=== PATIENT | male | born 1945 | race Caucasian/White ===

== ENCOUNTER → 2018-06-23 16:50 | Outpatient (CLI) | payer MEDICARE, SELFPAY ==
[2016-11-15 20:06] VITALS: BMI 44.4
--- NOTE | 2018-06-23 16:56 | RAD_ITS ---
STUDY: X-RAY CHEST REASON FOR EXAM: Male, 72 years old. Cough TECHNIQUE: Frontal and lateral views of the chest were obtained. COMPARISON: May 13, 2017 FINDINGS: Lines and tubes: None. Lungs: Hyperinflated. Increased interstitial markings throughout the lungs without focal airspace opacities. Pleura: No demonstrated abnormality. Mediastinum/simona: Unremarkable. Cardiovascular: Normal size cardiac silhouette. Central vascularity unremarkable. Tortuous thoracic aorta. Soft tissues: Unremarkable. Bones: Degenerative changes in spine and shoulders. Upper abdomen: No demonstrated abnormality. RAD/Chest PA and Lateral IMPRESSION: No evidence of focal consolidation or pleural effusion. Stable COPD. There is minimal bibasilar atelectasis. Electronically Signed: Francine Mora MD at 10:59 EST Tel Direct: [phone], Service support ,
== END ==
PROVIDERS: Family Provider Nurse Practitioner Family; PCP Nurse Practitioner Family; Referring Provider Internal Medicine Pulmonary Disease; Visit Provider Internal Medicine Pulmonary Disease
DX: J18.9 Pneumonia, unspecified organism (principal)
CPT/HCPCS: 71046

== ENCOUNTER → 2020-02-18 08:15 | Outpatient (CLI) | payer MEDICARE, SELFPAY ==
[2016-11-15 20:06] VITALS: BMI 44.4
[2020-02-18 09:18] LABS: Hematocrit 42.8 % (40-54); Hemoglobin 13.9 g/dL (13.0-16.5); Mean Corp Hgb Conc 32.5 g/dL (32-36); Mean Corpuscular Volume 92.4 fL (80-94); Mean Platelet Vol. 10.7 fl (6.2-12.0); Platelet Count 264 K/mm3 (150-450); RBC Distribution Width SD 47.4 fl (35.1-43.9); Red Blood Count 4.63 M/mm3 (4.6-6.2); White Blood Count 5.9 K/mm3 (4.4-11.0)
[2020-02-18 09:59] LABS: ALB/GLOB Ratio 1.2 RATIO (0.9-2.4); AST(SGOT) 21 U/L (15-37); Alanine Aminotransfer ALT/SGPT 36 U/L (16-61); Albumin, Serum 3.7 g/dL (3.2-5.0); Alkaline Phosphatase 58 U/L (45-117); Anion Gap 7 (5-15); BUN 25 mg/dL (7-18); BUN/Creat Ratio 28.8 RATIO (10-20); Calcium,Total 8.9 mg/dL (8.5-10.1); Chloride 106 mmol/L (98-107); Cholesterol 141 mg/dL (200); Creatinine, Serum 0.87 mg/dL (0.70-1.30); EST Glomerular Filtration Rate 91 mL/min (>60); Est Glom Filt Rate - Afr Amer 111 mL/min (>60); Globulin 3.1 g/dL (2.2-4.2); Glucose 85 mg/dL (74-106); High Density Lipoprotein 44 mg/dL; Potassium 3.5 mmol/L (3.5-5.1); Protein, Total 6.8 g/dL (6.4-8.2); Sodium Level 141 mmol/L (136-145); Triglycerides 105 mg/dL; Uric Acid 5.4 mg/dL (3.5-7.2); Very Low Density Lipoprotein 21 mg/dL (5-40)
== END ==
PROVIDERS: PCP Nurse Practitioner Family; Referring Provider Nurse Practitioner Family; Visit Provider Nurse Practitioner Family
DX: I10 Essential (primary) hypertension (principal); E78.5 Hyperlipidemia, unspecified; M10.9 Gout, unspecified
CPT/HCPCS: 36415; 80053; 80061; 84550; 85027

== ENCOUNTER → 2020-08-08 08:58 | Outpatient (CLI) | payer MEDICARE, SELFPAY ==
[2020-08-08 10:08] LABS: Hematocrit 45.1 % (40-54); Hemoglobin 14.6 g/dL (13.0-16.5); Mean Corp Hgb Conc 32.4 g/dL (32-36); Mean Corpuscular Hgb 30.2 pg (27.0-32.0); Mean Corpuscular Volume 93.2 fL (80-94); Mean Platelet Vol. 10.6 fl (6.2-12.0); Platelet Count 272 K/mm3 (150-450); RBC Distribution Width CV 13.8 % (11.6-14.6); RBC Distribution Width SD 46.9 fl (35.1-43.9); Red Blood Count 4.84 M/mm3 (4.6-6.2)
[2020-08-08 10:49] LABS: ALB/GLOB Ratio 1.2 RATIO (0.9-2.4); AST(SGOT) 15 U/L (15-37); Alanine Aminotransfer ALT/SGPT 30 U/L (16-61); Albumin, Serum 3.8 g/dL (3.2-5.0); Alkaline Phosphatase 58 U/L (45-117); Anion Gap 6 (5-15); BUN 17 mg/dL (7-18); BUN/Creat Ratio 20.5 RATIO (10-20); Calcium,Total 9.4 mg/dL (8.5-10.1); Chloride 109 mmol/L (98-107); Cholesterol 152 mg/dL (200); Creatinine, Serum 0.83 mg/dL (0.70-1.30); EST Glomerular Filtration Rate 96 mL/min (>60); Est Glom Filt Rate - Afr Amer 116 mL/min (>60); Globulin 3.1 g/dL (2.2-4.2); Glucose 81 mg/dL (74-106); High Density Lipoprotein 50 mg/dL; Potassium 3.6 mmol/L (3.5-5.1); Protein, Total 6.9 g/dL (6.4-8.2); Sodium Level 143 mmol/L (136-145); Triglycerides 109 mg/dL; Very Low Density Lipoprotein 22 mg/dL (5-40)
== END ==
PROVIDERS: PCP Nurse Practitioner Family; Referring Provider Nurse Practitioner Family; Visit Provider Nurse Practitioner Family
DX: E78.5 Hyperlipidemia, unspecified (principal); I10 Essential (primary) hypertension; N40.0 Benign prostatic hyperplasia without lower urinary tract symptoms
CPT/HCPCS: 36415; 80053; 80061; 84153; 85027; G0103

== ENCOUNTER 2021-08-20 08:13 | Outpatient (CLI) | payer MEDICARE, SELFPAY ==
[2021-08-20 09:33] LABS: Hematocrit 44.1 % (40-54); Hemoglobin 14.5 g/dL (13.0-16.5); Mean Corp Hgb Conc 32.9 g/dL (32-36); Mean Corpuscular Hgb 30.3 pg (27.0-32.0); Mean Corpuscular Volume 92.1 fL (80-94); Mean Platelet Vol. 11.2 fl (6.2-12.0); Platelet Count 276 K/mm3 (150-450); RBC Distribution Width CV 14.5 % (11.6-14.6); RBC Distribution Width SD 48.7 fl (35.1-43.9); Red Blood Count 4.79 M/mm3 (4.6-6.2); White Blood Count 8.1 K/mm3 (4.4-11.0)
[2021-08-20 10:08] LABS: ALB/GLOB Ratio 1.2 RATIO (0.9-2.4); AST(SGOT) 21 U/L (15-37); Alanine Aminotransfer ALT/SGPT 31 U/L (16-61); Albumin, Serum 3.8 g/dL (3.2-5.0); Alkaline Phosphatase 55 U/L (45-117); Anion Gap 5 (5-15); BUN 17 mg/dL (7-18); BUN/Creat Ratio 20.8 RATIO (10-20); Calcium,Total 9.6 mg/dL (8.5-10.1); Chloride 110 mmol/L (98-107); Cholesterol 138 mg/dL (200); Creatinine, Serum 0.82 mg/dL (0.70-1.30); EST Glomerular Filtration Rate 97 mL/min (>60); Est Glom Filt Rate - Afr Amer 118 mL/min (>60); Globulin 3.1 g/dL (2.2-4.2); Glucose 95 mg/dL (74-106); High Density Lipoprotein 51 mg/dL; PSA,Total - Annual Screen 0.29 ng/mL (0.00-4.00); Potassium 3.6 mmol/L (3.5-5.1); Protein, Total 6.9 g/dL (6.4-8.2); Sodium Level 141 mmol/L (136-145); Triglycerides 89 mg/dL; Uric Acid 4.6 mg/dL (3.5-7.2); Very Low Density Lipoprotein 18 mg/dL (5-40)
[2021-08-23 10:09] LABS: Testosterone, Free 6.42 ng/dL (5.00-21.00)
[2021-08-23 16:25] LABS: Testosterone, % Free 1.55 % (1.50-4.20); Testosterone, Total 414 ng/dL (264-916)
== END 2021-08-20 23:59 | disposition home or self-care (01) ==
LOC: LAB 08:16
PROVIDERS: PCP Nurse Practitioner Family; Referring Provider Nurse Practitioner Family; Visit Provider Nurse Practitioner Family
DX: I10 Essential (primary) hypertension (principal); E78.5 Hyperlipidemia, unspecified; Z12.5 Encounter for screening for malignant neoplasm of prostate; M10.9 Gout, unspecified; N52.9 Male erectile dysfunction, unspecified
CPT/HCPCS: 36415; 80053; 80061; 84153; 84402; 84403; 84550; 85027; G0103

== ENCOUNTER → 2022-02-20 | Outpatient (CLI) | payer MEDICARE, SELFPAY ==
[2022-02-20 10:23] LABS: ALB/GLOB Ratio 1.3 RATIO (0.9-2.4); AST(SGOT) 16 U/L (15-37); Alanine Aminotransfer ALT/SGPT 26 U/L (16-61); Albumin, Serum 3.9 g/dL (3.2-5.0); Alkaline Phosphatase 50 U/L (45-117); Anion Gap 6 (5-15); BUN 21 mg/dL (7-18); BUN/Creat Ratio 25.4 RATIO (10-20); Calcium,Total 9.3 mg/dL (8.5-10.1); Chloride 108 mmol/L (98-107); Cholesterol 146 mg/dL (200); Creatinine, Serum 0.83 mg/dL (0.70-1.30); EST Glomerular Filtration Rate 96 mL/min (>60); Est Glom Filt Rate - Afr Amer 116 mL/min (>60); Globulin 3.1 g/dL (2.2-4.2); Glucose 89 mg/dL (74-106); High Density Lipoprotein 48 mg/dL; Potassium 3.7 mmol/L (3.5-5.1); Sodium Level 142 mmol/L (136-145); Triglycerides 90 mg/dL; Uric Acid 4.5 mg/dL (3.5-7.2); Very Low Density Lipoprotein 18 mg/dL (5-40)
== END | disposition home or self-care (01) ==
LOC: LAB 08:46
PROVIDERS: PCP Nurse Practitioner Family; Referring Provider Nurse Practitioner Family; Visit Provider Nurse Practitioner Family
DX: I10 Essential (primary) hypertension (principal); E78.5 Hyperlipidemia, unspecified; M10.9 Gout, unspecified
CPT/HCPCS: 36415; 80053; 80061; 84550

== ENCOUNTER → 2022-08-28 | Outpatient (CLI) | payer MEDICARE, SELFPAY ==
[2022-08-28 09:05] LABS: Microalbumin,Random Urine 67.5 mg/L (NO RANGE EST.)
[2022-08-28 09:14] LABS: ALB/GLOB Ratio 1.5 RATIO (0.9-2.4); AST(SGOT) 24 U/L (15-37); Alanine Aminotransfer ALT/SGPT 34 U/L (16-61); Alkaline Phosphatase 49 U/L (45-117); Anion Gap 7 (5-15); BUN 17 mg/dL (7-18); BUN/Creat Ratio 20.9 RATIO (10-20); Calcium,Total 9.4 mg/dL (8.5-10.1); Chloride 109 mmol/L (98-107); Cholesterol 145 mg/dL (200); Creatinine, Serum 0.81 mg/dL (0.70-1.30); EST Glomerular Filtration Rate 98 mL/min (>60); Est Glom Filt Rate - Afr Amer 118 mL/min (>60); Globulin 2.7 g/dL (2.2-4.2); Glucose 104 mg/dL (74-106); High Density Lipoprotein 53 mg/dL; PSA,Total - Annual Screen 0.34 ng/mL (0.00-4.00); Potassium 3.7 mmol/L (3.5-5.1); Protein, Total 6.7 g/dL (6.4-8.2); Sodium Level 142 mmol/L (136-145); Triglycerides 101 mg/dL; Uric Acid 4.3 mg/dL (3.5-7.2); Very Low Density Lipoprotein 20 mg/dL (5-40)
== END | disposition home or self-care (01) ==
LOC: LAB 08:14
PROVIDERS: PCP Nurse Practitioner Family; Referring Provider Nurse Practitioner Family; Visit Provider Nurse Practitioner Family
DX: I10 Essential (primary) hypertension (principal); E78.5 Hyperlipidemia, unspecified; M10.9 Gout, unspecified; G47.33 Obstructive sleep apnea (adult) (pediatric); Z12.5 Encounter for screening for malignant neoplasm of prostate
CPT/HCPCS: 36415; 80053; 80061; 82043; 84153; 84550; G0103

== ENCOUNTER → 2022-11-18 | Outpatient (CLI) | payer MEDICARE, SELFPAY ==
--- NOTE | 2022-11-18 09:55 | RAD_ITS ---
STUDY: X-RAY - LUMBAR SPINE REASON FOR EXAM: Male, 77 years old. LUMBAR STRAIN/DDD TECHNIQUE: XR Spine Lumbar Min 4 Views COMPARISON: None FINDINGS: Normal lumbar lordosis. There is a levoscoliosis of the lumbar spine. There is a normal alignment of the vertebrae. There is multilevel endplate spondylosis of the lumbar vertebrae. There is multi-level degenerative disc disease with multi-level disc space narrowing. There is atherosclerotic calcification of the abdominal aorta without a demonstrated aneurysm. RAD/L/S Spine Min 4 Views IMPRESSION: Degenerative changes of the spine, as detailed above. Electronically Signed: Richard Morales MD at 19:10 EDT ,
== END | disposition home or self-care (01) ==
LOC: RAD 09:41
PROVIDERS: PCP Nurse Practitioner Family; Referring Provider Chiropractor; Visit Provider Chiropractor
DX: S33.5XXA Sprain of ligaments of lumbar spine, initial encounter (principal); X58.XXXA Exposure to other specified factors, initial encounter
CPT/HCPCS: 72110

== ENCOUNTER → 2023-03-07 | Outpatient (CLI) | payer MEDICARE, SELFPAY ==
[2023-03-07 10:50] LABS: ALB/GLOB Ratio 1.3 RATIO (0.9-2.4); AST(SGOT) 15 U/L (15-37); Alanine Aminotransfer ALT/SGPT 29 U/L (16-61); Albumin, Serum 3.9 g/dL (3.2-5.0); Alkaline Phosphatase 53 U/L (45-117); Anion Gap 5 (5-15); BUN 23 mg/dL (7-18); BUN/Creat Ratio 28.4 RATIO (10-20); Calcium,Total 9.2 mg/dL (8.5-10.1); Chloride 111 mmol/L (98-107); Cholesterol 132 mg/dL (200); Creatinine, Serum 0.81 mg/dL (0.70-1.30); EST Glomerular Filtration Rate 98 mL/min (>60); Est Glom Filt Rate - Afr Amer 119 mL/min (>60); Glucose 89 mg/dL (74-106); High Density Lipoprotein 53 mg/dL; Microalbumin,Random Urine 26.7 mg/L (NO RANGE EST.); Microalbumin:Creatinine Ratio 34.4 mg/g CRE (<30 mg/g CRE); Potassium 3.8 mmol/L (3.5-5.1); Protein, Total 6.9 g/dL (6.4-8.2); Sodium Level 143 mmol/L (136-145); Triglycerides 87 mg/dL; Uric Acid 4.5 mg/dL (3.5-7.2); Very Low Density Lipoprotein 17 mg/dL (5-40)
== END | disposition home or self-care (01) ==
LOC: LAB 08:51
PROVIDERS: PCP Nurse Practitioner Family; Referring Provider Nurse Practitioner Family; Visit Provider Nurse Practitioner Family
DX: I10 Essential (primary) hypertension (principal); E78.5 Hyperlipidemia, unspecified; M10.9 Gout, unspecified
CPT/HCPCS: 36415; 80053; 80061; 82043; 82570; 84550

== ENCOUNTER → 2023-03-26 | Outpatient (CLI) | payer MEDICARE, SELFPAY ==
--- NOTE | 2023-03-26 13:46 | CT_ITS ---
INDICATION: RUQ PAIN EXAMINATION: CT ABDOMEN WITHOUT CONTRAST - CT Abdomen W/O Contrast Injection TECHNIQUE: Multiple axial images were obtained of the abdomen without oral or IV contrast. A radiation dose optimization technique was used for this scan. IV Contrast dosage and agent: None. Oral contrast: None. RADIATION DOSAGE (If Supplied By Facility): CTDIvol = ( 22.43 ) mGy, DLP = ( 812.14 ) mGycm COMPARISON: No relevant prior comparison study available FINDINGS: LOWER CHEST: Lung bases are clear. No cardiomegaly or pericardial effusion. Coronary calcifications present. LIVER: Homogeneous. No focal mass. GALLBLADDER AND BILIARY TREE: Cholelithiasis. No gallbladder distension or wall edema. No intra- or extrahepatic biliary ductal dilation. PANCREAS: No focal cystic or solid mass. SPLEEN: Normal size without focal cystic or solid mass. Calcified granuloma inferiorly. ADRENAL GLANDS: No nodules. KIDNEYS AND URETERS: Normal renal size and position. No hydronephrosis or nephrolithiasis. Parapelvic cyst on the left is benign. No follow-up imaging is noted. PERITONEUM: No ascites or free air. No other fluid collection. BOWEL: No stomach or bowel distension. No focal inflammatory change. LYMPH NODES: Calcified lymph node in the epigastrium, just above the celiac axis on the right. No lymphadenopathy by size criteria. VESSELS: Aorta is non-dilated. ABDOMINAL WALL: No discrete abdominal wall hernia. BONES: No acute or suspicious osseous abnormalities. Degenerative changes present throughout the spine. CT/Abdomen without IV Contrast IMPRESSION: * Cholelithiasis without gallbladder distention or pericholecystic inflammation that might suggest cholecystitis. Nevertheless, if there is persistent concern for cholecystitis, recommend right upper quadrant ultrasound. * Evidence of prior granulomatous disease. Electronically Signed: Lito España MD at 15:40 EDT Reading Location ID and State: [address] [place] [address] Tel , Service support ,
== END | disposition home or self-care (01) ==
LOC: CT 13:45
PROVIDERS: PCP Nurse Practitioner Family; Referring Provider Nurse Practitioner Family; Visit Provider Nurse Practitioner Family
DX: R93.89 Abnormal findings on diagnostic imaging of other specified body structures (principal)
CPT/HCPCS: 74150

== ENCOUNTER → 2023-04-09 | Outpatient (CLI) | payer MEDICARE, SELFPAY ==
--- NOTE | 2023-04-09 08:56 | US_ITS ---
STUDY: ABDOMINAL ULTRASOUND - RIGHT UPPER QUADRANT REASON FOR VISIT: Male, 77 years old CHOLELITHIASIS seen on recent CT TECHNIQUE: Ultrasound evaluation of the right upper quadrant was performed with real-time and static ravi-scale imaging. TECHNICAL QUALITY: Limited. Examination limited due to a combination of factors including obesity and bowel gas. COMPARISON: CT scan 03/26/2023. FINDINGS: Liver: The liver measures 20 cm. There is a heterogeneous echogenicity of the liver. The bile ducts are dilated. There is hepatic color flow. The direction of portal flow is hepatopetal. There is no demonstrated mass lesion. Gallbladder: Normal distended gallbladder. The gallbladder wall measures 2.7 mm. There is a negative sonographic Menon''s sign. There is no pericholecystic fluid. There are multiple echogenic structures within the gallbladder, consistent with multiple gallstones. Common Bile Duct (C.B.D.): The common bile duct measures 4 mm. Pancreas: Normal size of the head, body of the pancreas. Tail of the pancreas is suboptimally seen. There is normal echogenicity of the pancreas. There is no demonstrated pancreatic mass or cyst. Right Kidney: Normal size of the right kidney. The right kidney measures 12.4 cm. Normal renal cortex. The right cortex measures 1.5 cm. There is no demonstrated renal mass or cyst. There is no right hydronephrosis. US/Abdomen Limited IMPRESSION: Limited as above. Confirmation of the cholelithiasis is seen on the previous CT scan. Heterogeneous enlarged liver with intrahepatic bile duct distention. Electronically Signed: Osei Kennedy MD at 17:59 EDT ,
== END | disposition home or self-care (01) ==
LOC: US 08:54
PROVIDERS: PCP Nurse Practitioner Family; Referring Provider Nurse Practitioner Family; Visit Provider Nurse Practitioner Family
DX: K80.20 Calculus of gallbladder without cholecystitis without obstruction (principal)
CPT/HCPCS: 76705

== ENCOUNTER → 2023-04-18 | Outpatient (CLI) | payer MEDICARE, SELFPAY ==
[2023-04-18 08:43] LABS: Absolute Lymphocyte Count 1.33 X10^3/uL (0.83-4.51); Absolute Neutrophil Count 4.7 X10^3/uL (2.0-7.7); Basophil# 0.04 X10^3/uL; Basophil% 0.6 % (0-1); Eosinophils% 4.2 % (0-5); Hematocrit 44.9 % (40-54); Hemoglobin 14.2 g/dL (13.0-16.5); Lymphocyte # 1.33 X10^3/ul (0.83-4.51); Lymphocyte % 18.7 % (19-41); Mean Corp Hgb Conc 31.6 g/dL (32-36); Mean Corpuscular Hgb 29.5 pg (27.0-32.0); Mean Corpuscular Volume 93.2 fL (80-94); Mean Platelet Vol. 10.2 fl (6.2-12.0); Monocyte# 0.68 X10^3/uL; Monocyte% 9.6 % (0-10); NRBC Flagged by Analyzer 0 % (0-5); Neutrophil # 4.72 X10^3/uL (2.7-7.7); Neutrophil % 66.5 % (47-70); Platelet Count 306 K/mm3 (150-450); RBC Distribution Width CV 14.8 % (11.6-14.6); RBC Distribution Width SD 51.1 fl (35.1-43.9); Red Blood Count 4.82 M/mm3 (4.6-6.2); White Blood Count 7.1 K/mm3 (4.4-11.0)
[2023-04-18 08:56] LABS: ALB/GLOB Ratio 1.1 RATIO (0.9-2.4); AST(SGOT) 21 U/L (15-37); Alanine Aminotransfer ALT/SGPT 35 U/L (16-61); Albumin, Serum 3.8 g/dL (3.2-5.0); Alkaline Phosphatase 58 U/L (45-117); Anion Gap 3 (5-15); BUN 17 mg/dL (7-18); Calcium,Total 9.8 mg/dL (8.5-10.1); Chloride 111 mmol/L (98-107); Creatinine, Serum 0.89 mg/dL (0.70-1.30); EST Glomerular Filtration Rate 88 mL/min (>60); Est Glom Filt Rate - Afr Amer 106 mL/min (>60); Globulin 3.6 g/dL (2.2-4.2); Glucose 94 mg/dL (74-106); Potassium 3.7 mmol/L (3.5-5.1); Protein, Total 7.4 g/dL (6.4-8.2); Sodium Level 142 mmol/L (136-145)
== END | disposition home or self-care (01) ==
LOC: PAVLAB 08:25
PROVIDERS: PCP Nurse Practitioner Family; Referring Provider Surgery; Visit Provider Surgery
DX: R10.9 Unspecified abdominal pain (principal)
CPT/HCPCS: 36415; 80053; 85025

== ENCOUNTER → 2023-05-22 | Outpatient (CLI) | payer MEDICARE, SELFPAY ==
--- NOTE | 2023-05-22 10:26 | MRI_ITS ---
MRCP without contrast 05/22/2023 10:46 AM COMPARISON: CT 03/26/2023 CLINICAL HISTORY: CHOLELITHIASIS, RUQ PAIN TECHNIQUE: Multiplanar and multisequence MR images of the abdomen were obtained with MRCP sequence. Three-dimensional post-processing reconstructions were performed. FINDINGS: Liver: Unremarkable Gallbladder: There are are few small T2 dark stones. Bile Ducts: No intra or extrahepatic biliary duct dilatation. Pancreas: The main pancreatic duct performed to the hairpin turn in the pancreatic head before draining into the major papilla. Spleen: Unremarkable Adrenal Glands: Unremarkable Kidneys: Multiple simple renal cysts. GI Tract: Unremarkable Lymphadenopathy: Absent Ascites: Absent Bones: No suspicious lesions MRI/MRCP Abdomen without Contrast IMPRESSION: Cholelithiasis without evidence of acute cholecystitis or choledocholithiasis. Meandering main pancreatic duct. Electronically Signed: Jonny Henning MD at 21:28 EST ,
== END | disposition home or self-care (01) ==
LOC: MRI 10:14
PROVIDERS: PCP Nurse Practitioner Family; Referring Provider Nurse Practitioner Family; Visit Provider Nurse Practitioner Family
DX: K80.20 Calculus of gallbladder without cholecystitis without obstruction (principal); R10.11 Right upper quadrant pain
CPT/HCPCS: 74181

== ENCOUNTER 2023-07-25 10:30 | Outpatient (RCR) | payer MEDICARE, SELFPAY ==
--- NOTE | 2023-06-27 14:35 | HP.PTEVAL ---
Patient's Visit Information Visit Information Visit Information: MIGEL MAGANA is a 77 year old M referred to Physical Therapy by Dr. Nicholas Rubio MD with a diagnosis of BILATERAL PRIMARY OSTEOARTHRITIS ,PAIN IN RIGHT HIP ,PAIN IN LEFT HIP. Date of Evaluation: 06/27/23 Physical Therapist: Yuri Weller, PT, Cert MDT, OCS Visit Plan Frequency: 2x /Week Duration: 4 Weeks Plan: PT INTERVTENSIONS AQUATIC THERAPY ROM/STRENGTHENING BILATERAL HIPS ,FUNCTIONAL STRENGTHENING AND DLS Subjective Subjective: This 77 y/o male presents to physical therapy with bilateral hip pain. Patient has had hip pain since last year September . Patient pain progressively worse thus seen DR Rubio . Patient had x-rays showed DJD hips . Patient has pain LS/SI pain. Patient on 6 day pack of prednisone. Recommended Aquatic therapy .Patient has seen chiropractor for back pain. Patient to inbuprofron affects colon thus seen , but is doing better. Denies paresthesia/tingling-. Bowel/bladder -. Pain affects sleeping with turning. Aggravating factors standing LS and walking ,stairs. Alleviating factors rest. Patient has some difficulty with squatting/kneeling. Patient pain affects QOL and function. Patient goals to decrease pain. 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 Bilateral Back: Pain Intensity (Out of 10): 4 Pain Intensity Range: 10 Comment: LS Objective Objective: POSTURE: mild forward posture GAIT: reciprocal pattern with waddle gait pattern glut Medius weakness NEURO: intact ,denies paresthesia/tingling SYMMTIRES: align MMT: quads/hams 4/5 ,(peak force) hip flexion 43.8 right ,left 42.1 ,hip abduction right 15.2 ,left 20.1 STAIRS: alternating with rails LUMBAR ROM: flexion min loss ,extension mod loss PROM: hip flexion 95 degrees ,hip abd 42 degrees ,IR 15 degrees Special Tests L/S Slump test left side: Negative L/S Slump test right side: Negative L/S Left Straight Leg Raise: Negative L/S Right Straight Leg Raise: Negative R Hip Scour: Negative R Hip Quadrant - Intraarticular Pathology: Negative R Hip GREGORIO - Intraarticular Pathology: Negative R Hip Trendelenberg - Glut Medius: Positive R Hip Kathryn - IT Band: Negative L Hip Scour: Negative L Hip Quadrant - Intraarticular Pathology: Negative L Hip GREGORIO - Intraarticular Pathology: Negative L Hip Trendelenberg - Glut Medius: Positive L Hip Kathryn - IT Band: Negative Balance/Special Test Scores Lower Extremity Functional Score: 28 Goals Goal 1:: I with Aquatics for hips strengthening Goal Time Frame: 4-6 Weeks Goal 2:: Patient to improve peak force by 5-10 # to improve gait Goal Time Frame: 4-6 Weeks Goal 3:: Patient to improve LFES score by 5 points to improve QOL and function Goal Time Frame: 4-6 Weeks Goal 4:: Patient to demonstrate 50% improvement with decrease pain and improved function Goal Time Frame: 4-6 Weeks Goal 5:: Patient to improve quality of gait with less lateral sway 80% of the time Goal Time Frame: 4-6 Weeks Rehabilitation Potential Physical Therapy Diagnosis: This patient has bilateral hip pain with weakness of glut Medius which affects walking and standing causes LS pain thus benefit from skilled PT Rehabilitation Potential: Good Anticipated Interventions Patient/Client Instruction: Educate patient on: Condition and Plan of Care For the Purpose of:: To decrease pain, To increase ROM, To improve muscle performance and motor function, To improve ability to perform ADL's, To increase tolerance to activity/condition/position, To improve ability of physical actions for home/community/work/leisure, To improve health of tissue, To decrease soft tissue restriction, To increase flexibility/ROM, To improve balance and To improve tolerance to ADL's Therapeutic Exercise to Include: Strength training, Endurance training, Balance training, Flexibilty training, In an aquatic setting and Active ROM Comment: hipS For the Purpose of:: To decrease pain, To increase ROM, To improve muscle performance and motor function, To improve ability to perform ADL's, To improve ability of physical actions for home/community/work/leisure, To improve health of tissue, To decrease soft tissue restriction, To increase flexibility/ROM, To improve endurance, To improve balance, To reduce risk of recurrence and To improve tolerance to ADL's Text: Thank you for the opportunity to evaluate your patient. For Medicare and Medicare HMO plans, please review the plan of care and approve it. It will need to be FAXED BACK to us at [phone] for Medicare purposes. For Medicare only, by signing this I certify the plan of care. Please let me know if there are questions or concerns regarding this plan of care. Physician Signature: Date:
--- NOTE | 2023-07-25 11:02 | HP.PTDCSUM ---
Discharge Summary D/C summary: It has been my pleasure to treat MIGEL MAGANA referred by Dr. Nicholas Rubio MD, with the diagnosis of BILATERAL PRIMARY OSTEOARTHRITIS ,PAIN IN RIGHT HIP ,PAIN IN LEFT HIP for a total of 9 visit(s). Discharge Date: Please see the following information for a summary of their discharge status. Subjective Subjective: Doing good Doing more walking better, able to put on socks Pain Bilateral Back: Pain Intensity (Out of 10): 0 Overall Improvement % Improvement: 60 Objective Objective/Function: POSTURE: mild forward posture GAIT: reciprocal pattern with less waddle gait pattern glut Medius weakness NEURO: intact ,denies paresthesia/tingling SYMMTIRES: align MMT: quads/hams 4/5 ,(peak force) hip flexion 53.7 right ,left 52.1 ,hip abduction right 30.2 ,left 42.1 STAIRS: alternating with rails LUMBAR ROM: flexion WFL ,extension min loss PROM: hip flexion 100 degrees ,hip abd 45 degrees ,IR 25 degrees Goals Goal 1:: I with Aquatics for hips strengthening Goal Progress: Goal Met Goal 2:: Patient to improve peak force by 5-10 # to improve gait Goal Progress: Goal Met Goal 3:: Patient to improve LFES score by 5 points to improve QOL and function Goal Progress: Goal Met Goal 4:: Patient to demonstrate 50% improvement with decrease pain and improved function Goal 5:: Patient to improve quality of gait with less lateral sway 80% of the time Goal Progress: Goal Met Plan Plan: D/C D/C Information d/c sentence: If there are questions or concerns regarding this patient's physical therapy, please feel free to call me at [phone]. Thank you for the referral of this patient. Sincerely, Yuri Weller, PT, Cert MDT, OCS Balance/Gait/Functional tests Balance/Special Test Scores Lower Extremity Functional Score: 58 Improvement % Improvement: 60
== END 2023-07-25 19:00 | disposition home or self-care (01) ==
LOC: PT 10:30
PROVIDERS: PCP Nurse Practitioner Family; Visit Provider Specialist
DX: M16.0 Bilateral primary osteoarthritis of hip (principal); M25.551 Pain in right hip; M25.552 Pain in left hip
CPT/HCPCS: 97113; 97162; 97530

== ENCOUNTER → 2023-09-02 | Outpatient (CLI) | payer MEDICARE, SELFPAY ==
[2023-09-02 11:38] LABS: Microalbumin,Random Urine 38.3 mg/L (NO RANGE EST.); Microalbumin:Creatinine Ratio 158.9 mg/g CRE (<30 mg/g CRE)
[2023-09-02 11:53] LABS: AST(SGOT) 15 U/L (15-37); Alanine Aminotransfer ALT/SGPT 23 U/L (16-61); Albumin, Serum 3.5 g/dL (3.2-5.0); Alkaline Phosphatase 56 U/L (45-117); Anion Gap 12 (5-15); BUN 18 mg/dL (7-18); BUN/Creat Ratio 22.6 RATIO (10-20); Calcium,Total 9.4 mg/dL (8.5-10.1); Chloride 105 mmol/L (98-107); Cholesterol 136 mg/dL (200); EST Glomerular Filtration Rate 100 mL/min (>60); Est Glom Filt Rate - Afr Amer 121 mL/min (>60); Globulin 3.5 g/dL (2.2-4.2); Glucose 92 mg/dL (74-106); High Density Lipoprotein 50 mg/dL; PSA,Total - Annual Screen 0.41 ng/mL (0.00-4.00); Potassium 3.8 mmol/L (3.5-5.1); Sodium Level 141 mmol/L (136-145); Triglycerides 116 mg/dL; Uric Acid 4.7 mg/dL (3.5-7.2); Very Low Density Lipoprotein 23 mg/dL (5-40)
== END | disposition home or self-care (01) ==
LOC: LAB 10:33
PROVIDERS: PCP Nurse Practitioner Family; Referring Provider Nurse Practitioner Family; Visit Provider Nurse Practitioner Family
DX: Z12.5 Encounter for screening for malignant neoplasm of prostate (principal); M10.9 Gout, unspecified; I10 Essential (primary) hypertension; E78.5 Hyperlipidemia, unspecified
CPT/HCPCS: 36415; 80053; 80061; 82043; 82570; 84153; 84550; G0103

== ENCOUNTER → 2023-09-18 | Outpatient (CLI) | payer MEDICARE, SELFPAY ==
--- NOTE | 2023-09-18 07:10 | MRI_ITS ---
ACR Level 3 findings have been noted. An addendum which confirms receipt of the report will follow. EXAM: MR LUMBAR SPINE WITHOUT INTRAVENOUS CONTRAST CLINICAL INDICATION: CHRONIC PAIN,RADICULOPATHY,NEW ONSET FECAL INCONTINENCE TECHNIQUE: Multiplanar and multisequence MR images of the lumbar spine without intravenous contrast. COMPARISON: No relevant prior studies available. FINDINGS: VERTEBRAE: Degenerative changes throughout the cervical and thoracic spine with at least mild multilevel spinal canal and neural foraminal stenosis partially evaluated on counting sequence. Mild Modic type II endplate signal changes throughout the lumbar spine particularly the inferior endplate of L2 and the superior endplate of L3. No suspicious marrow space signal abnormalities are identified. Vertebral body heights are preserved. Normal alignment. No spondylolisthesis. There is preservation of the normal lumbar lordosis. SPINAL CORD: No significant abnormality. Normal position and signal intensity of the conus medullaris. SOFT TISSUES: No significant abnormality. KIDNEYS AND URETERS: Right renal cyst for which no follow-up is indicated. DISCS/SPINAL CANAL/NEURAL FORAMINA: L1-L2: Disc height loss and disc desiccation. Disc bulge and right foraminal to extraforaminal disc herniation. Moderate bilateral facet arthrosis. Mild spinal canal stenosis and moderate right greater than left neural foraminal narrowing. L2-L3: Marked disc height loss and disc desiccation. Disc bulge with central disc herniation and moderate to severe bilateral facet arthrosis. Moderate spinal canal stenosis and moderate bilateral neural foraminal narrowing. Impingement of the bilateral L3 nerve roots. L3-L4: Disc height loss and disc desiccation. Disc bulge and severe bilateral facet arthrosis. Moderate spinal canal stenosis and moderate bilateral neural foraminal narrowing. Left L3 and bilateral L4 nerve root impingement. L4-L5: Marked bilateral facet arthrosis with ligamentum flavum thickening. Left-sided internal facet synovial cyst. Mild disc bulge. Moderate to severe spinal canal stenosis with crowding of the intrathecal nerve roots and moderate to severe bilateral neural foraminal narrowing. Bilateral L4 and bilateral L5 nerve root impingement. L5-S1: Disc bulge and small left central to subarticular disc herniation and moderate to severe bilateral facet arthrosis. Mild spinal canal stenosis and moderate to severe bilateral neural foraminal narrowing. Bilateral L5 and left S1 nerve root impingement. OTHER FINDINGS: Age-appropriate volume loss in the visualized brain parenchyma. 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 MRI/Spine Lumbar (Routine) IMPRESSION: 1. Multilevel degenerative changes throughout the lumbar spine resulting in variable degrees of spinal canal and neural foraminal stenosis detailed above. Bilateral L3, bilateral L4, bilateral L5, and left S1 nerve root impingement. Consider spine surgical consultation if not already performed. 2. Age-appropriate volume loss in the visualized brain parenchyma. 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 Consider follow-up MRI brain of clinically indicated. 3. Degenerative changes throughout the cervical and thoracic spine with at least mild multilevel spinal canal and neural foraminal stenosis partially evaluated on counting sequence. If there is clinical concern for pathology in these regions, consider dedicated imaging. Electronically Signed: Joce Randle DO at 23:58 EDT ,
== END | disposition home or self-care (01) ==
LOC: MRI 07:08
PROVIDERS: PCP Nurse Practitioner Family; Referring Provider Nurse Practitioner Family; Visit Provider Nurse Practitioner Family
DX: M54.16 Radiculopathy, lumbar region (principal); R15.9 Full incontinence of feces; G89.29 Other chronic pain
CPT/HCPCS: 72148

== ENCOUNTER → 2023-10-10 | Outpatient (CLI) | payer MEDICARE, SELFPAY ==
--- NOTE | 2023-10-10 08:13 | MRI_ITS ---
EXAM: MR HEAD WITHOUT AND WITH INTRAVENOUS CONTRAST CLINICAL INDICATION: PARENCHYMAL CALCIFICATION TECHNIQUE: Multiplanar and multisequence MR images of the brain were obtained without and with intravenous contrast. CONTRAST: IV 23cc Clariscan COMPARISON: No relevant prior studies available. FINDINGS: BRAIN AND EXTRA-AXIAL SPACES: Negative of FLAIR No intra- or extra-axial hemorrhage. No evidence of acute infarct. No intracranial mass or mass effect. Normal preservation of the ravi/white matter interface. Posterior fossa structures are unremarkable. Ventricles are appropriate for age. No hydrocephalus. Basal cisterns are patent. No abnormal contrast enhancement. SELLA: Normal. Normal sella turcica, pituitary gland, infundibular stalk, optic chiasm and hypothalamus. AUDITORY SYSTEM: Normal. The internal auditory canals are patent. BONES/JOINTS: Intact calvarium. SINUSES: Unremarkable as visualized. Clear. MASTOID AIR CELLS: Unremarkable as visualized. Clear. ORBITS: Unremarkable as visualized. Both globes, extraocular muscles, optic nerves and retrobulbar fat appear unremarkable. VASCULATURE: Unremarkable as visualized. Normal flow voids in the major intracranial circulation. MRI/Brain W/WO Contrast IMPRESSION: 1. No acute intracranial abnormality. 2. Senescent changes. Electronically Signed: Ace Dallas MD at 13:44 EDT ,
[2023-10-10 08:37] LABS: CREATININE FINGERSTICK < 1.0 mg/dL (0.70-1.30); EGFR FINGERSTICK > 60.0000 mL/min (>60)
--- NOTE | 2023-10-10 09:24 | ECHOCS_ITS ---
Reason For Study: Murmur Procedure This was a 2D Doppler, Color Flow transthoracic echocardiogram. The study was technically difficult. Exam performed in department. Left Ventricle Normal LV size. The estimated ejection fraction is 50 %. Hypokinesis of the septum. Right Ventricle Normal RV size. Normal systolic function. Atria Normal left atrium. Normal right atrium. No doppler evidence for ASD. Bubble contrast study negative for right to left interatrial shunt. Mitral Valve There is no mitral valve stenosis. Trivial mitral valve insufficiency. Tricuspid Valve There is no tricuspid stenosis. Trivial tricuspid valve insufficiency. Pulmonary artery systolic pressure is 45 mmHg. Aortic Valve There is no aortic stenosis. No aortic valve insufficiency. Pulmonic Valve There is no pulmonic valvular stenosis. Trivial pulmonic valve insufficiency. Great Vessels Normal aortic root. Pericardium/Pleural No pericardial effusion. Medication Performed a rapid injection of agitated mix of 9 cc saline and 1cc air to assess for atrial septal defect. Diluted definity 2.0ml given slow IV push to enhance endocardial definition. MMode/2D Measurements & Calculations LVIDd: 5.3 cm IVSd: 1.1 cm Ao root diam: 3.6 cm LVIDs: 4.4 cm LVPWd: 1.1 cm RVDd: 3.6 cm FS: 16.7 % LAV(MOD-bp): 66.6 ml LVAd ap4: 35.4 cm2 LVAd ap2: 29.7 cm2 LAV(MOD-bp) Indexed: 31.3 ml/m2 LVLd ap4: 8.6 cm LVLd ap2: 8.1 cm LAV(MOD-sp2): 78.3 ml EDV(MOD-sp4): 121.5 ml EDV(MOD-sp2): 91.5 ml LAV(MOD-sp4): 50.0 ml EDV(sp4-el): 124.1 ml EDV(sp2-el): 91.8 ml LVAs ap4: 25.3 cm2 LVAs ap2: 21.4 cm2 LVLs ap4: 7.0 cm LVLs ap2: 7.1 cm ESV(MOD-sp4): 76.3 ml ESV(MOD-sp2): 54.9 ml ESV(sp4-el): 77.3 ml ESV(sp2-el): 54.4 ml EF(MOD-sp4): 37.2 % EF(MOD-sp2): 39.9 % EF(sp4-el): 37.7 % SV(MOD-sp4): 45.2 ml SV(MOD-sp2): 36.5 ml SV(sp4-el): 46.8 ml LA A4 area: 18.6 cm2 LA dimension(2D): 3.9 cm RA A4 area: 18.2 cm2 TAPSE: 1.9 cm Time Measurements MV dec time: 0.18 sec Doppler Measurements & Calculations MV E max jas: 97.6 cm/sec Lat Peak E' Jas: 6.5 cm/sec Med Peak E' Jas: 3.8 cm/sec MV A max ajs: 75.1 cm/sec E/E' lat: 14.9 E/E' med: 25.9 MV E/A: 1.3 Ao V2 max: 165.2 cm/sec LV V1 max: 105.3 cm/sec MV dec slope: 556.3 cm/sec2 Ao max P.9 mmHg LV V1 max P.4 mmHg PA V2 max: 92.4 cm/sec TR max jas: 314.1 cm/sec TR max P.5 mmHg ECHO/Echo Complete W/ Contrast Interpretation Summary The estimated ejection fraction is 50 %. Trivial mitral valve insufficiency. Hypokinesis of the septum Ordering Physician: Bernabe Rodriguez Referring Physician: Bernabe Rodriguez Performed By: Mala Navarro RDCS
== END | disposition home or self-care (01) ==
LOC: MRI 07:53
PROVIDERS: PCP Nurse Practitioner Family; Referring Provider Nurse Practitioner Family; Visit Provider Nurse Practitioner Family
DX: Z01.812 Encounter for preprocedural laboratory examination (principal); G93.89 Other specified disorders of brain; R01.1 Cardiac murmur, unspecified; I10 Essential (primary) hypertension; E66.9 Obesity, unspecified
CPT/HCPCS: 70553; 93306; A9575; C8929

== ENCOUNTER → 2024-03-05 | Outpatient (CLI) | payer MEDICARE, SELFPAY ==
[2024-03-05 10:19] LABS: ALB/GLOB Ratio 1.2 RATIO (0.9-2.4); AST(SGOT) 11 U/L (15-37); Alanine Aminotransfer ALT/SGPT 28 U/L (16-61); Albumin, Serum 3.8 g/dL (3.2-5.0); Alkaline Phosphatase 57 U/L (45-117); Anion Gap 6 (5-15); BUN 21 mg/dL (7-18); BUN/Creat Ratio 25.5 RATIO (10-20); Calcium,Total 9.3 mg/dL (8.5-10.1); Chloride 110 mmol/L (98-107); Cholesterol 139 mg/dL (200); Creatinine, Serum 0.82 mg/dL (0.70-1.30); EST Glomerular Filtration Rate 96 mL/min (>60); Est Glom Filt Rate - Afr Amer 116 mL/min (>60); Globulin 3.1 g/dL (2.2-4.2); Glucose 93 mg/dL (74-106); High Density Lipoprotein 58 mg/dL; Potassium 3.7 mmol/L (3.5-5.1); Protein, Total 6.9 g/dL (6.4-8.2); Sodium Level 141 mmol/L (136-145); Triglycerides 159 mg/dL; Uric Acid 5.6 mg/dL (3.5-7.2); Very Low Density Lipoprotein 32 mg/dL (5-40)
[2024-03-05 11:21] LABS: Microalbumin,Random Urine 13.4 mg/L (NO RANGE EST.); Microalbumin:Creatinine Ratio 44.5 mg/g CRE (<30 mg/g CRE)
== END | disposition home or self-care (01) ==
LOC: LAB 08:59
PROVIDERS: PCP Nurse Practitioner Family; Referring Provider Nurse Practitioner Family; Visit Provider Nurse Practitioner Family
DX: I10 Essential (primary) hypertension (principal); E78.5 Hyperlipidemia, unspecified; M10.9 Gout, unspecified
CPT/HCPCS: 36415; 80053; 80061; 82043; 82570; 84550

== ENCOUNTER 2024-04-01 12:03 | Inpatient (IN) | payer MEDICARE, SELFPAY ==
[2024-04-01] VITALS (16 sets, daily range): BP systolic 117–163; BP diastolic 66–80; PULSE 77–89; RESP 18–27; TEMP 36.7–37.4; O2SAT 73–96; BMI 44.8; BMI 45.8
--- NOTE | 2024-04-01 12:43 | EKG12_ITS ---
Test Reason : SOB Blood Pressure : / mmHG Vent. Rate : 079 BPM Atrial Rate : 079 BPM P-R Int : 182 ms QRS Dur : 158 ms QT Int : 412 ms P-R-T Axes : 078 -55 096 degrees QTc Int : 472 ms Normal sinus rhythm Left axis deviation Left bundle branch block Abnormal ECG Confirmed by Dre Mora ([id number]), video effects editor MARY HERNANDEZ ([id number]) on 04/02/2024 1:35:34 PM Referred By: Adolfo Benitez Confirmed By:Dre Mora
--- NOTE | 2024-04-01 12:43 | RAD_ITS ---
INDICATION: cough fever hemoptysis EXAMINATION/TECHNIQUE: X-RAY - XR Chest 2 Views COMPARISON: June 23, 2018 FINDINGS: LINES/DEVICES: None. LUNGS: There are bilateral patchy opacities within the mid lungs. No pneumothorax. MEDIASTINUM AND CARDIOVASCULAR STRUCTURES: Cardiac silhouette not enlarged. Central airways and mediastinal contour are unremarkable. BONES AND SOFT TISSUES: Unremarkable. There is a stable calcific density within the right upper mid abdomen. RAD/Chest PA and Lateral IMPRESSION: Bilateral patchy opacities may be secondary to pneumonia and/or edema. Electronically Signed: Nasima Borja MD at 13:50 EDT ,
--- NOTE | 2024-04-01 12:44 | ED.VIS.DYS ---
HPI History of Present Illness Chief Complaint: Shortness of Breath Informant: patient and spouse/S.O. Narrative Narrative: 78-year-old male has had cough that has been productive along with fevers and chills and malaise for 1.5-2 weeks. He was tested for COVID and influenza 2 days ago and tested positive for influenza B. He still has fevers. For the past day or 2 he has been having minor amounts of hemoptysis along with the sputum he continues to cough up. He denies dyspnea. However they came to the ER today because they checked his pulse ox at home and it was in the 70s. He is not on home oxygen. He does not have chronic lung disease although he had aspiration pneumonia in the past and the states that he had abnormal swallow study that puts him at recurrent risk. He has had no vomiting lately. He denies any other GI symptoms or leg edema or orthopnea. [facility] Medical History High blood pressure Sleep apnea History of back problems Arthritis Diarrhea Gallstones Abdominal pain Home Medications ?Medication ?Instructions ?Recorded ?Last Taken ?Type amlodipine 10 mg tablet 10 mg PO DAILY 04/18/23 Unknown History ascorbic acid (vitamin C) 1,000 mg 1 g PO Q6H 04/18/23 Unknown History capsule aspirin 81 mg tablet,delayed 81 mg PO DAILY 04/18/23 Unknown History release atorvastatin 80 mg tablet 80 mg PO QPM 04/18/23 Unknown History azelastine 137 mcg (0.1 %) nasal 2 spray intranasal BID 04/18/23 Unknown History spray cyanocobalamin (vitamin B-12) 1,000 mcg PO DAILY 04/18/23 Unknown History 1,000 mcg capsule fenofibrate micronized 134 mg 134 mg PO DAILY 04/18/23 Unknown History capsule ibuprofen 200 mg capsule 200 mg PO Q6H PRN 04/18/23 Unknown History lisinopril 40 mg tablet 40 mg PO DAILY 04/18/23 Unknown History loratadine 10 mg tablet (Allergy 10 mg PO DAILY 04/18/23 Unknown History Relief (loratadine)) mometasone 50 mcg/actuation nasal 2 spray intranasal BID 04/18/23 Unknown History spray (Nasonex 24hr Allergy) multivitamin (Daily Multi-Vitamin 1 tab PO DAILY 04/18/23 Unknown History tablet) tadalafil 5 mg tablet 5 mg PO DAILY 04/18/23 Unknown History tamsulosin 0.4 mg capsule 0.4 mg PO DAILY PRN 04/18/23 Unknown History Allergy/AdvReac Type Severity Reaction Status Date / Time calcium carbonate (From Allergy Other Verified 04/18/23 09:02 Excedrin Back & Body) Family History (Updated 04/18/23 @ 08:59 by Haydee Haney) Father Colon cancer Surgical History History of tonsillectomy and adenoidectomy Social History Smoking Status: Never smoker alcohol intake: never substance use type: does not use ROS ROS ED Constitutional Constitutional ED: Reports chills, fever(s) and malaise Eyes Eyes: Denies change in vision or diplopia ENT ENT ED: Denies rhinorrhea or sore throat Cardiovascular Cardiovascular: Denies chest pain or palpitations Respiratory/Chest Respiratory/Chest: Reports cough, hemoptysis and sputum; Denies dyspnea or dyspnea on exertion Gastrointestinal Gastrointestinal: Denies abdominal pain, diarrhea, nausea or vomiting Genitourinary Genitourinary ED: Denies dysuria or hematuria Musculoskeletal Musculoskeletal: Denies back pain or neck pain Integumentary Denies abscess or rash Neurologic Neurologic: Denies headache(s), paresthesias or weakness Psychiatric Psychiatric: Denies anxiety or suicidal thoughts EXAM Physical Exam Const Vital Signs: 04/01/24 12:04 04/01/24 12:04 04/01/24 12:05 Temperature 99 F 99.2 F H Temperature Source Oral Oral Pulse Rate 82 84 Respiratory Rate 20 H 24 H Respiratory Effort Respiratory Depth Respiratory Pattern Blood Pressure 163/80 H 155/76 H Blood Pressure Mean 107 102 Pulse Ox 73 94 94 Oxygen Delivery Method Room Air Nasal Cannula Nasal Cannula Oxygen Flow Rate (L/min) 4 4 04/01/24 12:05 04/01/24 12:54 04/01/24 13:05 Temperature 99.1 F Temperature Source Oral Pulse Rate 87 Respiratory Rate 24 H Respiratory Effort Short of Breath Labored Respiratory Depth Shallow Respiratory Pattern Tachypnea Blood Pressure 155/71 H Blood Pressure Mean 99 Pulse Ox 94 94 Oxygen Delivery Method Room Air Nasal Cannula Nasal Cannula Oxygen Flow Rate (L/min) 4 4 Positive well nourished and well developed General Appearance ED: well developed and NAD HEENT Reports moist mucous membranes normocephalic and atraumatic Eyes PERRL and EOMs intact bilaterally Neck full ROM and supple Resp normal respiratory effort Resp Narrative: Slight expiratory wheezes throughout but Rales on the left mid lung field Cardio regular rate, regular rhythm and no murmurs Rate: Negative for tachycardic GI non-tender and non-distended Auscultation: normoactive bowel sounds Palpation: soft Back/Spine no CVA tenderness General Back: other FROM Extremity normal to inspection General Extremety ED: Negative for edema, pulses abnormal or tenderness General Extremity: Negative for edema or pulses abnormal Neuro oriented x3, CN's II-XII intact bilaterally and no sensory deficits noted Sensorium / Orientation: awake and alert Motor Exam: strength 5/5 throughout Psych mental status grossly normal Skin no rashes or lesions noted and no wounds MDM MDM MDM Narrative Medical decision making narrative: On my interpretation 2 view chest x-ray shows left greater than right pneumonia. This explains his symptoms and hypoxemia. He is currently on a 4 L nasal cannula, not needing oxygen at home prior to this. Given this admission to the hospital is warranted. Labs are reviewed. In order to cover him against the possibility of aspiration, non-aspiration bacterial pneumonia, and viral influenza pneumonia, he is given Zosyn, Zithromax, and oral Tamiflu. Discussed with hospitalist. He is breathing well and otherwise clinically stable. Lab Data Attestation: I reviewed the patient's lab results. Labs: Laboratory Results - last 24 hr 04/01/24 12:50 WBC 8.6 RBC 3.84 L Hgb 11.5 L Hct 35.2 L MCV 91.7 MCH 29.9 MCHC 32.7 RDW Std Deviation 48.1 H RDW Coeff of Steve 14.3 Plt Count 235 MPV 9.6 Immature Gran % (Auto) 0.500 Neut % (Auto) 78.3 H Lymph % (Auto) 8.4 L [place] % (Auto) 12.4 H Eos % (Auto) 0.2 Baso % (Auto) 0.2 Absolute Neuts (auto) 6.8 Absolute Lymphs (auto) 0.72 L Nucleated RBC % 0 PT 16.0 H INR 1.3 APTT 35.0 Sodium 134 L Potassium 3.5 Chloride 104 Carbon Dioxide 26.0 Anion Gap 5 BUN 18 Creatinine 0.82 Estim Creat Clear Calc 87.03 Est GFR (MDRD) Af Amer 116 Est GFR (MDRD) Non-Af 96 BUN/Creatinine Ratio 21.9 H Glucose 144 H Lactic Acid 1.5 Calcium 9.9 Total Bilirubin 0.80 AST 54 H ALT 90 H Alkaline Phosphatase 124 H Troponin I High Sens 14 Total Protein 6.6 Albumin 2.9 L Globulin 3.7 Albumin/Globulin Ratio 0.8 L Radiography Diagnostic Testing: Clinical Impression(s) from Imaging Studies Chest X-Ray 04/01/24 12:43 IMPRESSION: Bilateral patchy opacities may be secondary to pneumonia and/or edema. Electronically Signed: Nasima Borja MD at 13:50 EDT , Rhythm Strip Rhythm Strip: Sinus Rhythm Rate: 80 Ectopy: None EKG Initial EKG: Attestation: I personally reviewed and interpreted this EKG as follows: Interpretation: Sinus Rhythm, No Acute Injury Pattern and LBBB Prior EKG tracings: available for review Prior: Unchanged Management Discussion w/another healthcare provider: Hospitalist Discharge Plan Triage Chief Complaint: Shortness of Breath ED Provider: Adolfo Benitez Dx/Rx/DC Orders Clinical Impression: Pneumonia and influenza, Hypoxemia, Influenza B Prescriptions: No Action tamsulosin 0.4 mg capsule 0.4 mg PO DAILY PRN fenofibrate micronized 134 mg capsule 134 mg PO DAILY amlodipine 10 mg tablet 10 mg PO DAILY atorvastatin 80 mg tablet 80 mg PO QPM aspirin 81 mg tablet,delayed release (DR/EC) 81 mg PO DAILY loratadine [Allergy Relief (loratadine)] 10 mg tablet 10 mg PO DAILY lisinopril 40 mg tablet 40 mg PO DAILY ascorbic acid (vitamin C) 1,000 mg capsule 1 g PO Q6H cyanocobalamin (vitamin B-12) 1,000 mcg capsule 1,000 mcg PO DAILY tadalafil 5 mg tablet 5 mg PO DAILY azelastine 137 mcg (0.1 %) aerosol,spray 2 spray intranasal BID Rx Instructions: administer into each nostril mometasone [Nasonex 24hr Allergy] 50 mcg/actuation spray,non-aerosol 2 spray intranasal BID Rx Instructions: administer into each nostril multivitamin [Daily Multi-Vitamin] Tablet 1 tab PO DAILY ibuprofen 200 mg capsule 200 mg PO Q6H PRN Primary Care Provider: Bernabe Rodriguez NP Referrals: Bernabe Rodriguez NP, [facility] [Primary Care Provider] - Print Language: Guatemalan Disposition Disposition: Acute Care Hospital [facility]
[2024-04-01 12:58] LABS: Absolute Lymphocyte Count 0.72 X10^3/uL (0.83-4.51); Absolute Neutrophil Count 6.8 X10^3/uL (2.0-7.7); Basophil# 0.02 X10^3/uL; Basophil% 0.2 % (0-1); Eosinophil# 0.02 X10^3/uL; Eosinophils% 0.2 % (0-5); Hematocrit 35.2 % (40-54); Hemoglobin 11.5 g/dL (13.0-16.5); Lymphocyte # 0.72 X10^3/ul (0.83-4.51); Lymphocyte % 8.4 % (19-41); Mean Corp Hgb Conc 32.7 g/dL (32-36); Mean Corpuscular Hgb 29.9 pg (27.0-32.0); Mean Corpuscular Volume 91.7 fL (80-94); Mean Platelet Vol. 9.6 fl (6.2-12.0); Monocyte# 1.07 X10^3/uL; Monocyte% 12.4 % (0-10); NRBC Flagged by Analyzer 0 % (0-5); Neutrophil # 6.75 X10^3/uL (2.7-7.7); Neutrophil % 78.3 % (47-70); Platelet Count 235 K/mm3 (150-450); RBC Distribution Width CV 14.3 % (11.6-14.6); RBC Distribution Width SD 48.1 fl (35.1-43.9); Red Blood Count 3.84 M/mm3 (4.6-6.2); White Blood Count 8.6 K/mm3 (4.4-11.0)
[2024-04-01 13:15] LABS: International Normalized Ratio 1.3
[2024-04-01 13:17] LABS: ALB/GLOB Ratio 0.8 RATIO (0.9-2.4); AST(SGOT) 54 U/L (15-37); Alanine Aminotransfer ALT/SGPT 90 U/L (16-61); Albumin, Serum 2.9 g/dL (3.2-5.0); Alkaline Phosphatase 124 U/L (45-117); Anion Gap 5 (5-15); BUN 18 mg/dL (7-18); BUN/Creat Ratio 21.9 RATIO (10-20); Calcium,Total 9.9 mg/dL (8.5-10.1); Chloride 104 mmol/L (98-107); Creatinine, Serum 0.82 mg/dL (0.70-1.30); EST Glomerular Filtration Rate 96 mL/min (>60); Est Glom Filt Rate - Afr Amer 116 mL/min (>60); Estimated Creatinine Clearance 87.03 ml/min; Globulin 3.7 g/dL (2.2-4.2); Glucose 144 mg/dL (74-106); Potassium 3.5 mmol/L (3.5-5.1); Protein, Total 6.6 g/dL (6.4-8.2); Sodium Level 134 mmol/L (136-145); Troponin-I HS 14 pg/mL (3.0-78.0)
[2024-04-01 13:22] LABS: Lactic Acid 1.5 mmol/L (0.4-1.9)
[2024-04-01] MEDS: Oseltamivir Phosphate 75 MG Capsule PO ×2 (14:22→21:51)
--- NOTE | 2024-04-01 14:23 | PCM.HP.STD ---
HPI - General General Date of Admission: 04/01/24 Date of Service: 04/01/24 Chief Complaint: Shortness of breath for about 2 weeks along with cough. HPI Narrative MIGEL MAGANA, is a 78 M came to ED with worsening shortness of breath for 2 to 3 days although he has shortness of breath and chest congestion for about 2 weeks. Today patient also had hemoptysis, dark red mixed with sputum about 1 tablespoon as per . Patient has fever Tmax 101.6 Fahrenheit yesterday and in low 100s today. Patient went to see regional education coordinator Dr. Yuval Pulido on last Friday and was given antibiotic doxycycline that was started on the same day. For last 2 to 3 days shortness of breath got worse with chest congestion and then hemoptysis, new onset hypoxia 72% on room air at therefore came to ED. Patient not on home oxygen. He denies chronic lung disease or heart disease except sleep apnea and uses CPAP. Patient also tested influenza B as an outpatient but not started on Tamiflu In ED, patient was not hypoxic, 73% on room air, pulse ox 94% on 4 L. Tachypneic but heart rate and blood pressure in normal range. Low-grade fever 99.2 Fahrenheit. Chest x-ray shows bilateral pneumonia and patient was given 1 dose of IV antibiotic Zosyn and Tamiflu and admitted [facility] Medical History High blood pressure Sleep apnea History of back problems Arthritis Diarrhea Gallstones Abdominal pain Home Medications ?Medication ?Instructions ?Recorded ?Last Taken ?Type amlodipine 10 mg tablet 10 mg PO DAILY 04/18/23 Unknown History ascorbic acid (vitamin C) 1,000 mg 1 g PO Q6H 04/18/23 Unknown History capsule aspirin 81 mg tablet,delayed 81 mg PO DAILY 04/18/23 Unknown History release atorvastatin 80 mg tablet 80 mg PO QPM 04/18/23 Unknown History azelastine 137 mcg (0.1 %) nasal 2 spray intranasal BID 04/18/23 Unknown History spray cyanocobalamin (vitamin B-12) 1,000 mcg PO DAILY 04/18/23 Unknown History 1,000 mcg capsule fenofibrate micronized 134 mg 134 mg PO DAILY 04/18/23 Unknown History capsule ibuprofen 200 mg capsule 200 mg PO Q6H PRN 04/18/23 Unknown History lisinopril 40 mg tablet 40 mg PO DAILY 04/18/23 Unknown History loratadine 10 mg tablet (Allergy 10 mg PO DAILY 04/18/23 Unknown History Relief (loratadine)) mometasone 50 mcg/actuation nasal 2 spray intranasal BID 04/18/23 Unknown History spray (Nasonex 24hr Allergy) multivitamin (Daily Multi-Vitamin 1 tab PO DAILY 04/18/23 Unknown History tablet) tadalafil 5 mg tablet 5 mg PO DAILY 04/18/23 Unknown History tamsulosin 0.4 mg capsule 0.4 mg PO DAILY PRN 04/18/23 Unknown History Allergy/AdvReac Type Severity Reaction Status Date / Time calcium carbonate (From Allergy Other Verified 04/18/23 09:02 Excedrin Back & Body) Family History Father Colon cancer Surgical History History of tonsillectomy and adenoidectomy Social History Smoking Status: Never smoker alcohol intake: never substance use type: does not use ROS ROS Narrative Constitutional: Reports fatigue and weakness. No fever. Obesity HEENT: Reports systems reviewed and no addt'l complaints, except as documented Respiratory/Chest: As described in HPI CVS: No chest pressure or anginal-like symptoms. No history of chronic heart disease or CHF Gastrointestinal: Denies coffee ground emesis, hematemesis or vomiting Genitourinary: Denies burning urination or new urinary tract symptoms Musculoskeletal: Denies acute joint pain or limited range of motion. No acute injury Neurologic: Denies seizure-like symptoms. skin: No ulcer. No rash Endocrinology: Reports systems reviewed and no addt'l complaints, except as documented Hematologic/Lymphatic: Reports systems reviewed and no addt'l complaints, except as documented Rest 14 ROS are negative except as mentioned in HPI Vital Signs Vital Signs Vital Signs: 04/01/24 12:04 04/01/24 12:04 04/01/24 12:05 Temperature 99 F 99.2 F H Temperature Source Oral Oral Pulse Rate 82 84 Respiratory Rate 20 H 24 H Respiratory Effort Respiratory Depth Respiratory Pattern Blood Pressure 163/80 H 155/76 H Blood Pressure Mean 107 102 Pulse Ox 73 94 94 Oxygen Delivery Method Room Air Nasal Cannula Nasal Cannula Oxygen Flow Rate (L/min) 4 4 04/01/24 12:05 04/01/24 12:54 04/01/24 13:05 Temperature 99.1 F Temperature Source Oral Pulse Rate 87 Respiratory Rate 24 H Respiratory Effort Short of Breath Labored Respiratory Depth Shallow Respiratory Pattern Tachypnea Blood Pressure 155/71 H Blood Pressure Mean 99 Pulse Ox 94 94 Oxygen Delivery Method Room Air Nasal Cannula Nasal Cannula Oxygen Flow Rate (L/min) 4 4 04/01/24 14:00 Temperature 99.0 F Temperature Source Oral Pulse Rate 86 Respiratory Rate 22 H Respiratory Effort Respiratory Depth Respiratory Pattern Blood Pressure 150/70 H Blood Pressure Mean 96 Pulse Ox 94 Oxygen Delivery Method Nasal Cannula Oxygen Flow Rate (L/min) 4 Weight Weight: 261 lb Body Mass Index (BMI) 44.8 Physical Exam Narrative General: Alert, Oriented x3, Cooperative HEENT: Atraumatic, PERRLA, EOMI, Normocephalic Oral: Oral mucosa dry. No Gingival or Mucosal Lesions/ Ulcerations Neck: Supple, No JVD, Negative Carotid Bruits Chest wall/Lungs: Air entry with diffuse diminished in bilateral lungs. Bilateral coarse crepitations. Hypoxia and tachypnea Cardiovascular: Regular rate, Regular Rhythm, Normal S1, Normal S2, No M/G/R Abdomen: Bowel Sounds Present, Soft, Non Tender, Non-Distended : No dysuria. No renal angle tenderness. No suprapubic tenderness. Extremities: Mild bilateral leg edema, Capillary Refill Less than 3 Seconds Skin: No rashes, No breakdown Musculoskeletal: No Tenderness to Palpation of Joints or Extremities Neurological: Cranial nerves II-XII grossly intact, DTR 2+/4. No acute focal neurological deficit. Psych/Mental Status: Normal Affect, Appropriate. Results Lab / Micro Data 04/01/24 12:50 04/01/24 12:50 Labs: Laboratory Results - last 24 hr 04/01/24 12:50: WBC 8.6, RBC 3.84 L, Hgb 11.5 L, Hct 35.2 L, MCV 91.7, MCH 29.9, MCHC 32.7, RDW Std Deviation 48.1 H, RDW Coeff of Steve 14.3, Plt Count 235, MPV 9.6, Immature Gran % (Auto) 0.500, Neut % (Auto) 78.3 H, Lymph % (Auto) 8.4 L, [place] % (Auto) 12.4 H, Eos % (Auto) 0.2, Baso % (Auto) 0.2, Absolute Neuts (auto) 6.8, Absolute Lymphs (auto) 0.72 L, Nucleated RBC % 0, PT 16.0 H, INR 1.3, APTT 35.0, Sodium 134 L, Potassium 3.5, Chloride 104, Carbon Dioxide 26.0, Anion Gap 5, BUN 18, Creatinine 0.82, Estim Creat Clear Calc 87.03, Est GFR (MDRD) Af Amer 116, Est GFR (MDRD) Non-Af 96, BUN/Creatinine Ratio 21.9 H, Glucose 144 H, Lactic Acid 1.5, Calcium 9.9, Total Bilirubin 0.80, AST 54 H, ALT 90 H, Alkaline Phosphatase 124 H, Troponin I High Sens 14, Total Protein 6.6, Albumin 2.9 L, Globulin 3.7, Albumin/Globulin Ratio 0.8 L Rhythm Strip Rhythm Strip: Sinus Rhythm Rate: 80 Ectopy: None Imaging Radiology Impression Chest X-Ray 04/01/24 12:43 IMPRESSION: Bilateral patchy opacities may be secondary to pneumonia and/or edema. Electronically Signed: Nasima Borja MD at 13:50 EDT , Assessment & Plan Assessment/Plan (1) Pneumonia and influenza: (2) Influenza B: PLAN: Plan This is a 78-year-old gentleman being admitted for bilateral pneumonia and influenza. 1. Bilateral pneumonia with associated hypoxia: Patient is being admitted in PCU. ABG ordered. Patient is started on IV ceftriaxone and Zithromax. Tamiflu started in ED and continued . NIPPV as per ABG. Patient uses CPAP at night for sleep apnea. DuoNeb, Mucinex, incentive spirometry and Pep ordered. Pneumonia workup ordered 2. Mild hypoxia due to bilateral pneumonia: Monitor oxygen. On 4 L of oxygen. Patient had echo in September 2023 reported EF 50% with mild hypokinesis of the septum. 3. Hypertension: Patient on amlodipine and lisinopril continued. 4. Dyslipidemia: On atorvastatin 40 mg daily continued. 5. Degenerative arthritis involving lumbar spine: PT and OT. 6. Morbid obesity: BMI 44.8 kg/m?. Weight loss counseling done. Engine Lathe Tender consult. 7. Mild hyponatremia: Potassium on lower normal range 3.5. IV fluid normal saline with KCl ordered. Serum magnesium and phosphorus ordered DVT prophylaxis, high risk: Lovenox 40 mg subcu daily ordered. Living will/advanced directive/end of life care: Patient does have living will or advanced directive. His near the bedside is power of state attorney for health. After discussion of benefits/risks procedures involved with full code, DNR CC arrest and DNR CC, the patient opted for full code and instead does not want to be brain-. Patient does want artificial life support including intubation, tube feed, ventilator and/chest compression, central venous catheter, vasopressor and DC shock if needed Total time spent in [id number] encounter in discussion of advanced directive 17 minutes. Laboratory Results 04/01/24 12:50: WBC 8.6, RBC 3.84 L, Hgb 11.5 L, Hct 35.2 L, MCV 91.7, MCH 29.9, MCHC 32.7, RDW Std Deviation 48.1 H, RDW Coeff of Steve 14.3, Plt Count 235, MPV 9.6, Immature Gran % (Auto) 0.500, Neut % (Auto) 78.3 H, Lymph % (Auto) 8.4 L, [place] % (Auto) 12.4 H, Eos % (Auto) 0.2, Baso % (Auto) 0.2, Absolute Neuts (auto) 6.8, Absolute Lymphs (auto) 0.72 L, Nucleated RBC % 0, PT 16.0 H, INR 1.3, APTT 35.0, Sodium 134 L, Potassium 3.5, Chloride 104, Carbon Dioxide 26.0, Anion Gap 5, BUN 18, Creatinine 0.82, Estim Creat Clear Calc 87.03, Est GFR (MDRD) Af Amer 116, Est GFR (MDRD) Non-Af 96, BUN/Creatinine Ratio 21.9 H, Glucose 144 H, Lactic Acid 1.5, Calcium 9.9, Total Bilirubin 0.80, AST 54 H, ALT 90 H, Alkaline Phosphatase 124 H, Troponin I High Sens 14, Total Protein 6.6, Albumin 2.9 L, Globulin 3.7, Albumin/Globulin Ratio 0.8 L 04/01/24 14:19: Urine Color Pending, Urine Clarity Pending, Urine pH Pending, Ur Specific [place] Pending, Urine Protein Pending, Urine Glucose (UA) Pending, Urine Ketones Pending, Urine Occult Blood Pending, Urine Nitrite Pending, Urine Bilirubin Pending, Urine Urobilinogen Pending, Ur Leukocyte Esterase Pending, Urine RBC Pending, Urine WBC Pending, Ur Squamous Epith Cells Pending, Urine Bacteria Pending, Urine Mucus Pending Charges/Coding Visit Charges Inpatient E&M: 52328 Init Hosp L3 Procedures Hospitalists Procedures: 47509 Advncd Care Plan 30 Min
[2024-04-01 14:25] LABS: Red Blood Cells-Urine 0 SEEN /hpf (0-5); Squamous Epithelial Cells - UA 0 SEEN /hpf (0-5)
[2024-04-01 14:26] LABS: Color, Urine Yellow (Yellow); Glucose, Dipstick Normal (Normal); Ketone-Dipstick 5 mg/dl (Negative); Leukocyte Esterase-Dipstick 25 /ul (Negative); Nitrite-Dipstick Negative (Negative); Occult Blood-Urine 10 /ul (Negative); Protein-Dipstick 30 mg/dl (Negative); Urine Bilirubin Dipstick Negative (Negative); Urine Clarity Sl. Cloudy (Clear); Urine Urobilinogen 4 mg/dl (Normal)
[2024-04-01 14:39] LABS: Hyaline Cast 0-5 SEEN /lpf (0-5)
[2024-04-01 14:40] LABS: Bacteria 3+ /hpf (None Seen); Mucous, Urine 1+ /hpf (<or=2+)
[2024-04-01 14:41] LABS: White Blood Cells 0-5 SEEN /hpf (0-5)
[2024-04-01] MEDS: Piperacil/Tazobactam 4.5 GM in 0.9% Normal Saline (100mL MB+) 100 ML IV (14:47)
[2024-04-01] MEDS: Azithromycin 500 MG in Dextrose 5%-Water (250mL Bag) 250 ML 250 MG IV (14:58)
[2024-04-01 15:27] LABS: Lactic Acid 0.9 mmol/L (0.4-1.9)
[2024-04-01 16:21] LABS: Allen Test Positive; Base Excess -3 mmol/L (-2 to +2); Bicarbonate 22.1 mmol/L (22-26); Blood Gas Specimen Type ART; Mode Not entered; O2 Delivery Device HFNC; PO2 59 mmHG (75-100); SITE L Radial; SO2 91 % (95-99); Total Carbon Dioxide 23 mmol/L; pCO2 34.7 mmHg (35-45); pH 7.41 (7.35-7.45)
[2024-04-01] MEDS: NORMAL SALINE IV (16:23)
[2024-04-01] MEDS: POTASSIUM CHLORIDE IV (16:23)
[2024-04-01] MEDS: Enoxaparin 40 MG/0.4 ML Syringe SC (16:27)
[2024-04-01] MEDS: Ipratropium/Albuterol Sulfate 3 ML AMPUL.NEB INHALATION ×2 (16:42→21:38)
[2024-04-01 16:54] LABS: Phosphorus 3.3 mg/dL (2.5-4.9)
[2024-04-01] MEDS: Benzonatate 100 MG Capsule 200 MG PO (18:30)
[2024-04-01] MEDS: guaiFENesin/D-Methorphan TAB.SR.12H 2 TABLET PO (18:31)
[2024-04-01] MEDS: Acetaminophen 325 MG Tablet 650 MG PO (18:31)
[2024-04-01] MEDS: Senna/Docusate Sodium 1 Tablet 2 TABLET PO (21:52)
--- NOTE | 2024-04-01 23:07 | CPS ---
Pt on own cpap 17 with o2 bled into machine at 15L. Pt is comfortable on own machine but will switch back and forth to [employer] as needed.
[2024-04-02] VITALS (15 sets, daily range): BP systolic 114–149; BP diastolic 73–93; PULSE 74–90; RESP 12–24; TEMP 36.8–37.6; O2SAT 88–99
--- NOTE | 2024-04-02 00:49 | PCM.HOSP.N ---
Hospitalist Note Patient with continued increased oxygen requirements, possible component overload but from discussion with staff/family patient notable aspiration history, given zosyn in the ED. Will d/c rocephin and transition back to Zosyn with dose now. Will also start IV solumedrol with load now and then 40 mg q 8 hours.
[2024-04-02] MEDS: MethylPREDNISolone 125 MG/2 ML Vial IV (01:20)
[2024-04-02] MEDS: Furosemide 20 MG/2 ML VIAL IV (01:20)
[2024-04-02] MEDS: Piperacil/Tazobactam 3.375 GM in 0.9% Normal Saline (50mL MB+) 50 ML IV ×3 (01:29→21:38)
[2024-04-02 06:18] LABS: Absolute Lymphocyte Count 0.49 X10^3/uL (0.83-4.51); Absolute Neutrophil Count 8.4 X10^3/uL (2.0-7.7); Hematocrit 36.3 % (40-54); Hemoglobin 11.7 g/dL (13.0-16.5); Lymphocyte # 0.49 X10^3/ul (0.83-4.51); Lymphocyte % 5.3 % (19-41); Mean Corp Hgb Conc 32.2 g/dL (32-36); Mean Corpuscular Hgb 29.8 pg (27.0-32.0); Mean Corpuscular Volume 92.4 fL (80-94); Mean Platelet Vol. 10.8 fl (6.2-12.0); Monocyte% 3.2 % (0-10); NRBC Flagged by Analyzer 0 % (0-5); Neutrophil # 8.42 X10^3/uL (2.7-7.7); Neutrophil % 91.1 % (47-70); POSITIVE DIFFERENTIAL YES; Platelet Count 216 K/mm3 (150-450); RBC Distribution Width CV 14.4 % (11.6-14.6); RBC Distribution Width SD 48.8 fl (35.1-43.9); Red Blood Count 3.93 M/mm3 (4.6-6.2); White Blood Count 9.3 K/mm3 (4.4-11.0)
[2024-04-02 07:14] LABS: Anion Gap 7 (5-15); BUN 17 mg/dL (7-18); BUN/Creat Ratio 24.7 RATIO (10-20); Calcium,Total 9.8 mg/dL (8.5-10.1); Chloride 106 mmol/L (98-107); Creatinine, Serum 0.69 mg/dL (0.70-1.30); EST Glomerular Filtration Rate 118 mL/min (>60); Est Glom Filt Rate - Afr Amer 143 mL/min (>60); Glucose 151 mg/dL (74-106); Potassium 4.2 mmol/L (3.5-5.1); Sodium Level 137 mmol/L (136-145); Thyroid Stim Hormone (TSH) 0.304 uIU/mL (0.358-3.740)
[2024-04-02] MEDS: Ipratropium/Albuterol Sulfate 3 ML AMPUL.NEB INHALATION ×4 (07:38→19:36)
[2024-04-02] MEDS: Enoxaparin 40 MG/0.4 ML Syringe SC (09:19)
[2024-04-02] MEDS: Oseltamivir Phosphate 75 MG Capsule PO (09:20)
[2024-04-02] MEDS: guaiFENesin/D-Methorphan TAB.SR.12H 2 TABLET PO ×2 (09:30→21:34)
[2024-04-02] MEDS: Azithromycin 500 MG in Dextrose 5%-Water (250mL Bag) 250 ML 250 MG IV (09:32)
[2024-04-02] MEDS: 0.9% Saline Lock 10 ML Syringe IV ×2 (09:32→13:24)
--- NOTE | 2024-04-02 12:10 | CASEMGMT ---
CLAYTON FLAHERTY Face to Face with patient for initial transition planning/care coordination assessment. RN CM introduced self and role at [facility]. Patient lying in bed, alert and oriented, at bedside. Patient willing to participate in assessment and is able to answer all questions appropriately. Care providers, pharmacy, and demographics verified. Strata: 1 PCP: Jennifer Specialists: Sergey, signing teacher; Joselo, pain specialist Preferred Pharmacy: [facility] Insurance: [facility] medciare Prescription Benefit: yes Living Will/HPOA: yes, Cesia Wen LNOK: Living Arrangements: Patient lives with in a 2 story home with bed and bath on first floor, 3 steps to enter the home. Patient is independent at home. Transportation: self, DME/HHC: Umaen has cane, grab bars, cpap, and pulse ox at home. No previous HHC or SNF. Will monitor for home oyxgen, prefers [facility] Patient wishes to discharge home with outpatient therapy and will schedule himself at facility of choice. Patient states he has no further needs or concerns at this time. CM to follow for discharge planning needs that may arise. Disposition Plan: Patient to discharge home with outpatient therapy, family support, and follow-up plans in place. Will monitor for home oxygen. Trinidad LUKE, RN, CM
--- NOTE | 2024-04-02 13:22 | PN.HOSP_ITS ---
Reason for Visit Reason for Visit: Diagnoses Influenza due to other identified influenza virus with other respiratory manifestations (04/01/24) Influenza due to unidentified influenza virus with unspecified type of pneumonia (04/01/24) Subjective Subjective Patient was seen and examined today, he remains on Airvo at this time but appears to be comfortable at rest. Patient's was in the room at the time my examination. Objective Data Objective Data Vital Signs: Vital Signs Temp Pulse Resp BP Pulse Ox O2 Del Method O2 Flow Rate 98.4 F 82 20 H 126/84 H 97 Airvo 60 04/02/24 10:00 04/02/24 11:16 04/02/24 11:16 04/02/24 10:00 04/02/24 10:00 04/02/24 10:00 04/02/24 07:38 FiO2 85 04/02/24 07:38 Oxygen Flow Rate (L/min) 60 Oxygen Delivery Method Airvo Weight: 117.4 kg Body Mass Index (BMI) 45.8 Intake & Output: Intake and Output for Last 24 Hours 03/31/24 04/01/24 04/02/24 23:59 23:59 23:59 Intake Total 355 / 355 1325 / 1325 Balance 355 / 355 1325 / 1325 Lab / Micro Data 04/02/24 05:32 04/02/24 05:32 Labs: Laboratory Results - last 24 hr 04/01/24 12:50: Lactic Acid 1.5, Phosphorus 3.3, Magnesium 2.0 04/01/24 14:19: Urine Color Yellow, Urine Clarity Sl. Cloudy, Urine pH 5.0, Ur Specific [place] 1.020, Urine Protein 30 H, Urine Glucose (UA) Normal, Urine Ketones 5 H, Urine Occult Blood 10 H, Urine Nitrite Negative, Urine Bilirubin Negative, Urine Urobilinogen 4 H, Ur Leukocyte Esterase 25 H, Urine RBC 0 SEEN, Urine WBC 0-5 SEEN, Ur Squamous Epith Cells 0 SEEN, Urine Bacteria 3+, Hyaline Casts 0-5 SEEN, Urine Mucus 1+ 04/01/24 14:40: Lactic Acid 0.9 04/02/24 05:32: WBC 9.3, RBC 3.93 L, Hgb 11.7 L, Hct 36.3 L, MCV 92.4, MCH 29.8, MCHC 32.2, RDW Std Deviation 48.8 H, RDW Coeff of Steve 14.4, Plt Count 216, MPV 10.8, Immature Gran % (Auto) 0.400, Neut % (Auto) 91.1 H, Lymph % (Auto) 5.3 L, [place] % (Auto) 3.2, Eos % (Auto) 0.0, Baso % (Auto) 0.0, Absolute Neuts (auto) 8.4 H, Absolute Lymphs (auto) 0.49 L, Nucleated RBC % 0, Sodium 137, Potassium 4.2, Chloride 106, Carbon Dioxide 25.0, Anion Gap 7, BUN 17, Creatinine 0.69 L, Estim Creat Clear Calc 87.30, Est GFR (MDRD) Af Amer 143, Est GFR (MDRD) Non-Af 118, BUN/Creatinine Ratio 24.7 H, Glucose 151 H, Calcium 9.8, TSH 0.304 L Micro: Microbiology 04/01/24 16:20 Mucosa - Nasopharyngeal Coronavirus COVID-19 PCR - Final 04/01/24 16:20 Mucosa - Nasopharyngeal Respiratory Panel (PCR) - Final Rhinovirus 04/01/24 16:20 Nasal Secretion MRSA (PCR) - Final 04/01/24 14:19 Urine, Clean Catch Legionella Antigen - Final 04/01/24 14:19 Urine, Clean Catch Streptococcus pneumoniae Antigen (M - Final ABG Data ABG results: ABG 04/01/24 16:17 Specimen Type ART Sample Site L Radial pH 7.41 Bicarbonate Actual 22.1 Total CO2 23 Base Excess -3 L O2 Saturation 91 L O2 % 8.0 ABG pCO2 34.7 L ABG pO2 59 L Naman Test Positive O2 Delivery Device HFNC Vent Mode Not entered Radiography Diagnostic Testing: Radiology Impression Chest X-Ray 04/01/24 12:43 IMPRESSION: Bilateral patchy opacities may be secondary to pneumonia and/or edema. Electronically Signed: Nasima Borja MD at 13:50 EDT , Rhythm Strip Rhythm Strip: Sinus Rhythm Rate: 80 Ectopy: None Physical Exam Const alert, oriented x3, no apparent distress and healthy appearing General Appearance: cooperative, well kempt and well developed Orientation / Consciousness: awake, oriented to person, oriented to place and oriented to time HEENT normocephalic, head/scalp atraumatic and moist oral mucous membranes Eyes PERRL, EOMs intact bilaterally and conjunctivae normal Neck supple, no JVD, thyroid normal and no carotid bruits General: trachea midline Resp normal respiratory effort, no retractions, no use of accessory muscles and clear to auscultation bilaterally Auscultation: Negative for rales, rhonchi or wheezes Cardio regular rate, regular rhythm, S1 normal heart sound, S2 normal heart sound, no murmurs, no rub and no gallops GI normal to inspection, nondistended, normoactive bowel sounds, soft to palpation, non-tender and non-distended Extremity no clubbing, cyanosis or edema Skin no rashes or lesions noted General Skin Exam: no breakdown Neuro oriented x3, CN's II-XII intact bilaterally, moves all extremities, no focal motor deficits and no sensory deficits noted Sensorium / Orientation: awake and alert Speech: speech normal Psych affect normal Assessment & Plan Assessment/Plan (1) Influenza B: PLAN: Plan 1. Acute hypoxic respiratory failure secondary to rhinovirus pneumonia- patient's respiratory panel was positive for rhinovirus today, he remain on IV steroids and aerosol treatments, he is on broad-spectrum antibiotic coverage also. #2 rhinovirus pneumonia-patient's respiratory panel was negative for influenza B, patient will remain on antibiotic coverage, IV corticosteroids and aerosol treatments #3 hyperlipidemia-patient is on atorvastatin #4 essential hypertension-patient will remain on his present medications Total clinical time spent by myself addressing the patient's medical issues, reviewing his data, and collaborating with the patient's care team: 35 minutes Charges/Coding Visit Charges Inpatient E&M: 14882 Subs Hosp L2
[2024-04-02] MEDS: Benzonatate 100 MG Capsule 200 MG PO ×2 (13:24→21:34)
--- NOTE | 2024-04-02 15:31 | CHAPLAIN ---
Type of Pastoral Visit _x__ Initial Visit ___ Follow-up Visit ___ On-call Visit ___ General Patient Visit ___ Spiritual Assessment ___ Family Conference ___ Bereavement ___ Rapid Response ___ Code Blue ___ Other (describe below) Pastoral Care Referral From _x__ Patient ___ Family ___ Nurse ___ Physician ___ Print Inspector ___ Plain Goods Hemmer ___ Other (describe below) Sacrament/Intervention _x__ Active listening ___ Anointing ___ Restorationism ___ Bereavement ___ Communion _x__ Susan exploration ___ _x__ Life review _x__ Prayer ___ Reconciliation ___ Sacrament of Sick _x__ Supportive presence ___ Wedding ___ Other (describe below) Pastoral Comments patient has been an acquaintance from previous life work; pt is very welcoming and seeks spiritual care support; 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
[2024-04-02] MEDS: Senna/Docusate Sodium 1 Tablet 2 TABLET PO (21:34)
[2024-04-03] VITALS (10 sets, daily range): BP systolic 127–157; BP diastolic 72–78; PULSE 61–87; RESP 12–22; TEMP 36.2–36.8; O2SAT 93–97
[2024-04-03] MEDS: Piperacil/Tazobactam 3.375 GM in 0.9% Normal Saline (50mL MB+) 50 ML IV ×2 (05:07→13:10)
[2024-04-03] MEDS: Ipratropium/Albuterol Sulfate 3 ML AMPUL.NEB INHALATION ×4 (07:34→20:15)
[2024-04-03] MEDS: Azithromycin 500 MG in Dextrose 5%-Water (250mL Bag) 250 ML 250 MG IV (09:23)
[2024-04-03] MEDS: Enoxaparin 40 MG/0.4 ML Syringe SC (09:29)
[2024-04-03] MEDS: guaiFENesin/D-Methorphan TAB.SR.12H 2 TABLET PO ×2 (09:29→22:22)
[2024-04-03] MEDS: Benzonatate 100 MG Capsule 200 MG PO ×3 (09:29→22:22)
--- NOTE | 2024-04-03 16:58 | PN.HOSP_ITS ---
Reason for Visit Reason for Visit: Diagnoses Influenza due to other identified influenza virus with other respiratory manifestations (04/01/24) Influenza due to unidentified influenza virus with unspecified type of pneumonia (04/01/24) Subjective Subjective Patient was seen and examined today, he remains on oxygen at 4 L/min, patient does not appear short of breath at rest. Objective Data Objective Data Vital Signs: Vital Signs Temp Pulse Resp BP Pulse Ox O2 Del Method O2 Flow Rate 97.1 F L 78 20 H 157/77 H 95 High Flow 4 04/03/24 14:15 04/03/24 14:37 04/03/24 14:37 04/03/24 14:15 04/03/24 14:15 04/03/24 14:15 04/03/24 15:25 FiO2 35 04/03/24 02:49 Oxygen Flow Rate (L/min) 4 Oxygen Delivery Method High Flow Weight: 117.4 kg Body Mass Index (BMI) 45.8 Intake & Output: Intake and Output for Last 24 Hours 04/01/24 04/02/24 04/03/24 23:59 23:59 23:59 Intake Total 355 / 355 1375 / 1375 355 / 355 Output Total 250 / 250 Balance 355 / 355 1375 / 1375 105 / 105 Lab / Micro Data 04/02/24 05:32 04/02/24 05:32 Micro: Microbiology 04/01/24 14:40 Blood Culture (Wb) - Right Hand Blood Culture - Preliminary No growth in 48 hours. 04/01/24 16:20 Mucosa - Nasopharyngeal Coronavirus COVID-19 PCR - Final 04/01/24 16:20 Mucosa - Nasopharyngeal Respiratory Panel (PCR) - Final Rhinovirus 04/01/24 16:20 Nasal Secretion MRSA (PCR) - Final 04/01/24 14:19 Urine, Clean Catch Legionella Antigen - Final 04/01/24 14:19 Urine, Clean Catch Streptococcus pneumoniae Antigen (M - Final Rhythm Strip Rhythm Strip: Sinus Rhythm Rate: 80 Ectopy: None Physical Exam Narrative alert, oriented x3, no apparent distress and healthy appearing General Appearance: cooperative, well kempt and well developed Orientation / Consciousness: awake, oriented to person, oriented to place and oriented to time HEENT normocephalic, head/scalp atraumatic and moist oral mucous membranes Eyes PERRL, EOMs intact bilaterally and conjunctivae normal Neck supple, no JVD, thyroid normal and no carotid bruits General: trachea midline Resp normal respiratory effort, no retractions, no use of accessory muscles and clear to auscultation bilaterally Auscultation: Negative for rales, rhonchi or wheezes Cardio regular rate, regular rhythm, S1 normal heart sound, S2 normal heart sound, no murmurs, no rub and no gallops GI normal to inspection, nondistended, normoactive bowel sounds, soft to palpation, non-tender and non-distended Extremity no clubbing, cyanosis or edema Skin no rashes or lesions noted General Skin Exam: no breakdown Neuro oriented x3, CN's II-XII intact bilaterally, moves all extremities, no focal motor deficits and no sensory deficits noted Sensorium / Orientation: awake and alert Speech: speech normal Psych affect normal Assessment & Plan Assessment/Plan (1) Hypoxemia: PLAN: Plan 1. Acute hypoxic respiratory failure secondary to rhinovirus pneumonia- patient's respiratory panel was positive for rhinovirus today, he remain on IV steroids and aerosol treatments, I have decided to start the patient on Levaquin for broad-spectrum coverage and stop his Zithromax and Zosyn. #2 rhinovirus pneumonia-patient's respiratory panel was negative for influenza B, patient will remain on antibiotic coverage, IV corticosteroids and aerosol treatments #3 hyperlipidemia-patient is on atorvastatin #4 essential hypertension-patient will remain on his present medications Influenza B infection was ruled out Total clinical time spent by myself addressing the patient's medical issues, reviewing his data, and collaborating with the patient's care team: 35 minutes Charges/Coding Visit Charges Inpatient E&M: 59353 Subs Hosp L2
[2024-04-04] VITALS (11 sets, daily range): BP systolic 136–154; BP diastolic 70–86; PULSE 69–81; RESP 12–22; TEMP 36.3–36.7; O2SAT 94–98
[2024-04-04] MEDS: levoFLOXacin 500 MG Tablet PO (06:51)
[2024-04-04] MEDS: Benzonatate 100 MG Capsule 200 MG PO ×3 (06:51→21:17)
[2024-04-04] MEDS: Ipratropium/Albuterol Sulfate 3 ML AMPUL.NEB INHALATION ×4 (08:08→20:44)
[2024-04-04] MEDS: Loratadine 10 MG Tablet PO (11:01)
[2024-04-04] MEDS: Enoxaparin 40 MG/0.4 ML Syringe SC (11:01)
[2024-04-04] MEDS: amLODIPine 10 MG Tablet PO (11:02)
[2024-04-04] MEDS: guaiFENesin/D-Methorphan TAB.SR.12H 2 TABLET PO ×2 (11:02→21:17)
[2024-04-04] MEDS: Lisinopril 40 MG Tablet PO (11:03)
[2024-04-04] MEDS: Fenofibrate 145 MG Tablet PO (11:03)
[2024-04-04] MEDS: Allopurinol 300 MG Tablet PO (11:03)
[2024-04-04] MEDS: Ascorbic Acid 500 MG Tablet 1000 MG PO (11:03)
[2024-04-04] MEDS: predniSONE 20 MG Tablet 40 MG PO (11:11)
[2024-04-04] MEDS: Colestipol 1 GM TABLET PO ×2 (12:13→22:38)
--- NOTE | 2024-04-04 14:36 | PCM.PN.HOSP ---
Reason for Visit Reason for Visit: Diagnoses Influenza due to other identified influenza virus with other respiratory manifestations (04/01/24) Influenza due to unidentified influenza virus with unspecified type of pneumonia (04/01/24) Hypoxemia (04/01/24) Subjective Subjective Patient was seen and examined today, he is currently on 2 L of oxygen, patient should be able to be discharged tomorrow if he remains medically stable but he will probably need supplemental oxygen to go home with. Objective Data Objective Data Vital Signs: Vital Signs Temp Pulse Resp BP Pulse Ox O2 Del Method O2 Flow Rate 97.3 F L 75 22 H 140/71 H 97 Nasal Cannula 2 04/04/24 10:50 04/04/24 11:25 04/04/24 11:25 04/04/24 10:50 04/04/24 10:50 04/04/24 10:50 04/04/24 13:42 FiO2 30 04/04/24 04:30 Oxygen Flow Rate (L/min) 2 Oxygen Delivery Method Nasal Cannula Weight: 117.4 kg Body Mass Index (BMI) 45.8 Intake & Output: Intake and Output for Last 24 Hours 04/02/24 04/03/24 04/04/24 23:59 23:59 23:59 Intake Total 1375 / 1375 405 / 405 240 / 240 Output Total 250 / 250 600 / 600 Balance 1375 / 1375 155 / 155 -360 / -360 Lab / Micro Data 04/02/24 05:32 04/02/24 05:32 Micro: Microbiology 04/01/24 14:40 Blood Culture (Wb) - Right Hand Blood Culture - Preliminary No growth in 48 hours. 04/01/24 16:20 Mucosa - Nasopharyngeal Coronavirus COVID-19 PCR - Final 04/01/24 16:20 Mucosa - Nasopharyngeal Respiratory Panel (PCR) - Final Rhinovirus 04/01/24 16:20 Nasal Secretion MRSA (PCR) - Final 04/01/24 14:19 Urine, Clean Catch Legionella Antigen - Final 04/01/24 14:19 Urine, Clean Catch Streptococcus pneumoniae Antigen (M - Final Rhythm Strip Rhythm Strip: Sinus Rhythm Rate: 80 Ectopy: None Physical Exam Narrative alert, oriented x3, no apparent distress and healthy appearing General Appearance: cooperative, well kempt and well developed Orientation / Consciousness: awake, oriented to person, oriented to place and oriented to time HEENT normocephalic, head/scalp atraumatic and moist oral mucous membranes Eyes PERRL, EOMs intact bilaterally and conjunctivae normal Neck supple, no JVD, thyroid normal and no carotid bruits General: trachea midline Resp normal respiratory effort, no retractions, no use of accessory muscles and clear to auscultation bilaterally Auscultation: Negative for rales, rhonchi or wheezes Cardio regular rate, regular rhythm, S1 normal heart sound, S2 normal heart sound, no murmurs, no rub and no gallops GI normal to inspection, nondistended, normoactive bowel sounds, soft to palpation, non-tender and non-distended Extremity no clubbing, cyanosis or edema Skin no rashes or lesions noted General Skin Exam: no breakdown Neuro oriented x3, CN's II-XII intact bilaterally, moves all extremities, no focal motor deficits and no sensory deficits noted Sensorium / Orientation: awake and alert Speech: speech normal Psych affect normal Assessment & Plan Assessment/Plan (1) Hypoxemia: PLAN: Plan 1. Acute hypoxic respiratory failure secondary to rhinovirus pneumonia-patient is currently on prednisone and Levaquin empirically, continue aerosol treatments, wean oxygen if possible #2 rhinovirus pneumonia-patient's respiratory panel was negative for influenza B, patient will remain on oral prednisone and oral Levaquin empirically #3 hyperlipidemia-patient is on atorvastatin #4 essential hypertension-patient will remain on his present medications Influenza B infection was ruled out Total clinical time spent by myself addressing the patient's medical issues, reviewing his data, and collaborating with the patient's care team: 35 minutes Charges/Coding Visit Charges Inpatient E&M: 15899 Subs Hosp L2
[2024-04-04] MEDS: Aspirin E.C. 81 MG Tablet PO (21:17)
[2024-04-04] MEDS: Atorvastatin Calcium 80 MG Tablet PO (21:17)
[2024-04-04] MEDS: Azelastine HCl NASAL.SRY 2 SPRAY NASAL (21:17)
[2024-04-05] VITALS (7 sets, daily range): BP systolic 139–161; BP diastolic 73–85; PULSE 68–86; RESP 16–20; TEMP 36.1–36.6; O2SAT 87–97
--- NOTE | 2024-04-05 04:08 | CPS ---
pt wearing own cpap tonight with 3L O2 bled into home unit.
[2024-04-05] MEDS: Benzonatate 100 MG Capsule 200 MG PO ×2 (06:23→16:16)
[2024-04-05] MEDS: levoFLOXacin 500 MG Tablet PO (06:23)
[2024-04-05] MEDS: Ipratropium/Albuterol Sulfate 3 ML AMPUL.NEB INHALATION ×2 (10:45→15:06)
[2024-04-05] MEDS: predniSONE 20 MG Tablet 40 MG PO (11:52)
[2024-04-05] MEDS: Enoxaparin 40 MG/0.4 ML Syringe SC (11:52)
[2024-04-05] MEDS: amLODIPine 10 MG Tablet PO (11:53)
[2024-04-05] MEDS: guaiFENesin/D-Methorphan TAB.SR.12H 2 TABLET PO (11:53)
[2024-04-05] MEDS: Loratadine 10 MG Tablet PO (11:53)
[2024-04-05] MEDS: Lisinopril 40 MG Tablet PO (11:54)
[2024-04-05] MEDS: Fenofibrate 145 MG Tablet PO (11:54)
[2024-04-05] MEDS: Allopurinol 300 MG Tablet PO (11:54)
[2024-04-05] MEDS: Ascorbic Acid 500 MG Tablet 1000 MG PO (11:54)
[2024-04-05] MEDS: Azelastine HCl NASAL.SRY 2 SPRAY NASAL (11:55)
[2024-04-05] MEDS: Fluticasone 0.05% 1 SPRAY NASAL.SRY 2 SPRAY NASAL (11:55)
[2024-04-05 12:06] LABS: Absolute Lymphocyte Count 1.53 X10^3/uL (0.83-4.51); Absolute Neutrophil Count 7.4 X10^3/uL (2.0-7.7); Basophil# 0.05 X10^3/uL; Basophil% 0.5 % (0-1); Eosinophil# 0.14 X10^3/uL; Eosinophils% 1.3 % (0-5); Hemoglobin 11.8 g/dL (13.0-16.5); Lymphocyte # 1.53 X10^3/ul (0.83-4.51); Lymphocyte % 14.7 % (19-41); Mean Corp Hgb Conc 33.7 g/dL (32-36); Mean Corpuscular Hgb 30.6 pg (27.0-32.0); Mean Corpuscular Volume 90.9 fL (80-94); Mean Platelet Vol. 10.2 fl (6.2-12.0); Monocyte# 0.85 X10^3/uL; Monocyte% 8.2 % (0-10); NRBC Flagged by Analyzer 0 % (0-5); Neutrophil # 7.43 X10^3/uL (2.7-7.7); Neutrophil % 71.6 % (47-70); Platelet Count 366 K/mm3 (150-450); RBC Distribution Width SD 50.1 fl (35.1-43.9); Red Blood Count 3.85 M/mm3 (4.6-6.2); White Blood Count 10.4 K/mm3 (4.4-11.0)
[2024-04-05 12:36] LABS: Anion Gap 6 (5-15); BUN 21 mg/dL (7-18); BUN/Creat Ratio 34.1 RATIO (10-20); Calcium,Total 9.8 mg/dL (8.5-10.1); Chloride 108 mmol/L (98-107); Creatinine, Serum 0.62 mg/dL (0.70-1.30); EST Glomerular Filtration Rate 134 mL/min (>60); Est Glom Filt Rate - Afr Amer 163 mL/min (>60); Glucose 96 mg/dL (74-106); Potassium 3.5 mmol/L (3.5-5.1); Sodium Level 140 mmol/L (136-145)
[2024-04-05] MEDS: Colestipol 1 GM TABLET PO (13:03)
--- NOTE | 2024-04-05 14:09 | DS.PCM_ITS ---
Providers Date of Admission: 04/01/24 Date of Discharge: 04/05/24 Primary Care Physician: Bernabe Rodriguez, DISTANCE LEARNING PROGRAM COORDINATOR-C Reason For Visit: INFLUENZA B WITH HYPOXIA Diagnosis Discharge Diagnosis (1) Hypoxemia: Status: Acute Code(s): R09.02 - Hypoxemia Medications at Discharge Home Medications amlodipine 10 mg tablet 10 mg PO DAILY blood pressure 04/18/23 ascorbic acid (vitamin C) 1,000 mg capsule 1 g PO DAILY vitamin 04/18/23 aspirin 81 mg tablet,delayed release 81 mg PO QHS heart health 04/18/23 atorvastatin 80 mg tablet 80 mg PO QPM cholesterol 04/18/23 azelastine 137 mcg (0.1 %) nasal spray 2 spray intranasal BID allergy 04/18/23 cyanocobalamin (vitamin B-12) 1,000 mcg capsule 1,000 mcg PO DAILY vitamin 04/18/23 fenofibrate micronized 134 mg capsule 134 mg PO DAILY cholesterol 04/18/23 lisinopril 40 mg tablet 40 mg PO DAILY blood pressure 04/18/23 loratadine 10 mg tablet (Allergy Relief (loratadine)) 10 mg PO DAILY allergies 04/18/23 mometasone 50 mcg/actuation nasal spray (Nasonex 24hr Allergy) 2 spray intranasal DAILY allergy 04/18/23 multivitamin (Daily Multi-Vitamin tablet) 1 tab PO DAILY vitamin 04/18/23 tadalafil 5 mg tablet 5 mg PO DAILY PRN sexual activity 04/18/23 acetaminophen 650 mg tablet,extended release (Arthritis Pain Reliever) 1,300 mg PO Q8H PRN fever or pain 04/01/24 allopurinol 300 mg tablet 300 mg PO DAILY gout 04/01/24 colesevelam 625 mg tablet 1,250 mg PO BID diet 04/01/24 nabumetone 500 mg tablet 500 mg PO BID pain 04/01/24 benzonatate 100 mg capsule 200 mg (2 x 100 mg) PO TID PRN cough #21 caps 04/05/24 levofloxacin 500 mg tablet 500 mg PO DAILY@0600 #3 tabs 04/05/24 prednisone 10 mg tablet 10 mg PO DAILY #62 tabs 04/05/24 Hospital Course Operations None Procedures EKG and - (Chest x-ray) Summary of Care Provided Minutes Spent on Discharge: 38 Hospital Course: Mr. Wen is a 78-year-old white male who presented to the emergency department at [facility] on 04/01/2024 due to shortness of breath. Patient reported that he had had having a cough productive of sputum along with fevers and chills and malaise for about 1-1/2 to 2 weeks. He was tested in the outpatient setting for COVID and influenza the 2 days prior to presentation and at that time tested positive on a rapid for influenza B. He still was having fevers and the past 2 to 3 days prior to presentation he was having a mild amount of hemoptysis streaked in his sputum as he continues to cough. He and his check an ambulatory pulse ox at home and he was found to be 70% on room air so he was brought to the emergency department. He is not typically on home oxygen however has required supplemental oxygen previously. He does have a diagnosis of sleep apnea and wears CPAP at 17 cm of water at home and follows with Dr. Cohen. Vital signs on presentation showed temperature of 99, heart rate 82, blood pressure was 163/80 and pulse ox was 73% on room air. He was then placed on nasal cannula at 4 L with improvement in his saturation to 94%. CBC on admission showed a normal white count but he did have a mild left shift with a 78.3% neutrophilia. He also has a chronic stable anemia. An ABG was done at the time of admission and showed a pH of 7.41, pO2 of 59 with a sat of 91 and pCO2 of 34.7. This was done on heated high flow nasal cannula. Chemistry panel showed mild hyponatremia the sodium of 134 but was otherwise unremarkable. Glucose was 144 and patient is known diabetic. His lactic acid was 1.5. He had mild transaminitis with an ALT of 90 and an AST of 54 and this was new compared to recent lab. TSH was found to be slightly low at 0.304 however euthyroid sick syndrome is not suspected and repeat TSH is recommended to be performed in 3 months. Chest x-ray showed bilateral patchy opacities. Viral PCR was negative for influenza however was positive for rhinovirus. Blood cultures were negative, strep pneumo and Legionella antigens were negative. He was not able to produce a sputum culture to submit. He was admitted to the PCU and placed on supplemental oxygen as well as Levaquin for concern of superimposed bacterial pneumonia with underlying viral pneumonia. He is max oxygen requirement during his hospital course was 15 L heated high flow nasal cannula. He is slowly been able to be weaned to the point where he is on room air at rest. Ambulatory oxygenation was assessed prior to discharge and his oxygen saturation at rest on room air was 96% however he desatted to 87% with exertion with improvement to 89% on 2 L nasal cannula. Given my review of his oxygen testing this patient qualifies for home equipment and portability as the patient is mobile in the home and in the community at baseline. He will complete his course of Levaquin for another 3 days to complete a 7-day course. He was also sent home with a short course of steroid taper and as needed Tessalon Perles for any ongoing cough. We have encouraged ongoing use of incentive spirometry and Acapella after discharge. The patient does follow with Dr. Pulido as an outpatient and I have asked that he follow-up with him as an outpatient in the next 2 weeks to be reassessed for oxygen needs. I have also asked him to follow-up with his primary care physician within the next 2 weeks for posthospital follow-up. Patient was discharged home in stable condition on 04/05/2024 with the above prescription sent to his local pharmacy prior to discharge. Discharge diagnoses: Acute hypoxic respiratory failure secondary to rhinovirus infection Suspected superimposed bacterial pneumonia VIOLETA Morbid obesity Essential hypertension Gout Hyperlipidemia Seasonal allergies Chronic pain Erectile dysfunction Physical Exam Const alert, oriented x3, no apparent distress, no limitations and well nourished; Negative for average body habitus or healthy appearing Constitutional Narrative: Morbidly obese, older, white male, sitting up in chair at bedside, watching television, at bedside, appears comfortable, nontoxic, currently on room air without any signs of respiratory distress General Appearance: cooperative, comfortable, well kempt and well developed Orientation / Consciousness: awake, oriented to person, oriented to place and oriented to time Exam Limitations: no limitations Nutritional Appearance: morbidly obese HEENT normocephalic, head/scalp atraumatic and hearing grossly normal bilaterally HEENT Narrative: Mallampati 3-4, no thrush Eyes EOMs intact bilaterally and conjunctivae normal Eyes Narrative: No scleral icterus Neck no lymphadenopathy and supple Neck Narrative: Neck is short and thick, trachea midline, no thyroid large Resp normal respiratory effort, no retractions, no use of accessory muscles and No clear to auscultation bilaterally Resp Narrative: Few crackles at bases bilaterally Auscultation: rales; Negative for rhonchi or wheezes Cardio regular rate, regular rhythm, S1 normal heart sound, S2 normal heart sound, no murmurs, no rub, no gallops and no clicks GI normal to inspection, nondistended, normoactive bowel sounds, soft to palpation and non-tender GI Narrative: Large protuberant abdomen Extremity Extremity Narrative: Trace bilateral lower extremity pitting edema-no cyanosis or clubbing, radial and pedal pulses are 2+ Skin skin turgor normal and no jaundice Neuro oriented x3, moves all extremities and no focal motor deficits Speech: speech normal Psych affect normal Psych Narrative: Very pleasant, interacts appropriately Weight / BMI Weight Weight: 117.4 kg Body Mass Index (BMI) 45.8 ABG / Lab / Microbiology Data 04/05/24 11:54 04/05/24 11:54 Laboratory: Laboratory Results - last 24 hr 04/05/24 11:54: WBC 10.4, RBC 3.85 L, Hgb 11.8 L, Hct 35.0 L, MCV 90.9, MCH 30.6, MCHC 33.7, RDW Std Deviation 50.1 H, RDW Coeff of Steve 15.0 H, Plt Count 366, MPV 10.2, Immature Gran % (Auto) 3.700 H, Neut % (Auto) 71.6 H, Lymph % (Auto) 14.7 L, [place] % (Auto) 8.2, Eos % (Auto) 1.3, Baso % (Auto) 0.5, Absolute Neuts (auto) 7.4, Absolute Lymphs (auto) 1.53, Nucleated RBC % 0, Sodium 140, Potassium 3.5, Chloride 108 H, Carbon Dioxide 26.0, Anion Gap 6, BUN 21 H, C reatinine 0.62 L, Estim Creat Clear Calc 87.30, Est GFR (MDRD) Af Amer 163, Est GFR (MDRD) Non-Af 134, BUN/Creatinine Ratio 34.1 H, Glucose 96, Calcium 9.8 Microbiology: Microbiology 04/01/24 14:40 Blood Culture (Wb) - Right Hand Blood Culture - Preliminary No growth in 48 hours. 04/01/24 16:20 Mucosa - Nasopharyngeal Coronavirus COVID-19 PCR - Final 04/01/24 16:20 Mucosa - Nasopharyngeal Respiratory Panel (PCR) - Final Rhinovirus 04/01/24 16:20 Nasal Secretion MRSA (PCR) - Final 04/01/24 14:19 Urine, Clean Catch Legionella Antigen - Final 04/01/24 14:19 Urine, Clean Catch Streptococcus pneumoniae Antigen (M - Final D/C Instructions Discharge Diet: Low fat / Low cholesterol Discharge Activity: Return to Normal Activity Meaningful Use Info Meaningful Use Meaningful Use Diagnoses (Choose all that apply): None applicable Ischemic Stroke Statin Dosing Therapy Reference: STATIN DOSE THERAPY REFERENCE: * Patients > 75 years receive moderate or high dose statin therapy. * Patients 75 years or YOUNGER should receive HIGH intensity statin dose unless contraindicated. You will be required to document reason for non-treatment if statin daily dose does not meet guidelines. HIGH DOSE STATIN THERAPY DAILY Atorvastatin > than or = to 40 mg Rosuvastatin > than or = to 20 mg Amlodipine + Atorvastatin > than or = to 2.5/40 mg Ezetimibe + Simvastatin 10/80 mg Simvastatin 80mg Discharge Plan Admission Admit Date/Time: 04/01/24 14:16 Primary Reason for Your Visit: Shortness of breath/cough Attending Provider: Jaleesa Noonan Primary Care Provider: Bernabe Rodriguez DISTANCE LEARNING PROGRAM COORDINATOR Consulting Providers: Cristi Thao; Bruno Hickman Instructions Additional Instructions / Restrictions: 1. Please continue to with medicine. Please use 3-4 times daily 2. Please complete prednisone taper and antibiotics as ordered below 3. Please call and follow-up with pulmonary medicine for discontinuing your oxygen with ambulation. You need 2 L of oxygenation with movement and none at rest. Discharge Orders/Prescriptions Prescriptions: New benzonatate 100 mg Capsule 200 mg PO TID PRN (Reason: cough) Qty: 21 0RF levofloxacin 500 mg Tablet 500 mg PO DAILY@0600 Qty: 3 0RF prednisone 10 mg tablet 10 mg PO DAILY Qty: 62 0RF Rx Instructions: 4 tablets x 2 days, 3 tablets x 4 days, 2 tablets x 4 days, 1 tablet x 4 days then stop Continued fenofibrate micronized 134 mg capsule 134 mg PO DAILY amlodipine 10 mg tablet 10 mg PO DAILY atorvastatin 80 mg tablet 80 mg PO QPM aspirin 81 mg tablet,delayed release (DR/EC) 81 mg PO QHS loratadine [Allergy Relief (loratadine)] 10 mg tablet 10 mg PO DAILY lisinopril 40 mg tablet 40 mg PO DAILY ascorbic acid (vitamin C) 1,000 mg capsule 1 g PO DAILY cyanocobalamin (vitamin B-12) 1,000 mcg capsule 1,000 mcg PO DAILY tadalafil 5 mg tablet 5 mg PO DAILY PRN (Reason: sexual activity) azelastine 137 mcg (0.1 %) aerosol,spray 2 spray intranasal BID Rx Instructions: administer into each nostril mometasone [Nasonex 24hr Allergy] 50 mcg/actuation spray,non-aerosol 2 spray intranasal DAILY Rx Instructions: administer into each nostril multivitamin [Daily Multi-Vitamin] Tablet 1 tab PO DAILY colesevelam 625 mg tablet 1,250 mg PO BID allopurinol 300 mg tablet 300 mg PO DAILY nabumetone 500 mg tablet 500 mg PO BID acetaminophen [Arthritis Pain Reliever] 650 mg tablet extended release 1,300 mg PO Q8H PRN (Reason: fever or pain) Referrals / Follow Up: Yuval Pulido MD [Med Staff - Active Staff] - Within 2 Weeks Bernabe Rodriguez NP, DISTANCE LEARNING PROGRAM COORDINATOR-C [Primary Care Provider] - Within 2 Weeks Disposition Disposition (needs filled in before D/C Order can be placed): Home, Self Care Charges/Coding Visit Charges Inpatient E&M: 40654 Disch Hosp >30min
--- NOTE | 2024-04-05 14:31 | CASEMGMT ---
Patient has order for discharge. Patient qualifies for home oxygen at discharge. Script received for home oxygen and outpatient therapy. CLAYTON FLAHERTY in to discuss needs at discharge, at bedside. [place] [facility] [place]. Patient states he would like to schedule outpatient therapy on his own. Patient denies further needs or help at discharge. Patient had no further questions or concerns. CLAYTON FLAHERTY sent [place] [facility] and arranged for tank to be delivered to patient's room prior to discharge. Script for outpatient therapy placed in discharge packet.
--- NOTE | 2024-04-05 17:01 | PHA.DC_ITS ---
Pharmacy [facility] has performed discharge medication reconciliation and counseling for this patient. Patient counseled via telephone due to droplet precautions. 1. BENZONATATE 200MG PO TID PRN COUGH 2. LEVOFLOXACIN 500MG PO DAILY X 3 DAYS 3. PREDNISONE 40MG PO DAILY X 2 DAYS, THEN 30MG PO X 4 DAYS, THEN 20MG X 4 DAYS, THEN 10MG X 4 DAYS The patient's discharge medication list was reviewed for discrepancies and discrepancies were resolved. The patient was counseled on the following discharge medications and changes in medications for homegoing were reviewed. The Reason for Use, instructions for use, and potential side effects were reviewed for all new medications. The patient's questions regarding all of their medications were answered. The patient was able to verbally demonstrate an understanding of their discharge medications. Medications at Discharge Home Medications amlodipine 10 mg tablet 10 mg PO DAILY blood pressure 04/18/23 ascorbic acid (vitamin C) 1,000 mg capsule 1 g PO DAILY vitamin 04/18/23 aspirin 81 mg tablet,delayed release 81 mg PO QHS heart health 04/18/23 atorvastatin 80 mg tablet 80 mg PO QPM cholesterol 04/18/23 azelastine 137 mcg (0.1 %) nasal spray 2 spray intranasal BID allergy 04/18/23 cyanocobalamin (vitamin B-12) 1,000 mcg capsule 1,000 mcg PO DAILY vitamin 04/18/23 fenofibrate micronized 134 mg capsule 134 mg PO DAILY cholesterol 04/18/23 lisinopril 40 mg tablet 40 mg PO DAILY blood pressure 04/18/23 loratadine 10 mg tablet (Allergy Relief (loratadine)) 10 mg PO DAILY allergies 04/18/23 mometasone 50 mcg/actuation nasal spray (Nasonex 24hr Allergy) 2 spray intranasal DAILY allergy 04/18/23 multivitamin (Daily Multi-Vitamin tablet) 1 tab PO DAILY vitamin 04/18/23 tadalafil 5 mg tablet 5 mg PO DAILY PRN sexual activity 04/18/23 acetaminophen 650 mg tablet,extended release (Arthritis Pain Reliever) 1,300 mg PO Q8H PRN fever or pain 04/01/24 allopurinol 300 mg tablet 300 mg PO DAILY gout 04/01/24 colesevelam 625 mg tablet 1,250 mg PO BID diet 04/01/24 nabumetone 500 mg tablet 500 mg PO BID pain 04/01/24 benzonatate 100 mg capsule 200 mg (2 x 100 mg) PO TID PRN cough #21 caps 04/05/24 levofloxacin 500 mg tablet 500 mg PO DAILY@0600 #3 tabs 04/05/24 prednisone 10 mg tablet 10 mg PO DAILY #62 tabs 04/05/24
== END 2024-04-05 17:46 | disposition home or self-care (01) | DRG 193 ==
LOC: ED 14:34 → PCU 14:40
PROVIDERS: Admitting Provider Internal Medicine; Emergency Provider Emergency Medicine; PCP Nurse Practitioner Family; Referring Provider Emergency Medicine; Visit Provider Internal Medicine
DX: J12.89 Other viral pneumonia (principal); J96.01 Acute respiratory failure with hypoxia; E87.1 Hypo-osmolality and hyponatremia; R04.2 Hemoptysis; Z68.41 Body mass index [BMI] 40.0-44.9, adult; E11.9 Type 2 diabetes mellitus without complications; I10 Essential (primary) hypertension; E66.01 Morbid (severe) obesity due to excess calories; J15.9 Unspecified bacterial pneumonia; E78.5 Hyperlipidemia, unspecified; J30.2 Other seasonal allergic rhinitis; G47.33 Obstructive sleep apnea (adult) (pediatric); M10.9 Gout, unspecified; M47.816 Spondylosis without myelopathy or radiculopathy, lumbar region; G89.29 Other chronic pain; B97.89 Other viral agents as the cause of diseases classified elsewhere; Z79.82 Long term (current) use of aspirin; Z79.899 Other long term (current) drug therapy; Z86.16 Personal history of COVID-19
CPT/HCPCS: 36415; 36600; 71046; 80048; 80053; 81001; 82803; 83605; 83735; 84100; 84443; 84484; 85025; 85610; 85730; 87040; 87449; 87633; 87635; 87641; 93005; 94002; 94003; 94640; 94660; 94668; 94762; 97116; 97162; 97165; 97530; 99285; J7030; A4216; J1940

== ENCOUNTER → 2024-07-12 | Outpatient (CLI) | payer MEDICARE, SELFPAY ==
[2024-07-12 18:02] LABS: CRP < 2.90 mg/L (0.0-3.0)
[2024-07-15 08:10] LABS: Endomysial Antibody IgA Negative (Negative); Immunoglobulin A 37 mg/dL (61-437); t-Transglutaminase IgA <2 U/mL (0-3)
== END | disposition home or self-care (01) ==
LOC: MTLAB 14:55
PROVIDERS: PCP Nurse Practitioner Family; Referring Provider Internal Medicine Gastroenterology; Visit Provider Internal Medicine Gastroenterology
DX: R19.7 Diarrhea, unspecified (principal)
CPT/HCPCS: 36415; 82784; 83516; 86140; 86255

== ENCOUNTER → 2024-07-20 | Outpatient (CLI) | payer MEDICARE, SELFPAY ==
[2024-07-22 17:07] LABS: Fats, Neutral Normal (.); Fats, Total Normal (.)
[2024-07-28 15:07] LABS: Pancreatic Elastase, Fecal > 800 (>200)
== END | disposition home or self-care (01) ==
LOC: MTLAB 12:55
PROVIDERS: PCP Nurse Practitioner Family; Referring Provider Internal Medicine Gastroenterology; Visit Provider Internal Medicine Gastroenterology
DX: R19.7 Diarrhea, unspecified (principal)
CPT/HCPCS: 82274; 82653; 82705

== ENCOUNTER → 2024-09-06 | Outpatient (CLI) | payer MEDICARE, SELFPAY ==
--- NOTE | 2024-09-06 10:15 | RAD_ITS ---
EXAM: XR Right Knee Complete, 4 or More Views CLINICAL INDICATION: RIGHT KNEE PAIN TECHNIQUE: Four or more views of the right knee. COMPARISON: No relevant prior studies available. FINDINGS: BONES/JOINTS: Severe degenerative changes of the medial compartment of the knee joint. No acute fracture. No dislocation. SOFT TISSUES: Soft tissue swelling. RAD/Knee 4 or More Views IMPRESSION: Degenerative changes as above. Reading Location: [facility]
== END | disposition home or self-care (01) ==
LOC: RAD 10:15
PROVIDERS: PCP Nurse Practitioner Family; Referring Provider Clinical Nurse Specialist Adult Health; Visit Provider Clinical Nurse Specialist Adult Health
DX: M25.561 Pain in right knee (principal)
CPT/HCPCS: 73564

== ENCOUNTER → 2024-09-29 | Outpatient (CLI) | payer MEDICARE, SELFPAY ==
[2024-09-29 10:19] LABS: Microalbumin,Random Urine 32.1 mg/L (NO RANGE EST.); Microalbumin:Creatinine Ratio 565.1 mg/g CRE
[2024-09-29 10:46] LABS: ALB/GLOB Ratio 1.9 RATIO (0.9-2.4); AST(SGOT) 23 U/L (<=37); Alanine Aminotransfer ALT/SGPT 21 U/L (<=46); Albumin, Serum 4.3 g/dL (3.4-4.8); Alkaline Phosphatase 47 U/L (40-129); Anion Gap 12 (5-15); BUN 19 mg/dL (4-19); BUN/Creat Ratio 23.6 RATIO (10-20); Calcium,Total 9.4 mg/dL (7.6-11.0); Carbon Dioxide 22.6 mmol/L (21.0-32.0); Chloride 108 mmol/L (98-108); Cholesterol 133 mg/dL (<=200); Creatinine, Serum 0.79 mg/dL (0.70-1.20); EST Glomerular Filtration Rate 91 (>60); Globulin 2.3 g/dL (2.2-4.2); Glucose 97 mg/dL (70-99); High Density Lipoprotein 53 mg/dL; Low Density Lipoprotein Calc. 59 mg/dL; Potassium 3.8 mmol/L (3.3-5.1); Protein, Total 6.6 g/dL (5.9-8.4); Sodium Level 143 mmol/L (133-145); Total Bilirubin 0.27 mg/dL (0.00-1.30); Triglycerides 105 mg/dL; Uric Acid 4.5 mg/dL (3.5-7.2); Very Low Density Lipoprotein 21 mg/dL (5-40); cholesterol:hdl ratio screen 2.52
[2024-09-29 10:49] LABS: PSA,Total- Diagnostic 0.39 ng/mL (0.00-4.00)
== END | disposition home or self-care (01) ==
LOC: LAB 08:55
PROVIDERS: PCP Nurse Practitioner Family; Referring Provider Nurse Practitioner Family; Visit Provider Nurse Practitioner Family
DX: I10 Essential (primary) hypertension (principal); E78.5 Hyperlipidemia, unspecified; N40.0 Benign prostatic hyperplasia without lower urinary tract symptoms; M10.9 Gout, unspecified
CPT/HCPCS: 36415; 80053; 80061; 82043; 82570; 84153; 84550

== ENCOUNTER → 2025-02-03 | Outpatient (CLI) | payer MEDICARE, SELFPAY ==
--- NOTE | 2025-02-03 10:14 | MRI_ITS ---
PROCEDURE: UPPER EXT JOINT ONLY(ROUTINE) 02/03/2025 REASON FOR EXAM: EVALUATE FOR POSSIBLE FULL/PARTIAL-THICKNESS TEARS. TECHNIQUE: T1, T2, PD, UPPER EXT JOINT ONLY(ROUTINE) Multiplanar and multisequence images were obtained without IV contrast administration. COMPARISON: None FINDINGS: Bone Marrow: There is no bony contusion or occult fracture. AC joint: There is severe AC joint hypertrophy without evidence of separation. There is a trace AC joint effusion. There is a type 2 acromion. Rotator cuff: There is moderate supraspinatus and infraspinatus muscular atrophy. There is a full-thickness, full width tear of the supraspinatus with 3.3 cm of retraction. There is a full-thickness, full width tear of the infraspinatus with 4.0 cm of retraction. There is severe subscapularis tendinopathy without full-thickness tear or retraction. The teres minor appears intact. Labrum: There is a tear of the labrum from the 10-12 o'clock position. Biceps tendon: Biceps tendon is present in the biceps tendon groove, with intact anchors. Effusion: There is a large joint effusion which extends into the subacromial subdeltoid bursa. MRI/Upper Ext Joint Only(Routine) IMPRESSION: There is severe AC joint hypertrophy without evidence of separation. There is a trace AC joint effusion. 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 There is a full-thickness, full width tear of the supraspinatus with 3.3 cm of retraction. There is a full-thickness, full width tear of the infraspinatus with 4.0 cm of retraction. There is severe subscapularis tendinopathy without full-thickness tear or retra ction. There is a tear of the labrum from the 10-12 o'clock position. There is a large joint effusion which extends into the subacromial subdeltoid b ursa. Reading Location: [facility]
== END | disposition home or self-care (01) ==
LOC: MRI 10:10
PROVIDERS: PCP Nurse Practitioner Family; Referring Provider Nurse Practitioner Family; Visit Provider Nurse Practitioner Family
DX: M25.511 Pain in right shoulder (principal)
CPT/HCPCS: 73221

== ENCOUNTER → 2025-03-04 | Outpatient (CLI) | payer MEDICARE, SELFPAY ==
--- NOTE | 2025-03-04 07:03 | ECHOCS_ITS ---
Reason For Study Reason For Study: Afib Procedure This was a 2D Doppler, Color Flow transthoracic echocardiogram. The study was technically difficult. Contrast injection was performed. Exam performed in department. Left Ventricle Normal LV size. The left ventricular ejection fraction is 40 %. There is mild to moderate global hypokinesis of the left ventricle. Right Ventricle Normal RV size. Normal systolic function. Atria Normal left atrium. Normal right atrium. Lipomatous hypertrophy of the atrial septum. Mitral Valve Normal mitral valve. Tricuspid Valve Normal tricuspid valve. Mild to moderate (1-2+) tricuspid valve insufficiency. Pulmonary artery systolic pressure is 49 mmHg. Aortic Valve Trisinus/trileaflet aortic valve. Pulmonic Valve Normal pulmonic valve. Great Vessels Mild to moderately dilated aortic root. The pulmonary artery is normal size. Inferior vena cava collapse with sniff. Pericardium/Pleural No pericardial effusion. Medication Diluted definity 1ml given slow IV push to enhance endocardial definition. MMode/2D Measurements & Calculations LVOT diam: 2.0 cm Ao root diam: 4.0 cm LAV(MOD- bp): 38.9 ml LVOT area: 3.2 cm2 LAV(MOD- bp) Indexed: 18.7 ml/m2 LAV(MOD- sp2): 41.2 ml LAV(MOD- sp4): 31.1 ml SV(MOD-sp4): 42.5 ml SV(sp4- el): 43.3 ml LVAd ap4: 35.0 cm2 LVLd ap4: 8.2 cm SI(MOD-sp4): 20.4 ml/m2 EDV(MOD-sp4): 124.3 ml EDV(sp4-el): 127.9 ml LVAs ap4: 28.3 cm2 LVLs ap4: 8.2 cm ESV(MOD-sp4): 81.8 ml ESV(sp4-el): 84.6 ml EF(MOD-sp4): 34.2 % EF(sp4-el): 33.9 % LA dimension(2D): 4.4 cm LA A4 area: 13.7 cm2 RA A4 area: 10.2 cm2 Time Measurements MV dec time: 0.30 sec Doppler Measurements & Calculations MV E max jas: 77.3 cm/sec Lat Peak E' Jas: 5.5 cm/sec Med Peak E' Jas: 3.5 cm/sec MV A max jas: 81.7 cm/sec E/E' lat: 14.1 E/E' med: 21.8 MV E/A: 0.95 MV V2 max: 86.7 cm/sec MV dec slope: 272.6 cm/sec2 Ao V2 max: 181.4 cm/sec MV max P.0 mmHg Ao max P.2 mmHg MV V2 mean: 65.8 cm/sec Ao V2 mean: 118.8 cm/sec MV mean P.9 mmHg Ao mean P.6 mmHg MV V2 VTI: 35.7 cm Ao V2 VTI: 39.6 cm MVA(VTI): 2.3 cm2 AV (velocity ratio): 0.65 BRENTON(I,D): 2.1 cm2 BRENTON(V,D): 2.1 cm2 LV V1 max: 118.4 cm/sec SV(LVOT): 82.3 ml PA V2 max: 102.8 cm/sec LV V1 max P.6 mmHg PA V2 mean: 70.8 cm/sec LV V1 mean P.4 mmHg LV V1 mean: 87.7 cm/sec LV V1 VTI: 25.7 cm TR max jas: 336.7 cm/sec TR max P.3 mmHg ECHO/Echo Complete W/ Contrast Interpretation Summary Mild to moderately dilated aortic root. The left ventricular ejection fraction is 40 %. Normal LV size. There is mild to moderate global hypokinesis of the left ventricle. Mild to moderate (1-2+) tricuspid valve insufficiency. Pulmonary artery systolic pressure is 49 mmHg. Ordering Physician: Seun Bledsoe Referring Physician: Seun Bledsoe Performed By: Shantel Friedman RCS
--- OUTSIDE RECORDS SUMMARY | 2025-03-04 07:20 | XMS RPT_ITS | CCD ---
Author Organization [facility] Care Team Providers Care Generator Operator Name Role Phone Jigar Suarez MD Primary Care Provider JIGAR SUAREZ Primary Care Unavailable PEYMAN DONNELLY Attending Unavailable JIGAR SUAREZ Primary Care Unavailable PEYMAN DONNELLY Referring Unavailable Jennifer CANDY STARCH MOLD PRINTER, CANDY STARCH MOLD PRINTER-C Bernabe Farris [facility] Pr ovider Jennifer CANDY STARCH MOLD PRINTER, CANDY STARCH MOLD PRINTER-C Bernabe Farris Referring Provi louann Dr. Yony Moody Attending Provider Jennifer CANDY STARCH MOLD PRINTER, CANDY STARCH MOLD PRINTER-C Bernabe Farris [facility] Pr ovider Dr. Patrick Odom Attending Provider Jennifer CANDY STARCH MOLD PRINTER-C, Bernabe Farris [facility] Provi louann Dr. Ramón Martins MD Attending Provider Dr. Ramón Martins MD Referring Provider NP. Fadia Perry Attending Provider [phone] NP. Fadia Perry Referring Provider Jennifer CANDY STARCH MOLD PRINTER-CBernabe Primary [facility] Provi louann Jennifer ALVES-C, Bernabe Farris Referring Provider Ladi SONG, Dr. Kohli Attending Provider Jennifer ALVES-CBernabe Attending Provider Fadia Perry Referring Unavailable Fadia Perry Attending Unavailable Bernabe Rodriguez NP Primary Care Unav ailable Jennifer CANDY STARCH MOLD PRINTER, Bernabe Farris Referring Unav ailable Jennifer CANDY STARCH MOLD PRINTER, Bernabe Farris Attending Unav ailable Tyler CANDY STARCH MOLD PRINTER, Bernabe Farris Primary Care Unav ailable Adolfo Benitez Referring Unavailable Tyler CANDY STARCH MOLD PRINTER, Bernabe Farris Primary Care Unav ailable Master, Cristi Admitting Unavailable Master, Cristi Attending Unavailable Master, Cristi Consulting Unavailable Bruno Hickman Attending Unavailable Bruno Hickman Consulting Unavailable Jaleesa Noonan Attending Unavailable Jaleesa Noonan Consulting Unavailable Jennifer CANDY STARCH MOLD PRINTER, Bernabe Farris Referring Unav ailable LadiSeun headley Attending Unavailable Jennifer CANDY STARCH MOLD PRINTER, Bernabe Farris Primary Care Unav ailable Tyler CANDY STARCH MOLD PRINTER, Bernabe Farris Referring Unav ailable Tyler CANDY STARCH MOLD PRINTER, Bernabe Farris Attending Unav ailable Jennifer CANDY STARCH MOLD PRINTER, Bernabe Farris Primary Care Unav ailable Tyler CANDY STARCH MOLD PRINTER, Bernabe Farris Referring Unav ailable Jennifer CANDY STARCH MOLD PRINTER, Bernabe Farris Attending Unav ailable Tyler CANDY STARCH MOLD PRINTER, Bernabe Farris Primary Care Unav ailable Ladi, Seun Referring Unavailable Ladi, Seun Attending Unavailable Tyler CANDY STARCH MOLD PRINTER, Bernabe Farris Primary Care Unav ailable Jabour, Ramón Referring Unavailable Jabour, Ramón Attending Unavailable Jennifer CANDY STARCH MOLD PRINTER, Bernabe Farris Primary Care Unav ailable Jabour, Ramón Referring Unavailable Jabour, Ramón Attending Unavailable Tyler CANDY STARCH MOLD PRINTER, Bernabe Brenton Primary Care Unav ailable Jennifer CANDY STARCH MOLD PRINTER, Bernabe Farris Attending Unav ailable Tyler CANDY STARCH MOLD PRINTER, Bernabe Brenton Primary Care Unav ailable Jaleesa Noonan Attending Unavailable Adolfo Benitez Referring Unavailable Tyler CANDY STARCH MOLD PRINTER, Bernabe Farris Primary Care Unav ailable Master, Cristi Admitting Unavailable Master, Cristi Consulting Unavailable TereletsBruno edwards Consulting Unavailable Jennifer CANDY STARCH MOLD PRINTER, Bernabe Farris Attending Unav ailable Jennifer CANDY STARCH MOLD PRINTER, Bernabe Farris Primary Care Unav ailable Allergies Allergy Classification Reported Allergen(s) Allergy Type Date of Onset Reaction(s) Facility (11 sources) Acetaminophen Drug Allergy 7 [facility] (5 sources) Aspirin Drug Allergy 7 [facility] (14 sources) Calcium Carbonate; Translations: [calcium carbonate] Drug Allergy 7 [facility] Comment on above: Tremors (13 sources) predniSONE; Translations: [PREDNISONE] Drug Allergy 4 Other: See Comments [facility] (2 sources) Acetaminophen / Caffeine; Translations: [ACETAMINOPHEN-CA FFEINE] Drug Allergy 4 Other: See Comments [facility] (2 sources) gabapentin Drug Allergy 5 Memory issues [facility] (2 sources) Ibuprofen Drug Allergy 5 Diarrhea [facility] (1 source) Acetaminophen Drug Allergy 3 [facility] (1 source) gabapentin Drug Allergy 5 [facility] (1 source) Ibuprofen Drug Allergy 5 [facility] (1 source) predniSONE Drug Allergy 3 [facility] Medications Current Medications Medication Drug Class(es) Dates Sig (Normalized) Sig (Original) 8 hr acetaminophen 650 mg extended release oral tablet (4 sources) Start: 04-01-2024 Acetaminophen (Arthritis Pain Reliever) 650 mg tablet extended release Active 1300 mg PO Q8H as needed for fever or pain April 01, 2024 12:00am take 2 tablets by mo uth every six hours as needed acetaminophen (TYLENOL) 325 mg tablet Ta ke 650 mg by mouth every 6 hours as needed. 0 Active Comment on above: Take 650 mg by mouth every 6 hours as needed. allopurinol 300 mg oral tablet (4 sources) Xanthine Oxidase Inhibitor Start: 04-01-2024 take 1 tablet by mouth once daily Allopurinol 300 mg tablet Active 300 mg PO DAILY April 01, 2024 12:00am gout take 1 tablet by mouth once dimitris y allopurinol 300 mg tablet Take 300 mg by mouth once daily. 0 Active Comment on above: Take 300 mg by mouth once daily. ascorbic acid 1000 mg oral capsule (10 sources) Vitamin C Start: 04-18-2023 take 1 g by mouth once daily Ascorbic Acid (Vitamin C) 1,000 mg capsule Active 1 g PO DAILY April 18, 2023 12:00am vitamin Start: 04-18-2023 take 1 g by mouth every six ho urs Ascorbic Acid (Vitamin C) Active 1 GM PO EVERY 6 HOURS April 18, 2023 12:00am Start: 04-18-2023 take 1 g by mouth every six ho urs Ascorbic Acid (Vitamin C) Active 1 GM PO EVERY 6 HOURS April 17, 2023 11:00pm take 1 tablet by mouth once dimitris y Ascorbic Acid 1,000 mg tablet Take 1,000 mg by mouth once daily. 0 Active Comment on above: Take 1,000 mg by laura th once daily. aspirin 81 mg delayed release oral tablet (10 sources) Platelet Aggregation Inhibitor, Nonsteroidal Anti-inflammatory Drug Start: 04-18-2023 take 1 tablet by mouth at bedtime Aspirin 81 mg tablet,delayed release (DR/EC) Active 81 mg PO AT BEDTIME April 18, 2023 12:00am heart health take 1 tablet by mouth once dimitris y Aspirin 81 mg tab Take 81 mg by mouth once daily. 0 Active Comment on above: Take 81 mg by mouth once daily. atorvastatin 80 mg oral tablet (10 sources) HMG-CoA Reductase Inhibitor Start: take 1 tablet by mouth once daily in the evening Atorvastatin 80 mg tablet Active 80 mg PO EVERY EVENING April 18, 2023 12:00am cholesterol take 1 tablet by mouth once dimitris y atorvastatin (LIPITOR) 80 mg tablet Take 80 mg by mouth once daily. 0 Active Comment on above: Take 80 mg by mouth once daily. azelastine hydrochloride 0.137 mg/actuat metered dose nasal spray (10 sources) Histamine-1 Receptor Antagonist Start: 04-18-2023 Azelastine 137 mcg (0.1 %) aerosol,spray Active 2 NMA INTRANASAL TWICE A DAY April 18, 2023 12:00am allergy administer into each nostril Start: 04-18-2023 take 1 spray(s) nasa l route twice daily Azelastine Active 2 SPRAY INTRANASAL TWICE A DAY April 18, 2023 12:00am administer into each nostril take 1 spray(s) nasa l route twice daily azelastine 0.1% nasal spray Use 1 [place] in each nostril twice daily. 0 Active Comment on above: Use 1 [place] in each nostril twice daily. cholecalciferol 0.125 mg oral capsule (2 sources) Vitamin D Start: 025 take 1 capsule by mouth once daily Cholecalciferol (Vitamin D3) 125 mcg (5,000 unit) capsule Active 125 ug PO daily February 02, 2025 12:00am fenofibrate 134 mg oral capsule (11 sources) Peroxisome Proliferator Receptor alpha Agonist Start: 023 take 1 capsule by mouth once daily Fenofibrate Micronized 134 mg capsule Active 134 mg PO DAILY April 18, 2023 12:00am cholesterol Start: 07-10-2022 fenofibrate (L OFIBRA) 134 mg capsule Fenofibric Acid 135 mg cpDR Take by mouth once daily. 0 Active Comment on above: Take by mouth once d aily. Fluticasone Furoate-Vilanterol (2 sources) Corticosteroid, beta2-Adrenergic Agonist Start: 2024 Fluticasone Furoate-Vilanterol (Breo Ellipta) 200-25 mcg/dose blister with device Active 1 NMA INHALATION daily February 02, 2025 12:00am hydroCHLOROthiazide 25 mg oral tablet (1 source) Thiazide Diuretic Start: 2024 take 1 tablet by mouth once daily in the morning Hydrochlorothiazide 25 mg tablet Active 25 mg PO EVERY MORNING 90 3 February 02, 2025 12:00am lisinopril 40 mg oral tablet (9 sources) Angiotensin Converting Enzyme Inhibitor Start: 2022 take 1 tablet by mouth once daily Lisinopril 40 mg tablet Active 40 mg PO DAILY April 18, 2023 12:00am blood pressure loratadine 10 mg oral tablet (10 sources) Start: 2022 take 1 tablet by mouth once daily Loratadine (Allergy Relief (Loratadine)) 10 mg tablet Active 10 mg PO DAILY April 18, 2023 12:00am allergies loratadine 10 mg cap Take by mouth once daily. 0 Active Comment on above: Take by mouth once d aily. mometasone furoate 0.05 mg/actuat metered dose nasal spray (10 sources) Corticosteroid Start: take 50 ug nasal route once daily Mometasone (Nasonex 24hr Allergy) 50 mcg/actuation spray,non-aerosol Active 2 NMA INTRANASAL DAILY April 18, 2023 12:00am allergy administer into each nostril Start: 04-18-2023 take 1 spray(s) nasa l route twice daily Mometasone (Nasonex 24hr Allergy) 50 mcg/actuation spray,non-aerosol Active 2 SPRAY INTRANASAL TWICE A DAY April 18, 2023 12:00am administer into each nostril MOMETASONE FUROA TE (NASONEX NASAL) Use in the nose once daily. 0 Active Comment on above: Use in the nose once daily. Multivitamin (Daily Multi-Vitamin) tablet (9 sources) Start: 04-18-2023 Multivitamin (Daily Multi-Vitamin) tablet Active 1 {tbl} PO DAILY April 18, 2023 12:00am vitamin Start: 04-18-2023 Multivitamin ( Daily Multi-Vitamin) tablet Active 1 {tbl} PO DAILY April 18, 2023 12:00am Start: 04-18-2023 take 1 tablet by laura th once daily Multivitamin (Daily Multi-Vitamin) tablet Active 1 TABLET PO DAILY April 18, 2023 12:00am Start: 04-18-2023 take 1 tablet by laura th once daily Multivitamin (Daily Multi-Vitamin) tablet Active 1 TABLET PO DAILY April 17, 2023 11:00pm tadalafil 5 mg oral tablet (10 sources) Phosphodiesterase 5 Inhibitor Start: 04-18-2023 take 1 tablet by mouth once daily as needed Tadalafil 5 mg tablet Active 5 mg PO DAILY as needed for sexual activity April 18, 2023 12:00am Start: 06-03-2022 take 1 tablet by laura th once daily Tadalafil 5 mg tablet Take 5 mg by mouth once daily. 0 06/03/2022 Active Comment on above: Take 5 mg by mouth o nce daily. vitamin b12 1 mg oral capsule (10 sources) Vitamin B12 Start: 04-18-2023 take 1 capsule by mouth once daily Cyanocobalamin (Vitamin B-12) 1,000 mcg capsule Active 1000 ug PO DAILY April 18, 2023 12:00am vitamin take 1 tablet by mouth once dimitris y cyanocobalamin (VITAMIN B-12) 1,000 mcg tab Take 1,000 mcg by mouth once daily. 0 Active Comment on above: Take 1,000 mcg by mo [facility] once daily. Completed/Discontinued Medications Medication Drug Class(es) Dates Sig (Normalized) Sig (Original) acetaminophen 325 mg / HYDROcodone bitartrate 5 mg oral tablet (1 source) Opioid Agonist Start: 08-25-2013 take 1-2 tablets by mouth every four hours as needed HYDROcodone-aceta minophen 5-325 mg per tablet 1 to 2 tabs po q 4 hours prn 20 tablet 0 08/25/2013 Active Comment on above: 1 to 2 tabs po q 4 h ours prn aliskiren 300 mg oral tablet (1 source) Renin Inhibitor take 1 tablet by mouth once daily aliskiren (TEKTURNA) 300 mg tablet Take 300 mg by mouth once daily. 0 Active Comment on above: Take 300 mg by mouth once daily. amLODIPine 10 mg oral tablet (10 sources) Dihydropyridine Calcium Channel Mei Start: 04-18-2023 End: 02-02-2025 take 1 tablet by mouth once daily Amlodipine 10 mg tablet Discontinued 10 mg PO DAILY April 18, 2023 12:00am February 02, 2025 4:25pm blood pressure take 1 tablet by mouth once dimitris y amLODIPine 10 mg tablet Take 10 mg by mouth once daily. 0 Active Comment on above: Take 10 mg by mouth once daily. benzonatate 100 mg oral capsule (3 sources) Non-narcotic Antitussive Start: End: take 2 capsules by mouth three times daily as needed for cough Benzonatate 100 mg Capsule Discontinued 200 mg PO THREE TIMES A DAY as needed for cough 21 0 April 05, 2024 2:11pm January 24, 2025 11:21am colesevelam hydrochloride 625 mg oral tablet (3 sources) Bile Acid Sequestrant Start: End: take 2 tablets by mouth twice daily Colesevelam 625 mg tablet Discontinued 1250 mg PO TWICE A DAY April 01, 2024 12:00am January 24, 2025 11:22am diet DOCOSAHEXANOIC ACID/EPA (EPA FISH OIL ORAL) (1 source) DOCOSAHEXANOIC ACID/EPA (EPA FISH OIL ORAL) Take by mouth. 2400mg 0 Active Comment on above: Take by mouth. 2400m g Folic Acid (1 source) FOLIC ACID ORAL Take by mouth once daily. 0 Active Comment on above: Take by mouth once d aily. furosemide 20 mg oral tablet (1 source) Loop Diuretic take 1 tablet by mouth once daily furosemide 20 mg tablet Take 20 mg by mouth once daily. 0 Active Comment on above: Take 20 mg by mouth once daily. ibuprofen 200 mg oral capsule (9 sources) Nonsteroidal Anti-inflammatory Drug Start: End: take 1 capsule by mouth every six hours as needed Ibuprofen 200 mg capsule Discontinued 200 mg PO EVERY 6 HOURS as needed April 18, 2023 12:00am April 01, 2024 3:45pm levoFLOXacin 500 mg oral tablet (3 sources) Quinolone Antimicrobial Start: End: take 1 tablet by mouth once daily Levofloxacin 500 mg Tablet Discontinued 500 mg PO DAILY@0600 3 0 April 05, 2024 12:00am January 24, 2025 11:22am nabumetone 500 mg oral tablet (3 sources) Nonsteroidal Anti-inflammatory Drug Start: End: take 1 tablet by mouth twice daily Nabumetone 500 mg tablet Discontinued 500 mg PO TWICE A DAY April 01, 2024 12:00am January 24, 2025 11:22am pain omeprazole 20 mg delayed release oral capsule (2 sources) Proton Pump Inhibitor Start: End: take 1 capsule by mouth once daily Omeprazole 20 mg capsule,delayed release(DR/EC) Discontinued 20 mg PO daily January 24, 2025 12:00am February 02, 2025 3:49pm predniSONE 10 mg oral tablet (3 sources) Start: End: Prednisone 10 mg tablet Discontinued 10 mg PO DAILY 62 0 April 05, 2024 12:00am January 24, 2025 11:22am 4 tablets x 2 days, 3 tablets x 4 days, 2 tablets x 4 days, 1 tablet x 4 days then stop quinapril 40 mg oral tablet (1 source) Angiotensin Converting Enzyme Inhibitor take 1 tablet by mouth twice daily Quinapril HCl 40 mg tablet Take 40 mg by mouth twice daily. 0 Active Comment on above: Take 40 mg by mouth twice daily. tamsulosin hydrochloride 0.4 mg oral capsule (20 sources) alpha-Adrenergic Mei Start: End: take 1 capsule by mouth once daily Tamsulosin 0.4 mg capsule Discontinued 0.4 mg PO DAILY January 24, 2025 12:00am February 02, 2025 3:49pm Start: 11-15-2016 End: 04-01-2024 take 1 capsule by mouth once daily as needed Tamsulosin 0.4 mg capsule Discontinued 0.4 mg PO DAILY as needed April 18, 2023 9:02am April 01, 2024 3:45pm Comment on above: Take 0.4 mg by mouth . huchtev-sgzb-qayiu-oreg-capr yl 100 mg-150 mg- 50 mg-150 mg cap (1 source) cubwrwc-slnu-qms zr-zaas-lifum l 100 mg-150 mg- 50 mg-150 mg cap Take by mouth. 0 Active Comment on above: Take by mouth. Problems Active Problems Problem Classification Problem Date Documented Date Episodic/Chronic Asthma (2 sources) Asthma; Translations: [Unspecified asthma, uncomplicated] 01-24-2025 Chronic Biliary tract disease (14 sources) Biliary calculus; Translations: [Calculus of gallbladder without cholecystitis without obstruction] 04-19-2023 Episodic Cardiac dysrhythmias (1 source) Atrial fibrillation; Translations: [Unspecified atrial fibrillation] 02-02-2025 Chronic Cardiac dysrhythmias (5 sources) Palpitations; Translations: [Palpitations] Onset: 02-02-2025 01-24-2025 Episodic Conduction disorders (3 sources) Left bundle branch block; Translations: [Left bundle-branch block, unspecified] Onset: 02-02-2025 01-24-2025 Chronic Disorders of lipid metabolism (4 sources) Hyperlipidemia; Translations: [Hyperlipidemia, unspecified] Onset: 12-24-2024 01-24-2025 Chronic Essential hypertension (5 sources) Essential hypertension; Translations: [Essential (primary) hypertension] Onset: 12-24-2024 01-24-2025 Chronic Gout and other crystal arthropathies (3 sources) Gout; Translations: [Gout, unspecified] Onset: 12-24-2024 01-24-2025 Chronic Heart valve disorders (3 sources) Heart murmur; Translations: [Cardiac murmur, unspecified] Onset: 02-02-2025 01-24-2025 Episodic Hyperplasia of prostate (3 sources) Benign prostatic hyperplasia; Translations: [Benign prostatic hyperplasia without lower urinary tract symptoms] Onset: 04-30-2024 01-24-2025 Chronic Osteoarthritis (2 sources) Arthritis; Translations: [Unspecified osteoarthritis, unspecified site] 01-24-2025 Chronic Other connective tissue disease (1 source) Left achilles tendonitis; Translations: [Achilles tendinitis, left leg] Episodic Other connective tissue disease (2 sources) H/O: back problem; Translations: [Personal history of other diseases of the musculoskeletal system and connective tissue] 01-24-2025 Episodic Other lower respiratory disease (3 sources) Hypoxemia; Translations: [Hypoxemia] 04-01-2024 Episodic Other lower respiratory disease (2 sources) Dyspnea; Translations: [Shortness of breath] 01-24-2025 Episodic Other lower respiratory disease (2 sources) Shortness of breath; Translations: [Shortness of breath] Onset: 02-02-2025 Episodic Other nervous system disorders (2 sources) Cerebral calcification; Translations: [Other specified disorders of brain] 01-24-2025 Chronic Other non-traumatic joint disorders (1 source) Pain in right shoulder; Translations: [Pain in right shoulder] Onset: 02-09-2025 Episodic Other nutritional; endocrine; and metabolic disorders (2 sources) Body mass index 40+ - severely obese; Translations: [Body mass index (BMI) 45.0-49.9, adult] 01-24-2025 Chronic Residual codes; unclassified (2 sources) Sleep apnea; Translations: [Sleep apnea, unspecified] 01-24-2025 Chronic Residual codes; unclassified (1 source) Pain, unspecified; Translations: [Pain] Onset: 07-11-2022 Episodic Past or Other Problems Problem Classification Problem Date Documented Da te Episodic/Chronic Influenza (9 sources) Pneumonia and influenza; Translations: [Influenza due to unidentified influenza virus with unspecified type of pneumonia] Onset: 04-05-2024 04-01-2024 Episodic Other gastrointestinal disorders (1 source) Diarrhea, unspecified; Translations: [Diarrhea, unspecified] Onset: 08-04-2024 Episodic Other lower respiratory disease (1 source) Hypoxemia; Translations: [Hypoxemia] Onset: 04-05-2024 Episodic Other non-traumatic joint disorders (1 source) Pain in right knee; Translations: [Pain in right knee] Onset: 09-11-2024 Episodic Results Test Name Value Interpretation Reference Range Facility Magnetic resonance imaging r eportOrdered By: Raul Hopkins on 02-07-2025 Study report [facility] Imaging Services [address] [place], [place] [id number] Upper Ext Joint Only(Routine) MR#: [id number] Acct: [id number] Name: BRENTON MAGANA Rep #: [id number] : [id number] M [id number] From: Keiko Hopkins MD PCP: KIKE Calloway Status: REG CLI Study:Upper Ext Joint Only(Routine) Date of Exam: 02/03/25 Exam# [id number] Ordering Dr: Bernabe Rodriguez NP CANDY STARCH MOLD PRINTER-C PROCEDURE: UPPER EXT JOINT ONLY(ROUTINE) 02/03/2025 REASON FOR EXAM: EVALUATE FOR POSSIBLE FULL/PARTIAL-THICKNESS TEARS. TECHNIQUE: T1, T2, PD, UPPER EXT JOINT ONLY(ROUTINE) Multiplanar and multisequence images were obtained without IV contrast administration. COMPARISON: None FINDINGS: Bone Marrow: There is no bony contusion or occult fracture. AC joint: There is severe AC joint hypertrophy without evidence of separation. There is a trace AC joint effusion. There is a type 2 acromion. Rotator cuff: There is moderate supraspinatus and infraspinatus muscular atrophy. There is a full-thickness, full width tear of the supraspinatus with 3.3 cm of retraction. There is a full-thickness, full width tear of the infraspinatus with 4.0 cm of retraction. There is severe subscapularis tendinopathy without full-thickness tear or retraction. The teres minor appears intact. Labrum: There is a tear of the labrum from the 10-12 o'clock position. Biceps tendon: Biceps tendon is present in the biceps tendon groove, with intactanchors. Effusion: There is a large joint effusion which extends into the subacromial subdeltoid bursa. MRI/Upper Ext Joint Only(Routine) IMPRESSION: There is severe AC joint hypertrophy without evidence of separation. There is a trace AC joint effusion. 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 There is a full-thickness, full width tear of the supraspinatus with 3.3 cm of retraction. There is a full-thickness, full width tear of the infraspinatus with 4.0 cm of retraction. There is severe subscapularis tendinopathy without full-thickness tear or retraction. There is a tear of the labrum from the 10-12 o'clock position. There is a large joint effusion which extends into the subacromial subdeltoid bursa. Reading Location: [facility] CC: KIKE Rodriguez ~ Unemployment Claims Adjudicator: Signed [facility] Upper Ext Joint Only(Routine )on 02-03-2025 Upper Ext Joint Only(Routine) [facility] Imaging Services [address] [place], [place] [address] Upper Ext Joint Only(Routine) MR#: [id number] Acct: [id number] Name: BRENTON MAGANA Rep #: [id number] : 1945 M [id number] From: Raul Hopkins MD PCP: KIKE Calloway Status: REG CLI Study: Upper Ext Joint Only(Routine) Date of Exam: 0 02/03/25 Exam# [id number] Ordering Dr: Bernabe Rodriguez NP PROCEDURE: UPPER EXT JOINT ONLY(ROUTINE) 02/03/2025 REASON FOR EXAM: EVALUATE FOR POSSIBLE FULL/PARTIAL-THICKNESS TEARS. TECHNIQUE: T1, T2, PD, UPPER EXT JOINT ONLY(ROUTINE) Multiplanar and multisequence images were obtained without IV contrast administration. COMPARISON: None FINDINGS: Bone Marrow: There is no bony contusion or occult fracture. AC joint: There is severe AC joint hypertrophy without evidence of separation. There is a trace AC joint effusion. There is a type 2 acromion. Rotator cuff: There is moderate supraspinatus and infraspinatus muscular atrophy. There is a full- thickness, full width tear of the supraspinatus with 3.3 cm of retraction. There is a full-thickness, full width tear of the infraspinatus with 4.0 cm of retraction. There is severe subscapularis tendinopathy without full-thickness tear or retraction. The teres minor appears intact. Labrum: There is a tear of the labrum from the 10-12 o'clock position. Biceps tendon: Biceps tendon is present in the biceps tendon groove, with intact anchors. Effusion: There is a large joint effusion which extends into the subacromial subdeltoid bursa. MRI/Upper Ext Joint Only(Routine) IMPRESSION: There is severe AC joint hypertrophy without evidence of separation. There is a trace AC joint effusion. 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 There is a full-thickness, full width tear of the supraspinatus with 3.3 cm of retraction. There is a full-thickness, full width tear of the infraspinatus with 4.0 cm of retraction. There is severe subscapularis tendinopathy without full-thickness tear or retraction. There is a tear of the labrum from the 10-12 o'clock position. There is a large joint effusion which extends into the subacromial subdeltoid bursa. Reading Location: [facility] CC: KIKE Rodriguez Unemployment Claims Adjudicator: Signed Normal [facility] Cardiology Visit Reporton Cardiology Visit Report [facility] [place] [id number] [facility] [address] [place] [address] OFFICE VISIT Date of Service: 02/02/25 MR#: [id number] Acct: [id number] Name: BRENTON MAGANA Rep #: [id number] : 1945 Provider: Dr. Seun Bledsoe MD Age/Sex: 79/M Location: [facility] [place] Status: Signed HPI HPI History of Present Illness Details: Pleasant 79-year-old man with no previous cardiac history who was admitted to the hospital in March of last year with a rhinovirus infection. He says that he was doing well discharged and then while seeing his primary physician he was told that he had a heart murmur. He had previously had an echocardiogram in October 2023 and at that time no evidence of valvular disturbance was noted. He tells me that he has bought an Apple Watch and has occasionally noted an irregular heartbeat and was asked to see us for the possibility of excluding atrial fibrillation. He denies any dizziness or diaphoresis no near-syncope or syncope. He has had a chronic left bundle branch block. He was recently on a trip where he sat for a long period of time until he developed pedal edema and was put on Lasix and potassium. His most recent lipid profile demonstrated total cholesterol 133 HDL of 53 LDL of 59. His physical exam is otherwise unremarkable except for mild bilateral pitting edema and his electrocardiogram demonstrates sinus rhythm with a rate of 60 bpm leftward axis and a left bundle branch block. 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 Accompanied by: Significant Other Is patient in pain?: No Allergies gabapentin Allergy (Severe, Verified 02/02/25 15:46) Memory issues ibuprofen Allergy (Severe, Verified 02/02/25 15:46) Diarrhea calcium carbonate (From Excedrin Back Body) Allergy (Verified 02/02/25 15:46) Other Medications ???Medication ???Instructions ???Recorded ???Confirmed ???Type ascorbic acid (vitamin C) 1,000 mg 1 g PO DAILY vitamin 04/18/23 History capsule aspirin 81 mg tablet,delayed 81 mg PO QHS heart health 04/18/23 02/02/25 History release atorvastatin 80 mg tablet 80 mg PO QPM cholesterol 04/18/23 02/02/25 History azelastine 137 mcg (0.1 %) nasal 2 spray intranasal BID allergy 09/0502/02/25 History spray cyanocobalamin (vitamin B-12) 1,000 mcg PO DAILY vitamin 3 02/02/25 History 1,000 mcg capsule fenofibrate micronized 134 mg 134 mg PO DAILY cholesterol 02/02/25 History capsule lisinopril 40 mg tablet 40 mg PO DAILY blood pressure 09/0502/02/25 History loratadine 10 mg tablet (Allergy 10 mg PO DAILY allergies 04/18/23 02/02/25 History Relief (loratadine)) mometasone 50 mcg/actuation nasal 2 spray intranasal DAILY allergy 04/18/23 02/02/25 History spray (Nasonex 24hr Allergy) multivitamin (Daily Multi-Vitamin 1 tab PO DAILY vitamin 04/18/23 0 02/02/25 History tablet) tadalafil 5 mg tablet 5 mg PO DAILY PRN sexual activity 04/18/23 02/02/25 History acetaminophen 650 mg 1,300 mg PO Q8H PRN fever or pain 04/01/24 02/02/25 History tablet,extended release (Arthritis Pain Reliever) allopurinol 300 mg tablet 300 mg PO DAILY gout 04/01/2401/15 History cholecalciferol (vitamin D3) 125 125 mcg PO QDAY 02/02/25 02/02/25 History mcg (5,000 unit) capsule fluticasone furoate 200 1 ea inhalation QDAY 02/02/2501/15 History mcg-vilanterol 25 mcg/dose inhalation powder (Breo Ellipta) hydrochlorothiazide 25 mg tablet 25 mg PO QAM #90 tabs 02/02/25 Rx Have you fallen in the past year?: Yes PFSH Medical History Hyperlipidemia Heart murmur Gout Brain parenchymal calcification BPH (benign prostatic hyperplasia) Asthma BMI 45.0-49.9, adult LBBB (left bundle branch block) Essential (primary) hypertension SOB (shortness of breath) Palpitations Hypoxemia Cholelithiasis Sleep apnea History of back problems Arthritis Gallstones Surgical History Hx of appendectomy History of tonsillectomy and adenoidectomy Family History Father Colon cancer CVA (cerebral vascular accident) Dementia Maternal Grandmother Hypertension Sister Hypertension Social History Smoking Status: Never smoker alcohol intake: never substance use type: does not use ROS Const Const: Negative for fatigue, weakness, head (more content not included)... Normal [facility] Microalb:Creat Ratio,Random URon 12-02-2024 MALB:CREAT 56.5 mg/g CRE Normal [facility] Comment on above: Result Comment: AMENDED REPORT 12/02/24 [id number] MALB:CREAT previously reported as: 565.1 mg/g CRE Performed By: #### L 500.4100, L501.1400, L500.4050, L501.9940, L502.0250 #### [facility] [address] [place], [address] Comprehensive Metabolic Prof ilon 09-29-2024 Albumin [Mass/Vol] 4.3 g/dL Normal 3.4-4.8 [facility] Comment on above: Performed By: #### L 500.4100, L501.1400, L500.4050, L501.9940, L502.0250 #### [facility] [address] [place], [address] Albumin/Globulin [Mass ratio] 1.9 {ratio} Normal 0.9-2.4 [facility] Comment on above: Performed By: #### L 500.4100, L501.1400, L500.4050, L501.9940, L502.0250 #### [facility] [address] [place], [address] ALK PHOS 47 U/L Normal 40-129 [facility] Comment on above: Performed By: #### L 500.4100, L501.1400, L500.4050, L501.9940, L502.0250 #### [facility] [address] [place], [address] ALT [Catalytic activity/Vol] 21 U/L Normal <=46 [facility] Comment on above: Performed By: #### L 500.4100, L501.1400, L500.4050, L501.9940, L502.0250 #### [facility] [address] [place], [address] AST [Catalytic activity/Vol] 23 U/L Normal <=37 [facility] Comment on above: Performed By: #### L 500.4100, L501.1400, L500.4050, L501.9940, L502.0250 #### [facility] [address] [place], [address] Bilirubin [Mass/Vol] 0.27 mg/dL Normal 0.00-1.30 [facility] Comment on above: Performed By: #### L 500.4100, L501.1400, L500.4050, L501.9940, L502.0250 #### [facility] [address] [place], [address] BUN/CRE 23.6 RATIO High 10-20 [facility] Comment on above: Performed By: #### L 500.4100, L501.1400, L500.4050, L501.9940, L502.0250 #### [facility] [address] [place], [address] Calcium [Mass/Vol] 9.4 mg/dL Normal 7.6-11.0 [facility] Comment on above: Performed By: #### L 500.4100, L501.1400, L500.4050, L501.9940, L502.0250 #### [facility] [address] [place], [address] Chloride [Moles/Vol] 108 mmol/L Normal 98-108 [facility] Comment on above: Performed By: #### L 500.4100, L501.1400, L500.4050, L501.9940, L502.0250 #### [facility] [address] [place], [address] CO2 [Moles/Vol] 22.6 mmol/L Normal 21.0-32.0 [facility] Comment on above: Performed By: #### L 500.4100, L501.1400, L500.4050, L501.9940, L502.0250 #### [facility] [address] [place], [address] Creatinine [Mass/Vol] 0.79 mg/dL Normal 0.70-1.20 [facility] Comment on above: Performed By: #### L 500.4100, L501.1400, L500.4050, L501.9940, L502.0250 #### [facility] [address] [place], [address] GAP 12 Normal 5-15 [facility] Comment on above: Performed By: #### L 500.4100, L501.1400, L500.4050, L501.9940, L502.0250 #### [facility] [address] [place], [address] GFR/1.73 sq M.predicted among non-blacks MDRD (S/P/Bld) [Vol rate/Area] 91 mL/min/{1.73_m2} Normal >60 [facility] Comment on above: Result Comment: mL/m in/1.73m2 CKD-EPI Creatinine Equation (2020) Performed By: #### L 500.4100, L501.1400, L500.4050, L501.9940, L502.0250 #### [facility] [address] [place], [address] Globulin (S) [Mass/Vol] 2.3 g/dL Normal 2.2-4.2 [facility] Comment on above: Performed By: #### L 500.4100, L501.1400, L500.4050, L501.9940, L502.0250 #### [facility] [address] [place], [address] Glucose [Mass/Vol] 97 mg/dL Normal 70-99 [facility] Comment on above: Performed By: #### L 500.4100, L501.1400, L500.4050, L501.9940, L502.0250 #### [facility] [address] [place], [address] Potassium [Moles/Vol] 3.8 mmol/L Normal 3.3-5.1 [facility] Comment on above: Performed By: #### L 500.4100, L501.1400, L500.4050, L501.9940, L502.0250 #### [facility] [address] [place], [address] Sodium [Moles/Vol] 143 mmol/L Normal 133-145 [facility] Comment on above: Performed By: #### L 500.4100, L501.1400, L500.4050, L501.9940, L502.0250 #### [facility] [address] [place], [address] T PROT 6.6 g/dL Normal 5.9-8.4 [facility] Comment on above: Performed By: #### L 500.4100, L501.1400, L500.4050, L501.9940, L502.0250 #### [facility] [address] [place], [address] Urea nitrogen [Mass/Vol] 19 mg/dL Normal 4-19 [facility] Comment on above: Performed By: #### L 500.4100, L501.1400, L500.4050, L501.9940, L502.0250 #### [facility] [address] [place], [address] Lipid Profileon 09-29-2024 CHOL:HDL 2.52 Normal [facility] Comment on above: Performed By: #### L 500.4100, L501.1400, L500.4050, L501.9940, L502.0250 #### [facility] [address] [place], [address] Cholesterol [Mass/Vol] 133 mg/dL Normal <=200 [facility] Comment on above: Result Comment: Chol esterol level, Desirable <200 mg/dL Borderline high cholesterol 200-239 mg/dL High cholesterol >=240 mg/dL Recommendations of the NCEP Adult Treatment Panel for the following risk-cutoff thresholds for the [place] population. Performed By: #### L 500.4100, L501.1400, L500.4050, L501.9940, L502.0250 #### [facility] [address] [place], [address] Cholesterol in HDL [Mass/Vol] 53 mg/dL Normal [facility] Comment on above: Result Comment: Merissa onal Cholesterol Education Program (NCEP) guidelines: <40 mg/dL: Low HDL-cholesterol (major risk factor for CHD) >= 60 mg/dL: High HDL-cholesterol (negative risk factor for CHD) HDL-cholesterol is affected by a number of factors, e.g. smoking, exercise, hormones, sex and age. Performed By: #### L 500.4100, L501.1400, L500.4050, L501.9940, L502.0250 #### [facility] [address] [place], [address] Cholesterol in LDL [Mass/Vol] 59 mg/dL Normal [facility] Comment on above: Result Comment: Bord omdusd=635-073 mg/dL Higher Xnhi=857 mg/dL or greater Performed By: #### L 500.4100, L501.1400, L500.4050, L501.9940, L502.0250 #### [facility] [address] [place], [address] Cholesterol in VLDL [Mass/Vol] 21 mg/dL Normal 5-40 [facility] Comment on above: Performed By: #### L 500.4100, L501.1400, L500.4050, L501.9940, L502.0250 #### [facility] [address] [place], [address] Triglyceride [Mass/Vol] 105 mg/dL Normal [facility] Comment on above: Result Comment: The drugs N-Acetylcysteine and Metamizole may falsely depress this assay. Normal range: <150 mg/dL Borderline High: 150-199 mg/dL High: 200-499 mg/dL Very High: >500 mg/dL Performed By: #### L 500.4100, L501.1400, L500.4050, L501.9940, L502.0250 #### [facility] [address] [place], [address] PSA,Total- Diagnosticon 09-14 PSA, DIAGNOSTIC 0.39 ng/mL Normal 0.00-4.00 [facility] Comment on above: Result Comment: This test was performed using the [employer] tPSA method. Measured values of a patient??sample can vary depending on the testing procedure used. PSA values determined on patient samples by different testing procedures cannot be used interchangeably. If there is a change in PSA assays while monitoring therapy, sequential testing should be performed to confirm baseline values. Performed By: #### L 500.4100, L501.1400, L500.4050, L501.9940, L502.0250 #### [facility] [address] [place], [address] Uric Acidon 09-29-2024 URIC 4.5 mg/dL Normal 3.5-7.2 [facility] Comment on above: Result Comment: The drugs N-Acetylcysteine and Metamizole may falsely depress this assay. Performed By: #### L 500.4100, L501.1400, L500.4050, L501.9940, L502.0250 #### [facility] [address] [place], [address] Knee 4 or More Viewson 09-06 Knee 4 or More Views [facility] [address] [place], [place] [address] Knee 4 or More Views MR#: [id number] Acct: [id number] Name: BRENTON MAGANA Rep #: [id number] : 1945 M 78 From: Bruno Boo MD PCP: Bernabe Rodriguez, CANDY [employer]ARCH [employer] PRINTER-C Status: REG CLI Study: Knee 4 or More Views Date of Exam: 09/06/24 Exam# [id number] Ordering Dr: Fadia Perry EXAM: XR Right Knee Complete, 4 or More Views CLINICAL INDICATION: RIGHT KNEE PAIN TECHNIQUE: Four or more views of the right knee. COMPARISON: No relevant prior studies available. FINDINGS: BONES/JOINTS: Severe degenerative changes of the medial compartment of the knee joint. No acute fracture. No dislocation. SOFT TISSUES: Soft tissue swelling. RAD/Knee 4 or More Views IMPRESSION: Degenerative changes as above. Reading [facility] CC: CANDY STARCH MOLD PRINTERBernice Rodriguez; Fadia Perry Unemployment Claims Adjudicator: Signed Normal [facility] L7000.0750on 07-28-2024 P ELASTASE,FECA > 800 Normal >200 [facility] Comment on above: Result Comment: Resu lt Units: ug Elast./g Severe Pancreatic Insufficiency: <100 Moderate Pancreatic Insufficiency: 100 - 200 Normal: >200 Performed By: #### L 500.4100, L501.1400, L500.4050, L501.9940, L502.0250 #### [facility] [address] [place], [address] Fecal Fat, Qualitativeon FATS, NEUTRAL Normal Normal . [facility] Comment on above: Order Comment: Test( s) [id number]-[id number], Neutral; 547288-Quuz, Totalwas developed and its performance characteristicsdetermined by [employer]. It has not been cleared or approvedby the Food and Drug Administration. Result Comment: Norm al (<60 Droplets/HPF) Performed By: #### L 500.4100, L501.1400, L500.4050, L501.9940, L502.0250 #### [facility] [address] [place], [address] FATS, TOTAL Normal Normal . [facility] Comment on above: Order Comment: Test( s) [id number], Neutral; 774693-Lzbe, Totalwas developed and its performance characteristicsdetermined by [employer]. It has not been cleared or approvedby the Food and Drug Administration. Result Comment: Norm al (<100 Droplets/HPF) Performed at: - [facility] [address] [place], [place] [id number] Surgical Orderly: Ramón Christopher PhD, Phone: [phone] Performed By: #### L 500.4100, L501.1400, L500.4050, L501.9940, L502.0250 #### [facility] [address] [place], [address] Elastase.pancreatic (Stl) [M ass/Mass]Ordered By: Ramón Martins on 07-20-2024 Stool Pancreatic Elastase > 800 >200 [facility] Comment on above: Result Units: ug Ada st./g Severe Pancreatic Insufficiency: <100 Moderate Pancreatic Insufficiency: 100 - 200 Normal: >200 Fat Ql (Stl)Ordered By: Oanh Martins on 07-20-2024 Stool Total Fats Normal . [facility] Comment on above: Normal (<100 Droplet s/HPF)Performed at: - [facility] [place], [place] [id number] Director: Ramón Christopher PhD, Phone: [phone] Lower GI hemoglobin IA Ql (S tl)Ordered By: Ramón Martins on 07-20-2024 Stool Occult Blood (ROSEANNE) [facility] No Panel InformationOrdered By: Ramón Martins on 07-20-2024 Stool Neutral Fats Normal . [facility] Comment on above: Normal (<60 Droplets /HPF) Stool Occult Blood iFOBon STOB Negative Normal [facility] Comment on above: Performed By: #### L 500.4100, L501.1400, L500.4050, L501.9940, L502.0250 #### [facility] [address] [place], [address] Celiac Disease Profileon ENDOMYSIAL IGA Negative Normal Negative [facility] Comment on above: Performed By: #### L 500.4100, L501.1400, L500.4050, L501.9940, L502.0250 #### [facility] [address] [place], [address] IMMUNOGLOB A QN 37 mg/dL Low 61-437 [facility] Comment on above: Result Comment: Resu lt confirmed on concentration. Performed By: #### L 500.4100, L501.1400, L500.4050, L501.9940, L502.0250 #### [facility] [address] [place], [address] tTG IGA <2 Normal 0-3 [facility] Comment on above: Result Comment: Nega tive 0 - 3 Weak Positive 4 - 10 Positive >10 Tissue Transglutaminase (tTG) has been identified as the endomysial antigen. Studies have demonstr- ated that endomysial IgA antibodies have over 99% specificity for gluten sensitive enteropathy. Performed By: #### L 500.4100, L501.1400, L500.4050, L501.9940, L502.0250 #### [facility] [address] [place], [address] tTG IGG <2 Normal 0-5 [facility] Comment on above: Result Comment: Nega tive 0 - 5 Weak Positive 6 - 9 Positive >9 Performed at: [address] [id number] Surgical Orderly: Ramón Christopher PhD, Phone: [phone] Performed By: #### L 500.4100, L501.1400, L500.4050, L501.9940, L502.0250 #### [facility] [address] [place], [place], [address] C-reactive protein measureme nt by high sensitivity methodOrdered By: Ramón Martins on 07-12-2024 C-Reactive Protein Extended Range < 2.90 mg/L 0.0-3.0 [facility] Comment on above: C-Reactive Protein ( CRP) provides useful information for thediagnosis, therapy and monitoring of inflammatory processesand associated diseases. For the evaluation of Relative Riskfor Cardiovascular Disease, a High Sensitivity CRP (HSCRP)should be ordered. CRPon 07-12-2024 C-REACTIVE PROT < 2.90 Normal 0.0-3.0 [facility] Comment on above: Result Comment: C-Re active Protein (CRP) provides useful information for the diagnosis, therapy and monitoring of inflammatory processes and associated diseases. For the evaluation of Relative Risk for Cardiovascular Disease, a High Sensitivity CRP (HSCRP) should be ordered. Performed By: #### L 500.4100, L501.1400, L500.4050, L501.9940, L502.0250 #### [facility] [address] [place], [address] Endomysial IgA antibody assa yOrdered By: Ramón Martins on 07-12-2024 Endomysial IgA Antibody Negative Negative [facility] IgA [Mass/Vol]Ordered By: Naheed Martins on 07-12-2024 Immunoglobulin A 37 mg/dL Low 61-437 [facility] Comment on above: Result confirmed on concentration. No Panel InformationOrdered By: Ramón Martins on 07-12-2024 Tissue Transglutaminase IgG Ab <2 U/mL 0-5 [facility] Comment on above: Negative 0 - 5 Weak Positive 6 - 9 Positive >9Performed at: [facility] [place] [id number] Director: Ramón Christopher PhD, Phone: [phone] tTG IgA Qn (S)Ordered By: Naheed Martins on 07-12-2024 Tissue Transglutaminase IgA Ab <2 U/mL 0-3 [facility] Comment on above: Negative 0 - 3 Weak Positive 4 - 10 Positive >10 Tissue Transglutaminase (tTG) has been identified as the endomysial antigen. Studies have demonstr- ated that endomysial IgA antibodies have over 99% specificity for gluten sensitive enteropathy. Culture, Blood (WB)on 2023 CUB blood cultures x2, f rom 2 different sites No growth in 5 days. Normal [facility] Comment on above: Performed By: #### L 500.4100, L501.1400, L500.4050, L501.9940, L502.0250 #### [facility] [address] [place], [address] Basic Metabolic Profile (BMP )on 04-05-2024 BUN/CRE 34.1 RATIO High 10-20 [facility] Comment on above: Performed By: #### L 500.4100, L501.1400, L500.4050, L501.9940, L502.0250 #### [facility] [address] [place], [address] CA,Total 9.8 mg/dL Normal 8.5-10.1 [facility] Comment on above: Performed By: #### L 500.4100, L501.1400, L500.4050, L501.9940, L502.0250 #### [facility] [address] [place], [address] Chloride [Moles/Vol] 108 mmol/L High 98-107 [facility] Comment on above: Performed By: #### L 500.4100, L501.1400, L500.4050, L501.9940, L502.0250 #### [facility] [address] [place], [address] CO2 [Moles/Vol] 26.0 mmol/L Normal 21.0-32.0 [facility] Comment on above: Performed By: #### L 500.4100, L501.1400, L500.4050, L501.9940, L502.0250 #### [facility] [address] [place], [address] Creatinine [Mass/Vol] 0.62 mg/dL Low 0.70-1.30 [facility] Comment on above: Result Comment: The validity of the calculated GFR GFRAA in patients over 70 years has not been determined. Clinical correlation is essential. Performed By: #### L 500.4100, L501.1400, L500.4050, L501.9940, L502.0250 #### [facility] [address] [place], [address] ECRCL 87.30 ml/min Normal [facility] Comment on above: Performed By: #### L 500.4100, L501.1400, L500.4050, L501.9940, L502.0250 #### [facility] [address] [place], [address] EST GFR - AA 163 mL/min Normal >60 [facility] Comment on above: Result Comment: Afri can [place] GFR Calc Performed By: #### L 500.4100, L501.1400, L500.4050, L501.9940, L502.0250 #### [facility] [address] [place], [address] GAP 6 Normal 5-15 [facility] Comment on above: Performed By: #### L 500.4100, L501.1400, L500.4050, L501.9940, L502.0250 #### [facility] [address] [place], [address] GFR/1.73 sq M.predicted among non-blacks MDRD (S/P/Bld) [Vol rate/Area] 134 mL/min/{1.73_m2} Normal >60 [facility] Comment on above: Result Comment: Non- GFR Calc Performed By: #### L 500.4100, L501.1400, L500.4050, L501.9940, L502.0250 #### [facility] [address] [place], [address] Glucose [Mass/Vol] 96 mg/dL Normal 74-106 [facility] Comment on above: Performed By: #### L 500.4100, L501.1400, L500.4050, L501.9940, L502.0250 #### [facility] [address] [place], [address] Potassium [Moles/Vol] 3.5 mmol/L Normal 3.5-5.1 [facility] Comment on above: Performed By: #### L 500.4100, L501.1400, L500.4050, L501.9940, L502.0250 #### [facility] [address] [place], [address] Sodium [Moles/Vol] 140 mmol/L Normal 136-145 [facility] [facility] Comment on above: Performed By: #### L 500.4100, L501.1400, L500.4050, L501.9940, L502.0250 #### [facility] [address] [place], [address] Urea nitrogen [Mass/Vol] 21 mg/dL High 7-18 [facility] Comment on above: Performed By: #### L 500.4100, L501.1400, L500.4050, L501.9940, L502.0250 #### [facility] [address] [place], [address] CBC W/Diff, Automatedon 10-2 Absolute Lymph 1.53 X10 3/uL Normal 0.83-4.51 [facility] Comment on above: Performed By: #### L 500.4100, L501.1400, L500.4050, L501.9940, L502.0250 #### [facility] [address] [place], [address] Absolute Neut 7.4 X10 3/uL Normal 2.0-7.7 [facility] Comment on above: Performed By: #### L 500.4100, L501.1400, L500.4050, L501.9940, L502.0250 #### [facility] [address] [place], [address] Basophils/100 WBC (Bld) 0.5 % Normal 0-1 [facility] Comment on above: Performed By: #### L 500.4100, L501.1400, L500.4050, L501.9940, L502.0250 #### [facility] [address] [place], [address] Eosinophils/100 WBC (Bld) 1.3 % Normal 0-5 [facility] Comment on above: Performed By: #### L 500.4100, L501.1400, L500.4050, L501.9940, L502.0250 #### [facility] [address] [place], [address] Erythrocyte distribution width (RBC) [Ratio] 15.0 % High 11.6-14.6 [facility] Comment on above: Performed By: #### L 500.4100, L501.1400, L500.4050, L501.9940, L502.0250 #### [facility] [address] [facility] [place], [address] Hematocrit (Bld) [Volume fraction] 35.0 % Low 40-54 [facility] Comment on above: Performed By: #### L 500.4100, L501.1400, L500.4050, L501.9940, L502.0250 #### [facility] [address] [place], [address] Hemoglobin (Bld) [Mass/Vol] 11.8 g/dL Low 13.0-16.5 [facility] Comment on above: Performed By: #### L 500.4100, L501.1400, L500.4050, L501.9940, L502.0250 #### [facility] [address] [place], [address] IG% 3.700 High 0.0-0.9 [facility] Comment on above: Result Comment: IG% - Immature Granulocytes (promyelocytes, myelocytes and metamyelocytes) > 1% indicates that a LEFT SHIFT is Present. Performed By: #### L 500.4100, L501.1400, L500.4050, L501.9940, L502.0250 #### [facility] [address] [place], [address] Lymphocytes/100 WBC (Bld) 14.7 % Low 19-41 [facility] Comment on above: Performed By: #### L 500.4100, L501.1400, L500.4050, L501.9940, L502.0250 #### [facility] [address] [place], [address] MCH (RBC) [Entitic mass] 30.6 pg Normal 27.0-32.0 [facility] Comment on above: Performed By: #### L 500.4100, L501.1400, L500.4050, L501.9940, L502.0250 #### [facility] [address] [place], [address] MCHC (RBC) [Mass/Vol] 33.7 g/dL Normal 32-36 [facility] Comment on above: Performed By: #### L 500.4100, L501.1400, L500.4050, L501.9940, L502.0250 #### [facility] [address] [place], [address] MCV (RBC) [Entitic vol] 90.9 fL Normal 80-94 [facility] Comment on above: Performed By: #### L 500.4100, L501.1400, L500.4050, L501.9940, L502.0250 #### [facility] [address] [place], [address] Monocytes/100 WBC (Bld) 8.2 % Normal 0-10 [facility] Comment on above: Performed By: #### L 500.4100, L501.1400, L500.4050, L501.9940, L502.0250 #### [facility] [address] [place], [address] Neutrophils/100 WBC (Bld) 71.6 % High 47-70 [facility] Comment on above: Performed By: #### L 500.4100, L501.1400, L500.4050, L501.9940, L502.0250 #### [facility] [address] [place], [address] Nucleated RBC (Bld) [#/Vol] 0 10*3/uL Normal 0-5 [facility] Comment on above: Performed By: #### L 500.4100, L501.1400, L500.4050, L501.9940, L502.0250 #### [facility] [address] [place], [address] Platelet mean volume (Bld) [Entitic vol] 10.2 fL Normal 6.2-12.0 [facility] Comment on above: Performed By: #### L 500.4100, L501.1400, L500.4050, L501.9940, L502.0250 #### [facility] [address] [place], [address] Platelets (Bld) [#/Vol] 366 10*3/uL Normal 150-450 [facility] Comment on above: Performed By: #### L 500.4100, L501.1400, L500.4050, L501.9940, L502.0250 #### [facility] [address] [place], [address] RBC (Bld) [#/Vol] 3.85 10*6/uL Low 4.6-6.2 [facility] Comment on above: Performed By: #### L 500.4100, L501.1400, L500.4050, L501.9940, L502.0250 #### [facility] [address] [place], [address] RDW SD 50.1 fl High 35.1-43.9 [facility] Comment on above: Performed By: #### L 500.4100, L501.1400, L500.4050, L501.9940, L502.0250 #### [facility] [address] [place], [address] WBC (Bld) [#/Vol] 10.4 10*3/uL Normal 4.4-11.0 [facility] Comment on above: Performed By: #### L 500.4100, L501.1400, L500.4050, L501.9940, L502.0250 #### [facility] [address] [place], [address] Basic Metabolic Profile (BMP )on 04-02-2024 BUN/CRE 24.7 RATIO High 10-20 [facility] Comment on above: Performed By: #### L 500.4100, L501.1400, L500.4050, L501.9940, L502.0250 #### [facility] [address] [place], [address] CA,Total 9.8 mg/dL Normal 8.5-10.1 [facility] Comment on above: Performed By: #### L 500.4100, L501.1400, L500.4050, L501.9940, L502.0250 #### [facility] [address] [place], [address] Chloride [Moles/Vol] 106 mmol/L Normal 98-107 [facility] Comment on above: Performed By: #### L 500.4100, L501.1400, L500.4050, L501.9940, L502.0250 #### [facility] [address] [place], [address] CO2 [Moles/Vol] 25.0 mmol/L Normal 21.0-32.0 [facility] Comment on above: Performed By: #### L 500.4100, L501.1400, L500.4050, L501.9940, L502.0250 #### [facility] [address] [place], [address] Creatinine [Mass/Vol] 0.69 mg/dL Low 0.70-1.30 [facility] Comment on above: Result Comment: The validity of the calculated GFR GFRAA in patients over 70 years has not been determined. Clinical correlation is essential. Performed By: #### L 500.4100, L501.1400, L500.4050, L501.9940, L502.0250 #### [facility] [address] [place], [address] ECRCL 87.30 ml/min Normal [facility] Comment on above: Performed By: #### L 500.4100, L501.1400, L500.4050, L501.9940, L502.0250 #### [facility] [address] [place], [address] EST GFR - AA 143 mL/min Normal >60 [facility] Comment on above: Result Comment: Afri can [place]ral[place] GFR Calc Performed By: #### L 500.4100, L501.1400, L500.4050, L501.9940, L502.0250 #### [facility] [address] [place], [address] GAP 7 Normal 5-15 [facility] Comment on above: Performed By: #### L 500.4100, L501.1400, L500.4050, L501.9940, L502.0250 #### [facility] [address] [place], [address] GFR/1.73 sq M.predicted among non-blacks MDRD (S/P/Bld) [Vol rate/Area] 118 mL/min/{1.73_m2} Normal >60 [facility] Comment on above: Result Comment: Non- GFR Calc Performed By: #### L 500.4100, L501.1400, L500.4050, L501.9940, L502.0250 #### [facility] [address] [place], [address] Glucose [Mass/Vol] 151 mg/dL High 74-106 [facility] Comment on above: Result Comment: Fast ing Glucose result greater than or equal to 126 mg/dL suggests DIABETES MELLITUS per A.D.A. criteria. Performed By: #### L 500.4100, L501.1400, L500.4050, L501.9940, L502.0250 #### [facility] [address] [place], [address] Potassium [Moles/Vol] 4.2 mmol/L Normal 3.5-5.1 [facility] Comment on above: Performed By: #### L 500.4100, L501.1400, L500.4050, L501.9940, L502.0250 #### [facility] [address] [place], [address] Sodium [Moles/Vol] 137 mmol/L Normal 136-145 [facility] Comment on above: Performed By: #### L 500.4100, L501.1400, L500.4050, L501.9940, L502.0250 #### [facility] [address] [place], [address] Urea nitrogen [Mass/Vol] 17 mg/dL Normal 7-18 [facility] Comment on above: Performed By: #### L 500.4100, L501.1400, L500.4050, L501.9940, L502.0250 #### [facility] [address] [place], [address] CBC W/Diff, Automatedon 10- Absolute Lymph 0.49 X10 3/uL Low 0.83-4.51 [facility] Comment on above: Performed By: #### L 500.4100, L501.1400, L500.4050, L501.9940, L502.0250 #### [facility] [address] [place], [address] Absolute Neut 8.4 X10 3/uL High 2.0-7.7 [facility] Comment on above: Performed By: #### L 500.4100, L501.1400, L500.4050, L501.9940, L502.0250 #### [facility] [address] [place], [address] Basophils/100 WBC (Bld) 0.0 % Normal 0-1 [facility] Comment on above: Performed By: #### L 500.4100, L501.1400, L500.4050, L501.9940, L502.0250 #### [facility] [address] [place], [address] Eosinophils/100 WBC (Bld) 0.0 % Normal 0-5 [facility] Comment on above: Performed By: #### L 500.4100, L501.1400, L500.4050, L501.9940, L502.0250 #### [facility] [address] [place], [address] Erythrocyte distribution width (RBC) [Ratio] 14.4 % Normal 11.6-14.6 [facility] Comment on above: Performed By: #### L 500.4100, L501.1400, L500.4050, L501.9940, L502.0250 #### [facility] [address] [place], [address] Hematocrit (Bld) [Volume fraction] 36.3 % Low 40-54 [facility] Comment on above: Performed By: #### L 500.4100, L501.1400, L500.4050, L501.9940, L502.0250 #### [facility] [address] [place], [address] Hemoglobin (Bld) [Mass/Vol] 11.7 g/dL Low 13.0-16.5 [facility] Comment on above: Performed By: #### L 500.4100, L501.1400, L500.4050, L501.9940, L502.0250 #### [facility] [address] [place], [address] IG% 0.400 Normal 0.0-0.9 [facility] Comment on above: Result Comment: IG% - Immature Granulocytes (promyelocytes, myelocytes and metamyelocytes) > 1% indicates that a LEFT SHIFT is Present. Performed By: #### L 500.4100, L501.1400, L500.4050, L501.9940, L502.0250 #### [facility] [address] [place], [address] Lymphocytes/100 WBC (Bld) 5.3 % Low 19-41 [facility] Comment on above: Performed By: #### L 500.4100, L501.1400, L500.4050, L501.9940, L502.0250 #### [facility] [address] [place], [address] MCH (RBC) [Entitic mass] 29.8 pg Normal 27.0-32.0 [facility] Comment on above: Performed By: #### L 500.4100, L501.1400, L500.4050, L501.9940, L502.0250 #### [facility] [address] [place], [address] MCHC (RBC) [Mass/Vol] 32.2 g/dL Normal 32-36 [facility] Comment on above: Performed By: #### L 500.4100, L501.1400, L500.4050, L501.9940, L502.0250 #### [facility] [address] [place], [address] MCV (RBC) [Entitic vol] 92.4 fL Normal 80-94 [facility] Comment on above: Performed By: #### L 500.4100, L501.1400, L500.4050, L501.9940, L502.0250 #### [facility] [address] [place], [address] Monocytes/100 WBC (Bld) 3.2 % Normal 0-10 [facility] Comment on above: Performed By: #### L 500.4100, L501.1400, L500.4050, L501.9940, L502.0250 #### [facility] [address] [place], [address] Neutrophils/100 WBC (Bld) 91.1 % High 47-70 [facility] Comment on above: Performed By: #### L 500.4100, L501.1400, L500.4050, L501.9940, L502.0250 #### [facility] [address] [place], [address] Nucleated RBC (Bld) [#/Vol] 0 10*3/uL Normal 0-5 [facility] Comment on above: Performed By: #### L 500.4100, L501.1400, L500.4050, L501.9940, L502.0250 #### [facility] [address] [place], [address] Platelet mean volume (Bld) [Entitic vol] 10.8 fL Normal 6.2-12.0 [facility] Comment on above: Performed By: #### L 500.4100, L501.1400, L500.4050, L501.9940, L502.0250 #### [facility] [address] [place], [address] Platelets (Bld) [#/Vol] 216 10*3/uL Normal 150-450 [facility] Comment on above: Performed By: #### L 500.4100, L501.1400, L500.4050, L501.9940, L502.0250 #### [facility] [address] [place], [address] RBC (Bld) [#/Vol] 3.93 10*6/uL Low 4.6-6.2 [facility] Comment on above: Performed By: #### L 500.4100, L501.1400, L500.4050, L501.9940, L502.0250 #### [facility] [address] [place], [address] RDW SD 48.8 fl High 35.1-43.9 [facility] Comment on above: Performed By: #### L 500.4100, L501.1400, L500.4050, L501.9940, L502.0250 #### [facility] [address] [place], [address] WBC (Bld) [#/Vol] 9.3 10*3/uL Normal 4.4-11.0 [facility] Comment on above: Performed By: #### L 500.4100, L501.1400, L500.4050, L501.9940, L502.0250 #### [facility] [address] [place], [address] RESPIRATORY PANEL MOLECULARo n 04-02-2024 RP PANEL ADENOVIRUS Not Detected INFLUENZA A Not Detected INFLUENZA A (SUBTYPE H1) Not Detected INFLUENZA A (SUBTYPE H3) Not Detected INFLUENZA B Not Detected HUMAN METAPHNEUMO Not Detected PARAINFLUENZA 1 Not Detected PARAINFLUENZA 2 Not Detected PARAINFLUENZA 3 Not Detected PARAINFLUENZA 4 Not Detected RHINOVIRUS A Positive for RHINOVIRUS by NAAT technology A RSV A Not Detected RSV B Not Detected RHINOVIRUS Normal [facility] Comment on above: Performed By: #### L 500.4100, L501.1400, L500.4050, L501.9940, L502.0250 #### [facility] [address] [place], [address] Thyroid Stim Hormone (TSH)on 04-02-2024 TSH 0.304 uIU/mL Low 0.358-3.740 [facility] Comment on above: Performed By: #### L 500.4100, L501.1400, L500.4050, L501.9940, L502.0250 #### [facility] [address] [place], [address] 12 Lead EKGon 04-01-2024 12 Lead EKG [facility] [address] [facility] [place] [address] 12 Lead EKG 04/01/24 1249 MR#: [id number] Acct: [id number] Name: BRENTON MAGANA Rep #: [id number] : 1945 78 From: Dre Mora MD Attending Dr: Dr. Bruno Hickman DO Status: A DM IN Ordering Dr: Adolfo Benitez MD Date: 04/01/24 Location: [facility] Sex: M C Admitted: 04/01/24 Test Reason : SOB Blood Pressure : / mmHG Vent. Rate : 079 BPM Atrial Rate : 079 BPM P-R Int : 182 ms QRS Dur : 158 ms QT Int : 412 ms P-R-T Axes : 078 -55 096 degrees QTc Int : 472 ms Normal sinus rhythm Left axis deviation Left bundle branch block Abnormal ECG Confirmed by Dre Mora ([id number]), associate editor MARY HERNANDEZ ([id number]) on 04/02/2024 1:35:34 PM Referred By: Adolfo Benitez Confirmed By:Dre Mora 04/02/24 1335 Date Dre Mora MD CC: CANDY STARCH [employer]INTER-C Bernabe Rodriguez; Dr. Adolfo Benitez MD; Dr. Bruno Hickman DO Signed Normal [facility] Blood Gases by [facility] 10-17-2 024 LAURIE TEST Positive Normal [facility] Comment on above: Performed By: #### L 500.4100, L501.1400, L500.4050, L501.9940, L502.0250 #### [facility] [address] [place], [address] Base excess Calc (Bld) [Moles/Vol] -3 mmol/L Low -2 to +2 [facility] Comment on above: Performed By: #### L 500.4100, L501.1400, L500.4050, L501.9940, L502.0250 #### [facility] [address] [place], [address] Blood Gas Type ART Normal [facility] Comment on above: Performed By: #### L 500.4100, L501.1400, L500.4050, L501.9940, L502.0250 #### [facility] [address] [place], [address] CO2 [Moles/Vol] 23 mmol/L Normal [facility] Comment on above: Performed By: #### L 500.4100, L501.1400, L500.4050, L501.9940, L502.0250 #### [facility] [address] [place], [address] FI02 8.0 Normal [facility] Comment on above: Performed By: #### L 500.4100, L501.1400, L500.4050, L501.9940, L502.0250 #### [facility] [address] [place], [address] HCO3 (Bld) [Moles/Vol] 22.1 mmol/L Normal 22-26 [facility] Comment on above: Performed By: #### L 500.4100, L501.1400, L500.4050, L501.9940, L502.0250 #### [facility] [address] [place], [address] Mode Not entered Normal [facility] Comment on above: Performed By: #### L 500.4100, L501.1400, L500.4050, L501.9940, L502.0250 #### [facility] [address] [place], [address] O2 Delivery Dev HFNC Normal [facility] Comment on above: Performed By: #### L 500.4100, L501.1400, L500.4050, L501.9940, L502.0250 #### [facility] [address] [place], [address] pCO2 34.7 mmHg Low 35-45 [facility] Comment on above: Performed By: #### L 500.4100, L501.1400, L500.4050, L501.9940, L502.0250 #### [facility] [address] [place], [address] pH (Bld) 7.41 [pH] Normal 7.35-7.45 [facility] Comment on above: Performed By: #### L 500.4100, L501.1400, L500.4050, L501.9940, L502.0250 #### [facility] [address] [place], [address] PO2 59 mmHG Low 75-100 [facility] Comment on above: Performed By: #### L 500.4100, L501.1400, L500.4050, L501.9940, L502.0250 #### [facility] [address] [place], [address] SITE L Radial Normal [facility] Comment on above: Performed By: #### L 500.4100, L501.1400, L500.4050, L501.9940, L502.0250 #### [facility] [address] [place], [address] SO2 91 Low 95-99 [facility] Comment on above: Performed By: #### L 500.4100, L501.1400, L500.4050, L501.9940, L502.0250 #### [facility] [address] [place], [address] CBC W/Diff, Automatedon 10-1 Absolute Lymph 0.72 X10 3/uL Low 0.83-4.51 [facility] Comment on above: Performed By: #### L 500.4100, L501.1400, L500.4050, L501.9940, L502.0250 #### [facility] [address] [place], [address] Absolute Neut 6.8 X10 3/uL Normal 2.0-7.7 [facility] Comment on above: Performed By: #### L 500.4100, L501.1400, L500.4050, L501.9940, L502.0250 #### [facility] [address] [place], [address] Basophils/100 WBC (Bld) 0.2 % Normal 0-1 [facility] Comment on above: Performed By: #### L 500.4100, L501.1400, L500.4050, L501.9940, L502.0250 #### [facility] [address] [place], [address] Eosinophils/100 WBC (Bld) 0.2 % Normal 0-5 [facility] Comment on above: Performed By: #### L 500.4100, L501.1400, L500.4050, L501.9940, L502.0250 #### [facility] [address] [place], [address] Erythrocyte distribution width (RBC) [Ratio] 14.3 % Normal 11.6-14.6 [facility] Comment on above: Performed By: #### L 500.4100, L501.1400, L500.4050, L501.9940, L502.0250 #### [facility] [address] [place], [address] Hematocrit (Bld) [Volume fraction] 35.2 % Low 40-54 [facility] Comment on above: Performed By: #### L 500.4100, L501.1400, L500.4050, L501.9940, L502.0250 #### [facility] [address] [place], [address] Hemoglobin (Bld) [Mass/Vol] 11.5 g/dL Low 13.0-16.5 [facility] Comment on above: Performed By: #### L 500.4100, L501.1400, L500.4050, L501.9940, L502.0250 #### [facility] [address] [facility] [place], [address] IG% 0.500 Normal 0.0-0.9 [facility] Comment on above: Result Comment: IG% - Immature Granulocytes (promyelocytes, myelocytes and metamyelocytes) > 1% indicates that a LEFT SHIFT is Present. Performed By: #### L 500.4100, L501.1400, L500.4050, L501.9940, L502.0250 #### [facility] [address] [place], [address] Lymphocytes/100 WBC (Bld) 8.4 % Low 19-41 [facility] Comment on above: Performed By: #### L 500.4100, L501.1400, L500.4050, L501.9940, L502.0250 #### [facility] [address] [place], [address] MCH (RBC) [Entitic mass] 29.9 pg Normal 27.0-32.0 [facility] Comment on above: Performed By: #### L 500.4100, L501.1400, L500.4050, L501.9940, L502.0250 #### [facility] [address] [place], [address] MCHC (RBC) [Mass/Vol] 32.7 g/dL Normal 32-36 [facility] Comment on above: Performed By: #### L 500.4100, L501.1400, L500.4050, L501.9940, L502.0250 #### [facility] [address] [place], [address] MCV (RBC) [Entitic vol] 91.7 fL Normal 80-94 [facility] Comment on above: Performed By: #### L 500.4100, L501.1400, L500.4050, L501.9940, L502.0250 #### [facility] [address] [place], [address] Monocytes/100 WBC (Bld) 12.4 % High 0-10 [facility] Comment on above: Performed By: #### L 500.4100, L501.1400, L500.4050, L501.9940, L502.0250 #### [facility] [address] [place], [address] Neutrophils/100 WBC (Bld) 78.3 % High 47-70 [facility] [facility] Comment on above: Performed By: #### L 500.4100, L501.1400, L500.4050, L501.9940, L502.0250 #### [facility] [address] [place], [address] Nucleated RBC (Bld) [#/Vol] 0 10*3/uL Normal 0-5 [facility] Comment on above: Performed By: #### L 500.4100, L501.1400, L500.4050, L501.9940, L502.0250 #### [facility] [address] [place], [address] Platelet mean volume (Bld) [Entitic vol] 9.6 fL Normal 6.2-12.0 [facility] Comment on above: Performed By: #### L 500.4100, L501.1400, L500.4050, L501.9940, L502.0250 #### [facility] [address] [place], [address] Platelets (Bld) [#/Vol] 235 10*3/uL Normal 150-450 [facility] Comment on above: Performed By: #### L 500.4100, L501.1400, L500.4050, L501.9940, L502.0250 #### [facility] [address] [place], [address] RBC (Bld) [#/Vol] 3.84 10*6/uL Low 4.6-6.2 [facility] Comment on above: Performed By: #### L 500.4100, L501.1400, L500.4050, L501.9940, L502.0250 #### [facility] [address] [place], [address] RDW SD 48.1 fl High 35.1-43.9 [facility] Comment on above: Performed By: #### L 500.4100, L501.1400, L500.4050, L501.9940, L502.0250 #### [facility] [address] [place], [address] WBC (Bld) [#/Vol] 8.6 10*3/uL Normal 4.4-11.0 [facility] Comment on above: Performed By: #### L 500.4100, L501.1400, L500.4050, L501.9940, L502.0250 #### [facility] [address] [place], [address] Chest PA and Lateralon 04-01 Chest PA and Lateral [facility] [address] [place] [address] Chest PA and Lateral MR#: [id number] Acct: [id number] Name: BRENTON MAGANA Rep #: [id number] : 1945 M 78 From: Nasima Borja MD PCP: Bernabe Rodriguez, [employer]Y [employer]INTER-C Status: REG ER Study: Chest PA and Lateral Date of Exam: 04/01/24 Exam# [id number] Ordering Dr: Adolfo Benitez MD [id number] INDICATION: cough fever hemoptysis EXAMINATION/TECHNIQUE: X-RAY - XR Chest 2 Views COMPARISON: June 23, 2018 FINDINGS: LINES/DEVICES: None. LUNGS: There are bilateral patchy opacities within the mid lungs. No pneumothorax. MEDIASTINUM AND CARDIOVASCULAR STRUCTURES: Cardiac silhouette not enlarged. Central airways and mediastinal contour are unremarkable. BONES AND SOFT TISSUES: Unremarkable. There is a stable calcific density within the right upper mid abdomen. RAD/Chest PA and Lateral IMPRESSION: Bilateral patchy opacities may be secondary to pneumonia and/or edema. Electronically Signed: Nasima Borja MD at 13:50 EDT , CC: [employer]Y [employer] Bernabe Rodriguez; Dr. Adolfo Benitez MD Unemployment Claims Adjudicator: Signed Normal [facility] Comprehensive Metabolic Prof ilon 04-01-2024 Albumin [Mass/Vol] 2.9 g/dL Low 3.2-5.0 [facility] Comment on above: Order Comment: 'TROP ' Serial specimen #1, #2 or #3: 1 Performed By: #### L 500.4100, L501.1400, L500.4050, L501.9940, L502.0250 #### [facility] [address] [place], [address] Albumin/Globulin [Mass ratio] 0.8 {ratio} Low 0.9-2.4 [facility] Comment on above: Order Comment: 'TROP ' Serial specimen #1, #2 or #3: 1 Performed By: #### L 500.4100, L501.1400, L500.4050, L501.9940, L502.0250 #### [facility] [address] [place], [address] ALK P 124 U/L High 45-117 [facility] Comment on above: Order Comment: 'TROP ' Serial specimen #1, #2 or #3: 1 Performed By: #### L 500.4100, L501.1400, L500.4050, L501.9940, L502.0250 #### [facility] [address] [place], [address] ALT [Catalytic activity/Vol] 90 U/L High 16-61 [facility] Comment on above: Order Comment: 'TROP ' Serial specimen #1, #2 or #3: 1 Performed By: #### L 500.4100, L501.1400, L500.4050, L501.9940, L502.0250 #### [facility] [address] [place], [address] AST [Catalytic activity/Vol] 54 U/L High 15-37 [facility] Comment on above: Order Comment: 'TROP ' Serial specimen #1, #2 or #3: 1 Performed By: #### L 500.4100, L501.1400, L500.4050, L501.9940, L502.0250 #### [facility] [address] [place], [address] Bilirubin [Mass/Vol] 0.80 mg/dL Normal 0.20-1.00 [facility] Comment on above: Order Comment: 'TROP ' Serial specimen #1, #2 or #3: 1 Result Comment: For patients on eltrombopag therapy, use of Dimension [place] TBIL is not recommended. Performed By: #### L 500.4100, L501.1400, L500.4050, L501.9940, L502.0250 #### [facility] [address] [place], [address] BUN/CRE 21.9 RATIO High 10-20 [facility] Comment on above: Order Comment: 'TROP ' Serial specimen #1, #2 or #3: 1 Performed By: #### L 500.4100, L501.1400, L500.4050, L501.9940, L502.0250 #### [facility] [address] [place], [address] CA,Total 9.9 mg/dL Normal 8.5-10.1 [facility] Comment on above: Order Comment: 'TROP ' Serial specimen #1, #2 or #3: 1 Performed By: #### L 500.4100, L501.1400, L500.4050, L501.9940, L502.0250 #### [facility] [address] [place], [address] Chloride [Moles/Vol] 104 mmol/L Normal 98-107 [facility] Comment on above: Order Comment: 'TROP ' Serial specimen #1, #2 or #3: 1 Performed By: #### L 500.4100, L501.1400, L500.4050, L501.9940, L502.0250 #### [facility] [address] [place], [address] CO2 [Moles/Vol] 26.0 mmol/L Normal 21.0-32.0 [facility] Comment on above: Order Comment: 'TROP ' Serial specimen #1, #2 or #3: 1 Performed By: #### L 500.4100, L501.1400, L500.4050, L501.9940, L502.0250 #### [facility] [address] [place], [address] Creatinine [Mass/Vol] 0.82 mg/dL Normal 0.70-1.30 [facility] Comment on above: Order Comment: 'TROP ' Serial specimen #1, #2 or #3: 1 Result Comment: The validity of the calculated GFR GFRAA in patients over 70 years has not been determined. Clinical correlation is essential. Performed By: #### L 500.4100, L501.1400, L500.4050, L501.9940, L502.0250 #### [facility] [address] [place], [address] ECRCL 87.03 ml/min Normal [facility] Comment on above: Order Comment: 'TROP ' Serial specimen #1, #2 or #3: 1 Performed By: #### L 500.4100, L501.1400, L500.4050, L501.9940, L502.0250 #### [facility] [address] [place], [address] EST GFR - AA 116 mL/min Normal >60 [facility] Comment on above: Order Comment: 'TROP ' Serial specimen #1, #2 or #3: 1 Result Comment: Afri can [place] GFR Calc Performed By: #### L 500.4100, L501.1400, L500.4050, L501.9940, L502.0250 #### [facility] [address] [place], [address] GAP 5 Normal 5-15 [facility] Comment on above: Order Comment: 'TROP ' Serial specimen #1, #2 or #3: 1 Performed By: #### L 500.4100, L501.1400, L500.4050, L501.9940, L502.0250 #### [facility] [address] [place], [address] GFR/1.73 sq M.predicted among non-blacks MDRD (S/P/Bld) [Vol rate/Area] 96 mL/min/{1.73_m2} Normal >60 [facility] Comment on above: Order Comment: 'TROP ' Serial specimen #1, #2 or #3: 1 Result Comment: Non- GFR Calc Performed By: #### L 500.4100, L501.1400, L500.4050, L501.9940, L502.0250 #### [facility] [address] [place], [address] Globulin (S) [Mass/Vol] 3.7 g/dL Normal 2.2-4.2 [facility] Comment on above: Order Comment: 'TROP ' Serial specimen #1, #2 or #3: 1 Performed By: #### L 500.4100, L501.1400, L500.4050, L501.9940, L502.0250 #### [facility] [address] [place], [address] Glucose [Mass/Vol] 144 mg/dL High 74-106 [facility] Comment on above: Order Comment: 'TROP ' Serial specimen #1, #2 or #3: 1 Result Comment: Fast ing Glucose result greater than or equal to 126 mg/dL suggests DIABETES MELLITUS per A.D.A. criteria. Performed By: #### L 500.4100, L501.1400, L500.4050, L501.9940, L502.0250 #### [facility] [address] [place], [address] Potassium [Moles/Vol] 3.5 mmol/L Normal 3.5-5.1 [facility] Comment on above: Order Comment: 'TROP ' Serial specimen #1, #2 or #3: 1 Performed By: #### L 500.4100, L501.1400, L500.4050, L501.9940, L502.0250 #### [facility] [address] [place], [address] Sodium [Moles/Vol] 134 mmol/L Low 136-145 [facility] Comment on above: Order Comment: 'TROP ' Serial specimen #1, #2 or #3: 1 Performed By: #### L 500.4100, L501.1400, L500.4050, L501.9940, L502.0250 #### [facility] [address] [place], [address] T PROT 6.6 g/dL Normal 6.4-8.2 [facility] Comment on above: Order Comment: 'TROP ' Serial specimen #1, #2 or #3: 1 Performed By: #### L 500.4100, L501.1400, L500.4050, L501.9940, L502.0250 #### [facility] [address] [place], [address] Urea nitrogen [Mass/Vol] 18 mg/dL Normal 7-18 [facility] Comment on above: Order Comment: 'TROP ' Serial specimen #1, #2 or #3: 1 Performed By: #### L 500.4100, L501.1400, L500.4050, L501.9940, L502.0250 #### [facility] [address] [place], [address] Emergency Department Summary on 04-01-2024 Emergency Department Summary [facility] Medical Records Department [address] [place] [id number] Emergency Department Summary 04/01/24 MR#: [id number] Acct: [id number] Name: BRENTON MAGANA Rep #: [id number] : 1945 78 From: Adolfo Benitez MD PCP: Bernabe Rodriguez, [employer]Y [employer]-C Status:REG ER Location: ED HPI History of Present Illness Chief Complaint: Shortness of Breath Informant: patient and spouse/S.O. Narrative Narrative: 78-year-old male has had cough that has been productive along with fevers and chills and malaise for 1.5-2 weeks. He was tested for COVID and influenza 2 days ago and tested positive for influenza B. He still has fevers. For the past day or 2 he has been having minor amounts of hemoptysis along with the sputum he continues to cough up. He denies dyspnea. However they came to the ER today because they checked his pulse ox at home and it was in the 70s. He is not on home oxygen. He does not have chronic lung disease although he had aspiration pneumonia in the past and the states that he had abnormal swallow study that puts him at recurrent risk. He has had no vomiting lately. He denies any other GI symptoms or leg edema or orthopnea. [facility] Medical History High blood pressure Sleep apnea History of back problems Arthritis Diarrhea Gallstones Abdominal pain Home Medications ???Medication ???Instructions ???Recorded ???Last Taken ???Type amlodipine 10 mg tablet 10 mg PO DAILY 04/18/23 Unknown History ascorbic acid (vitamin C) 1,000 mg 1 g PO Q6H 04/18/23 Unknown History capsule aspirin 81 mg tablet,delayed 81 mg PO DAILY 04/18/23 Unknown History release atorvastatin 80 mg tablet 80 mg PO QPM 04/18/23 Unknown History azelastine 137 mcg (0.1 %) nasal 2 spray intranasal BID 04/18/23 Unknown History spray cyanocobalamin (vitamin B-12) 1,000 mcg PO DAILY 04/18/23 Unknown History 1,000 mcg capsule fenofibrate micronized 134 mg 134 mg PO DAILY 04/18/23 Unknown History capsule ibuprofen 200 mg capsule 200 mg PO Q6H PRN 04/18/23 Unknown History lisinopril 40 mg tablet 40 mg PO DAILY 04/18/23 Unknown History loratadine 10 mg tablet (Allergy 10 mg PO DAILY 04/18/23 Unknown History Relief (loratadine)) mometasone 50 mcg/actuation nasal 2 spray intranasal BID 04/18/23 Unknown History spray (Nasonex 24hr Allergy) multivitamin (Daily Multi-Vitamin 1 tab PO DAILY 04/18/23 Unknown History tablet) tadalafil 5 mg tablet 5 mg PO DAILY 04/18/23 Unknown History tamsulosin 0.4 mg capsule 0.4 mg PO DAILY PRN 04/18/23 Unknown History Allergy/AdvReac Type Severity Reaction Status Date / Time calcium carbonate (From Allergy Other Verified 04/18/23 09:02 Excedrin Back Body) Family History (Updated 04/18/23 @ 08:59 by Haydee Haney) Father Colon cancer Surgical History History of tonsillectomy and adenoidectomy Social History Smoking Status: Never smoker alcohol intake: never substance use type: does not use ROS ROS ED Constitutional Constitutional ED: Reports chills, fever(s) and malaise Eyes Eyes: Denies change in vision or diplopia ENT ENT ED: Denies rhinorrhea or sore throat Cardiovascular Cardiovascular: Denies chest pain or palpitations Respiratory/Chest Respiratory/Chest: Reports cough, hemoptysis and sputum; Denies dyspnea or dyspnea on exertion Gastrointestinal Gastrointestinal: Denies abdominal pain, diarrhea, nausea or vomiting Genitourinary Genitourinary ED: Denies dysuria or hematuria Musculoskeletal Musculoskeletal: Denies back pain or neck pain Integumentary Denies abscess or rash Neurologic Neurologic: Denies headache(s), paresthesias or weakness Psychiatric Psychiatric: Denies anxiety or suicidal thoughts EXAM Physical Exam Const Vital Signs: 04/01/24 12:04 04/01/24 12:04 04/01/24 12:05 Temperature 99 F 99.2 F H Temperature Source Oral Oral Pulse Rate 82 84 Respiratory Rate 20 H 24 H Respiratory Effort Respiratory Depth Respiratory Pattern Blood Pressure 163/80 H 155/76 H Blood Pressure Mean 107 102 Pulse Ox 73 94 94 Oxygen Delivery Method Room Air Nasal Cannula Nasal Cannula Oxygen Flow Rate (L/min) 4 4 04/01/24 12:05 04/01/24 12:54 04/01/24 13:05 Temperature 99.1 F Temperature Source Oral Pulse Rate 87 Respiratory Rate 24 H Respiratory Effort Short of Breath Labored Respiratory Depth Shallow Respiratory Pattern Tachypnea Blood Pressure 155/71 H Blood Pressure Mean 99 Pulse Ox 94 94 Oxygen Delivery Method Room Air Nasal Cannula Nasal Cannula Oxygen Flow Rate (L/min) 4 4 Pos (more content not included)... Normal [facility] H&P Exam - Hospitalist [facility] Medical Records Department [address] [place] [address] H P Exam - Hospitalist 04/01/24 1423 MR#: [id number] Acct: [id number] Name: BRENTON MAGANA Rep #: [id number] : 1945 78 From: Cristi Thao MD PCP: Bernabe Rodriguez, [employer]Y [employer]INTER-C Status:ADM IN Location: [place] [id number] HPI - General General Date of Admission: 04/01/24 Date of Service: 04/01/24 Chief Complaint: Shortness of breath for about 2 weeks along with cough. HPI Narrative BRENTON MAGANA, is a 78 M came to ED with worsening shortness of breath for 2 to 3 days although he has shortness of breath and chest congestion for about 2 weeks. Today patient also had hemoptysis, dark red mixed with sputum about 1 tablespoon as per . Patient has fever Tmax 101.6 Fahrenheit yesterday and in low 100s today. 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 Yuval Pulido on last Friday and was given antibiotic doxycycline that was started on the same day. For last 2 to 3 days shortness of breath got worse with chest congestion and then hemoptysis, new onset hypoxia 72% on room air at therefore came to ED. Patient not on home oxygen. He denies chronic lung disease or heart disease except sleep apnea and uses CPAP. Patient also tested influenza B as an outpatient but not started on Tamiflu In ED, patient was not hypoxic, 73% on room air, pulse ox 94% on 4 L. Tachypneic but heart rate and blood pressure in normal range. Low-grade fever 99.2 Fahrenheit. Chest x-ray shows bilateral pneumonia and patient was given 1 dose of IV antibiotic Zosyn and Tamiflu and admitted [facility] Medical History High blood pressure Sleep apnea History of back problems Arthritis Diarrhea Gallstones Abdominal pain Home Medications ???Medication ???Instructions ???Recorded ???Last Taken ???Type amlodipine 10 mg tablet 10 mg PO DAILY 04/18/23 Unknown History ascorbic acid (vitamin C) 1,000 mg 1 g PO Q6H 04/18/23 Unknown History capsule aspirin 81 mg tablet,delayed 81 mg PO DAILY 04/18/23 Unknown History release atorvastatin 80 mg tablet 80 mg PO QPM 04/18/23 Unknown History azelastine 137 mcg (0.1 %) nasal 2 spray intranasal BID 04/18/23 Unknown History spray cyanocobalamin (vitamin B-12) 1,000 mcg PO DAILY 04/18/23 Unknown History 1,000 mcg capsule fenofibrate micronized 134 mg 134 mg PO DAILY 04/18/23 Unknown History capsule ibuprofen 200 mg capsule 200 mg PO Q6H PRN 04/18/23 Unknown History lisinopril 40 mg tablet 40 mg PO DAILY 04/18/23 Unknown History loratadine 10 mg tablet (Allergy 10 mg PO DAILY 04/18/23 Unknown History Relief (loratadine)) mometasone 50 mcg/actuation nasal 2 spray intranasal BID 04/18/23 Unknown History spray (Nasonex 24hr Allergy) multivitamin (Daily Multi-Vitamin 1 tab PO DAILY 04/18/23 Unknown History tablet) tadalafil 5 mg tablet 5 mg PO DAILY 04/18/23 Unknown History tamsulosin 0.4 mg capsule 0.4 mg PO DAILY PRN 04/18/23 Unknown History Allergy/AdvReac Type Severity Reaction Status Date / Time calcium carbonate (From Allergy Other Verified 04/18/23 09:02 Excedrin Back Body) Family History Father Colon cancer Surgical History History of tonsillectomy and adenoidectomy Social History Smoking Status: Never smoker alcohol intake: never substance use type: does not use ROS ROS Narrative Constitutional: Reports fatigue and weakness. No fever. Obesity HEENT: Reports systems reviewed and no addt'l complaints, except as documented Respiratory/Chest: As described in HPI CVS: No chest pressure or anginal-like symptoms. No history of chronic heart disease or CHF Gastrointestinal: Denies coffee ground emesis, hematemesis or vomiting Genitourinary: Denies burning urination or new urinary tract symptoms Musculoskeletal: Denies acute joint pain or limited range of motion. No acute injury Neurologic: Denies seizure-like symptoms. skin: No ulcer. No rash Endocrinology: Reports systems reviewed and no addt'l complaints, except as documented Hematologic/Lymphatic: Reports systems reviewed and no addt'l complaints, except as documented Rest 14 ROS are negative except as mentioned in HPI Vital Signs Vital Signs Vital Signs: 04/01/24 12:04 04/01/24 12:04 04/01/24 12:05 Temperature 99 F 99.2 F H Temperature Source Oral Oral Pulse Rate 82 84 Respiratory Rate 20 H 24 H Respiratory Effort Respiratory Depth Respiratory Pattern Blood Pressure 163/80 H 155/76 H Blood Pressure Mean 107 102 Pulse Ox 73 94 94 Oxygen Delivery Method Room Air Nasal Cannula Nasal Cannula Oxygen Flow Rat (more content not included)... Normal [facility] L501.4020on 04-01-2024 TROPONIN-I HS 14 pg/mL Normal 3.0-78.0 [facility] Comment on above: Order Comment: 'TROP ' Serial specimen #1, #2 or #3: 1 Result Comment: Betsy roman Note: New Test Units and Gender Specific Reference Ranges. For more information see Policy Stat Procedure [place] High Sensitivity Troponin (TNIH) and attachments. Performed By: #### L 500.4100, L501.1400, L500.4050, L501.9940, L502.0250 #### [facility] [address] [place], [place], [address] Lactic Acidon 04-01-2024 Lactate [Moles/Vol] 0.9 mmol/L Normal 0.4-1.9 [facility] Comment on above: Order Comment: Y Performed By: #### L 500.4100, L501.1400, L500.4050, L501.9940, L502.0250 #### [facility] [address] [place], [address] Lactate [Moles/Vol] 1.5 mmol/L Normal 0.4-1.9 [facility] Comment on above: Order Comment: Y Performed By: #### L 500.4100, L501.1400, L500.4050, L501.9940, L502.0250 #### [facility] [address] [place], [address] Legionella Antigen Urineon 1 LEGU Comments: Only Recom mended for severe cases of pneumonia Only Recommended for severe cases of pneumonia Legionella Antigen result interpretation: L pneumo Ag Ur Ql Negative Presumptive negative for Legionella pneumophila serogroup 1 antigen in urine, suggesting no recent or current infection. Legionella Ag, Urine Negative (See interpretation below) Normal [facility] Comment on above: Performed By: #### L 500.4100, L501.1400, L500.4050, L501.9940, L502.0250 #### [facility] [address] [place], [address] M100.019on 04-01-2024 M100.019 Negative Normal [facility] Comment on above: Performed By: #### L 500.4100, L501.1400, L500.4050, L501.9940, L502.0250 #### [facility] [address] [place], [address] M8200.1000on 04-01-2024 M8200.1000 Negative Normal [facility] Comment on above: Performed By: #### M 8200.1000 #### [facility] [address] [place], [address] Magnesiumon 04-01-2024 Magnesium [Mass/Vol] 2.0 mg/dL Normal 1.6-2.6 [facility] Comment on above: Performed By: #### L 500.4100, L501.1400, L500.4050, L501.9940, L502.0250 #### [facility] [address] [place], [address] Partial Thromboplast Timeon 04-01-2024 aPTT Coag (Bld) [Time] 35.0 s Normal 24.1-36.2 [facility] Comment on above: Performed By: #### L 500.4100, L501.1400, L500.4050, L501.9940, L502.0250 #### [facility] [address] [place], [address] Phosphoruson 04-01-2024 Phosphate [Mass/Vol] 3.3 mg/dL Normal 2.5-4.9 [facility] Comment on above: Performed By: #### L 500.4100, L501.1400, L500.4050, L501.9940, L502.0250 #### [facility] [address] [place], [address] Prothrombin Time w/INRon INR Coag (PPP) [Relative time] 1.3 {INR} Normal [facility] Comment on above: Performed By: #### L 500.4100, L501.1400, L500.4050, L501.9940, L502.0250 #### [facility] [address] [place], [address] PT Coag (PPP) [Time] 16.0 s High 11.7-14.9 [facility] Comment on above: Performed By: #### L 500.4100, L501.1400, L500.4050, L501.9940, L502.0250 #### [facility] [address] [place], [address] Strep pneumoniae Antig(UR,CS F)on 04-01-2024 STPAG Comments: Only Recom mended for severe cases of pneumonia Only Recommended for severe cases of pneumonia URINE INTERPRETATION Strep pneumoniae Antig(UR,CSF) Negative Urine Presumptive negative for pneumococcal pneumonia, suggesting no current or recent pneumococcal infection. Infection due to S pneumoniae cannot be ruled out since the antigen present in the sample may be below the detection limit of the test. Strep pneumo Test Negative URINE (See interpretation below) Normal [facility] Comment on above: Performed By: #### L 500.4100, L501.1400, L500.4050, L501.9940, L502.0250 #### [facility] [address] [place], [address] Urinalysis, Completeon 04-01 WBC 0-5 SEEN Normal 0-5 [facility] Comment on above: Order Comment: COLLE CTOR TO SPECIFY Performed By: #### L 500.4100, L501.1400, L500.4050, L501.9940, L502.0250 #### [facility] [address] [place], [address] BACTERIA 3+ /hpf Normal None Seen [facility] Comment on above: Order Comment: KASH CTOR TO SPECIFY Performed By: #### L 500.4100, L501.1400, L500.4050, L501.9940, L502.0250 #### [facility] [address] [place], [address] Mucus Ql (Urine sed) 1+ /hpf Normal [facility] Comment on above: Order Comment: KASH CTOR TO SPECIFY Performed By: #### L 500.4100, L501.1400, L500.4050, L501.9940, L502.0250 #### [facility] [address] [place], [address] CAST,HYALINE 0-5 SEEN Normal 0-5 [facility] Comment on above: Order Comment: COLLE CTOR TO SPECIFY Performed By: #### L 500.4100, L501.1400, L500.4050, L501.9940, L502.0250 #### [facility] [address] [place], [address] EPI,SQUAMOUS 0 SEEN Normal 0-5 [facility] Comment on above: Order Comment: COLLE CTOR TO SPECIFY Performed By: #### L 500.4100, L501.1400, L500.4050, L501.9940, L502.0250 #### [facility] [address] [place], [address] RBC 0 SEEN Normal 0-5 [facility] Comment on above: Order Comment: COLLE CTOR TO SPECIFY Performed By: #### L 500.4100, L501.1400, L500.4050, L501.9940, L502.0250 #### [facility] [address] [place], [address] Comprehensive Metabolic Prof ilon 03-05-2024 Albumin [Mass/Vol] 3.8 g/dL Normal 3.2-5.0 [facility] Comment on above: Order Comment: LIPID Performed By: #### L 501.1400, L500.4100, L502.0250, L500.4050 #### [facility] [address] [place], [address] Albumin/Globulin [Mass ratio] 1.2 {ratio} Normal 0.9-2.4 [facility] Comment on above: Order Comment: LIPID Performed By: #### L 501.1400, L500.4100, L502.0250, L500.4050 #### [facility] [address] [place], [address] ALK P 57 U/L Normal 45-117 [facility] Comment on above: Order Comment: LIPID Performed By: #### L 501.1400, L500.4100, L502.0250, L500.4050 #### [facility] [address] [place], [address] ALT [Catalytic activity/Vol] 28 U/L Normal 16-61 [facility] Comment on above: Order Comment: LIPID Performed By: #### L 501.1400, L500.4100, L502.0250, L500.4050 #### [facility] [address] [place], [address] AST [Catalytic activity/Vol] 11 U/L Low 15-37 [facility] Comment on above: Order Comment: LIPID Performed By: #### L 501.1400, L500.4100, L502.0250, L500.4050 #### [facility] [address] [place], [address] Bilirubin [Mass/Vol] 0.50 mg/dL Normal 0.20-1.00 [facility] Comment on above: Order Comment: LIPID Result Comment: For patients on eltrombopag therapy, use of Dimension [place] TBIL is not recommended. Performed By: #### L 501.1400, L500.4100, L502.0250, L500.4050 #### [facility] [address] [place], [address] BUN/CRE 25.5 RATIO High 10-20 [facility] Comment on above: Order Comment: LIPID Performed By: #### L 501.1400, L500.4100, L502.0250, L500.4050 #### [facility] [address] [place], [address] CA,Total 9.3 mg/dL Normal 8.5-10.1 [facility] Comment on above: Order Comment: LIPID Performed By: #### L 501.1400, L500.4100, L502.0250, L500.4050 #### [facility] [address] [place], [address] Chloride [Moles/Vol] 110 mmol/L High 98-107 [facility] Comment on above: Order Comment: LIPID Performed By: #### L 501.1400, L500.4100, L502.0250, L500.4050 #### [facility] [address] [place], [address] CO2 [Moles/Vol] 25.0 mmol/L Normal 21.0-32.0 [facility] Comment on above: Order Comment: LIPID Performed By: #### L 501.1400, L500.4100, L502.0250, L500.4050 #### [facility] [address] [place], [address] Creatinine [Mass/Vol] 0.82 mg/dL Normal 0.70-1.30 [facility] Comment on above: Order Comment: LIPID Result Comment: The validity of the calculated GFR GFRAA in patients over 70 years has not been determined. Clinical correlation is essential. Performed By: #### L 501.1400, L500.4100, L502.0250, L500.4050 #### [facility] [address] [place], [address] EST GFR - AA 116 mL/min Normal >60 [facility] Comment on above: Order Comment: LIPID Result Comment: Afri can [place] GFR Calc Performed By: #### L 501.1400, L500.4100, L502.0250, L500.4050 #### [facility] [address] [place], [address] GAP 6 Normal 5-15 [facility] Comment on above: Order Comment: LIPID Performed By: #### L 501.1400, L500.4100, L502.0250, L500.4050 #### [facility] [address] [place], [address] GFR/1.73 sq M.predicted among non-blacks MDRD (S/P/Bld) [Vol rate/Area] 96 mL/min/{1.73_m2} Normal >60 [facility] Comment on above: Order Comment: LIPID Result Comment: Non- GFR Calc Performed By: #### L 501.1400, L500.4100, L502.0250, L500.4050 #### [facility] [address] [place], [address] Globulin (S) [Mass/Vol] 3.1 g/dL Normal 2.2-4.2 [facility] Comment on above: Order Comment: LIPID Performed By: #### L 501.1400, L500.4100, L502.0250, L500.4050 #### [facility] [address] [place], [address] Glucose [Mass/Vol] 93 mg/dL Normal 74-106 [facility] Comment on above: Order Comment: LIPID Performed By: #### L 501.1400, L500.4100, L502.0250, L500.4050 #### [facility] [address] [place], [address] Potassium [Moles/Vol] 3.7 mmol/L Normal 3.5-5.1 [facility] Comment on above: Order Comment: LIPID Performed By: #### L 501.1400, L500.4100, L502.0250, L500.4050 #### [facility] [address] [place], [address] Sodium [Moles/Vol] 141 mmol/L Normal 136-145 [facility] Comment on above: Order Comment: LIPID Performed By: #### L 501.1400, L500.4100, L502.0250, L500.4050 #### [facility] [address] [place], [address] T PROT 6.9 g/dL Normal 6.4-8.2 [facility] Comment on above: Order Comment: LIPID Performed By: #### L 501.1400, L500.4100, L502.0250, L500.4050 #### [facility] [address] [place], [address] Urea nitrogen [Mass/Vol] 21 mg/dL High 7-18 [facility] Comment on above: Order Comment: LIPID Performed By: #### L 501.1400, L500.4100, L502.0250, L500.4050 #### [facility] [address] [place], [address] Lipid Profileon 03-05-2024 Cholesterol [Mass/Vol] 139 mg/dL Normal 200 [facility] Comment on above: Order Comment: LIPID Result Comment: <200 mg/dL Desirable 200-240 mg/dL Borderline >240 mg/dL High Risk Performed By: #### L 501.1400, L500.4100, L502.0250, L500.4050 #### [facility] [address] [place], [address] Cholesterol in HDL [Mass/Vol] 58 mg/dL Normal [facility] Comment on above: Order Comment: LIPID Result Comment: The drugs N-Acetylcysteine and Metamizole may falsely depress this assay. Reference Range HDL <40 mg/dL Low HDL Cholesterol HDL >or= 60 mg/dL High HDL Cholesterol Performed By: #### L 501.1400, L500.4100, L502.0250, L500.4050 #### [facility] [address] [place], [address] Cholesterol in LDL [Mass/Vol] 49 mg/dL Normal 0-130 [facility] Comment on above: Order Comment: LIPID Performed By: #### L 501.1400, L500.4100, L502.0250, L500.4050 #### [facility] [address] [place], [address] Cholesterol in VLDL [Mass/Vol] 32 mg/dL Normal 5-40 [facility] Comment on above: Order Comment: LIPID Performed By: #### L 501.1400, L500.4100, L502.0250, L500.4050 #### [facility] [address] [place], [address] Triglyceride [Mass/Vol] 159 mg/dL Normal [facility] Comment on above: Order Comment: LIPID Result Comment: The drugs N-Acetylcysteine and Metamizole may falsely depress this assay. Serum Triglycerides Reference Interval Normal <150 mg/dL Borderline high 150 - 199 mg/dL High 200 - 499 mg/dL Very High > or = 500 mg/dL Performed By: #### L 501.1400, L500.4100, L502.0250, L500.4050 #### [facility] [address] [place], [address] Microalb:Creat Ratio,Random URon 03-05-2024 Creatinine [Mass/Vol] 30.10 mg/dL Normal NO RANGE EST. [facility] Comment on above: Performed By: #### L 501.1400, L500.4100, L502.0250, L500.4050 #### [facility] [address] [place], [address] MALB:CRE 44.5 mg/g CRE High <30 mg/g CRE [facility] Comment on above: Performed By: #### L 501.1400, L500.4100, L502.0250, L500.4050 #### [facility] [address] [place], [address] MICROALBUMIN,UR 13.4 mg/L Normal NO RANGE EST. [facility] Comment on above: Performed By: #### L 501.1400, L500.4100, L502.0250, L500.4050 #### [facility] [address] [place], [address] Uric Acidon 03-05-2024 URIC 5.6 mg/dL Normal 3.5-7.2 [facility] Comment on above: Order Comment: LIPID Result Comment: The drugs N-Acetylcysteine and Metamizole may falsely depress this assay. Performed By: #### L 501.1400, L500.4100, L502.0250, L500.4050 #### [facility] [address] [place], [address] Basophil percentageOrdered B y: Bernabe Rodriguze on 2023 Basophil percentage < 1.0 mg/dL 0.70-1.30 [facility] No Panel InformationOrdered By: Bernabe Rodriguez on 2023 Bedside Estimated GFR (eGFR) > 60.0000 mL/min >60 [facility] Basophil percentageOrdered B y: Bernabe Rodriguez on 09-02-2023 Bilirubin [Mass/Vol] 0.50 mg/dL 0.20-1.00 [facility] Comment on above: For patients on eltr ombopag therapy, use of Dimension [place] TBIL is not recommended. Chloride [Moles/Vol] 105 mmol/L 98-107 [facility] Cholesterol [Mass/Vol] 136 mg/dL <200 [facility] Comment on above: <200 mg/dL Desirable 200-240 mg/dL Borderline >240 mg/dL High Risk Glucose [Mass/Vol] 92 mg/dL 74-106 [facility] Potassium [Moles/Vol] 3.8 mmol/L 3.5-5.1 [facility] Protein [Mass/Vol] 7.0 g/dL 6.4-8.2 [facility] Sodium [Moles/Vol] 141 mmol/L 136-145 [facility] Triglyceride [Mass/Vol] 116 mg/dL <199 [facility] Comment on above: The drugs N-Acetylcy steine and Metamizole may falsely depress this assay.Serum Triglycerides Reference Interval Normal <150 mg/dL Borderline high 150 - 199 mg/dL High 200 - 499 mg/dL Very High > or = 500 mg/dL Laboratory - Chemistry and C hemistry - challengeOrdered By: Bernabe Rodriguez on 09-02-2023 Albumin/Globulin [Mass ratio] 1.0 {ratio} 0.9-2.4 [facility] ALP [Catalytic activity/Vol] 56 U/L 45-117 [facility] ALT [Catalytic activity/Vol] 23 U/L 16-61 [facility] Cholesterol in HDL [Mass/Vol] 50 mg/dL >40 [facility] Comment on above: The drugs N-Acetylcy steine and Metamizole may falsely depress this assay. Reference Range HDL <40 mg/dL Low HDL Cholesterol HDL >or= 60 mg/dL High HDL Cholesterol Cholesterol in LDL [Mass/Vol] 63 mg/dL 0-130 [facility] CO2 [Moles/Vol] 24.0 mmol/L 21.0-32.0 [facility] Globulin (S) [Mass/Vol] 3.5 g/dL 2.2-4.2 [facility] Urea nitrogen/Creatinine [Mass ratio] 22.6 mg/mg 10-20 [facility] No Panel InformationOrdered By: Bernabe Rodriguez on 09-02-2023 Estimated GFR (MDRD) Amer 121 mL/min >60 [facility] Comment on above: GFR Calc Estimated GFR (MDRD) Non-Af Amer 100 mL/min >60 [facility] Comment on above: Non- GFR Calc Prostate Specific Antigen Screen 0.41 ng/mL 0.00-4.00 [facility] Comment on above: This test was perfor med using the TPSA assay method for [employer] chemistry system. Values obtained with differentassay methods cannot be used interchangably.When changing PSA assays in the course of monitoring apatient, additional sequential testing should be carriedout to confirm baseline values. Urine Microalbumin/Creatin ine Ratio 158.9 mg/g CRE <30 [facility] VLDL Cholesterol 23 mg/dL 5-40 [facility] Serum or plasma calcium mateo urement (mass/volume)Ordered By: Bernabe Rodriguez on 09-02-2023 Calcium [Mass/Vol] 9.4 mg/dL 8.5-10.1 [facility] Serum or plasma creatinine m easurement (mass/volume)Ordered By: Bernabe Rodriguez on 09-02-2023 Creatinine [Mass/Vol] 0.80 mg/dL 0.70-1.30 [facility] Comment on above: The validity of the calculated GFR & GFRAA in patients over 70 years has not been determined. Clinical correlation is essential. Serum or plasma urea nitroge n measurement (mass/volume)Ordered By: Bernabe Rodriguez on 09-02-2023 Urea nitrogen [Mass/Vol] 18 mg/dL 7-18 [facility] Serum or plasma uric acid me asurement (mass/volume)Ordered By: Bernabe Rodriguez on 09-02-2023 Urate [Mass/Vol] 4.7 mg/dL 3.5-7.2 [facility] Comment on above: The drugs N-Acetylcy steine and Metamizole may falsely depress this assay. Thin prep Papanicolaou smear with manual screeningOrdered By: Bernabe Rodriguez on 09-02-2023 Thin prep Papanicolaou smear with manual screening 3.5 g/dL 3.2-5.0 [facility] Thin prep Papanicolaou smear with manual screening 15 U/L 15-37 [facility] Thin prep Papanicolaou smear with manual screening 12 5-15 [facility] Thin prep Papanicolaou smear with manual screening 38.3 mg/L NO RANGE EST. [facility] Urine creatinine measurement (mass/volume)Ordered By: Bernabe Rodriguez on 09-02-2023 Creatinine (U) [Mass/Vol] 24.10 mg/dL NO RANGE EST. [facility] Absolute lymphocyte countOrd ered By: Yony Moody on 04-18-2023 Lymphocytes Auto (Unsp spec) [#/Vol] 1.33 10*3/uL 0.83-4.51 [facility] Basophil percentageOrdered B y: Yony Moody on 04-18-2023 Basophils/100 WBC (Bld) 0.6 % 0-1 [facility] Bilirubin [Mass/Vol] 0.40 mg/dL 0.20-1.00 [facility] Comment on above: For patients on eltr ombopag therapy, use of Dimension [place] TBIL is not recommended. Chloride [Moles/Vol] 111 mmol/L 98-107 [facility] Eosinophils/100 WBC (Bld) 4.2 % 0-5 [facility] Glucose [Mass/Vol] 94 mg/dL 74-106 [facility] Neutrophils (Bld) [#/Vol] 4.7 10*3/uL 2.0-7.7 [facility] Neutrophils/100 WBC (Bld) 66.5 % 47-70 [facility] Potassium [Moles/Vol] 3.7 mmol/L 3.5-5.1 [facility] Protein [Mass/Vol] 7.4 g/dL 6.4-8.2 [facility] Sodium [Moles/Vol] 142 mmol/L 136-145 [facility] WBC (Bld) [#/Vol] 7.1 10*3/uL 4.4-11.0 [facility] Blood erythrocytes count (nu mber/volume)Ordered By: Yony Moody on 04-18-2023 RBC (Bld) [#/Vol] 4.82 10*6/uL 4.6-6.2 [facility] Blood hemoglobin measurement (mass/volume)Ordered By: Yony Moody on 04-18-2023 Hemoglobin (Bld) [Mass/Vol] 14.2 g/dL 13.0-16.5 [facility] Blood lymphocytes/100 leukoc ytesOrdered By: Yony Moody on 04-18-2023 Lymphocytes/100 WBC (Bld) 18.7 % 19-41 [facility] Blood monocytes/100 leukocyt esOrdered By: Yony Moody on 04-18-2023 Monocytes/100 WBC (Bld) 9.6 % 0-10 [facility] Blood platelet mean volumeOr dered By: Yony Moody on 04-18-2023 Platelet mean volume (Bld) [Entitic vol] 10.2 fL 6.2-12.0 [facility] Determination of erythrocyte mean corpuscular volume (MCV)Ordered By: Yony Moody on 04-18-2023 MCV (RBC) [Entitic vol] 93.2 fL 80-94 [facility] Hematocrit Auto (Bld) [Volum e fraction]Ordered By: Yony Moody on 04-18-2023 Hematocrit (Bld) [Volume fraction] 44.9 % 40-54 [facility] - Chemistry and C hemistry - challengeOrdered By: Yony Moody on 04-18-2023 ALP [Catalytic activity/Vol] 58 U/L 45-117 [facility] ALT [Catalytic activity/Vol] 35 U/L 16-61 [facility] CO2 [Moles/Vol] 28.0 mmol/L 21.0-32.0 [facility] Globulin (S) [Mass/Vol] 3.6 g/dL 2.2-4.2 [facility] Urea nitrogen/Creatinine [Mass ratio] 19.0 mg/mg 10-20 [facility] - Hematology and Cell countsOrdered By: Yony Moody on 04-18-2023 Erythrocyte distribution width (RBC) [Entitic vol] 51.1 fL 35.1-43.9 [facility] Erythrocyte distribution width (RBC) [Ratio] 14.8 % 11.6-14.6 [facility] Immature granulocytes/100 WBC (Bld) 0.400 % 0.0-0.9 [facility] Comment on above: IG% - Immature Granu locytes (promyelocytes, myelocytes and metamyelocytes) > 1% indicates that a LEFT SHIFT is Present. MCH (RBC) [Entitic mass] 29.5 pg 27.0-32.0 [facility] Nucleated RBC/100 WBC (Bld) [Ratio] 0 % 0-5 [facility] MCHC Auto (RBC) [Mass/Vol]Or dered By: Yony Moody on 04-18-2023 MCHC (RBC) [Mass/Vol] 31.6 g/dL 32-36 [facility] No Panel InformationOrdered By: Yony Moody on 04-18-2023 Estimated GFR (MDRD) Amer 106 mL/min >60 [facility] Comment on above: GFR Calc Estimated GFR (MDRD) Non-Af Amer 88 mL/min >60 [facility] Comment on above: Non- GFR Calc Platelets bldOrdered By: Johnny Moody on 04-18-2023 Platelets (Bld) [#/Vol] 306 10*3/uL 150-450 [facility] Serum or plasma albumin mateo urement (mass/volume)Ordered By: Yony Moody on 04-18-2023 Albumin [Mass/Vol] 3.8 g/dL 3.2-5.0 [facility] Serum or plasma albumin/glob ulin mass ratioOrdered By: Yony Moody on 04-18-2023 Albumin/Globulin [Mass ratio] 1.1 {ratio} 0.9-2.4 [facility] Serum or plasma calcium mateo urement (mass/volume)Ordered By: Yony Moody on 04-18-2023 Calcium [Mass/Vol] 9.8 mg/dL 8.5-10.1 [facility] Serum or plasma creatinine m easurement (mass/volume)Ordered By: Yony Moody on 04-18-2023 Creatinine [Mass/Vol] 0.89 mg/dL 0.70-1.30 [facility] Comment on above: The validity of the calculated GFR & GFRAA in patients over 70 years has not been determined. Clinical correlation is essential. Serum or plasma urea nitroge n measurement (mass/volume)Ordered By: Yony Moody on 04-18-2023 Urea nitrogen [Mass/Vol] 17 mg/dL 7-18 [facility] Thin prep Papanicolaou smear with manual screeningOrdered By: Yony Moody on 04-18-2023 Thin prep Papanicolaou smear with manual screening 21 U/L 15-37 [facility] Thin prep Papanicolaou smear with manual screening 3 5-15 [facility] Basophil percentageOrdered B y: Bernabe Rodriguez on 03-07-2023 Bilirubin [Mass/Vol] 0.40 mg/dL 0.20-1.00 [facility] Comment on above: For patients on eltr ombopag therapy, use of Dimension [place] TBIL is not recommended. Chloride [Moles/Vol] 111 mmol/L 98-107 [facility] Cholesterol [Mass/Vol] 132 mg/dL <200 [facility] Comment on above: <200 mg/dL Desirable 200-240 mg/dL Borderline >240 mg/dL High Risk Glucose [Mass/Vol] 89 mg/dL 74-106 [facility] Potassium [Moles/Vol] 3.8 mmol/L 3.5-5.1 [facility] Protein [Mass/Vol] 6.9 g/dL 6.4-8.2 [facility] Sodium [Moles/Vol] 143 mmol/L 136-145 [facility] Triglyceride [Mass/Vol] 87 mg/dL <199 [facility] Comment on above: The drugs N-Acetylcy steine and Metamizole may falsely depress this assay.Serum Triglycerides Reference Interval Normal <150 mg/dL Borderline high 150 - 199 mg/dL High 200 - 499 mg/dL Very High > or = 500 mg/dL Laboratory - Chemistry and C hemistry - challengeOrdered By: Bernabe Rodriguez on 03-07-2023 ALP [Catalytic activity/Vol] 53 U/L 45-117 [facility] ALT [Catalytic activity/Vol] 29 U/L 16-61 [facility] CO2 [Moles/Vol] 27.0 mmol/L 21.0-32.0 [facility] Globulin (S) [Mass/Vol] 3.0 g/dL 2.2-4.2 [facility] Urea nitrogen/Creatinine [Mass ratio] 28.4 mg/mg 10-20 [facility] No Panel InformationOrdered By: Bernabe Rodriguez on 03-07-2023 Estimated GFR (MDRD) Amer 119 mL/min >60 [facility] Comment on above: GFR Calc Estimated GFR (MDRD) Non-Af Amer 98 mL/min >60 [facility] Comment on above: Non- GFR Calc Urine Microalbumin/Creatin ine Ratio 34.4 mg/g CRE <30 [facility] Serum or plasma albumin mateo urement (mass/volume)Ordered By: Bernabe Rodriguez on 03-07-2023 Albumin [Mass/Vol] 3.9 g/dL 3.2-5.0 [facility] Serum or plasma albumin/glob ulin mass ratioOrdered By: Bernabe Rodriguez on 03-07-2023 Albumin/Globulin [Mass ratio] 1.3 {ratio} 0.9-2.4 [facility] Serum or plasma calcium mateo urement (mass/volume)Ordered By: Bernabe Rodriguez on 03-07-2023 Calcium [Mass/Vol] 9.2 mg/dL 8.5-10.1 [facility] Serum or plasma cholesterol in HDL measurement (mass/volume)Ordered By: Bernabe Rodriguez on 03-07-2023 Cholesterol in HDL [Mass/Vol] 53 mg/dL >40 [facility] Comment on above: The drugs N-Acetylcy steine and Metamizole may falsely depress this assay. Reference Range HDL <40 mg/dL Low HDL Cholesterol HDL >or= 60 mg/dL High HDL Cholesterol Serum or plasma cholesterol in VLDL measurement (mass/volume)Ordered By: Bernabe Rodriguez on 03-07-2023 Cholesterol in VLDL [Mass/Vol] 17 mg/dL 5-40 [facility] Serum or plasma creatinine m easurement (mass/volume)Ordered By: Bernabe Rodriguez on 03-07-2023 Creatinine [Mass/Vol] 0.81 mg/dL 0.70-1.30 [facility] Comment on above: The validity of the calculated GFR & GFRAA in patients over 70 years has not been determined. Clinical correlation is essential. Serum or plasma low density lipoprotein (LDL) cholesterol measurement (mass/volume)Ordered By: Bernabe Rodriguez on 03-07-2023 Cholesterol in LDL [Mass/Vol] 62 mg/dL 0-130 [facility] Serum or plasma urea nitroge n measurement (mass/volume)Ordered By: Bernabe Rodriguez on 03-07-2023 Urea nitrogen [Mass/Vol] 23 mg/dL 7-18 [facility] Serum or plasma uric acid me asurement (mass/volume)Ordered By: Bernabe Rodriguez on 03-07-2023 Urate [Mass/Vol] 4.5 mg/dL 3.5-7.2 [facility] Comment on above: The drugs N-Acetylcy steine and Metamizole may falsely depress this assay. Thin prep Papanicolaou smear with manual screeningOrdered By: Bernabe Rodriguez on 03-07-2023 Thin prep Papanicolaou smear with manual screening 15 U/L 15-37 [facility] Thin prep Papanicolaou smear with manual screening 5 5-15 [facility] Thin prep Papanicolaou smear with manual screening 26.7 mg/L NO RANGE EST. [facility] Urine creatinine measurement (mass/volume)Ordered By: Bernabe Rodriguez on 03-07-2023 Creatinine (U) [Mass/Vol] 77.70 mg/dL NO RANGE EST. [facility] Basophil percentageOrdered B y: Bernabe Rodriguez on 08-28-2022 Bilirubin [Mass/Vol] 0.50 mg/dL 0.20-1.00 [facility] Comment on above: For patients on eltr ombopag therapy, use of Dimension [place] TBIL is not recommended. Chloride [Moles/Vol] 109 mmol/L 98-107 [facility] Cholesterol [Mass/Vol] 145 mg/dL <200 [facility] Comment on above: <200 mg/dL Desirable 200-240 mg/dL Borderline >240 mg/dL High Risk Glucose [Mass/Vol] 104 mg/dL 74-106 [facility] Comment on above: Fasting Glucose resu lt from 100 to 125 mg/dL suggests IMPAIRED HOMEOSTASIS per A.D.A. criteria. Potassium [Moles/Vol] 3.7 mmol/L 3.5-5.1 [facility] Protein [Mass/Vol] 6.7 g/dL 6.4-8.2 [facility] Sodium [Moles/Vol] 142 mmol/L 136-145 [facility] Triglyceride [Mass/Vol] 101 mg/dL <199 [facility] Comment on above: The drugs N-Acetylcy steine and Metamizole may falsely depress this assay.Serum Triglycerides Reference Interval Normal <150 mg/dL Borderline high 150 - 199 mg/dL High 200 - 499 mg/dL Very High > or = 500 mg/dL Laboratory - Chemistry and C hemistry - challengeOrdered By: Bernabe Rodriguez on 08-28-2022 ALP [Catalytic activity/Vol] 49 U/L 45-117 [facility] ALT [Catalytic activity/Vol] 34 U/L 16-61 [facility] CO2 [Moles/Vol] 26.0 mmol/L 21.0-32.0 [facility] Globulin (S) [Mass/Vol] 2.7 g/dL 2.2-4.2 [facility] Urea nitrogen/Creatinine [Mass ratio] 20.9 mg/mg 10-20 [facility] No Panel InformationOrdered By: Bernabe Rodriguez on 08-28-2022 Estimated GFR (MDRD) Amer 118 mL/min >60 [facility] Comment on above: GFR Calc Estimated GFR (MDRD) Non-Af Amer 98 mL/min >60 [facility] Comment on above: Non- GFR Calc Prostate Specific Antigen Screen 0.34 ng/mL 0.00-4.00 [facility] Comment on above: This test was perfor med using the TPSA assay method for the[facility]. Values obtained with differentassay methods cannot be used interchangably.When changing PSA assays in the course of monitoring apatient, additional sequential testing should be carriedout to confirm baseline values. Serum or plasma albumin mateo urement (mass/volume)Ordered By: Bernabe Rodriguez on 08-28-2022 Albumin [Mass/Vol] 4.0 g/dL 3.2-5.0 [facility] Serum or plasma albumin/glob ulin mass ratioOrdered By: Bernabe Rodriguez on 08-28-2022 Albumin/Globulin [Mass ratio] 1.5 {ratio} 0.9-2.4 [facility] Serum or plasma calcium mateo urement (mass/volume)Ordered By: Bernabe Rodriguez on 08-28-2022 Calcium [Mass/Vol] 9.4 mg/dL 8.5-10.1 [facility] Serum or plasma cholesterol in HDL measurement (mass/volume)Ordered By: Bernabe Rodriguez on 08-28-2022 Cholesterol in HDL [Mass/Vol] 53 mg/dL >40 [facility] Comment on above: The drugs N-Acetylcy steine and Metamizole may falsely depress this assay. Reference Range HDL <40 mg/dL Low HDL Cholesterol HDL >or= 60 mg/dL High HDL Cholesterol Serum or plasma cholesterol in VLDL measurement (mass/volume)Ordered By: Bernabe Rodriguez on 08-28-2022 Cholesterol in VLDL [Mass/Vol] 20 mg/dL 5-40 [facility] Serum or plasma creatinine m easurement (mass/volume)Ordered By: Bernabe Rodriguez on 08-28-2022 Creatinine [Mass/Vol] 0.81 mg/dL 0.70-1.30 [facility] Comment on above: The validity of the calculated GFR & GFRAA in patients over 70 years has not been determined. Clinical correlation is essential. Serum or plasma low density lipoprotein (LDL) cholesterol measurement (mass/volume)Ordered By: Bernabe Rodriguez on 08-28-2022 Cholesterol in LDL [Mass/Vol] 72 mg/dL 0-130 [facility] Serum or plasma urea nitroge n measurement (mass/volume)Ordered By: Bernabe Rodriguez on 08-28-2022 Urea nitrogen [Mass/Vol] 17 mg/dL 7-18 [facility] Serum or plasma uric acid me asurement (mass/volume)Ordered By: Bernabe Rodriguez on 08-28-2022 Urate [Mass/Vol] 4.3 mg/dL 3.5-7.2 [facility] Comment on above: The drugs N-Acetylcy steine and Metamizole may falsely depress this assay. Thin prep Papanicolaou smear with manual screeningOrdered By: Bernabe Rodriguez on 08-28-2022 Thin prep Papanicolaou smear with manual screening 24 U/L 15-37 [facility] Thin prep Papanicolaou smear with manual screening 7 5-15 [facility] Thin prep Papanicolaou smear with manual screening 67.5 mg/L [facility]. [facility] CHINOBRENTON PATRICK ([id number]) 1945 M Date Time Provider Department 07/11/22 9:00 AM [facility] DONNELLY PODIWS During your visit today, we recorded the following information about you: Tressa Calzada LPN 07/11/2022 10:28 AM Signed AMB ROOMING INTAKE FLOWSHEET DATA Risk Screening Do you have concerns about personal safety or safety in the home?: No Pain Pain Level: 4 Pain Location: Other: See Comment (right great toe left heel) Description: Sharp, Dull Duration Amount of Time: 2 Duration Units: Months Frequency: Intermittent Intervention/Comfort measure: Reposition, Relaxation, Medication, Other: See comment (inserts) Patient presents with: Right Great Toe - New, Pain Left Foot - New, Pain Patient states while doing exercise he may have torn ligament. ENID Bar DPM 07/11/2022 10:28 AM Signed Initial Podiatric Office Visit: Chief Complaint: This 76 year old male who presents with chief complaint:left posterior ankle pain HPI Patient presents to clinic for evaluation of his left ankle. He has history of plantar fasciitis for several years on the right foot that he manages with stretching. He states that since February however, he has been having pain in the left posterior ankle/achilles tendon. He states the pain started after he started performing a stretch for his lower back. He found a stretch on youtube where he pulls his toes back and bends forward on a chair. He denies falling but since he stated this stretch, he has been experiencing achilles pain. He wonders if he tore his achilles. He is currently applying biofreeze and that is helping. He made this appointment to make sure the achilles is note torn. PAIN EVALUATION 07/11/2022 0851 Pain Level: 4 Pain Location: Other: See Comment right great toe left heel Description: Sharp;Dull Duration Amount of Time: 2 Duration Units: Months Frequency: Intermittent Intervention/Comfort measure: Reposition;Relaxation;Medic ation;Other: See comment inserts No results found for: HBA1C PCP: Jigar Suarez MD PAST MEDICAL HISTORY Diagnosis Date Hypertension Lesion of subcutaneous tissue 08/25/13 Back Current Outpatient Medications Medication Sig fenofibrate (LOFIBRA) 134 mg capsule Tadalafil 5 mg tablet Take 5 mg by mouth once daily. tamsulosin (FLOMAX) 0.4 mg Take 0.4 mg by mouth. afnshoo-ufko-olmdn-oreg-cap ryl 100 mg-150 mg- 50 mg-150 mg cap Take by mouth. aliskiren (TEKTURNA) 300 mg tablet Take 300 mg by mouth once daily. atorvastatin (LIPITOR) 80 mg tablet Take 80 mg by mouth once daily. Fenofibric Acid 135 mg cpDR Take by mouth once daily. amLODIPine 10 mg tablet Take 10 mg by mouth once daily. allopurinol 300 mg tablet Take 300 mg by mouth once daily. Aspirin 81 mg tab Take 81 mg by mouth once daily. loratadine 10 mg cap Take by mouth once daily. Ascorbic Acid 1,000 mg tablet Take 1,000 mg by mouth once daily. cyanocobalamin (VITAMIN B-12) 1,000 mcg tab Take 1,000 mcg by mouth once daily. acetaminophen (TYLENOL) 325 mg tablet Take 650 mg by mouth every 6 hours as needed. azelastine 0.1% nasal spray Use 1 [place] in each nostril twice daily. MOMETASONE FUROATE (NASONEX NASAL) Use in the nose once daily. HYDROcodone-acetaminophen 5-325 mg per tablet 1 to 2 tabs po q 4 hours prn (Patient not taking: Reported on 07/11/2022) Quinapril HCl 40 mg tablet Take 40 mg by mouth twice daily. (Patient not taking: Reported on 07/11/2022) furosemide 20 mg tablet Take 20 mg by mouth once daily. (Patient not taking: Reported on 07/11/2022) DOCOSAHEXANOIC ACID/EPA (EPA FISH OIL ORAL) Take by mouth. 2400mg FOLIC ACID ORAL Take by mouth once daily. No current facility-administered medications for this visit. ALLERGIES Allergen Reactions Excedrin [Acetamino* Other: See Comments Makes him feel shaky Prednisone Other: See Comments Leg cramps PAST SURGICAL HISTORY Procedure Laterality Date APPENDECTOMY 1951 CARPAL TUNNEL 2012 bilateral REM LESION TRUNK,ARM,LEG > 4.0CM 08/25/13 back TONSILLECTOMY HX 1950 with adenoids FAMILY HISTORY Problem Relation Age of Onset Cancer Father prostate and colon Stroke Father Hypertension Mother Kidney Disease Mother Social History Tobacco Use Smoking status: Never Smokeless tobacco: Never Substance Use Topics Alcohol use: Yes Comment: glass of wine per month Drug use: No REVIEW OF SYSTEMS GENERAL: Negative for Malaise, significant weight loss, fever RESPIRATORY: Negative for cough, wheezing and shortness of breath CARDIOVASCULAR: Negative for chest pain, leg swelling and palpitations GI: Negative for abdominal discomfort, blood in stools or black stools and change in bowel habits : Negative for dysuria, frequency and incontinence MUSCULOSKELETAL: Negative for joint pain or swelling, back pain (more content not included)... Normal [facility] XR FOOT 3V AP/LAT/OBL LTon 0 07-11-2022 XR FOOT 3V AP/LAT/OBL LT * * *Final Report* * * DATE OF EXAM: Jul 11 2022 8:45AM [id number] - XR FOOT 3V AP/LAT/OBL LT / PROCEDURE REASON: Pain of left heel * * * * Physician Interpretation * * * * EXAMINATION: XR FOOT 3V AP/LAT/OBL LT CLINICAL HISTORY: Left foot pain Technique: XR FOOT 3V AP/LAT/OBL LT -- LEFT with 3 views on 3 images Comparison: None RESULT: No acute fracture or dislocation. Left first metatarsophalangeal joint space narrowing with subchondral sclerosis and marginal osteophytes. IMPRESSION: No acute fracture. 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 Unemployment Claims Adjudicator: CRISTOPHER Transcribe Date/Time: Jul 12 2022 1:31P Dictated by : ALEA LOGAN MD This examination was interpreted and the report reviewed and electronically signed by: ALEA LOGAN MD on Jul 12 2022 1:34PM EST [id number] Normal [facility] Basophil percentageon 2021 Bilirubin [Mass/Vol] 0.50 mg/dL 0.20-1.00 [facility] Work Phone: Comment on above: For patients on eltr ombopag therapy, use of Dimension [place] TBIL is not recommended. Chloride [Moles/Vol] 108 mmol/L 98-107 [facility] Work Phone: Cholesterol [Mass/Vol] 146 mg/dL <200 [facility] Work Phone: [phone] Comment on above: <200 mg/dL Desirable 200-240 mg/dL Borderline >240 mg/dL High Risk Glucose [Mass/Vol] 89 mg/dL 74-106 [facility] Work Phone: [phone] Potassium [Moles/Vol] 3.7 mmol/L 3.5-5.1 [facility] Work Phone: [phone] Protein [Mass/Vol] 7.0 g/dL 6.4-8.2 [facility] Work Phone: [phone] Sodium [Moles/Vol] 142 mmol/L 136-145 [facility] Work Phone: [phone] Triglyceride [Mass/Vol] 90 mg/dL <199 [facility] Work Phone: [phone] Comment on above: The drugs N-Acetylcy steine and Metamizole may falsely depress this assay.Serum Triglycerides Reference Interval Normal <150 mg/dL Borderline high 150 - 199 mg/dL High 200 - 499 mg/dL Very High > or = 500 mg/dL Laboratory - Chemistry and C hemistry - challengeon 02-20-2022 ALP [Catalytic activity/Vol] 50 U/L 45-117 [facility] Work Phone: [phone] ALT [Catalytic activity/Vol] 26 U/L 16-61 [facility] Work Phone: [phone] CO2 [Moles/Vol] 28.0 mmol/L 21.0-32.0 [facility] Work Phone: [phone] Globulin (S) [Mass/Vol] 3.1 g/dL 2.2-4.2 [facility] Work Phone: [phone] Urea nitrogen/Creatinine [Mass ratio] 25.4 mg/mg 10-20 [facility] Work Phone: [phone] No Panel Informationon 02-20 Estimated GFR (MDRD) Amer 116 mL/min >60 [facility] Work Phone: Comment on above: GFR Calc Estimated GFR (MDRD) Non-Af Amer 96 mL/min >60 [facility] Work Phone: Comment on above: Non- GFR Calc Serum or plasma albumin mateo urement (mass/volume)on 02-20-2022 Albumin [Mass/Vol] 3.9 g/dL 3.2-5.0 [facility] Work Phone: Serum or plasma albumin/glob ulin mass ratioon 02-20-2022 Albumin/Globulin [Mass ratio] 1.3 {ratio} 0.9-2.4 [facility] Work Phone: Serum or plasma calcium mateo urement (mass/volume)on 02-20-2022 Calcium [Mass/Vol] 9.3 mg/dL 8.5-10.1 [facility] Work Phone: Serum or plasma cholesterol in HDL measurement (mass/volume)on 02-20-2022 Cholesterol in HDL [Mass/Vol] 48 mg/dL >40 [facility] Work Phone: Comment on above: The drugs N-Acetylcy steine and Metamizole may falsely depress this assay. Reference Range HDL <40 mg/dL Low HDL Cholesterol HDL >or= 60 mg/dL High HDL Cholesterol Serum or plasma cholesterol in VLDL measurement (mass/volume)on 02-20-2022 Cholesterol in VLDL [Mass/Vol] 18 mg/dL 5-40 [facility] Work Phone: Serum or plasma creatinine m easurement (mass/volume)on 02-20-2022 Creatinine [Mass/Vol] 0.83 mg/dL 0.70-1.30 [facility] Work Phone: Comment on above: The validity of the calculated GFR & GFRAA in patients over 70 years has not been determined. Clinical correlation is essential. Serum or plasma low density lipoprotein (LDL) cholesterol measurement (mass/volume)on 02-20-2022 Cholesterol in LDL [Mass/Vol] 80 mg/dL 0-130 [facility] Work Phone: Serum or plasma urea nitroge n measurement (mass/volume)on 02-20-2022 Urea nitrogen [Mass/Vol] 21 mg/dL 7-18 [facility] Work Phone: [phone] Serum or plasma uric acid me asurement (mass/volume)on 02-20-2022 Urate [Mass/Vol] 4.5 mg/dL 3.5-7.2 [facility] Work Phone: Comment on above: The drugs N-Acetylcy steine and Metamizole may falsely depress this assay. Thin prep Papanicolaou smear with manual screeningon 02-20-2022 Thin prep Papanicolaou smear with manual screening 16 U/L 15-37 [facility] Work Phone: Thin prep Papanicolaou smear with manual screening 6 5-15 [facility] Work Phone: .Auto Diffon 02-20-2021 Basophil, Absolute 0.00 10 3/mcL Normal 0.00-0.19 [facility] ([place]) Comment on above: Performed By: #### C BC, ADIFF, ANEU, URIC, LIPID, CMP #### [place] [address] #### GFR #### [address] [address] Basophils/100 WBC (Bld) 0.4 % Normal 0.0-2.5 [facility] ([place]) Comment on above: Performed By: #### C BC, ADIFF, ANEU, URIC, LIPID, CMP #### [address] [address] #### GFR #### [address] [address] Eosinophil, Absolute 0.30 10 3/mcL Normal 0.00-0.40 [facility] ([place]) Comment on above: Performed By: #### C BC, ADIFF, ANEU, URIC, LIPID, CMP #### [place] [address] #### GFR #### [address] [address] Eosinophils/100 WBC (Bld) 4.1 % Normal 0.0-7.0 [facility] ([place]) Comment on above: Performed By: #### C BC, ADIFF, ANEU, URIC, LIPID, CMP #### [address] [address] #### GFR #### [address] [address] Lymphocyte, Absolute 1.20 10 3/mcL Normal 0.77-3.85 [facility] ([place]) Comment on above: Performed By: #### C BC, ADIFF, ANEU, URIC, LIPID, CMP #### [place] [address] #### GFR #### [address] [address] Lymphocytes/100 WBC (Bld) 16.2 % Normal 10.0-50.0 [facility] ([place]) Comment on above: Performed By: #### C BC, ADIFF, ANEU, URIC, LIPID, CMP #### [place] [address] #### GFR #### [address] [address] Monocyte, Absolute 0.50 10 3/mcL Normal 0.15-1.00 [facility] ([place]) Comment on above: Performed By: #### C BC, ADIFF, ANEU, URIC, LIPID, CMP #### [place] [address] #### GFR #### [address] [address] Monocytes/100 WBC (Bld) 7.0 % Normal 1.7-13.0 [facility] ([place]) Comment on above: Performed By: #### C BC, ADIFF, ANEU, URIC, LIPID, CMP #### [address] [address] #### GFR #### [address] [address] Neutrophils/100 WBC (Bld) 72.3 % Normal 37.0-80.0 [facility] ([place]) Comment on above: Performed By: #### C BC, ADIFF, ANEU, URIC, LIPID, CMP #### [address] [address] #### GFR #### [address] [address] .GFRon 02-20-2021 GFR Non- 82 ml/min/1.73sqm Normal [facility] ([place]) Comment on above: Result Comment: GFR Population mean for , Non- Americans Ages 20-29 = 116 mL/min/1.73 sq.m. Ages 30-39 = 107 mL/min/1.73 sq.m. Ages 40-49 = 99 mL/min/1.73 sq.m. Ages 50-59 = 93 mL/min/1.73 sq.m. Ages 60-69 = 85 mL/min/1.73 sq.m. Ages 70+ = 75 mL/min/1.73 sq.m. Chronic Kidney Disease: Less than 60 mL/min/1.73 square meters End Stage Renal Disease: Less than 15 mL/min/1.73 square meters Performed By: #### C BC, ADIFF, ANEU, URIC, LIPID, CMP #### [address] [address] #### GFR #### [address] [address] GFR 100 ml/min/1.73sqm Normal [facility] ([place]) Comment on above: Result Comment: GFR Population mean for , Non- Americans Ages 20-29 = 116 mL/min/1.73 sq.m. Ages 30-39 = 107 mL/min/1.73 sq.m. Ages 40-49 = 99 mL/min/1.73 sq.m. Ages 50-59 = 93 mL/min/1.73 sq.m. Ages 60-69 = 85 mL/min/1.73 sq.m. Ages 70+ = 75 mL/min/1.73 sq.m. Chronic Kidney Disease: Less than 60 mL/min/1.73 square meters End Stage Renal Disease: Less than 15 mL/min/1.73 square meters Performed By: #### C BC, ADIFF, ANEU, URIC, LIPID, CMP #### [place] [address] #### GFR #### [address] [address] .NEUABSon 02-20-2021 Neutrophil, Absolute 5.30 10 3/mcL Normal 2.85-6.16 [facility] ([place]) Comment on above: Performed By: #### C BC, ADIFF, ANEU, URIC, LIPID, CMP #### [place] [address] #### GFR #### [place] [address] CBCon 02-20-2021 Erythrocyte distribution width (RBC) [Ratio] 14.9 % High 11.5-14.5 [facility] ([place]) Comment on above: Performed By: #### C BC, ADIFF, ANEU, URIC, LIPID, CMP #### [place] [address] #### GFR #### [place] [address] Hematocrit (Bld) [Volume fraction] 42.9 % Normal 42.0-52.0 [facility] ([place]) Comment on above: Performed By: #### C BC, ADIFF, ANEU, URIC, LIPID, CMP #### [place] [address] #### GFR #### [place] [address] Hgb 14.2 G/dL Normal 14.0-18.0 [facility] ([place]) Comment on above: Performed By: #### C BC, ADIFF, ANEU, URIC, LIPID, CMP #### [place] [address] #### GFR #### [place] [address] MCH (RBC) [Entitic mass] 30.8 pg Normal 27.0-31.2 [facility] ([place]) Comment on above: Performed By: #### C BC, ADIFF, ANEU, URIC, LIPID, CMP #### [place] [address] #### GFR #### [place] [address] MCHC 33.1 G/dL Normal 31.8-35.4 [facility] ([place]) Comment on above: Performed By: #### C BC, ADIFF, ANEU, URIC, LIPID, CMP #### [place] [address] #### GFR #### [place] [address] MCV (RBC) [Entitic vol] 93.1 fL Normal 80.0-94.0 [facility] ([place]) Comment on above: Performed By: #### C BC, ADIFF, ANEU, URIC, LIPID, CMP #### [place] [address] #### GFR #### [place] [address] Platelet 274 10 3/mcL Normal 130-400 [facility] ([place]) Comment on above: Performed By: #### C BC, ADIFF, ANEU, URIC, LIPID, CMP #### [place] [address] #### GFR #### [place] [address] Platelet mean volume (Bld) [Entitic vol] 8.7 fL Normal 7.4-10.4 [facility] ([place]) Comment on above: Performed By: #### C BC, ADIFF, ANEU, URIC, LIPID, CMP #### [place] [address] #### GFR #### [place] [address] RBC 4.60 10 6/mcL Normal 4.04-6.13 [facility] ([place]) Comment on above: Performed By: #### C BC, ADIFF, ANEU, URIC, LIPID, CMP #### [place] [address] #### GFR #### [place] [address] WBC 7.30 10 3/mcL Normal 4.60-10.80 [facility] ([place]) Comment on above: Performed By: #### C BC, ADIFF, ANEU, URIC, LIPID, CMP #### [place] [address] #### GFR #### [place] [address] CMPon 02-20-2021 Albumin Level 4.3 G/dL Normal 3.4-4.8 [facility] ([place]) Comment on above: Performed By: #### C BC, ADIFF, ANEU, URIC, LIPID, CMP #### [place] [address] #### GFR #### [place] [address] Albumin/Globulin [Mass ratio] 1.6 {ratio} Normal 1.1-2.5 [facility] ([place]) Comment on above: Performed By: #### C BC, ADIFF, ANEU, URIC, LIPID, CMP #### [place] [address] #### GFR #### [place] [address] ALP [Catalytic activity/Vol] 66 U/L Normal 40-135 [facility] ([place]) Comment on above: Performed By: #### C BC, ADIFF, ANEU, URIC, LIPID, CMP #### [place] [address] #### GFR #### [place] [id number] ALT [Catalytic activity/Vol] 56 U/L Normal 16-63 [facility] ([place]) Comment on above: Performed By: #### C BC, ADIFF, ANEU, URIC, LIPID, CMP #### [place] [address] #### GFR #### [address] [address] AST [Catalytic activity/Vol] 28 U/L Normal 10-40 [facility] ([place]) Comment on above: Performed By: #### C BC, ADIFF, ANEU, URIC, LIPID, CMP #### [place] [address] #### GFR #### [place] [address] Bili Total 0.5 mg/dL Normal 0.2-1.0 [facility] ([place]) Comment on above: Result Comment: Use of this assay is not recommended for patients undergoing treatment with eltrombopag due to the potential for falsely elevated results. Performed By: #### C BC, ADIFF, ANEU, URIC, LIPID, CMP #### [place] [address] #### GFR #### [place] [address] BUN/Creatinine Ratio 23 ratio Normal 7-27 [facility] ([place]) Comment on above: Performed By: #### C BC, ADIFF, ANEU, URIC, LIPID, CMP #### [place] [address] #### GFR #### [place] [address] Calcium [Mass/Vol] 9.6 mg/dL Normal 8.4-10.2 [facility] ([place] Comment on above: Performed By: #### C BC, ADIFF, ANEU, URIC, LIPID, CMP #### [place] [address] #### GFR #### [place] [address] Chloride [Moles/Vol] 105 mmol/L Normal 98-107 [facility] ([place]) Comment on above: Performed By: #### C BC, ADIFF, ANEU, URIC, LIPID, CMP #### [place] [id number] #### GFR #### [address] [address] CO2 [Moles/Vol] 28 mmol/L Normal 23-31 [facility] ([place]) Comment on above: Performed By: #### C BC, ADIFF, ANEU, URIC, LIPID, CMP #### [address] [address] #### GFR #### [address] [address] Creatinine [Mass/Vol] 0.90 mg/dL Normal 0.70-1.30 [facility] ([place]) Comment on above: Performed By: #### C BC, ADIFF, ANEU, URIC, LIPID, CMP #### [address] [address] #### GFR #### [address] [address] Electrolyte Balance 10.0 mEq/L Normal [facility] ([place]) Comment on above: Performed By: #### C BC, ADIFF, ANEU, URIC, LIPID, CMP #### [address] [address] #### GFR #### [address] [address] Globulin 2.7 G/dL Normal [facility] ([place]) Comment on above: Performed By: #### C BC, ADIFF, ANEU, URIC, LIPID, CMP #### [address] [address] #### GFR #### [address] [address] Glucose [Mass/Vol] 94 mg/dL Normal 83-110 Critical access [facility] ([place]) Comment on above: Performed By: #### C BC, ADIFF, ANEU, URIC, LIPID, CMP #### [address] [address] #### GFR #### [address] [address] Potassium [Moles/Vol] 3.8 mmol/L Normal 3.5-5.1 [facility] ([place]) Comment on above: Performed By: #### C BC, ADIFF, ANEU, URIC, LIPID, CMP #### [address] [address] #### GFR #### [address] [address] Sodium [Moles/Vol] 143 mmol/L Normal 136-145 [facility] ([place]) Comment on above: Performed By: #### C BC, ADIFF, ANEU, URIC, LIPID, CMP #### [address] [address] #### GFR #### [address] [address] Total Protein 7.0 G/dL Normal 6.4-8.2 [facility] ([place]) Comment on above: Performed By: #### C BC, ADIFF, ANEU, URIC, LIPID, CMP #### [place] [address] #### GFR #### [address] [address] Urea nitrogen [Mass/Vol] 21 mg/dL High 7-18 [facility] ([place]) Comment on above: Performed By: #### C BC, ADIFF, ANEU, URIC, LIPID, CMP #### [address] [address] #### GFR #### [address] [address] LIPIDon 02-20-2021 Cholesterol [Mass/Vol] 155 mg/dL Normal 0-200 [facility] ([place]) Comment on above: Result Comment: Chol esterol Reference Interval: Less than 200 Desirable 200-239 Borderline high risk 240 and above High risk Performed By: #### C BC, ADIFF, ANEU, URIC, LIPID, CMP #### [address] [address] #### GFR #### [address] [address] Cholesterol in HDL [Mass/Vol] 54 mg/dL Normal 40-60 [facility] ([place]) Comment on above: Performed By: #### C BC, ADIFF, ANEU, URIC, LIPID, CMP #### [address] [address] #### GFR #### [address] [address] Cholesterol in LDL [Mass/Vol] 85 mg/dL Normal 0-130 [facility] ([place]) Comment on above: Performed By: #### C BC, ADIFF, ANEU, URIC, LIPID, CMP #### [address] [address] #### GFR #### [address] [address] Triglyceride [Mass/Vol] 82 mg/dL Normal 0-150 [facility] ([place]) Comment on above: Result Comment: Trig lyceride Reference Interval: Less than 150 Normal 150-199 Borderline high risk 200-499 High risk 500 or higher Very high risk Performed By: #### C BC, ADIFF, ANEU, URIC, LIPID, CMP #### [address] [address] #### GFR #### [address] [address] URICon 02-20-2021 Uric Acid Lvl 4.7 mg/dL Normal 3.5-7.2 [facility] ([place]) Comment on above: Performed By: #### C BC, ADIFF, ANEU, URIC, LIPID, CMP #### [address] [address] #### GFR #### [address] [address] Vital Signs Date Time Vital Sign Value Performing Clinician Jeovany montejo 02-02-2025 15:41-0400 Body height 160.02 cm Bernabe Rodriguez NP-C Work Phone: [facility] 02-02-2025 15:41-0400 Body mass index (BMI) [Ratio] 44.9 kg/m2 Bernabe Rodriguez NP-C Work Phone: [facility] 02-02-2025 15:41-0400 Body weight 115.21 kg Bernabe Rodriguez [employer]-C Work Phone: [facility] 02-02-2025 15:41-0400 Diastolic blood pressure 79 mm[Hg] Bernabe Rodriguez [employer]INTER-C Work Phone: [facility] 02-02-2025 15:41-0400 Heart rate 61 /min Bernabe Rodriguez [employer]-C Work Phone: [facility] 02-02-2025 15:41-0400 Respiratory rate 16 /min Bernabe Rodriguez [employer]INTER-C Work Phone: [facility] 02-02-2025 15:41-0400 Systolic blood pressure 132 mm[Hg] Bernabe Rodriguez [employer] PRINTER-C Work Phone: [facility] 04-18-2023 08:59-0400 Body height 162.56 cm [employer]-C Bernabe Rodriguez C[employer] M[employer] PRINTER Work Phone: [facility] 04-18-2023 08:59-0400 Body mass index (BMI) [Ratio] 44.4 kg/m2 [employer]-C Bernabe Rodriguez [employer] PRINTER Work Phone: [facility] 04-18-2023 08:59-0400 Body temperature 97.7 [degF] [employer]-C Bernabe Rodriguez [employer] PRINTER Work Phone: [facility] 04-18-2023 08:59-0400 Body weight 117.53 kg [employer]-C Bernabe Rodriguez [employer] PRINTER Work Phone: [facility] 04-18-2023 08:59-0400 Diastolic blood pressure 75 mm[Hg] [employer]-C Bernabe Rodriguez [employer] PRINTER Work Phone: [facility] 04-18-2023 08:59-0400 Heart rate 69 /min [employer]-C Bernabe Rodriguez [employer] PRINTER Work Phone: [facility] 04-18-2023 08:59-0400 Respiratory rate 18 /min [employer]-C Bernabe Rodriguez [employer] PRINTER Work Phone: [facility] 04-18-2023 08:59-0400 SaO2% (BldA) [Mass fraction] 95 % [employer]-C Bernabe Jennifer [employer] PRINTER Work Phone: [facility] 04-18-2023 08:59-0400 Systolic blood pressure 139 mm[Hg] [employer]-C Bernabe Jennifer [employer] PRINTER Work Phone: [facility] Encounters Encounter Date Encounter Type Care Provider Facility Start: 03-04-2025 ambulatory Seun Bledsoe Facility:[facility] Start: 02-03-2025 End: 02-03-2025 ambulatory Bernabe Rodriguez [employer]INTER-C Work Phone: -[facility] Start: 02-03-2025 End: 02-03-2025 Patient encounter procedure Bernabe Rodriguez [employer]-C -[facility] Work Phone: Start: 02-02-2025 End: 02-02-[address] Seun Bledsoe MD -[facility] Work Phone: Start: 02-02-2025 End: 02-03-2025 ambulatory Bernabe Rodriguez [employer]-C Work Phone: -[facility] Start: 12-24-2024 ambulatory Bernbae Rodriguez [employer] PRINTER Facility:[facility] Start: 09-29-2024 End: 09-29-2024 ambulatory Bernabe Rodriguez [employer] PRINTER Facility:[facility] Start: 09-06-2024 End: 09-06-2024 ambulatory Bernabe Rodriguez [employer]-C Work Phone: [facility] Work Phone: Start: 09-06-2024 End: 09-06-2024 Patient encounter procedure Fadia Huberfield -[facility] Work Phone: Start: 09-06-2024 End: 09-06-2024 ambulatory [facility] Facility:[facility] Start: 07-20-2024 End: 07-20-[address] Ramón Martins MD -[facility], [place] Work Phone: Start: 07-20-2024 End: 07-20-2024 ambulatory Ramón Martins Facility:[facility] Start: 07-12-2024 End: 07-12-[address] Ramón Martins MD -[facility], [place] Work Phone: Start: 07-12-2024 End: 07-12-2024 ambulatory Ramón Martins Facility:[facility] Start: 04-30-2024 ambulatory Bernabe Rodriguez [employer] PRINTER Facility:[facility] Start: 04-01-2024 ambulatory Adolfo Eli Facility :[facility] Start: 04-01-2024 End: 04-05-2024 Evaluation and management of inpatient Jaleesa Noonan Facility:[facility] Start: 03-05-2024 End: 03-05-2024 ambulatory Bernabe Rodriguez [employer] PRINTER Facility:[facility] Start: 2023 Non-patient / Non-visit [employer]-C Eliseo Rodriguez [employer] PRINTER Work Phone: [facility] Start: 2023 End: 2023 ambulatory [employer]-C Bernabe Rodriguez [employer] PRINTER Work Phone: [facility] Work Phone: Start: 2023 End: 2023 Patient encounter procedure [employer]-C Bernabe Rodriguez [employer] PRINTER Work Phone: [facility] Work Phone: Start: 09-18-2023 End: 09-18-2023 ambulatory [facility] Work Phone: Start: 09-18-2023 End: 09-18-2023 Patient encounter procedure [facility] Work Phone: Start: 09-02-2023 End: 09-02-2023 ambulatory [facility] Work Phone: Start: 09-02-2023 End: 09-02-2023 Patient encounter procedure [facility]-Laboratory Work Phone: Start: 07-25-2023 End: 07-25-2023 ambulatory [employer]-C Bernabe Rodriguez [employer] PRINTER Work Phone: [facility] Work Phone: Start: 07-25-2023 End: 07-25-2023 Discharged Recurring [employer]-C Bernabe Rodriguez [employer] PRINTER Work Phone: [facility]-Physical Therapy Work Phone: Start: 05-22-2023 End: 05-22-2023 ambulatory [employer]-C Bernabe Rodriguez [employer] PRINTER Work Phone: [facility] Work Phone: Start: 05-22-2023 End: 05-22-2023 Patient encounter procedure [employer]-C Bernabe Rodriguez [employer] PRINTER Work Phone: [facility]-MRI - [facility] Work Phone: Start: 04-18-2023 End: 04-18-2023 ambulatory [employer]-C Bernabe Rodriguez [employer] PRINTER Work Phone: [facility] Work Phone: Start: 04-18-2023 End: 04-18-2023 Patient encounter procedure [employer]C Bernabe Rodriguez [employer] PRINTER Work Phone: [facility] Work Phone: Start: 04-09-2023 End: 04-09-2023 ambulatory [facility] Work Phone: Start: 04-09-2023 End: 04-09-2023 Patient encounter procedure [facility]-Ultrasound, [facility] Work Phone: Start: 03-26-2023 End: 03-26-2023 ambulatory [facility] Work Phone: Start: 03-26-2023 End: 03-26-2023 Patient encounter procedure [facility]-Cat Scan, [facility] Work Phone: Start: 03-07-2023 End: 03-07-2023 Patient encounter procedure [facility]-Laboratory Work Phone: Start: 11-18-2022 End: 11-18-2022 ambulatory [facility] Work Phone: Start: 11-18-2022 End: 11-18-2022 Patient encounter procedure [facility]-Radiology, [facility] Start: 08-28-2022 End: 08-28-2022 ambulatory [facility] Work Phone: Start: 08-28-2022 End: 08-28-2022 Patient encounter procedure [facility]-Laboratory Start: 07-11-2022 End: 07-11-2022 ambulatory JIGAR SUAREZ Facility:[facility] Start: 07-11-2022 End: 07-11-2022 Patient encounter procedure Peyman Robertskeke Work Phone: Podiatry Comment on above: Tendonitis, Achilles , left (Primary Dx) Start: 02-20-2022 End: 02-20-2022 ambulatory [facility] Work Phone: Start: 02-20-2022 End: 02-20-2022 Patient encounter procedure [facility]-Laboratory Procedures Date Procedure Procedure Detail Performing Clinician Start: 02-03-2025 MRI of joint of lower extremity Bernabe Rodriguez NP-C Work Phone: Start: 09-06-2024 X-ray of knee, four or more views Chidi Rodriguez NP-C Work Phone: Start: 07-20-2024 Measurement of occult blood in stool specimen using immunoassay Bernabe Rodriguez [employer]-C Work Phone: Start: 2023 MRI of brain with contrast [employer]-C Bernabe Rodriguez [employer] PRINTER Work Phone: Start: 09-18-2023 MRI of lumbar spine Start: 05-22-2023 Magnetic resonance cholangiopancreatography [employer]-C Bernabe Rodriguez [employer] PRINTER Work Phone: Start: 04-09-2023 Ultrasonography of abdomen Start: 03-26-2023 CT of abdomen without contrast Start: 11-18-2022 X-ray of lumbosacral spine Plan of Treatment Date Care Activity Detail Author Start: 02-02-2025 Evaluation of diagno stic study results [facility] Start: 06-16-2022 ADVANCE DIRECTIVE DISCUSSION ADVANCE DIRECTIVE DISCUSSION [facility] Start: 06-16-2022 DEPRESSION ASSESSMENT DEPRESSION ASS ESSMENT [facility] Start: 11-02-2020 COVID-19 VACCINE (3 - Booster for Moderna series) COVID-19 VACCINE (3 - Booster for Moderna series) [facility] Start: 2010 PNEUMOCOCCAL: 65+ (1 - PCV) PNEUMOCOCCAL: 65+ (1 - PCV) [facility] Start: 10-11-1995 SHINGRIX VACCINE (1 of 2) CARLOS GRIX VACCINE (1 of 2) [facility] Start: 1990 DIABETES SCREEN DIABETES SCREEN [facility] Start: 1964 Urine microalbumin profile DTAP,TDAP,TD (1 - Tdap) [facility] Start: 10-11-1963 HEPATITIS C SCREENING HEPATITIS C [facility] NM Heart Views W str ess and W radionuclide IV [facility] Immunizations Immunization Date Immunization Notes Care Provider Fa nazarioty 03-12-2024 influenza, injectabl e, quadrivalent, preservative free Bernabe Rodriguez [employer]-C Work Phone: [facility] 02-11-2023 tetanus toxoid, redu maude diphtheria toxoid, and acellular pertussis vaccine, adsorbed Bernabe Rodriguez [employer]-C Work Phone: [facility] 09-07-2020 Covid (Moderna) Bernabe bashir [employer]INTER-C Work Phone: [facility] 08-10-2020 Juan Fid (Moderna) Bernabe bashir [employer]INTER-C Work Phone: [facility] Payers Date Payer Category Payer Self-pay [id number] 2022 Medicare UHC MEDICARE UHC MEDICARE ADVANTAGE PPO [id number] 2022-Present [phone] [address] [address] [place] [address] PPO [id number] 2016 Unknown [id number] Medicare [id number] Private Health Insurance [facility] [id number] Unknown [id number]. 462 Unknown [id number] 2.16.840.1.213334.3.579.2. 462 Unknown [id number] 2.16.840.1.859947.3.579.2. 462 Unknown [id number] 2.16.840.1.540883.3.579.2. 462 Unknown [id number] 2.16.840.1.031735.3.579.2. 462 Unknown [id number] 2.16.840.1.396760.3.579.2. 462 Unknown [id number] 2.16.840.1.776208.3.579.2. 462 Unknown [id number] 2.16.840.1.085597.3.579.2. 462 Unknown [id number] 2.16.840.1.359126.3.579.2. 462 Unknown [id number] 2.16.840.1.406358.3.579.2. 462 Unknown [id number] 2.16.840.1.555640.3.579.2. 462 Unknown [id number] 2.16.840.1.423905.3.579.2. 462 Unknown [id number] 2.16.840.1.086631.3.579.2. 462 Unknown [id number] 2.16.840.1.766163.3.579.2. 462 Unknown [id number] 2.16.840.1.772530.3.579.2. 462 Unknown [id number] 2.16.840.1.600514.3.579.2. 462 Social History Date Type Detail Facility Start: 11-15-2016 End: 04-18-2023 Tobacco smoking status NHIS Unknown if ever smoked [facility] Start: 1945 Sex Assigned At Male W [facility] Start: 08-16-2013 End: 04-01-2024 Tobacco smoking status NHIS Never smoked tobacco [facility] Work Phone: Start: 08-16-2013 Tobacco use and exposure Smokeless tobacco non-user [facility] Work Phone: Start: 07-11-2022 Alcohol intake Current drinke r of alcohol (finding) [facility] Start: 08-02-2013 Alcohol Comment glass of wine per mo [facility] Start: 1945 Sex Assigned At Not on file [facility] Start: 09-11-2024 Sex Male (finding) [facility] Clinical Notes 07-11-2022 to 02-02-2025 Note Date & Type Note Facility 02-02-2025 Evaluation note Diagnosis Onset Date Resolution Essential (primary) hypertension acute February 02 3:26pm Palpitations acute February 02, 2025 3:26pm [facility] Work Phone: 1(520) 546-357903-24-2025 Radiology Diagnostic study note [facility] Imaging Services [address] [place], [place] [address] Knee 4 or More Views MR#: [id number] Acct: [id number] Name: BRENTON MAGANA Rep #: [id number] : 1945 M 78 From: Pati Boo MD PCP: Bernabe Rodriguez, [employer] PRINTER-C Status: REG CLI Study:Knee 4 or More Views Date of Exam: 09/06/24 Exam# [id number] Ordering Dr: Fadia Perry EXAM: XR Right Knee Complete, 4 or More Views CLINICAL INDICATION: RIGHT KNEE PAIN TECHNIQUE: Four or more views of the right knee. COMPARISON: No relevant prior studies available. FINDINGS: BONES/JOINTS: Severe degenerative changes of the medial compartment of the kneejoint. No acute fracture. No dislocation. SOFT TISSUES: Soft tissue swelling. RAD/Knee 4 or More Views IMPRESSION: Degenerative changes as above. Reading Location: [facility]- CC: [employer] PRINTER-C Bernabe Rodriguez; Fadia Perry ~ Unemployment Claims Adjudicator: Signed [facility]10-21-2024 [facility] Medical Records Department [address] [place] [address] Discharge Summary 04/05/24 1409 MR#: [id number] Acct: [id number] Name: BRENTON MAGANA Rep #: [id number] : 1945 78 From: Jaleesa Noonan DO PCP: KIKE Calloway Status:ADM IN Location: [facility] [id number] Providers Date of Admission: 04/01/24 Date of Discharge: 04/05/24 Primary Care Physician: KIKE Calloway Reason For Visit: INFLUENZA B WITH HYPOXIA Diagnosis Discharge Diagnosis (1) Hypoxemia: Status: Acute Code(s): R09.02 - Hypoxemia Medications at Discharge Home Medications amlodipine 10 mg tablet 10 mg PO DAILY blood pressure 04/18/23 ascorbic acid (vitamin C) 1,000 mg capsule 1 g PO DAILY vitamin 04/18/23 aspirin 81 mg tablet,delayed release 81 mg PO QHS heart health 04/18/23 atorvastatin 80 mg tablet 80 mg PO QPM cholesterol 04/18/23 azelastine 137 mcg (0.1 %) nasal spray 2 spray intranasal BID allergy 04/18/23 cyanocobalamin (vitamin B-12) 1,000 mcg capsule 1,000 mcg PO DAILY vitamin 04/18/23 fenofibrate micronized 134 mg capsule 134 mg PO DAILY cholesterol 04/18/23 lisinopril 40 mg tablet 40 mg PO DAILY blood pressure 04/18/23 loratadine 10 mg tablet (Allergy Relief (loratadine)) 10 mg PO DAILY allergies 04/18/23 mometasone 50 mcg/actuation nasal spray (Nasonex 24hr Allergy) 2 spray intranasal DAILY allergy 04/18/23 multivitamin (Daily Multi-Vitamin tablet) 1 tab PO DAILY vitamin 04/18/23 tadalafil 5 mg tablet 5 mg PO DAILY PRN sexual activity 04/18/23 acetaminophen 650 mg tablet,extended release (Arthritis Pain Reliever) 1,300 mg PO Q8H PRN fever or pain 04/01/24 allopurinol 300 mg tablet 300 mg PO DAILY gout 04/01/24 colesevelam 625 mg tablet 1,250 mg PO BID diet 04/01/24 nabumetone 500 mg tablet 500 mg PO BID pain 04/01/24 benzonatate 100 mg capsule 200 mg (2 x 100 mg) PO TID PRN cough #21 caps 04/05/24 levofloxacin 500 mg tablet 500 mg PO DAILY@0600 #3 tabs 04/05/24 prednisone 10 mg tablet 10 mg PO DAILY #62 tabs 04/05/24 Hospital Course Operations None Procedures EKG and - (Chest x-ray) Summary of Care Provided Minutes Spent on Discharge: 38 Hospital Course: Mr. Magana is a 78-year-old white male who presented to the emergency department at [facility] on 04/01/2024 due to shortness of breath. Patient reported that he had had having a cough productive of sputum along with fevers and chills and malaise for about 1-1/2 to 2 weeks. He was tested in the outpatient setting for COVID and influenza the 2 days prior to presentation and at that time tested positive on a rapid for influenza B. He still was having fevers and the past 2 to 3 days prior to presentation he was having a mild amount of hemoptysis streaked in his sputum as he continues to cough. He and his check an ambulatory pulse ox at home and he was found to be 70% on room air so he was brought to the emergency department. He is not typically on home oxygen however has required supplemental oxygen previously. He does have a diagnosis of sleep apnea and wears CPAP at 17 cm of water at home and follows with Dr. Cohen. Vital signs on presentation showed temperature of 99, heart rate 82, blood pressure was 163/80 and pulse ox was 73% on room air. He was then placed on nasal cannula at 4 L with improvement in his saturation to 94%. CBC on admission showed a normal white count but he did have a mild left shift with a 78.3% neutrophilia. He also has a chronic stable anemia. An ABG was done at the time of admission and showed a pH of 7.41, pO2 of 59 with a sat of 91 and pCO2 of 34.7. This was done on heated high flow nasal cannula. Chemistry panel showed mild hyponatremia the sodium of 134 but was otherwise unremarkable. Glucose was 144 and patient is known diabetic. His lactic acid was 1.5. He had mild transaminitis with an ALT of 90 and an AST of 54 and this was new compared to recent lab. TSH was found to be slightly low at 0.304 however euthyroid sick syndrome is not suspected and repeat TSH is recommended to be performed in 3 months. Chest x-ray showed bilateral patchy opacities. Viral PCR was negative for influenza however was positive for rhinovirus. Blood cultures were negative, strep pneumo and Legionella antigens were negative. He was not able to produce a sputum culture to submit. He was admitted to the PCU and placed on supplemental oxygen as well as Levaquin for concern of superimposed bacterial pneumonia with underlying viral pneumonia. He is max oxygen requirement during his hospital course was 15 L heated high flow nasal cannula. He is slowly been able to be weaned to the point where he is on room air at rest. Ambulatory oxygenation was assessed prior to discharge and his oxygen saturation at rest on room air was 96% however he desatted to 87% with exertion with improvement to 89% on 2 L (more content not included)...[facility]02-09-2024 Discharge summary Author Yuri Weller [facility] July 25, 2023 11:02am Note Date/Time July 25, 2023 1 1:02am [facility] Physical Therapy [facility] [facility] [place] [address] / REHABILITATION SERVICES DISCHARGE SUMMARY MR#: [id number] Acct: [id number] Name: BRENTON MAGANA Rep #: [id number] : 1945 77 From: Yuri Gonzalez, Cert. T, OCS Referring Dr.: Dr. Jigar Rubio MD Status: REG RCR Insurance: [facility] MEDICARE OTHER SELF PAY INSURANCE Discharge Summary D/C summary: It has been my pleasure to treat BRENTON MAGANA referred by Dr. Jigar Rubio MD, with the diagnosis of BILATERAL PRIMARY OSTEOARTHRITIS ,PAIN IN RIGHT HIP ,PAIN IN LEFT HIP for a total of 9 visit(s). Discharge Date: Please see the following information for a summary of their discharge status. Subjective Subjective: Doing good Doing more walking better, able to put on socks Pain Bilateral Back: Pain Intensity (Out of 10): 0 Overall Improvement % Improvement: 60 Objective Objective/Function: POSTURE: mild forward posture GAIT: reciprocal pattern with less waddle gait pattern glut Medius weakness NEURO: intact ,denies paresthesia/tingling SYMMTIRES: align MMT: quads/hams 4/5 ,(peak force) hip flexion 53.7 right ,left 52.1 ,hip abduction right 30.2 ,left 42.1 STAIRS: alternating with rails LUMBAR ROM: flexion WFL ,extension min loss PROM: hip flexion 100 degrees ,hip abd 45 degrees ,IR 25 degrees Goals Goal 1:: I with Aquatics for hips strengthening Goal Progress: Goal Met Goal 2:: Patient to improve peak force by 5-10 # to improve gait Goal Progress: Goal Met Goal 3:: Patient to improve LFES score by 5 points to improve QOL and function Goal Progress: Goal Met Goal 4:: Patient to demonstrate 50% improvement with decrease pain and improved function Goal 5:: Patient to improve quality of gait with less lateral sway 80% of the time Goal Progress: Goal Met Plan Plan: D/C D/C Information d/c sentence: If there are questions or concerns regarding this patient's physical therapy, please feel free to call me at [phone]. Thank you for the referral of thispatient. Sincerely, Yuri Weller PT, Cert T, OCS Balance/Gait/Functional tests Balance/Special Test Scores Lower Extremity Functional Score: 58 Improvement % Improvement: 60 <Electronically signed by Ankit Perkins PT. LUIS, MARIEL> 07/25/23 1102 CC: CANDY STARCH MOLD PRINTERBernice Rodriguez; Dr. Jigar Rubio MD ~ YONGA Signed [facility] Work Phone: [phone] 939-394401-26-2023 NoteHNO ID: [id number] Author: Peyman Donnelly Service: ? Author Type: Physician Type: Progress Notes Filed: 07/11/2022 10:28 AM Note Text: Initial Podiatric Office Visit: Chief Complaint: This 76 year old male who presents with chief complaint:left posterior ankle pain HPI Patient presents to clinic for evaluation of his left ankle. He has history of plantar fasciitis for several years on the right foot that he manages with stretching. He states that since February however, he has been having pain in the left posterior ankle/achilles tendon. He states the pain started after he started performing a stretch for his lower back. He found a stretch on youtube where he pulls his toes back and bends forward on a chair. He denies falling but since he stated this stretch, he has been experiencing achilles pain. He wonders if he tore his achilles. He is currently applying biofreeze and that is helping. He made this appointment to make sure the achilles is note torn. PAIN EVALUATION 07/11/2022 0851 Pain Level: 4 Pain Location: Other: See Comment right great toe left heel Description: Sharp;Dull Duration Amount of Time: 2 Duration Units: Months Frequency: Intermittent Intervention/Comfort measure: Reposition;Relaxation;Medication;Other: See comment inserts No results found for: HBA1C PCP: Jigar Suarez MD PAST MEDICAL HISTORY Diagnosis Date Hypertension Lesion of subcutaneous tissue 08/25/13 Back Current Outpatient Medications Medication Sig fenofibrate (LOFIBRA) 134 mg capsule Tadalafil 5 mg tablet Take 5 mg by mouth once daily. tamsulosin (FLOMAX) 0.4 mg Take 0.4 mg by mouth. ikvcjnd-jdwo-hdups-oreg-capryl 100 mg-150 mg- 50 mg-150 mg cap Take by mouth. aliskiren (TEKTURNA) 300 mg tablet Take 300 mg by mouth once daily. atorvastatin (LIPITOR) 80 mg tablet Take 80 mg by mouth once daily. Fenofibric Acid 135 mg cpDR Take by mouth once daily. amLODIPine 10 mg tablet Take 10 mg by mouth once daily. allopurinol 300 mg tablet Take 300 mg by mouth once daily. Aspirin 81 mg tab Take 81 mg by mouth once daily. loratadine 10 mg cap Take by mouth once daily. Ascorbic Acid 1,000 mg tablet Take 1,000 mg by mouth once daily. cyanocobalamin (VITAMIN B-12) 1,000 mcg tab Take 1,000 mcg by mouth once daily. acetaminophen (TYLENOL) 325 mg tablet Take 650 mg by mouth every 6 hours as needed. azelastine 0.1% nasal spray Use 1 [place] in each nostril twice daily. MOMETASONE FUROATE (NASONEX NASAL) Use in the nose once daily. HYDROcodone-acetaminophen 5-325 mg per tablet 1 to 2 tabs po q 4 hours prn (Patient not taking: Reported on 07/11/2022) Quinapril HCl 40 mg tablet Take 40 mg by mouth twice daily. (Patient not taking: Reported on 07/11/2022) furosemide 20 mg tablet Take 20 mg by mouth once daily. (Patient not taking: Reported on 07/11/2022) DOCOSAHEXANOIC ACID/EPA (EPA FISH OIL ORAL) Take by mouth. 2400mg FOLIC ACID ORAL Take by mouth once daily. No current facility-administered medications for this visit. ALLERGIES Allergen Reactions Excedrin [Acetamino* Other: See Comments Makes him feel shaky Prednisone Other: See Comments Leg cramps PAST SURGICAL HISTORY Procedure Laterality Date APPENDECTOMY 1951 CARPAL TUNNEL 2012 bilateral REM LESION TRUNK,ARM,LEG > 4.0CM 08/25/13 back TONSILLECTOMY HX 1950 with adenoids FAMILY HISTORY Problem Relation Age of Onset Cancer Father prostate and colon Stroke Father Hypertension Mother Kidney Disease Mother Social History Tobacco Use Smoking status: Never Smokeless tobacco: Never Substance Use Topics Alcohol use: Yes Comment: glass of wine per month Drug use: No REVIEW OF SYSTEMS GENERAL: Negative for Malaise, significant weight loss, fever RESPIRATORY: Negative for cough, wheezing and shortness of breath CARDIOVASCULAR: Negative for chest pain, leg swelling and palpitations GI: Negative for abdominal discomfort, blood in stools or black stools and change in bowel habits : Negative for dysuria, frequency and incontinence MUSCULOSKELETAL: Negative for joint pain or swelling, back pain, and muscle pain. SKIN: Negative for lesions, rash, and itching. HEMATOLOGY/LYMPHOLOGY Negative for prolonged bleeding, bruising easily, and swollen nodes. ENDOCRINE: Negative for cold or heat intolerance, polyuria, polydipsia and goiter. NEURO: negative Physical Exam: Constitutional: Pt is a well developed 76 year old male who is alert, oriented and cooperative Eyes: Following during examination. No redness or drainage. Respiratory: RR normal and nonlabored. Even breathing. No evidence of distress or shortness of breath. Psychology: Patient is engaged during conversation. Normal affect and mood. Does not appear depressed or anxious during encounter. Vascular: Dorsalis pedis and posterior tibial pulses palpable as b/l Capillary Fill time < 5 seconds to digits 1-5 b/l Skin te (more content not included)...[facility]01-26-2023 Note HNO ID: [id number] Author: Tressa Calzada LPN Service: ? Author Type: LICENSED NURSE Type: Progress Notes Filed: 07/11/2022 10:28 AM Note Text: AMB ROOMING INTAKE FLOWSHEET DATA Risk Screening Do you have concerns about personal safety or safety in the home?: No Pain Pain Level: 4 Pain Location: Other: See Comment (right great toe left heel) Description: Sharp, Dull Duration Amount of Time: 2 Duration Units: Months Frequency: Intermittent Intervention/Comfort measure: Reposition, Relaxation, Medication, Other: See comment (inserts) Patient presents with: Right Great Toe - New, Pain Left Foot - New, Pain Patient states while doing exercise he may have torn ligament. [facility] NoteHNO ID: [id number] Author: RT Alis(Eliseo) Service: Radiology Author Type: Technologist Type: Progress Notes Filed: 07/11/2022 8:46 AM Note Text: Radiology Service Progress Note PATIENT NAME: Brenton Magana DATE OF SERVICE: July 11, 2022 TIME: 8:33 AM PATIENT IDENTITY VERIFICATION COMPLETED USING TWO (2) IDENTIFIERS: Name and Date of confirmed by patient verbally. FALL SCREENING: Has the patient had 2 falls in the last year or 1 fall with injury or currently using an Ambulatory Assistive Device (Walker, Cane, Wheelchair, Crutches, etc.)? No PATIENT GENDER DATA: Male PATIENT RELEVANT IMPLANT DATA REVIEWED: Yes RADIOLOGY DEPARTMENT: General X-ray: Exam(s) Completed: Lower Extremity X-Ray(s): Foot, Left and Wt. Bearing PERIPHERAL IV DATA: Not applicable SIGNED BY: RT Alis(R) July 11, 2022 8:33 [facility]01-26-2023 History of Present illness Narrative* Peyman Donnelly - 07/11/2022 9:02 AM EST Images from the original note were not included. Initial Podiatric Office Visit: Chief Complaint: This 76 year old male who presents with chief complaint:left posterior ankle pain HPI Patient presents to clinic for evaluation of his left ankle. He has history of plantar fasciitis for several years on the right foot that he manages with stretching. He states that since February however, he has been having pain in the left posterior ankle/achilles tendon. He states the pain started after he started performing a stretch for his lower back. He found a stretch on [employer] where he pulls his toes back and bends forward on a chair. He denies falling but since he stated this stretch, he has been experiencing achilles pain. He wonders if he tore his achilles. He is currently applying biofreeze and that is helping. He made this appointment to make sure the achilles is note torn. PAIN EVALUATION 07/11/2022 0851 Pain Level: 4 Pain Location: Other: See Comment right great toe left heel Description: Sharp;Dull Duration Amount of Time: 2 Duration Units: Months Frequency: Intermittent Intervention/Comfort measure: Reposition;Relaxation;Medication;Other: See comment inserts No results found for: HBA1C PCP: Jigar Suarez MD PAST MEDICAL HISTORY Diagnosis Date Hypertension Lesion of subcutaneous tissue 08/25/13 Back Current Outpatient Medications Medication Sig fenofibrate (LOFIBRA) 134 mg capsule Tadalafil 5 mg tablet Take 5 mg by mouth once daily. tamsulosin (FLOMAX) 0.4 mg Take 0.4 mg by mouth. zjhmulo-zyaf-yayse-oreg-capryl 100 mg-150 mg- 50 mg-150 mg cap Take by mouth. aliskiren (TEKTURNA) 300 mg tablet Take 300 mg by mouth once daily. atorvastatin (LIPITOR) 80 mg tablet Take 80 mg by mouth once daily. Fenofibric Acid 135 mg cpDR Take by mouth once daily. amLODIPine 10 mg tablet Take 10 mg by mouth once daily. allopurinol 300 mg tablet Take 300 mg by mouth once daily. Aspirin 81 mg tab Take 81 mg by mouth once daily. loratadine 10 mg cap Take by mouth once daily. Ascorbic Acid 1,000 mg tablet Take 1,000 mg by mouth once daily. cyanocobalamin (VITAMIN B-12) 1,000 mcg tab Take 1,000 mcg by mouth once daily. acetaminophen (TYLENOL) 325 mg tablet Take 650 mg by mouth every 6 hours as needed. azelastine 0.1% nasal spray Use 1 [place] in each nostril twice daily. MOMETASONE FUROATE (NASONEX NASAL) Use in the nose once daily. HYDROcodone-acetaminophen 5-325 mg per tablet 1 to 2 tabs po q 4 hours prn (Patient not taking: Reported on 07/11/2022) Quinapril HCl 40 mg tablet Take 40 mg by mouth twice daily. (Patient not taking: Reported on 07/11/2022) furosemide 20 mg tablet Take 20 mg by mouth once daily. (Patient not taking: Reported on 07/11/2022) DOCOSAHEXANOIC ACID/EPA (EPA FISH OIL ORAL) Take by mouth. 2400mg FOLIC ACID ORAL Take by mouth once daily. No current facility-administered medications for this visit. ALLERGIES Allergen Reactions Excedrin [Acetamino* Other: See Comments Makes him feel shaky Prednisone Other: See Comments Leg cramps PAST SURGICAL HISTORY Procedure Laterality Date APPENDECTOMY 1951 CARPAL TUNNEL 2012 bilateral REM LESION TRUNK,ARM,LEG > 4.0CM 08/25/13 back TONSILLECTOMY HX 1950 with adenoids FAMILY HISTORY Problem Relation Age of Onset Cancer Father prostate and colon Stroke Father Hypertension Mother Kidney Disease Mother Social History Tobacco Use Smoking status: Never Smokeless tobacco: Never Substance Use Topics Alcohol use: Yes Comment: glass of wine per month Drug use: No REVIEW OF SYSTEMS GENERAL: Negative for Malaise, significant weight loss, fever RESPIRATORY: Negative for cough, wheezing and shortness of breath CARDIOVASCULAR: Negative for chest pain, leg swelling and palpitations GI: Negative for abdominal discomfort, blood in stools or black stools and change in bowel habits : Negative for dysuria, frequency and incontinence MUSCULOSKELETAL: Negative for joint pain or swelling, back pain, and muscle pain. SKIN: Negative for lesions, rash, and itching. HEMATOLOGY/LYMPHOLOGY Negative for prolonged bleeding, bruising easily, and swollen nodes. ENDOCRINE: Negative for cold or heat intolerance, polyuria, polydipsia and goiter. NEURO: negative Physical Exam: Constitutional: Pt is a well developed 76 year old male who is alert, oriented and cooperative Eyes: Following during examination. No redness or drainage. Respiratory: RR normal and nonlabored. Even breathing. No evidence of distress or shortness of breath. Psychology: Patient is engaged during conversation. Normal affect and mood. Does not appear depressed or anxious during encounter. Vascular: Dorsalis pedis and posterior tibial pulses palpable as b/l Capillary Fill time < 5 seconds to digits 1-5 b/l Skin temperature warm to warm proximal to distal b/l Hair growth present to digits Neurological: intact light touch/epicritic sensation b/l intact protective sensation no significant neurological deficits Dermatological: Nails 1-5 b/l appear normal. Webspaces clean and dry 1-4 b/l. Skin appears well hydrated and supple. good color, texture, turgor. No open lesions present. No callosities present. Musculoskeletal/Orthopaedic: Patient has no pain to palpation of b/l ankle Achilles tendon is palpable to b/l ankle without defect. Andersen test produces plantarflexion b/l.Foot is in plantarflexed position with rest Foot type is neutral structurally AJ ROM is decreased b/l with knee extended and flexed 1st MPJ is decreased when loaded and no pain or crepitus are noted with ROM. MTJ, STJ are full and free of pain and crepitus. 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 History and physical examination performed. 2. XR reviewed with patient and interpreted today 3. On exam, patient has palpable achilles tendon, no defect, and the foot is in plantarflexed position. Andersen test produces plantarflexion b/l. I do not have concerns for achilles rupture. I suspect he has mild tendonitis for which he can continue with rest, heel lift or over the counter pain creams/medication 4. Offered referral to therapy for which he declined 5. If symptoms persist, call for follow-up Peyman Donnelly DPM Podiatry [address] [facility] [address] Dept: [phone] Dept * Tressa Calzada LPN - 07/11/2022 8:50 AM EST AMB ROOMING INTAKE FLOWSHEET DATA Risk Screening Do you have concerns about personal safety or safety in the home?: No Pain Pain Level: 4 Pain Location: Other: See Comment (right great toe left heel) Description: Sharp, Dull Duration Amount of Time: 2 Duration Units: Months Frequency: Intermittent Intervention/Comfort measure: Reposition, Relaxation, Medication, Other: See comment (inserts) Patient presents with: Right Great Toe - New, Pain Left Foot - New, Pain Patient states while doing exercise he may have torn ligament. Tressa Calzada LPN [facility]+Reason for visit Narrative* Chief Complaint RUQ PAIN Calculus of gallbladder without cholecystitis with GALLBLADDER CONCERNS- REFERRAL MARKED URGENT Reason for Visit Cholelithiasis [facility] Work Phone: Chief complaint+Reason for visit Narrative* Chief Complaint RUQ PAIN Calculus of gallbladder without cholecystitis with GALLBLADDER CONCERNS- REFERRAL MARKED URGENT Calculus of gallbladder without cholecystitis with Reason [facility] Work Phone: Chief complaint+Reason for visit Narrative* Chief Complaint Calculus of gallblad louann without cholecystitis with GALLBLADDER CONCERNS- REFERRAL MARKED URGENT Calculus of gallbladder without cholecystitis with BILATERAL HIP PAIN. RX TO BE FAXED FROM [facility] Reason for Visit Cholelithiasis [facility] Work Phone: Evaluation noteNo assessment information available [facility] Work Phone: Evaluation note* Diagnosis Tendonitis, Achilles, left- Primary Achilles bursitis or tendinitis [facility] [place] [facility]* Diagnosis Onset Date Resolution Status Cholelithiasis acute [facility] Work Phone: Reason for referral (narrative)No reason for referral information availableProm[facility] Work Phone: Summary Purpose Family History No Family History Records Found Relationship Condition Age at Onset Recorded Date/T ady father Malignant neoplasm of colon Unknown Relationship Condition Age at Onset Recorded Date/T ady father Malignant neoplasm of colon Unknown Cerebrovascular accident (CVA) Unknown Dementia Unknown Not Specified Hypertension Unknown sister Hypertension Unknown Advance Directives No Advanced Directives Records Found Advance Directive Response Recorded Date/ Time Advance Directives Yes March 22, 2015 9:17am Living Will No November 15, 2016 8 :06pm Power of Labor And Delivery Registered Nurse No November 15, 2016 8:06pm Advance Directive Response Recorded Date/ Time Advance Directives Yes March 22, 2015 8:17am Living Will No November 15, 2016 7 :06pm Power of Labor And Delivery Registered Nurse No November 15, 2016 7:06pm Advance Directive Response Recorded Date/ Time Advance Directives Yes March 22, 2015 9:17am Chief Complaint and Reason for Visit Chief Complaint XRAY - LUMBAR Chief Complaint RUQ PAIN Chief Complaint RUQ PAIN Calculus of gallbladder without cholecystitis with Chief Complaint Calculus of gallblad louann without cholecystitis with BILATERAL HIP PAIN. RX TO BE FAXED FROM [facility] corrected order scanned Chief Complaint BILATERAL HIP PAIN. RX TO BE FAXED FROM [facility] corrected order scanned LUMBAR PAIN Chief Complaint BILATERAL HIP PAIN. RX TO BE FAXED FROM [facility] corrected order scanned LUMBAR PAIN BRAIN PARENCHYMAL CALCIFICATION Chief Complaint Admit Date LABS July 12, 2024 2 :54pm STOOL DROPOFF July 20, 2024 1 2:54pm XRAY OF RIGHT KNEE September 06, 2024 10: 14am Chief Complaint Admit Date AFIB (SELF) February 02, 2025 3: 26pm Chief Complaint Admit Date AFIB (SELF) February 02, 2025 3: 26pm pain of right shoulder February 03, 2025 10:09am Reason for Visit Admit Date Essential (primary) hypertension February 02, 2025 3:26pm Palpitations February 02, 2025 3: 26pm Additional Source Comments (unrecognized sect ion and content) No Status Records FoundNo Status Records FoundNo Status Records Found INFORMATION SOURCE (unrecogn ized section and content) DATE CREATED AUTHOR 02/21/2021 [facility] ([place]) DATE CREATED AUTHOR AUTHOR'S ORGANIZ ATION 07/13/2022 [facility] DATE CREATED AUTHOR AUTHOR'S ORGANIZ ATION 02/26/2025 [facility] Goals (unrecognized section and content) Goals may be documented in a n alternate sectionGoals may be documented in an alternate sectionGoals may be documented in an alternate sectionGoals may be documented in an alternate sectionGoals may be documented in an alternate sectionGoals may be documented in an alternate sectionGoals may be documented in an alternate sectionGoals may be documented in an alternate sectionGoals may be documented in an alternate sectionGoals may be documented in an alternate sectionGoals may be documented in an alternate sectionGoals may be documented in an alternate sectionGoals may be documented in an alternate sectionGoals may be documented in an alternate section Source Comments (unrecognize d section and content) In the event this informatio n is protected by the Federal Confidentiality of Alcohol and Drug Abuse Patient Records regulations: The Federal rules restrict any use of the information to criminally investigate or prosecute any alcohol or drug abuse patient.[facility] Reason for Visit (unrecogniz ed section and content) Reason Comments New Pain Care Teams (unrecognized sec tion and content) Generator Operator Relationship Specialty Start Date End Date Jigar Suarez MD [address] [place] [address] PCP - General Family Medicine 07/29/13 Team Status: Active Member Role Status Dates Bernabe Rodriguez CANDY [employer]ARCH MOLD PRINTER, [employer]ARCH MOLD PRINTER-C Family Provider Activ e Brenabe Rodriguez [employer] STARCH MOLD PRINTER, [employer]AND[employer]ARCH MOLD PRINTER-C Primary Care Provider Active Team Status: Inactive Member Role Status Dates Bernabe Rodriguez CAND[employer] STARCH MOLD PRINTER, [employer] MOLD PRINTER-C Primary Care Provider, Attending Provider, Referring Provider Active Team Status: Inactive Member Role Status Dates Bernabe Rodriguez CANDY STARCH MOLD PRINTER, CANDY STARCH MOLD PRINTER-C Primary Care Provider Active Dr. Raymon Miller , J[place]ON Attending Provider, Referring P alcides Active Team Status: Inactive Member Role Status Dates Bernabe Rodriguez CANDY STARCH MOLD PRINTER, CANDY STARCH MOLD PRINTER-C Primary Care Provider, Referring Provider Active Dr. Yony Moody MD Attending Provider Active Team Status: Inactive Member Role Status Dates Bernabe Rodriguez CANDY STARCH MOLD PRINTER, CANDY STARCH MOLD PRINTER-C Primary Care Provider Active Dr. Yony Moody MD Attending Provider, Referr ing Provider Active Team Status: Inactive Member Role Status Dates Bernabe Rodriguez C[employer] STARCH MOLD PRINTER, C[employer]ARCH MOLD PRINTER-C Primary Care Provider Active Dr. Jigar Rubio MD Attending Provider Active Team Status: Active Member Role Status Dates Bernabe Rodriguez [employer] MOLD PRINTER, [employer] M[employer] PRINTER-C Primary Care Provider Active Dr. Patrick Odom MD Attending Provider Activ e Team Status: Inactive Member Role Status Dates Bernabe Rodriguez [employer]AND[employer] MOLD PRINTER, C[employer]ARCH MOLD PRINTER-C Primary Care Provider Active Start: June End: July 12, 2024 Dr. Ramón Martins MD Attending Provider Active Start: July 12, 2024 End: July 12, 2024 Dr. Ramón Martins MD Referring Provider Active Start: July 12, 2024 End: July 12, 2024 Team Status: Inactive Member Role Status Dates Bernabe Rodriguez CANDY STARCH MOLD PRINTER, CANDY STARCH MOLD PRINTER-C Primary Care Provider Active Start: July End: July 20, 2024 Dr. Ramón Martins MD Attending Provider Active Start: July 20, 2024 End: July 20, 2024 Dr. Ramón Martins MD Referring Provider Active Start: July 20, 2024 End: July 20, 2024 Team Status: Inactive Member Role Status Dates Bernabe Rodriguez CAND[employer] STARCH MOLD PRINTER, CANDY [employer]ARCH MOLD PRINTER-C Primary Care Provider Active Start: September 06, 2024 End: September 06, 2024 NP. Fadia Perry Attending Provider Active Star t: September 06, 2024 End: September 06, 2024 NP. Fadia Perry Referring Provider Active Star t: September 06, 2024 End: September 06, 2024 Team Status: Active Member Role/Relationship Status Dates Bernabe Rodriguez CANDY STARCH MOLD PRINTER, CANDY STARCH MOLD PRINTER-C Primary Care Provider Active Team Status: Inactive Member Role/Relationship Status Dates Bernabe Rodriguez CANDY STARCH MOLD PRINTER, CANDY STARCH MOLD PRINTER-C Primary Care Provider Active Start: January End: February 02, 2025 Bernabe Rodriguez CANDY STARCH MOLD PRINTER, CANDY [employer]ARCH MOLD PRINTER-C Referring Provider Active Start: February 02, 2025 End: February 02, 2025 Dr. Seun Bledsoe MD Attending Provider Active S tart: February 02, 2025 End: February 02, 2025 Team Status: Inactive Member Role/Relationship Status Dates Bernabe Rodriguez CANDY STARCH MOLD PRINTER, CANDY [employer]ARCH MOLD PRINTER-C Primary Care Provider Active Start: January End: February 03, 2025 Bernabe Rodriguez NP, [employer] M[employer] PRINTER-C Attending Provider Active Start: February 03, 2025 End: February 03, 2025 Bernabe Rodriguez NP, [employer]ARCH MOLD PRINTER-C Referring Provider Active Start: February 03, 2025 End: February 03, 2025 FOR RECORDS PERTAINING TO PATIENTS WHO ARE OR HAVE BEEN ENROLLED IN A CHEMICAL DEPENDENCY/SUBSTANCEABUSE PROGRAM, SOME INFORMATION MAY BE OMITTED. This clinical summary was aggregated from multiple sources. Caution should be exercised in using it in the provision of clinical care. This summary normalizes information from multiple sources, and as a consequence, information in this document may materially change the coding, format and clinical context of patient data. In addition, data may be omitted in some cases. CLINICAL DECISIONS SHOULD BE BASED ON THE PRIMARY CLINICAL RECORDS. [facility] [employer] provides no warranty or guarantee of the accuracy or completeness of information in this document.
--- NOTE | 2025-03-04 16:41 | STRESSREP ---
Stress Test Report Pharmacologic myocardial perfusion stress test. 79-year-old man with a history of shortness of breath. Resting EKG demonstrates normal sinus rhythm with a left bundle branch block with a rate of 60 bpm. Resting blood pressure is 160/88 mmHg. 0.4 mg of regadenoson was infused per usual protocol followed by rapid intravenous saline flush injection. Continuous EKG monitoring was performed. The maximum heart rate was 69 bpm which was 48% of max impacted heart rate the maximum workload was 1 metabolic equivalent. At rest there were no ST or T wave changes noted to suggest ischemia and at peak infusion nonspecific ST changes were noted which did not meet the criteria for ischemia. No clinical angina is noted. The final blood pressure was 132/85 mmHg. Myocardial perfusion protocol. 15 mCi of technetium 99m sestamibi was injected at rest. 0.4 mg of regadenoson was infused per usual protocol. At peak infusion 45 mCi of technetium 99m sestamibi was injected stress images were obtained stress and rest images were reconstructed and compared in the short axis vertical long and horizontal long axis. Gated images were also obtained. Perfusion SPECT analysis: Review of the stress images demonstrate normal uptake of tracer noted in all areas of the myocardium. The apex has reduced perfusion present the resting images similar demonstrated normal uptake of tracer noted in all areas of the myocardium. The above is suggestive of apical ischemia though the left bundle branch block could account for some of these findings potentially. Gated SPECT analysis: The gated ejection fraction is 46%. Conclusion: Abnormal pharmacologic myocardial perfusion stress test. Mildly reduced ejection fraction. Mild apical ischemia.
== END | disposition home or self-care (01) ==
LOC: CVS 06:59
PROVIDERS: PCP Nurse Practitioner Family; Referring Provider Internal Medicine Cardiovascular Disease; Visit Provider Internal Medicine Cardiovascular Disease
DX: R00.2 Palpitations (principal); I48.91 Unspecified atrial fibrillation; R06.02 Shortness of breath
CPT/HCPCS: 78452; 93017; 93306; A9500; Q9957; A4216; C8929; J2785

== ENCOUNTER 2025-03-22 11:43 | Day surgery (SDC) | payer MEDICARE, SELFPAY ==
--- NOTE | 2025-03-14 10:48 | RAD_ITS ---
PROCEDURE: CHEST PA AND LATERAL 03/14/2025 REASON FOR EXAM: SOB TECHNIQUE: Procedure Code: RADCXR Modality: DX Procedure: CHEST PA AND LATERAL COMPARISON: Two-view chest, 04/01/2024. FINDINGS: There is cardiomegaly and aortic ectasia consistent with benign essential hypertension. There is mild pulmonary edema consistent with congestive heart failure. There are no significant pleural effusions evident. RAD/Chest PA and Lateral IMPRESSION: Mild congestive heart failure. Findings consistent with hypertension. Reading Location: [place] [id number]
[2025-03-14 11:14] LABS: Hematocrit 44.2 % (40-54); Hemoglobin 14.3 g/dL (13.0-16.5); Immature Granulocytes Count 0.030 X10^3/uL (0.0-0.0); Mean Corp Hgb Conc 32.4 g/dL (32-36); Mean Corpuscular Volume 94.0 fL (80-94); Mean Platelet Vol. 10.2 fl (6.2-12.0); NRBC Flagged by Analyzer 0 % (0-5); Platelet Count 274 K/mm3 (150-450); RBC Distribution Width CV 14.1 % (11.6-14.6); RBC Distribution Width SD 48.9 fl (35.1-43.9); Red Blood Count 4.70 M/mm3 (4.6-6.2); White Blood Count 7.4 K/mm3 (4.4-11.0)
[2025-03-14 11:26] LABS: Prothrombin Time (Protime)PT. 13.5 SECONDS (11.7-14.9)
[2025-03-14 12:18] LABS: Anion Gap 12 (5-15); BUN 20 mg/dL (4-19); BUN/Creat Ratio 28.8 RATIO (10-20); Calcium,Total 9.8 mg/dL (7.6-11.0); Carbon Dioxide 25.7 mmol/L (21.0-32.0); Chloride 105 mmol/L (98-108); Glucose 92 mg/dL (70-99); Potassium 3.7 mmol/L (3.3-5.1)
[2025-03-21 08:18] VITALS: BMI 44.8
--- NOTE | 2025-03-22 13:17 | CL.D_ITS ---
Patient Name: MIGEL MAGANA Study Date: 03/22/2025 Performing: Seun Bledsoe MD Ht: 63 inches 160.02 cm : 1945 Wt: 253 lbs 114.76 kg Age: 79 Gender: male BSA: 2.14 PROCEDURE(S) PERFORMED DC01-([id number])LHC/COR/LV CLINICAL PROFILE AND INDICATIONS Indications: Suspected CAD Heart Failure: NYHA Class: 2, Newly Diagnosed: Yes, Heart Failure Type: Systolic Stress/Imaging Date: 03/07/25Stress Test with SPECT MPI: Positive Low Risk CAD Presentations: No Sxs, no angina. 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 RECOMMENDATIONS Medical therapy DESCRIPTION OF PROCEDURE The patient arrived to the procedure lab. The risks and benefits of the procedure as well as a full description of our services here and current unavailability of surgical backup were fully explained to the patient and/or their significant other prior to the catheterization. The Timeout was completed, verifying the correct patient and procedure. The patient's procedural site was prepped and draped in the usual fashion. Local anesthetic was given subcutaneously to right radial region with Lidocaine 2%. Using a modified Seldinger technique, arterial access was obtained via the right radial artery, a 6Fr sheath was inserted. Left Coronary Artery selective angiography was performed in multiple views using a 5 Fr. 4.0 [place] catheter. Right Coronary Artery selective angiography was then performed in multiple views using a 5 Fr. 4.0 [place] catheter. Left Ventriculography was performed in FAY projection using a 5 Fr. [place] catheter. LV to AO pullback pressures were then recorded.The arterial sheath was pulled and a TR Band was applied for hemostasis CORONARY ANGIOGRAPHY DOMINANCE: Right Dominant LEFT HEART ASSESSMENT Left Ventricular Ejection Fraction: by LV Gram 35 % Global Hypokinesis - Moderate Depressed Left Ventricular systolic function LEFT MAIN: Angiographically normal LEFT ANTERIOR DESCENDING ARTERY: Moderate calcification, Medium size vessel with mild to moderate calcification and 30 to 50% stenosis in the proximal portion. There is mild diffuse distal disease present. CIRCUMFLEX ARTERY: Mild luminal irregularities less than 30% RIGHT CORONARY ARTERY: Mild luminal irregularities less than 30% COMPLICATIONS No Complications PROCEDURE MEDICATIONS Fentanyl 50 mcg IV Versed 1 mg IV Oxygen: 2 L/min via nasal cannula SUMMARY OF HEMODYNAMIC DATA Time AIR REST ECG 12:03:08 ECG 12:35:51 AO 128/78 (100) SA 12:58:28 AO 142/82 (99) 13:01:47 LV 143/12, 20 13:04:27 LV 160/15, 24 13:04:35 LV 136/24, 33 13:05:02 LV 145/18, 30 13:05:10 LV 149/15, 22 13:05:23 LVp 146/15, 20 13:05:26 AOp 153/79 (109) 13:05:33 Signed By Seun Bledsoe MD On 03/22/2025 13:17:40 Signed By Seun Bledsoe MD On 03/22/2025 13:16:59 Seun Bledsoe MD
== END 2025-03-22 15:00 | disposition home or self-care (01) ==
PROVIDERS: Student in an Organized Health Care Education/Training Program; PCP Nurse Practitioner Family; Referring Provider Internal Medicine Cardiovascular Disease; Visit Provider Internal Medicine Cardiovascular Disease
DX: I25.10 Atherosclerotic heart disease of native coronary artery without angina pectoris (principal); I50.20 Unspecified systolic (congestive) heart failure; I11.0 Hypertensive heart disease with heart failure; I44.7 Left bundle-branch block, unspecified; Z79.82 Long term (current) use of aspirin; Z79.899 Other long term (current) drug therapy; J45.909 Unspecified asthma, uncomplicated; R94.39 Abnormal result of other cardiovascular function study; E78.49 Other hyperlipidemia; I77.810 Thoracic aortic ectasia
CPT/HCPCS: 36415; 71046; 80048; 85025; 85610; 93458; 99152; 99153; Q9967; C1769; C1894

== ENCOUNTER → 2025-03-31 | Outpatient (CLI) | payer MEDICARE, SELFPAY ==
[2025-03-31 11:23] LABS: Creatinine, Urine (random) 255.00 mg/dL (39.00-259.00); Microalbumin,Random Urine 39.1 mg/L (<20 mg/L)
[2025-03-31 11:37] LABS: AST(SGOT) 22 U/L (<=37); Alanine Aminotransfer ALT/SGPT 20 U/L (<=46); Albumin, Serum 4.2 g/dL (3.4-4.8); Alkaline Phosphatase 80 U/L (40-129); Anion Gap 12 (5-15); BUN 17 mg/dL (4-19); BUN/Creat Ratio 22.1 RATIO (10-20); Calcium,Total 10.0 mg/dL (7.6-11.0); Carbon Dioxide 23.6 mmol/L (21.0-32.0); Chloride 107 mmol/L (98-108); Cholesterol 126 mg/dL (<=200); Globulin 2.5 g/dL (2.2-4.2); Glucose 95 mg/dL (70-99); Low Density Lipoprotein Calc. 52 mg/dL; Potassium 4.2 mmol/L (3.3-5.1); Triglycerides 145 mg/dL; Uric Acid 4.6 mg/dL (3.5-7.2); Very Low Density Lipoprotein 29 mg/dL (5-40); cholesterol:hdl ratio screen 2.80
== END | disposition home or self-care (01) ==
PROVIDERS: PCP Nurse Practitioner Family; Referring Provider Nurse Practitioner Family; Visit Provider Nurse Practitioner Family
DX: I10 Essential (primary) hypertension (principal); E78.5 Hyperlipidemia, unspecified; M10.9 Gout, unspecified
CPT/HCPCS: 36415; 80053; 80061; 82043; 82570; 84550

== ENCOUNTER → 2025-04-25 | Outpatient (CLI) | payer MEDICARE, SELFPAY ==
--- NOTE | 2025-04-25 07:47 | CT_ITS ---
CT/CTA Chest W/WO Contrast
== END | disposition home or self-care (01) ==
PROVIDERS: PCP Nurse Practitioner Family; Referring Provider Student in an Organized Health Care Education/Training Program; Visit Provider Student in an Organized Health Care Education/Training Program
DX: Z13.220 Encounter for screening for lipoid disorders (principal); R73.03 Prediabetes; Z12.5 Encounter for screening for malignant neoplasm of prostate; E83.119 Hemochromatosis, unspecified
CPT/HCPCS: 71275; Q9967

== ENCOUNTER → 2025-05-02 | Outpatient (CLI) | payer MEDICARE, SELFPAY ==
--- OUTSIDE RECORDS SUMMARY | 2025-05-02 11:35 | XMS RPT_ITS | CCD ---
Author Organization [facility] CliniSypr Care Team Providers Care Engraver Rubber Name Role Phone Jigar Suarez MD Primary Care Provider JIGAR SUAREZ Primary Care Unavailable PEYMAN DONNELLY Attending Unavailable JIGAR SUAREZ Primary Care Unavailable PEYMAN DONNELLY Referring Unavailable Jennifer MAYONNAISE MIXER, MAYONNAISE MIXER-C Bernabe Farris Primary Care Pr ovider Jennifer MAYONNAISE MIXER, MAYONNAISE MIXER-C Bernabe Farris Referring Provi louann Dr. Yony Moody Attending Provider Jennifer MAYONNAISE MIXER, MAYONNAISE MIXER-C Bernabe Farris Primary Care Pr ovider Dr. Patrick Odom Attending Provider Jennifer MAYONNAISE MIXER-C, Bernabe Farris Primary Care Provi louann Dr. Ramón Martins MD Attending Provider Dr. Ramón Martins MD Referring Provider NP. Fadia Perry Attending Provider NP. Fadia Perry Referring Provider Jennifer MAYONNAISE MIXER-C, Bernabe Farris Primary Care Provi louann Jennifer MAYONNAISE MIXER-C, Bernabe Farris Referring Provider Ladi SONG, Dr. Kohli Attending Provider Jennifer MAYONNAISE MIXER-C, Bernabe Farris Attending Provider Jennifer MAYONNAISE MIXER-C, Bernabe Farris Primary Care Physi reinier Dr. Seun Bledsoe MD Attending Physician Jennifer MAYONNAISE MIXER-C, Bernabe Farris Attending Physicia n Dr. Seun Bledsoe MD Referring Provider Demguadalupe CARLOS Jerry Attending Physician Demiter PA, Jerry Nurse Practitioner [place] MAYONNAISE MIXER-C, Bernabe Farris Primary Care Physi reinier Jennifer MAYONNAISE MIXER-C, Bernabe Farris Referring Provider Ladi SONG, Dr. Kohli Attending Physician Jennifer MAYONNAISE MIXER-C, Bernabe Farris Attending Physicia n Ladi SONG, Dr. Kohli Referring Provider Demiter PA, Jerry Attending Physician Demiter BREANNA, Jerry Nurse Practitioner [place] MAYONNAISE MIXER, Bernabe Farris Attending Unav ailable Jennifer MAYONNAISE MIXER, Bernabe Farris Primary Care Unav ailable Jennifer MAYONNAISE MIXER, Bernabe Farris Primary Care Unav ailable [place] MAYONNAISE MIXER, Bernabe Farris Attending Unav ailable Jerry Romo Referring Unavailable DemiterJerry Attending Unavailable [place] MAYONNAISE MIXER, Bernabe Farris Primary Care Unav ailable Jennifer MAYONNAISE MIXER, Bernabe Farris Primary Care Unav ailable Jennifer MAYONNAISE MIXER, Bernabe Farris Referring Unav ailable [place] MAYONNAISE MIXER, Bernabe Farris Attending Unav ailable [place] MAYONNAISE MIXER, Bernabe Farris Primary Care Unav ailable Seun Bledsoe Attending Unavailable Jennifer MAYONNAISE MIXER, Bernabe Farris Primary Care Unav ailable [place] MAYONNAISE MIXER, Bernabe Farris Referring Unav ailable DemiterJuan AJerry Attending Unavailable [place] MAYONNAISE MIXER, Bernabe Ivorynis Primary Care Unav ailable Jennifer MAYONNAISE MIXER, Bernabe Farris Referring Unav ailable DemiterJuan AJerry Attending Unavailable Jennifer MAYONNAISE MIXER, Bernabe Farris Primary Care Unav ailable Jennifer MAYONNAISE MIXER, Bernabe Farris Referring Unav ailable Seun Bledsoe Attending Unavailable [place] MAYONNAISE MIXER, Bernabe Farris Primary Care Unav ailable Fadia Perry Referring Unavailable Fadia Perry Attending Unavailable Jennifer MAYONNAISE MIXER, Bernabe Farris Primary Care Unav ailable [place] MAYONNAISE MIXER, Bernabe Farris Referring Unav ailable Jennifer MAYONNAISE MIXER, Bernabe Farris Attending Unav ailable Jennifer MAYONNAISE MIXER, Bernabe Farris Primary Care Unav ailable Jennifer MAYONNAISE MIXER, Bernabe Farris Referring Unav ailable Jennifer MAYONNAISE MIXER, Bernabe Farris Attending Unav ailable Jennifer MAYONNAISE MIXER, Bernabe Farris Primary Care Unav ailable Jabour, Ramón Referring Unavailable Jabour, Ramón Attending Unavailable Jennifer MAYONNAISE MIXER, Bernabe Farris Primary Care Unav ailable Jabour, Vincent Referring Unavailable Jabour, Ramón Attending Unavailable [place] MAYONNAISE MIXER, Bernabe Farris Primary Care Unav ailable Ladi, Greencastle Attending Unavailable Ladi, Green[place] Referring Unavailable [place] MAYONNAISE MIXER, Bernabe Farris Primary Care Unav ailable Ladi, [place] Referring Unavailable Ladi, [place] Attending Unavailable Jerry Romo Consulting Unavailable Allergies Allergy Classification Reported Allergen(s) Allergy Type Date of Onset Reaction(s) Facility (11 sources) Acetaminophen Drug Allergy 7 Other [facility] (5 sources) Aspirin Drug Allergy 7 Other [facility] (18 sources) Calcium Carbonate; Translations: [calcium carbonate] Drug Allergy 7 Other [facility] Comment on above: Tremors (13 sources) predniSONE; Translations: [PREDNISONE] Drug Allergy 4 Other: See Comments [facility] (2 sources) Acetaminophen / Caffeine; Translations: [ACETAMINOPHEN-CA FFEINE] Drug Allergy 4 Other: See Comments [facility] (6 sources) gabapentin Drug Allergy 5 Memory issues [facility] (6 sources) Ibuprofen Drug Allergy 5 Diarrhea [facility] (1 source) gabapentin Drug Allergy 5 [facility] (1 source) Ibuprofen Drug Allergy 5 [facility] Medications Current Medications Medication Drug Class(es) Dates Sig (Normalized) Sig (Original) 8 hr acetaminophen 650 mg extended release oral tablet (8 sources) Start: 04-01-2024 take 2 tablets by [facility] every six hours as needed acetaminophen (TYLENOL) 325 mg tablet Ta ke 650 mg by mouth every 6 hours as needed. 0 Active Comment on above: Take 650 mg by mouth every 6 hours as needed. allopurinol 300 mg oral tablet (8 sources) Xanthine Oxidase Inhibitor Start: 04-01-2024 take 1 tablet by mouth once daily take 1 tablet by mouth once dimitris y allopurinol 300 mg tablet Take 300 mg by mouth once daily. 0 Active Comment on above: Take 300 mg by mouth once daily. ascorbic acid 1000 mg oral capsule (14 sources) Vitamin C Start: 04-18-2023 take 1 g by mouth once daily Start: 04-18-2023 take 1 g by mouth [...] aspirin 81 mg delayed release oral tablet (14 sources) Platelet Aggregation Inhibitor, Nonsteroidal Anti-inflammatory Drug Start: 04-18-2023 take 1 tablet by mouth at bedtime take 1 tablet by mouth once dimitris y Aspirin 81 mg tab Take 81 mg by mouth once daily. 0 Active Comment on above: Take 81 mg by mouth once daily. atorvastatin 80 mg oral tablet (14 sources) HMG-CoA Reductase Inhibitor Start: 04-18-2023 take 1 tablet by mouth once daily in the evening take 1 tablet by mouth once dimitris y atorvastatin (LIPITOR) 80 mg tablet Take 80 mg by mouth once daily. 0 Active Comment on above: Take 80 mg by mouth once daily. azelastine hydrochloride 0.1 37 mg/actuat metered dose nasal spray (14 sources) Histamine-1 Receptor Antagonist Start: 04-18-2023 Start: 04-18-2023 take 1 spray(s) nasa l route twice daily Azelastine Active 2 SPRAY INTRANASAL TWICE A DAY April 18, 2023 12:00am administer into each nostril take 1 spray(s) nasa l route twice daily azelastine 0.1% nasal spray Use 1 [place] in each nostril twice daily. 0 Active Comment on above: Use 1 [place] in each nostril twice daily. carvedilol 3.125 mg oral tablet (4 sources) alpha-Adrenergic Mei, beta-Adrenergic Mei Start: 03-14-2025 take 1 tablet by mouth twice daily at mealtime Start: 03-14-2025 take 1 tablet by laura th twice daily at mealtime Carvedilol 3.125 mg tablet Active 3.125 mg PO TWICE A DAY 60 March 14, 2025 12:00am must administer with a meal/food Complies with drug therapy cholecalciferol 0.125 mg oral capsule (6 sources) Vitamin D Start: 02-02-2025 take 1 capsule by mouth once daily dapagliflozin 10 mg oral tablet (4 sources) Sodium-Glucose Cotransporter 2 Inhibitor Start: 03-14-2025 take 1 tablet by mouth once daily in the morning Start: 03-14-2025 take 1 tablet by laura th once daily in the morning Dapagliflozin Propanediol (Farxiga) 10 mg tablet Active 10 mg PO EVERY MORNING 30 March 14, 2025 12:00am Complies with drug therapy fenofibrate 134 mg oral capsule (15 sources) Peroxisome Proliferator Receptor alpha Agonist Start: 04-18-2023 take 1 capsule by mouth once daily Start: 07-10-2022 fenofibrate (L OFIBRA) 134 mg capsule Fenofibric Acid 135 mg cpDR Take by mouth once daily. 0 Active Comment on above: Take by mouth once d aily. Fluticasone Furoate-Vilanter ol (6 sources) Corticosteroid, beta2-Adrenergic Agonist Start: 02-02-2025 Start: 02-02-2025 Fluticasone Fu roate-Vilanterol (Breo Ellipta) 200-25 mcg/dose blister with device Active 1 NMA INHALATION daily February 02, 2025 12:00am Complies with drug therapy Start: 02-02-2025 Fluticasone Fu roate-Vilanterol (Breo Ellipta) 200-25 mcg/dose blister with device Active 1 NMA INHALATION daily February 02, 2025 12:00am loratadine 10 mg oral tablet (14 sources) Start: 04-18-2023 take 1 tablet by mouth once da adrienne loratadine 10 mg cap Take by mouth once daily. 0 Active Comment on above: Take by mouth once d aily. mometasone furoate 0.05 mg/actuat metered dose nasal spray (14 sources) Corticosteroid Start: 04-18-2023 take 50 ug nasal route once daily Start: 04-18-2023 take 1 spray(s) nasa l route twice daily Mometasone (Nasonex 24hr Allergy) 50 mcg/actuation spray,non-aerosol Active 2 SPRAY INTRANASAL TWICE A DAY April 18, 2023 12:00am administer into each nostril MOMETASONE FUROA TE (NASONEX NASAL) Use in the nose once daily. 0 Active Comment on above: Use in the nose once daily. Multivitamin (Daily Multi-Vi tamin) tablet (13 sources) Start: 04-18-2023 Start: 04-18-2023 Multivitamin ( Daily Multi-Vitamin) tablet Active 1 {tbl} PO DAILY April 18, 2023 12:00am vitamin Complies with drug therapy Start: 04-18-2023 Multivitamin ( Daily Multi-Vitamin) tablet [...] TABLET PO DAILY April 17, 2023 11:00pm sacubitril 49 mg / valsartan 51 mg oral tablet (1 source) Angiotensin 2 Receptor Mei Start: 04-04-2025 spironolactone 25 mg oral tablet (4 sources) Aldosterone Antagonist Start: 03-14-2025 take 1 tablet by mouth once daily in the morning Start: 03-14-2025 take 1 tablet by laura th once daily in the morning Spironolactone 25 mg tablet Active 25 mg PO EVERY MORNING March 14, 2025 12:00am Complies with drug therapy tadalafil 5 mg oral tablet (14 sources) Phosphodiesterase 5 Inhibitor Start: 04-18-2023 take 1 tablet by mouth once daily as needed Start: 06-03-2022 [facility] Tadalafil 5 mg tablet Take 5 mg by mouth once daily. 0 06/03/2022 Active Comment on above: Take 5 mg by mouth o nce daily. vitamin b12 1 mg oral capsule (14 sources) Vitamin B12 Start: 04-18-2023 take 1 capsule by mouth once daily take 1 tablet by mouth once dimitris y cyanocobalamin (VITAMIN B-12) 1,000 mcg tab Take 1,000 mcg by mouth once daily. 0 Active Comment on above: Take 1,000 mcg by [facility] once daily. Completed/Discontinued Medications Medication Drug [...] once daily. amLODIPine 10 mg oral tablet (14 sources) Dihydropyridine Calcium Channel Mei Start: 04-18-2023 End: 02-02-2025 take 1 tablet by mouth once daily Amlodipine 10 mg tablet Discontinued 10 mg PO DAILY April 17, 2023 11:00pm February 02, 2025 3:25pm blood pressure take 1 tablet by mouth once dimitris y amLODIPine 10 mg tablet Take 10 mg by mouth once daily. 0 Active Comment on above: Take 10 mg by mouth once daily. benzonatate 100 mg oral capsule (7 sources) Non-narcotic Antitussive Start : 04-05 End: 01-24 take 2 capsules by mouth three times daily as needed for cough Benzonatate 100 mg Capsule Discontinued 200 mg PO THREE TIMES A DAY as needed for cough 21 0 April 05, 2024 1:11pm January 24, 2025 10:21am colesevelam hydrochloride 625 mg oral tablet (7 sources) Bile Acid Sequestrant Start : 04-01 End: 01-24 take 2 tablets by mouth twice daily Colesevelam 625 mg tablet Discontinued 1250 mg PO TWICE A DAY March 31, 2024 11:00pm January 24, 2025 10:22am diet DOCOSAHEXANOIC ACID/EPA (EPA FISH OIL ORAL) (1 source) DOCOSAHEXANOIC A NADEGE/EPA (EPA FISH OIL ORAL) Take by mouth. [...] Take 20 mg by mouth once daily. hydroCHLOROthiazide 25 mg oral tablet (5 sources) Thiazide Diuretic Start : 02-02 End: 03-14 take 1 tablet by mouth once daily in the morning Hydrochlorothiazide 25 mg tablet Discontinued 25 mg PO EVERY MORNING 90 3 February 01, 2025 11:00pm March 14, 2025 9:03am ibuprofen 200 mg oral capsule (13 sources) Nonsteroidal Anti-inflammatory Drug Start : 04-18 End: 04-01 take 1 capsule by mouth every six hours as needed Ibuprofen 200 mg capsule Discontinued 200 mg PO EVERY 6 HOURS as needed April 17, 2023 11:00pm April 01, 2024 2:45pm levoFLOXacin 500 mg oral tablet (7 sources) Quinolone Antimicrobial Start : 04-05 End: 01-24 take 1 tablet by mouth once daily Levofloxacin 500 mg Tablet Discontinued 500 mg PO DAILY@0600 3 0 April 04, 2024 11:00pm January 24, 2025 10:22am lisinopril 40 mg oral tablet (17 sources) Angiotensin Converting Enzyme Inhibitor Start : 03-14 End: 04-04 take 10 mg by mouth once daily Lisinopril 40 mg tablet Discontinued 10 mg PO DAILY March 14, 2025 8:32am April 04, 2025 8:58am blood pressure Start: 03-14-2025 take 10 mg by mouth once daily Lisinopril 40 mg tablet Active 10 mg PO DAILY March 14, 2025 9:32am blood pressure Complies with drug therapy Start: 04-18-2023 End: 03-14-2025 take 1 tablet by mouth once daily Lisinopril 40 mg tablet Discontinued 40 mg PO DAILY April 17, 2023 11:00pm March 14, 2025 8:33am blood pressure nabumetone 500 mg oral tablet (7 sources) Nonsteroidal Anti-inflammatory Drug Start: 04-01-2024 End: 01-24-2025 take 1 tablet by mouth twice daily Nabumetone 500 mg tablet Discontinued 500 mg PO TWICE A DAY March 31, 2024 11:00pm January 24, 2025 10:22am pain omeprazole 20 mg delayed release oral capsule (6 sources) Proton Pump Inhibitor Start: 01-24-2025 End: 02-02-2025 take 1 capsule by mouth once daily Omeprazole 20 mg capsule,delayed release(DR/EC) Discontinued 20 mg PO daily January 23, 2025 11:00pm February 02, 2025 2:49pm predniSONE 10 mg oral tablet (7 sources) Start: 04-05-2024 End: 01-24-2025 Prednisone 10 mg tablet Discontinued 10 mg PO DAILY 62 0 April 04, 2024 11:00pm January 24, 2025 10:22am 4 tablets x 2 days, 3 tablets [...] oral capsule (20 sources) alpha-Adrenergic Mei Start: 01-24-2025 End: 02-02-2025 take 1 capsule by mouth once daily Tamsulosin 0.4 mg capsule Discontinued 0.4 mg PO DAILY January 23, 2025 11:00pm February 02, 2025 2:49pm Start: 11-15-2016 End: 04-01-2024 take 1 capsule by mouth once daily as needed Tamsulosin 0.4 mg capsule Discontinued 0.4 mg PO DAILY as needed April 18, 2023 8:02am April 01, 2024 2:45pm Comment on above: Take 0.4 mg by mouth . [id number]-hjeud-oreg-capr yl 100 mg-150 mg- 50 mg-150 mg cap (1 source) txrtvrz-twcd-ian qu-sfqa-vttun l 100 mg-150 mg- 50 mg-150 mg cap Take by mouth. 0 Active Comment on above: Take by mouth. Problems Active Problems Problem Classification Problem Date Documented Date Episodic/Chronic Aortic; peripheral; and visceral artery aneurysms (11 sources) Aortic root dilatation; Translations: [Thoracic aortic ectasia] Onset: 03-14-2025 03-14-2025 Chronic Asthma (6 sources) Asthma; Translations: [Unspecified asthma, uncomplicated] 01-24-2025 Chronic Biliary tract disease (20 sources) Biliary calculus; Translations: [Calculus of gallbladder without cholecystitis without obstruction] 04-19-2023 Episodic Cardiac dysrhythmias (5 sources) Atrial fibrillation; Translations: [Unspecified atrial fibrillation] 02-02-2025 Chronic Cardiac dysrhythmias (12 sources) Palpitations; Translations: [Palpitations] Onset: 03-14-2025 01-24-2025 Episodic Conduction disorders (12 sources) Left bundle branch block; Translations: [Left bundle-branch block, unspecified] Onset: 02-02-2025 01-24-2025 Chronic Congestive heart failure; nonhypertensive (10 sources) Heart failure with reduced ejection fraction; Translations: [Unspecified systolic (congestive) heart failure] Onset: 04-04-2025 03-14-2025 Chronic Coronary atherosclerosis and other heart disease (3 sources) Non-obstructive atherosclerosis of coronary artery; Translations: [Atherosclerotic heart disease of kiana coronary artery without angina pectoris] Onset: 03-29-2025 04-11-2025 Chronic Disorders of lipid metabolism (13 sources) Hyperlipidemia; Translations: [Hyperlipidemia, unspecified] Onset: 12-24-2024 01-24-2025 Chronic Essential hypertension (18 sources) Essential hypertension; Translations: [Essential (primary) hypertension] Onset: 12-24-2024 01-24-2025 Chronic Gout and other crystal arthropathies (7 sources) Gout; Translations: [Gout, unspecified] Onset: 12-24-2024 01-24-2025 Chronic Heart valve disorders (7 sources) Heart murmur; Translations: [Cardiac murmur, unspecified] Onset: 02-02-2025 01-24-2025 Episodic Hyperplasia of prostate (7 sources) Benign prostatic hyperplasia; Translations: [Benign prostatic hyperplasia without lower urinary tract symptoms] Onset: 04-30-2024 01-24-2025 Chronic Influenza (14 sources) Pneumonia and influenza; Translations: [Influenza due to unidentified influenza virus with unspecified type of pneumonia] 04-01-2024 Episodic Osteoarthritis (6 sources) Arthritis; Translations: [Unspecified osteoarthritis, unspecified site] 01-24-2025 Chronic Other connective tissue disease (1 source) Left achilles tendonitis; Translations: [Achilles tendinitis, left leg] Episodic Other connective tissue disease (6 sources) H/O: back problem; Translations: [Personal history of other diseases of the musculoskeletal system and connective tissue] 01-24-2025 Episodic Other lower respiratory disease (7 sources) Hypoxemia; Translations: [Hypoxemia] 04-01-2024 Episodic Other lower respiratory disease (6 sources) Dyspnea; Translations: [Shortness of breath] 01-24-2025 Episodic Other lower respiratory disease (1 source) Shortness of breath; Translations: [Shortness of breath] Onset: 02-02-2025 Episodic Other nervous system disorders (6 sources) Cerebral calcification; Translations: [Other specified disorders of brain] 01-24-2025 Chronic Other non-traumatic joint disorders (1 source) Pain in right shoulder; Translations: [Pain in right shoulder] Onset: 02-09-2025 Episodic Other nutritional; endocrine; and metabolic disorders (6 sources) Body mass index 40+ - severely obese; Translations: [Body mass index (BMI) 45.0-49.9, adult] 01-24-2025 Chronic Other screening for suspected conditions (not mental disorders or infectious disease) (8 sources) Cardiovascular stress test abnormal; Translations: [Abnormal result of other cardiovascular function study] 03-09-2025 Episodic Residual codes; unclassified (6 sources) Sleep apnea; Translations: [Sleep apnea, unspecified] 01-24-2025 Chronic Residual codes; unclassified (1 source) Pain, unspecified; Translations: [Pain] Onset: 07-11-2022 Episodic Past or Other Problems Problem Classification Problem Date Documented Da te Episodic/Chronic Other gastrointestinal disorders (1 source) Diarrhea, unspecified; Translations: [Diarrhea, unspecified] Onset: 08-04-2024 Episodic Other non-traumatic joint disorders (1 source) Pain in right knee; Translations: [Pain in right knee] Onset: 09-11-2024 Episodic Results Test Name Value Interpretation Reference Range Facility Cardiology Visit Reporton Cardiology Visit Report [facility] [address] [place] [address] OFFICE VISIT Date of Service: 04/04/25 MR#: [id number] Acct: [id number] Name: BRENTON MAGANA Rep #: [id number] : 1945 Provider: BREANNA Fontaine Age/Sex: 79/M Location: [facility] Status: Signed HPI HPI History of Present Illness Details: Brenton Magana is a 79-year-old male who presents to office today for follow-up for monitoring his cardiovascular health. Patient has a history of cardiomyopathy with a reduced ejection fraction, nonobstructive coronary artery disease, dilated aortic root, left bundle branch block, hyperlipidemia and hypertension. He patient presented as a new patient to our office in January 2025. He reported he was told he had a heart murmur. He also reported that he wears an Apple Watch and it has occasionally noted an irregular heartbeat in which she was asked to be evaluated to exclude atrial fibrillation. Prior to establishing with our office, he had went on a trip and noted pedal edema and was placed on Lasix and potassium for this. He was evaluated via echocardiogram and nuclear stress test 03/04/2025. His echocardiogram demonstrated a reduced ejection fraction at 40% with mild to moderate global hypokinesis of the left ventricle, mild to moderate tricuspid valve insufficiency with pulmonary artery systolic pressure 49 mmHg and mild to moderate dilated aortic root. His stress test demonstrated mildly reduced ejection fraction with mild apical ischemia. Patient underwent cardiac catheterization 03/22/2025 that demonstrated mild to moderate left anterior descending artery stenosis with calcification, mild luminal irregularities in the RCA and circumflex artery, and moderate left ventricular systolic dysfunction with a left bundle branch block, EF noted to be 35%. Upon presentation today, patient reports doing well. He denies any CHF symptoms and reports stable weight in home environment. Home BP noted to be 142/80, 142/88, and 130/78. Further ROS below. Intake Vital Signs 03/14/25 07:33 04/04/25 08:07 04/04/25 09:31 Height 5 ft 3 in 5 ft 3 in Weight: 254 lb BMI 44.9 BP 134/79 H 136/78 H Blood Pressure Location Lt brachial Lt brachial Position Sitting Sitting Respiration 20 H Pulse 69 Pulse Source Monitor Pulse Oximetry (%) 92 Oxygen Delivery Method room air Intake Visit Reasons: 3 W FU Testing Tech Required: No Accompanied by: Is patient in pain?: No Allergies gabapentin Allergy (Severe, Verified 04/04/25 09:26) Memory issues ibuprofen Allergy (Severe, Verified 04/04/25 09:26) Diarrhea calcium carbonate (From Excedrin Back Body) Allergy (Verified 04/04/25 09:26) Other Medications ???Medication ???Instructions ???Recorded ???Confirmed ???Type ascorbic acid (vitamin C) 1,000 mg 1 g PO DAILY vitamin 04/18/23 History capsule aspirin 81 mg tablet,delayed 81 mg PO QHS heart health 04/18/23 04/04/25 History release atorvastatin 80 mg tablet 80 mg PO QPM cholesterol 04/18/23 04/04/25 History azelastine 137 mcg (0.1 %) nasal 2 spray intranasal BID allergy 09/0504/04/25 History spray cyanocobalamin (vitamin B-12) 1,000 mcg PO DAILY vitamin 3 04/04/25 History 1,000 mcg capsule fenofibrate micronized 134 mg 134 mg PO DAILY cholesterol 04/04/25 History capsule loratadine 10 mg tablet (Allergy 10 mg PO DAILY allergies 04/18/23 04/04/25 History Relief (loratadine)) mometasone 50 mcg/actuation nasal 2 spray intranasal DAILY allergy 04/18/23 04/04/25 History spray (Nasonex 24hr Allergy) multivitamin (Daily Multi-Vitamin 1 tab PO DAILY vitamin 04/18/23 1 History tablet) tadalafil 5 mg tablet 5 mg PO DAILY PRN sexual activity 04/18/23 04/04/25 History acetaminophen 650 mg 1,300 mg PO Q8H PRN fever or pain 04/01/24 04/04/25 History tablet,extended release (Arthritis Pain Reliever) allopurinol 300 mg tablet 300 mg PO DAILY gout 04/01/2403/17 History cholecalciferol (vitamin D3) 125 125 mcg PO QDAY 02/02/25 04/04/25 History mcg (5,000 unit) capsule fluticasone furoate 200 1 ea inhalation QDAY 02/02/2503/17 History mcg-vilanterol 25 mcg/dose inhalation powder (Breo Ellipta) carvedilol 3.125 mg tablet 3.125 mg PO BID #60 tabs 03/14/25 04/04/25 Rx dapagliflozin propanediol 10 mg 10 mg PO QAM #30 tabs 03/14/25 Rx tablet (Farxiga) spironolactone 25 mg tablet 25 mg PO QAM #30 tabs 03/14/25 Rx sacubitril 49 mg-valsartan 51 mg 1 tab PO BID #180 tabs 04/04/25 Rx tablet (Entresto) Ejection fraction %: 40 Have you fallen in the past year?: Yes Nurse's Note: Pt states that he feels great since his last visit with us. [facility] Medical H (more content not included)... Normal [facility] Anion gap in Serum or Plasma Ordered By: Bernabe Rodriguez on 03-31-2025 Anion gap [Moles/Vol] 12 mmol/L 10-28 [facility] BUN/creatinine ratioOrdered By: Bernabe Rodriguez on 03-31-2025 Urea nitrogen/Creatinine [Mass ratio] 22.1 mg/mg High 04-04 [facility] Bilirubin, totalOrdered By: Bernabe Rodriguez on 03-31-2025 Bilirubin [Mass/Vol] 0.34 mg/dL 0.00-1.30 [facility] Calculated very low density lipoprotein (VLDL) cholesterol measurementOrdered By: Bernabe Rodriguez on 03-31-2025 Calculated very low density lipoprotein (VLDL) cholesterol measurement 29 mg/dL [facility] Carbon dioxide, total [Moles /volume] in Central venous bloodOrdered By: Bernabe Rodriguez on 03-31-2025 CO2 [Moles/Vol] 23.6 mmol/L 21.0-32.0 [facility] Chloride assayOrdered By: Solis Rodriguez on 03-31-2025 Chloride [Moles/Vol] 107 mmol/L 98-108 [facility] Comprehensive Metabolic Prof ilon 03-31-2025 Albumin [Mass/Vol] 4.2 g/dL Normal 3.4-4.8 [facility] Comment on above: Performed By: #### M 100.7900, L7000.0300, L7000.0750 #### [facility] [address] [place], [address] Albumin/Globulin [Mass ratio] 1.7 {ratio} Normal 0.9-2.4 [facility] Comment on above: Performed By: #### M 100.7900, L7000.0300, L7000.0750 #### [facility] [address] [place], [address] ALK PHOS 80 U/L Normal 40-129 [facility] Comment on above: Performed By: #### M 100.7900, L7000.0300, L7000.0750 #### [facility] [address] [place], [address] ALT [Catalytic activity/Vol] 20 U/L Normal <=46 [facility] Comment on above: Performed By: #### M 100.7900, L7000.0300, L7000.0750 #### [facility] [address] [place], [address] AST [Catalytic activity/Vol] 22 U/L Normal <=37 [facility] Comment on above: Performed By: #### M 100.7900, L7000.0300, L7000.0750 #### [facility] [address] [place], [address] Bilirubin [Mass/Vol] 0.34 mg/dL Normal 0.00-1.30 [facility] Comment on above: Performed By: #### M 100.7900, L7000.0300, L7000.0750 #### [facility] [address] [place], [address] BUN/CRE 22.1 RATIO High 10-20 [facility] Comment on above: Performed By: #### M 100.7900, L7000.0300, L7000.0750 #### [facility] [address] [place], [address] Calcium [Mass/Vol] 10.0 mg/dL Normal 7.6-11.0 [facility] Comment on above: Performed By: #### M 100.7900, L7000.0300, L7000.0750 #### [facility] [address] [place], [address] Chloride [Moles/Vol] 107 mmol/L Normal 98-108 [facility] Comment on above: Performed By: #### M 100.7900, L7000.0300, L7000.0750 #### [facility] [address] [place], [address] CO2 [Moles/Vol] 23.6 mmol/L Normal 21.0-32.0 [facility] Comment on above: Performed By: #### M 100.7900, L7000.0300, L7000.0750 #### [facility] [address] [place], [address] Creatinine [Mass/Vol] 0.79 mg/dL Normal 0.70-1.20 [facility] Comment on above: Performed By: #### M 100.7900, L7000.0300, L7000.0750 #### [facility] [address] [place], [address] GAP 12 Normal 5-15 [facility] Comment on above: Performed By: #### M 100.7900, L7000.0300, L7000.0750 #### [facility] [address] [place], [address] GFR/1.73 sq M.predicted among non-blacks MDRD (S/P/Bld) [Vol rate/Area] 91 mL/min/{1.73_m2} Normal >60 [facility] Comment on above: Result Comment: mL/m in/1.73m2 CKD-EPI Creatinine Equation (2020) Performed By: #### M 100.7900, L7000.0300, L7000.0750 #### [facility] [address] [place], [address] Globulin (S) [Mass/Vol] 2.5 g/dL Normal 2.2-4.2 [facility] Comment on above: Performed By: #### M 100.7900, L7000.0300, L7000.0750 #### [facility] [address] [place], [address] Glucose [Mass/Vol] 95 mg/dL Normal 70-99 [facility] Comment on above: Performed By: #### M 100.7900, L7000.0300, L7000.0750 #### [facility] [address] [place], [address] Potassium [Moles/Vol] 4.2 mmol/L Normal 3.3-5.1 [facility] Comment on above: Performed By: #### M 100.7900, L7000.0300, L7000.0750 #### [facility] [address] [place], [address] Sodium [Moles/Vol] 143 mmol/L Normal 133-145 [facility] Comment on above: Performed By: #### M 100.7900, L7000.0300, L7000.0750 #### [facility] [address] [place], [address] T PROT 6.6 g/dL Normal 5.9-8.4 [facility] Comment on above: Performed By: #### M 100.7900, L7000.0300, L7000.0750 #### [facility] [address] [place], [address] Urea nitrogen [Mass/Vol] 17 mg/dL Normal 4-19 [facility] Comment on above: Performed By: #### M 100.7900, L7000.0300, L7000.0750 #### [facility] [address] [place], [place], [address] Glomerular filtration rate ( GFR) estimation/1.73 sq m using serum, plasma, or whole bOrdered By: Bernabe Rodriguez on 03-31-2025 GFR/1.73 sq M.predicted among non-blacks MDRD (S/P/Bld) [Vol rate/Area] 91 mL/min/{1.73_m2} >60 [facility] Comment on above: mL/min/1.73m2 CKD-EP I Creatinine Equation (2020) LDL calc ser/plasOrdered By: Bernabe Rodriguez on 03-31-2025 Cholesterol in LDL [Mass/Vol] 52 mg/dL [facility] Comment on above: Rpcpvtigvm=567-024 m g/dL & Higher Fazj=647 mg/dL or greaterFriedwald Equation for LDL-C Laboratory - Chemistry and C hemistry - challengeOrdered By: Bernabe Rodriguez on 03-31-2025 AST [Catalytic activity/Vol] 22 U/L <38 [facility] Lipid Profileon 03-31-2025 CHOL:HDL 2.80 Normal [facility] Comment on above: Performed By: #### M 100.7900, L7000.0300, L7000.0750 #### [facility] [address] [place], [address] Cholesterol [Mass/Vol] 126 mg/dL Normal <=200 [facility] Comment on above: Result Comment: Chol esterol level, Desirable <200 mg/dL Borderline high cholesterol 200-239 mg/dL High cholesterol >=240 mg/dL Recommendations of the NCEP Adult Treatment Panel for the following risk-cutoff thresholds for the [place] population. Performed By: #### M 100.7900, L7000.0300, L7000.0750 #### [facility] [address] [place], [address] Cholesterol in HDL [Mass/Vol] 45 mg/dL Normal [facility] Comment on above: Result Comment: Merissa onal Cholesterol Education Program (NCEP) guidelines: <40 mg/dL: Low HDL-cholesterol (major risk factor for CHD) >= 60 mg/dL: High HDL-cholesterol (negative risk factor for CHD) HDL-cholesterol is affected by a number of factors, e.g. smoking, exercise, hormones, sex and age. Performed By: #### M 100.7900, L7000.0300, L7000.0750 #### [facility] [address] [place], [address] Cholesterol in LDL [Mass/Vol] 52 mg/dL Normal [facility] Comment on above: Result Comment: Bord esmfco=881-716 mg/dL Higher Ymez=797 mg/dL or greater Friedwald Equation for LDL-C Performed By: #### M 100.7900, L7000.0300, L7000.0750 #### [facility] [address] [place], [address] Cholesterol in VLDL [Mass/Vol] 29 mg/dL Normal 5-40 [facility] Comment on above: Performed By: #### M 100.7900, L7000.0300, L7000.0750 #### [facility] [address] [place], [address] Triglyceride [Mass/Vol] 145 mg/dL Normal [facility] Comment on above: Result Comment: The drugs N-Acetylcysteine and Metamizole may falsely depress this assay. Normal range: <150 mg/dL Borderline High: 150-199 mg/dL High: 200-499 mg/dL Very High: >500 mg/dL Performed By: #### M 100.7900, L7000.0300, L7000.0750 #### [facility] [address] [place], [place], [address] Microalb:Creat Ratio,Random URon 03-31-2025 Creatinine [Mass/Vol] 255.00 mg/dL Normal 39.00-259.00 [facility] Comment on above: Performed By: #### M 100.7900, L7000.0300, L7000.0750 #### [facility] [address] [place], [place], [address] MALB:CREAT 15.3 mg/g CRE Normal <30 mg/g CRE [facility] Comment on above: Performed By: #### M 100.7900, L7000.0300, L7000.0750 #### [facility] [address] [place], [place], [address] MICROALBUMIN,UR 39.1 mg/L Normal <20 mg/L [facility] Comment on above: Performed By: #### M 100.7900, L7000.0300, L7000.0750 #### [facility] [address] [place], [place], [address] Potassium measurement (mass/ volume)Ordered By: Bernabe Rodriguez on 03-31-2025 Potassium (Unsp spec) [Mass/Vol] 4.2 mmol/L 3.3-5.1 [facility] Random urine creatinine mateo urement (mass/volume)Ordered By: Bernabe Rodriguez on 03-31-2025 Creatinine Unsp time (U) [Mass/Vol] 255.00 mg/dL 39.00-259.00 [facility] Screening total cholesterol/ high density lipoprotein (HDL) cholesterol ratioOrdered By: Bernabe Rodriguez on 03-31-2025 Cholesterol.total/Merissa sterol in HDL [Mass ratio] 2.80 {ratio} [facility] Serum creatinine measurement (mass/volume)Ordered By: Bernabe Rodriguez on 03-31-2025 Creatinine [Mass/Vol] 0.79 mg/dL 0.70-1.20 [facility] Serum globulin measurementOr dered By: Bernabe Rodriguez on 03-31-2025 Globulin (S) [Mass/Vol] 2.5 g/dL 2.2-4.2 [facility] Serum glucose measurement (m ass/volume)Ordered By: Bernabe Rodriguez on 03-31-2025 Glucose [Mass/Vol] 95 mg/dL 70-99 [facility] Serum or plasma alanine moreno otransferase (ALT) measurementOrdered By: Bernabe Rodriguez on 03-31-2025 ALT [Catalytic activity/Vol] 20 U/L <47 [facility] Serum or plasma albumin mateo urement (mass/volume)Ordered By: Bernabe Rodriguez on 03-31-2025 Albumin [Mass/Vol] 4.2 g/dL 3.4-4.8 [facility] Serum or plasma albumin/glob ulin mass ratioOrdered By: Bernabe Rodriguez on 03-31-2025 Albumin/Globulin [Mass ratio] 1.7 {ratio} 0.9-2.4 [facility] Serum or plasma alkaline rickey sphatase measurementOrdered By: Bernabe Rodriguez on 03-31-2025 ALP [Catalytic activity/Vol] 80 U/L 40-129 [facility] Serum or plasma calcium mateo urement (mass/volume)Ordered By: Bernabe Rodriguez on 03-31-2025 Calcium [Mass/Vol] 10.0 mg/dL 7.6-11.0 [facility] Serum or plasma cholesterol in HDL measurement (mass/volume)Ordered By: Bernabe Rodriguez on 03-31-2025 Cholesterol in HDL [Mass/Vol] 45 mg/dL >40 [facility] Comment on above: National Cholesterol Education Program (NCEP) guidelines:<40 mg/dL: Low HDL-cholesterol (major risk factor for CHD)>= 60 mg/dL: High HDL-cholesterol (negative risk factor for CHD)HDL-cholesterol is affected by a number of factors, e.g. smoking, exercise, hormones, sex and age. Serum or plasma cholesterol measurement (mass/volume)Ordered By: Bernabe Rodriguez on 03-31-2025 Cholesterol [Mass/Vol] 126 mg/dL <201 [facility] Comment on above: Cholesterol level, D esirable <200 mg/dLBorderline high cholesterol 200-239 mg/dLHigh cholesterol >=240 mg/dLRecommendations of the NCEP Adult Treatment Panel for the following risk-cutoff thresholds for the [place] population. Serum or plasma urea nitroge n measurement (mass/volume)Ordered By: Bernabe Rodriguez on 03-31-2025 Urea nitrogen [Mass/Vol] 17 mg/dL 4-19 [facility] Serum or plasma uric acid me asurement (mass/volume)Ordered By: Bernabe Rodriguez on 03-31-2025 Urate [Mass/Vol] 4.6 mg/dL 3.5-7.2 [facility] Comment on above: The drugs N-Acetylcy steine and Metamizole may falsely depress this assay. Sodium levelOrdered By: Wang Rodriguez on 03-31-2025 Sodium [Moles/Vol] 143 mmol/L 133-145 [facility] Total proteinOrdered By: Duncan Rodriguez on 03-31-2025 Protein [Mass/Vol] 6.6 g/dL 5.9-8.4 [facility] Triglycerides measurementOrd ered By: Bernabe Rodriguez on 03-31-2025 Triglyceride [Mass/Vol] 145 mg/dL <199 [facility] Comment on above: The drugs N-Acetylcy steine and Metamizole may falsely depress this assay. Normal range: <150 mg/dLBorderline High: 150-199 mg/dLHigh: 200-499 mg/dLVery High: >500 mg/dL Uric Acidon 03-31-2025 URIC 4.6 mg/dL Normal 3.5-7.2 [facility] Comment on above: Result Comment: The drugs N-Acetylcysteine and Metamizole may falsely depress this assay. Performed By: #### M 100.7900, L7000.0300, L7000.0750 #### [facility] [address] [place], [address] Urine albumin measurement [facility] detection limit of 20 mg/L or less (mass/volume)Ordered By: Bernabe Rodriguez on 03-31-2025 Albumin DL <= 20 mg/L (U) [Mass/Vol] 39.1 mg/L <20 mg/L [facility] Cardiac Cath Diagnosticon Cardiac Cath Diagnostic [facility] Imaging Services [address] [place] [address] Cardiac Cath Diagnostic MR#: [id number] Acct: [id number] Name: BRENTON MAGANA Rep #: [id number] : 1945 79 From: Seun Bledsoe MD PCP: Bernabe Rodriguez, MAYONNAISE MIXER-C Status:[facility] Patient Name: BRENTON MAGANA Study Date: 03/22/2025 Performing: Seun Bledsoe MD Ht: 63 inches 160.02 cm : 1945 Wt: 253 lbs 114.76 kg Age: 79 Gender: male BSA: 2.14 PROCEDURE(S) PERFORMED DC01-(16486)LHC/COR/LV CLINICAL PROFILE AND INDICATIONS Indications: Suspected CAD Heart Failure: NYHA Class: 2, Newly Diagnosed: Yes, Heart Failure Type: Systolic Stress/Imaging Date: 03/07/25Stress Test with SPECT MPI: Positive Low Risk CAD Presentations: No Sxs, no angina. 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 RECOMMENDATIONS Medical therapy DESCRIPTION OF PROCEDURE The patient arrived to the procedure lab. The risks and benefits of the procedure as well as a full description of our services here and current unavailability of surgical backup were fully explained to the patient and/or their significant other prior to the catheterization. The Timeout was completed, verifying the correct patient and procedure. The patient's procedural site was prepped and draped in the usual fashion. Local anesthetic was given subcutaneously to right radial region with Lidocaine 2%. Using a modified Seldinger technique, arterial access was obtained via the right radial artery, a 6Fr sheath was inserted. Left Coronary Artery selective angiography was performed in multiple views using a 5 Fr. 4.0 Albright catheter. Right Coronary Artery selective angiography was then performed in multiple views using a 5 Fr. 4.0 Albright catheter. Left Ventriculography was performed in FAY projection using a 5 Fr. Pigtail catheter. LV to AO pullback pressures were then recorded.The arterial sheath was pulled and a TR Band was applied for hemostasis CORONARY ANGIOGRAPHY DOMINANCE: Right Dominant LEFT HEART ASSESSMENT Left Ventricular Ejection Fraction: by LV Gram 35 % Global Hypokinesis - Moderate Depressed Left Ventricular systolic function LEFT MAIN: Angiographically normal LEFT ANTERIOR DESCENDING ARTERY: Moderate calcification, Medium size vessel with mild to moderate calcification and 30 to 50% stenosis in the proximal portion. There is mild diffuse distal disease present. CIRCUMFLEX ARTERY: Mild luminal irregularities less than 30% RIGHT CORONARY ARTERY: Mild luminal irregularities less than 30% COMPLICATIONS No Complications PROCEDURE MEDICATIONS Fentanyl 50 mcg IV Versed 1 mg IV Oxygen: 2 L/min via nasal cannula SUMMARY OF HEMODYNAMIC DATA Time AIR REST ECG 12:03:08 ECG 12:35:51 AO 128/78 (100) SA 12:58:28 AO 142/82 (99) 13:01:47 LV 143/12, 20 13:04:27 LV 160/15, 24 13:04:35 LV 136/24, 33 13:05:02 LV 145/18, 30 13:05:10 LV 149/15, 22 13:05:23 LVp 146/15, 20 13:05:26 AOp 153/79 (109) 13:05:33 Signed By Seun Bledsoe MD On 03/22/2025 13:17:40 Signed By Seun Bledsoe MD On 03/22/2025 13:16:59 Seun Bledsoe MD 03/22/25 1318 Date Seun Christiansen Signature: Date (if indicated) CC: KIKE Rodriguez; Dr. Seun Bledsoe MD Date Dictated: 03/22/25 1238 Date Transcribed: 03/22/25 1317 [employer] Associate: [place] Signed Normal [facility] Cardiac catheterization repo rtOrdered By: Seun Bledsoe on 03-22-2025 Cardiac catheterization study [facility] Imaging Services [address] [place] [address] Cardiac Cath Diagnostic MR#: [id number] Acct: [id number] Name: BRENTON MAGANA Rep #:[id number] : 1945 79 From: Seun Bledsoe MD PCP: KIKE Calloway tus:[facility] Patient Name: BRENTON MAGANA Study Date: 03/22/2025 Performing: Seun Bledsoe MD Ht: 63 inches 160.02 cm : 1945 Wt: 253 lbs 114.76 kg Age: 79 Gender: male BSA: 2.14 PROCEDURE(S) PERFORMED DC01-(93803)LHC/COR/LV CLINICAL PROFILE AND INDICATIONS Indications: Suspected CAD Heart Failure: NYHA Class: 2, Newly Diagnosed: Yes, Heart Failure Type: Systolic Stress/Imaging Date: 03/07/25Stress Test with SPECT MPI: Positive Low Risk CAD Presentations: No Sxs, no angina. 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 RECOMMENDATIONS Medical therapy DESCRIPTION OF PROCEDURE The patient arrived to the procedure lab. The risks and benefits of the procedure as well as a full description of our services here and current unavailability of surgical backup were fully explained to the patient and/or their significant other prior to the catheterization. The Timeout was completed, verifying the correct patient and procedure. The patient's procedural site was prepped and draped in the usual fashion. Local anesthetic was given subcutaneously to right radial region with Lidocaine 2%. Using a modified Seldinger technique, arterial access was obtained via the right radial artery, a 6Fr sheath was inserted. Left Coronary Artery selective angiography was performed in multiple views using a 5 Fr. 4.0 Albright catheter. Right Coronary Artery selective angiography was then performed in multiple views using a 5 Fr. 4.0 Albright catheter. Left Ventriculography was performed in FAY projection using a 5 Fr. Pigtail catheter. LV to AO pullback pressures were then recorded.The arterial sheath was pulled and a TR Band was applied for hemostasis CORONARY ANGIOGRAPHY DOMINANCE: Right Dominant LEFT HEART ASSESSMENT Left Ventricular Ejection Fraction: by LV Gram 35 % Global Hypokinesis - Moderate Depressed Left Ventricular systolic function LEFT MAIN: Angiographically normal LEFT ANTERIOR DESCENDING ARTERY: Moderate calcification, Medium size vessel with mild to moderate calcification and 30 to 50% stenosis in the proximal portion. There is mild diffuse distal disease present. CIRCUMFLEX ARTERY: Mild luminal irregularities less than 30% RIGHT CORONARY ARTERY: Mild luminal irregularities less than 30% COMPLICATIONS No Complications PROCEDURE MEDICATIONS Fentanyl 50 mcg IV Versed 1 mg IV Oxygen: 2 L/min via nasal cannula SUMMARY OF HEMODYNAMIC DATA Time AIR REST ECG 12:03:08 ECG 12:35:51 AO 128/78 (100) SA 12:58:28 AO 142/82 (99) 13:01:47 LV 143/12, 20 13:04:27 LV 160/15, 24 13:04:35 LV 136/24, 33 13:05:02 LV 145/18, 30 13:05:10 LV 149/15, 22 13:05:23 LVp 146/15, 20 13:05:26 AOp 153/79 (109) 13:05:33 Signed By Seun Bledsoe MD On 03/22/2025 13:17:40 Signed By Seun Bledsoe MD On 03/22/2025 13:16:59 Seun Bledsoe MD 03/22/25 1318 Date _ Seun Christiansen Signature: Date (if indicated) CC: KIKE Rodriguez; Dr. Seun Bledsoe MD ~ Date Dictated: 03/22/25 1238 Date Transcribed: 03/22/25 1317 [employer] Associate: [place] Signed [facility] Work Phone: Absolute lymphocyte countOrd ered By: Jerry Romo on 03-14-2025 Lymphocytes Auto (Unsp spec) [#/Vol] 0.88 10*3/uL 0.83-4.51 [facility] Absolute neutrophil countOrd ered By: Jerry Romo on 03-14-2025 Neutrophils (Bld) [#/Vol] 5.6 10*3/uL 2.0-7.7 [facility] Anion gap in Serum or Plasma Ordered By: Jerryeliseo Romo on 03-14-2025 Anion gap [Moles/Vol] 12 mmol/L 5-15 [facility] Automated lymphocyte count a s percentage of total leukocytesOrdered By: Jerry Romo on 03-14-2025 Lymphocytes/100 WBC Auto (Unsp spec) 11.9 % Low 19-41 [facility] BUN/creatinine ratioOrdered By: Jerryeliseo Romo on 03-14-2025 Urea nitrogen/Creatinine [Mass ratio] 28.8 mg/mg High 10-20 [facility] Basic Metabolic Profile (BMP )on 03-14-2025 BUN/CRE 28.8 RATIO High 10-20 [facility] Comment on above: Performed By: #### M 100.7900, L7000.0300, L7000.0750 #### [facility] [address] [place], [address] Calcium [Mass/Vol] 9.8 mg/dL Normal 7.6-11.0 [facility] Comment on above: Performed By: #### M 100.7900, L7000.0300, L7000.0750 #### [facility] [address] [place], [address] Chloride [Moles/Vol] 105 mmol/L Normal 98-108 [facility] Comment on above: Performed By: #### M 100.7900, L7000.0300, L7000.0750 #### [facility] [address] [place], [address] CO2 [Moles/Vol] 25.7 mmol/L Normal 21.0-32.0 [facility] Comment on above: Performed By: #### M 100.7900, L7000.0300, L7000.0750 #### [facility] [address] [place], [address] Creatinine [Mass/Vol] 0.68 mg/dL Low 0.70-1.20 [facility] Comment on above: Performed By: #### M 100.7900, L7000.0300, L7000.0750 #### [facility] [address] [place], [address] GAP 12 Normal 5-15 [facility] Comment on above: Performed By: #### M 100.7900, L7000.0300, L7000.0750 #### [facility] [address] [place], [address] GFR/1.73 sq M.predicted among non-blacks MDRD (S/P/Bld) [Vol rate/Area] 95 mL/min/{1.73_m2} Normal >60 [facility] Comment on above: Result Comment: mL/m in/1.73m2 CKD-EPI Creatinine Equation (2020) Performed By: #### M 100.7900, L7000.0300, L7000.0750 #### [facility] [address] [place], [address] Glucose [Mass/Vol] 92 mg/dL Normal 70-99 [facility] Comment on above: Performed By: #### M 100.7900, L7000.0300, L7000.0750 #### [facility] [address] [place], [address] Potassium [Moles/Vol] 3.7 mmol/L Normal 3.3-5.1 [facility] Comment on above: Performed By: #### M 100.7900, L7000.0300, L7000.0750 #### [facility] [address] [place], [address] Sodium [Moles/Vol] 143 mmol/L Normal 133-145 [facility] Comment on above: Performed By: #### M 100.7900, L7000.0300, L7000.0750 #### [facility] [address] [place], [address] Urea nitrogen [Mass/Vol] 20 mg/dL High 4-19 [facility] Comment on above: Performed By: #### M 100.7900, L7000.0300, L7000.0750 #### [facility] [address] [place], [address] Basophil percentageOrdered B y: Jerry Romo on 03-14-2025 Basophils/100 WBC (Bld) 0.5 % 0-1 [facility] CBC W/Diff, Automatedon 02-15 Absolute Lymph 0.88 X10 3/uL Normal 0.83-4.51 [facility] Comment on above: Performed By: #### M 100.7900, L7000.0300, L7000.0750 #### [facility] [address] [place], [address] Absolute Neut 5.6 X10 3/uL Normal 2.0-7.7 [facility] Comment on above: Performed By: #### M 100.7900, L7000.0300, L7000.0750 #### [facility] [address] [place], [address] Basophils/100 WBC (Bld) 0.5 % Normal 0-1 [facility] Comment on above: Performed By: #### M 100.7900, L7000.0300, L7000.0750 #### [facility] [facility] [address] [place], [address] Eosinophils/100 WBC (Bld) 4.9 % Normal 0-5 [facility] Comment on above: Performed By: #### M 100.7900, L7000.0300, L7000.0750 #### [facility] [address] [place], [address] Erythrocyte distribution width (RBC) [Ratio] 14.1 % Normal 11.6-14.6 [facility] Comment on above: Performed By: #### M 100.7900, L7000.0300, L7000.0750 #### [facility] [address] [place], [address] Hematocrit (Bld) [Volume fraction] 44.2 % Normal 40-54 [facility] Comment on above: Performed By: #### M 100.7900, L7000.0300, L7000.0750 #### [facility] [address] [place], [address] Hemoglobin (Bld) [Mass/Vol] 14.3 g/dL Normal 13.0-16.5 [facility] Comment on above: Performed By: #### M 100.7900, L7000.0300, L7000.0750 #### [facility] [address] [place], [address] IG% 0.400 Normal 0.0-0.9 [facility] Comment on above: Result Comment: IG% - Immature Granulocytes (promyelocytes, myelocytes and metamyelocytes) > 1% indicates that a LEFT SHIFT is Present. Performed By: #### M 100.7900, L7000.0300, L7000.0750 #### [facility] [address] [place], [address] Lymphocytes/100 WBC (Bld) 11.9 % Low 19-41 [facility] Comment on above: Performed By: #### M 100.7900, L7000.0300, L7000.0750 #### [facility] [address] [place], [address] MCH (RBC) [Entitic mass] 30.4 pg Normal 27.0-32.0 [facility] Comment on above: Performed By: #### M 100.7900, L7000.0300, L7000.0750 #### [facility] [address] [place], [address] MCHC (RBC) [Mass/Vol] 32.4 g/dL Normal 32-36 [facility] Comment on above: Performed By: #### M 100.7900, L7000.0300, L7000.0750 #### [facility] [address] [place], [address] MCV (RBC) [Entitic vol] 94.0 fL Normal 80-94 [facility] Comment on above: Performed By: #### M 100.7900, L7000.0300, L7000.0750 #### [facility] [address] [place], [address] Monocytes/100 WBC (Bld) 6.4 % Normal 0-10 [facility] Comment on above: Performed By: #### M 100.7900, L7000.0300, L7000.0750 #### [facility] [address] [place], [address] Neutrophils/100 WBC (Bld) 75.9 % High 47-70 [facility] Comment on above: Performed By: #### M 100.7900, L7000.0300, L7000.0750 #### [facility] [address] [place], [address] Nucleated RBC (Bld) [#/Vol] 0 10*3/uL Normal 0-5 [facility] Comment on above: Performed By: #### M 100.7900, L7000.0300, L7000.0750 #### [facility] [address] [place], [address] Platelet mean volume (Bld) [Entitic vol] 10.2 fL Normal 6.2-12.0 [facility] Comment on above: Performed By: #### M 100.7900, L7000.0300, L7000.0750 #### [facility] [address] [place], [address] Platelets (Bld) [#/Vol] 274 10*3/uL Normal 150-450 [facility] Comment on above: Performed By: #### M 100.7900, L7000.0300, L7000.0750 #### [facility] [address] [place], [address] RBC (Bld) [#/Vol] 4.70 10*6/uL Normal 4.6-6.[address] [facility] Comment on above: Performed By: #### M 100.7900, L7000.0300, L7000.0750 #### [facility] [address] [place], [address] RDW SD 48.9 fl High 35.1-43.9 [facility] Comment on above: Performed By: #### M 100.7900, L7000.0300, L7000.0750 #### [facility] [address] [place], [address] WBC (Bld) [#/Vol] 7.4 10*3/uL Normal 4.4-11.0 [facility] Comment on above: Performed By: #### M 100.7900, L7000.0300, L7000.0750 #### [facility] [address] [place], [address] Carbon dioxide, total [Moles /volume] in Central venous bloodOrdered By: Jerry Romo on 03-14-2025 CO2 [Moles/Vol] 25.7 mmol/L 21.0-32.0 [facility] Cardiology Visit Reporton Cardiology Visit Report [facility] [address] [place] [address] OFFICE VISIT Date of Service: 03/14/25 MR#: [id number] Acct: [id number] Name: BRENTON MAGANA Rep #: [id number] : 1945 Provider: BREANNA Fontaine Age/Sex: 79/M Location: [facility] [place] Status: Signed HPI HPI History of Present Illness Details: Brenton Magana is a 79-year-old male who presents to office today for preprocedural office visit. He is scheduled to undergo cardiac catheterization 03/22/2025. Patient presented as a new patient to our office in January 2025. He reported he was told he had a heart murmur. He also reported that he wears an Apple Watch and it has occasionally noted an irregular heartbeat in which she was asked to be evaluated to exclude atrial fibrillation. He has a chronic left bundle branch block. Prior to establishing with our office, he had went on a trip and noted pedal edema and was placed on Lasix and potassium for this. He was evaluated via echocardiogram and nuclear stress test 03/04/2025. His echocardiogram demonstrated a reduced ejection fraction at 40% with mild to moderate global hypokinesis of the left ventricle, mild to moderate tricuspid valve insufficiency with pulmonary artery systolic pressure 49 mmHg and mild to moderate dilated aortic root. His stress test demonstrated mildly reduced ejection fraction with mild apical ischemia. Upon presentation today, patient reports doing well. He reports his lower extremity edema has significantly improved since initiating hydrochlorothiazide and discontinuing his amlodipine. Further ROS below. Intake Vital Signs 02/02/25 15:41 03/14/25 07:33 Height 5 ft 3 in 5 ft 3 in Weight: 253 lb BMI 44.8 BP 155/97 H Blood Pressure Location Lt brachial Position Sitting Respiration 18 Pulse 64 Pulse Source Monitor Pulse Oximetry (%) 95 Intake Visit Reasons: UPDATE H P Testing Tech Required: No Is patient in pain?: No Allergies gabapentin Allergy (Severe, Verified 03/14/25 09:31) Memory issues ibuprofen Allergy (Severe, Verified 03/14/25 09:31) Diarrhea calcium carbonate (From Excedrin Back Body) Allergy (Verified 03/14/25 09:31) Other Medications ???Medication ???Instructions ???Recorded ???Confirmed ???Type ascorbic acid (vitamin C) 1,000 mg 1 g PO DAILY vitamin 04/18/23 History capsule aspirin 81 mg tablet,delayed 81 mg PO QHS heart health 04/18/23 03/14/25 History release atorvastatin 80 mg tablet 80 mg PO QPM cholesterol 04/18/23 03/14/25 History azelastine 137 mcg (0.1 %) nasal 2 spray intranasal BID allergy 09/0503/14/25 History spray cyanocobalamin (vitamin B-12) 1,000 mcg PO DAILY vitamin 3 03/14/25 History 1,000 mcg capsule fenofibrate micronized 134 mg 134 mg PO DAILY cholesterol 03/14/25 History capsule loratadine 10 mg tablet (Allergy 10 mg PO DAILY allergies 04/18/23 03/14/25 History Relief (loratadine)) mometasone 50 mcg/actuation nasal 2 spray intranasal DAILY allergy 04/18/23 03/14/25 History spray (Nasonex 24hr Allergy) multivitamin (Daily Multi-Vitamin 1 tab PO DAILY vitamin 04/18/23 0 03/14/25 History tablet) tadalafil 5 mg tablet 5 mg PO DAILY PRN sexual activity 04/18/23 03/14/25 History acetaminophen 650 mg 1,300 mg PO Q8H PRN fever or pain 04/01/24 03/14/25 History tablet,extended release (Arthritis Pain Reliever) allopurinol 300 mg tablet 300 mg PO DAILY gout 04/01/2402/15 History cholecalciferol (vitamin D3) 125 125 mcg PO QDAY 02/02/25 03/14/25 History mcg (5,000 unit) capsule fluticasone furoate 200 1 ea inhalation QDAY 02/02/2502/15 History mcg-vilanterol 25 mcg/dose inhalation powder (Breo Ellipta) carvedilol 3.125 mg tablet 3.125 mg PO BID #60 tabs 03/14/25 03/14/25 Rx dapagliflozin propanediol 10 mg 10 mg PO QAM #30 tabs 03/14/25 Rx tablet (Farxiga) lisinopril 40 mg tablet 10 mg PO DAILY blood pressure 02/1503/14/25 History spironolactone 25 mg tablet 25 mg PO QAM #30 tabs 03/14/25 Rx Ejection fraction %: 40 Have you fallen in the past year?: Yes PFSH Medical History Hyperlipidemia Heart murmur Gout Brain parenchymal calcification BPH (benign prostatic hyperplasia) Asthma BMI 45.0-49.9, adult LBBB (left bundle branch block) Essential (primary) hypertension SOB (shortness of breath) Palpitations Hypoxemia Cholelithiasis Sleep apnea History of back problems Arthritis Gallstones Surgical History Hx of appendectomy History of tonsillectomy and adenoidectomy Family History (more content not included)... Normal [facility] Chest PA and Lateralon 03-14 Chest PA and Lateral [facility] Services [address] [place], [place] [address] Chest PA and Lateral MR#: [id number] Acct: [id number] Name: BRENTON MAGANA Rep #: [id number] : 1945 M 79 From: Arjun Moore MD PCP: Bernabe Rodriguez, LONG-C Status[place] [facility]: Chest PA and Lateral Date of Exam: 03/14/25 Exam# [id number] Ordering Dr: Jerry Romo PROCEDURE: CHEST PA AND LATERAL 03/14/2025 REASON FOR EXAM: SOB TECHNIQUE: Procedure Code: RADCXR Modality: DX Procedure: CHEST PA AND LATERAL COMPARISON: Two-view chest, 04/01/2024. FINDINGS: There is cardiomegaly and aortic ectasia consistent with benign essential hypertension. There is mild pulmonary edema consistent with congestive heart failure. There are no significant pleural effusions evident. RAD/Chest PA and Lateral IMPRESSION: Mild congestive heart failure. Findings consistent with hypertension. Reading Location: [place] [address] CC: KIKE Rodriguez; BREANNA Fontaine [employer] Associate: Signed Normal [facility] Chloride assayOrdered By: Juan A Romo on 03-14-2025 Chloride [Moles/Vol] 105 mmol/L 98-108 [facility] Eosinophil percentageOrdered By: Jerry Romo on 03-14-2025 Eosinophils/100 WBC (Bld) 4.9 % 0-5 [facility] Erythrocyte distribution wid th ratioOrdered By: Jerry Romo on 03-14-2025 Erythrocyte distribution width (RBC) [Ratio] 14.1 % 11.6-14.6 [facility] Erythrocyte distribution wid th standard deviationOrdered By: Jerry oRmo on 03-14-2025 Erythrocyte distribution width (RBC) [Ratio] 48.9 fl High 35.1-43.9 [facility] Glomerular filtration rate ( GFR) estimation/1.73 sq m using serum, plasma, or whole bOrdered By: Jerry Romo on 03-14-2025 GFR/1.73 sq M.predicted among non-blacks MDRD (S/P/Bld) [Vol rate/Area] 95 mL/min/{1.73_m2} >60 [facility] Comment on above: mL/min/1.73m2 CKD-EP I Creatinine Equation (2020) Hematocrit Auto (Bld) [Volum e fraction]Ordered By: Jerry Romo on 03-14-2025 Hematocrit (Bld) [Volume fraction] 44.2 % 40-54 [facility] Hemoglobin measurementOrdere d By: Jerry Romo on 03-14-2025 Hemoglobin (Bld) [Mass/Vol] 14.3 g/dL 13.0-16.5 [facility] Immature granulocytes/100 WB C Auto (Bld)Ordered By: Jerry Romo on 03-14-2025 Immature granulocytes/100 WBC (Bld) 0.400 % 0.0-0.9 [facility] Comment on above: IG% - Immature Granu locytes (promyelocytes, myelocytes and metamyelocytes) > 1% indicates that a LEFT SHIFT is Present. International normalized rat io (INR) calculationOrdered By: Jerry Romo on 03-14-2025 INR Coag (Bld) [Relative time] 1.0 {INR} [facility] MCV (mean corpuscular volume ) determinationOrdered By: Jerry Romo on 03-14-2025 MCV (RBC) [Entitic vol] 94.0 fL 80-94 [facility] Mean corpuscular hemoglobin (MCH) determinationOrdered By: Jerry Romo on 03-14-2025 MCH (RBC) [Entitic mass] 30.4 pg 27.0-32.0 [facility] Mean corpuscular hemoglobin concentration (MCHC) determinationOrdered By: Jerry Romo on 03-14-2025 MCHC (RBC) [Mass/Vol] 32.4 g/dL 32-36 [facility] Mean platelet volume determi nationOrdered By: Jerry Romo on 03-14-2025 Platelet mean volume (Bld) [Entitic vol] 10.2 fL 6.2-12.0 [facility] Monocyte percentageOrdered B y: Jerry Romo on 03-14-2025 Monocytes/100 WBC (Bld) 6.4 % 0-10 [facility] Neutrophil percentageOrdered By: Jerry Romo on 03-14-2025 Neutrophils/100 WBC (Bld) 75.9 % High 47-70 [facility] Nucleated red blood cell per centageOrdered By: Jerry Romo on 03-14-2025 Nucleated RBC/100 WBC (Bld) [Ratio] 0 % 0-5 [facility] Platelet countOrdered By: Juan A Romo on 03-14-2025 Platelets (Bld) [#/Vol] 274 10*3/uL 150-450 [facility] Potassium measurement (mass/ volume)Ordered By: Jerry Romo on 03-14-2025 Potassium (Unsp spec) [Mass/Vol] 3.7 mmol/L 3.3-5.1 [facility] Prothrombin Time w/INRon INR Coag (PPP) [Relative time] 1.0 {INR} Normal [facility] Comment on above: Performed By: #### M 100.7900, L7000.0300, L7000.0750 #### [facility] [address] [place], [address] PT Coag (PPP) [Time] 13.5 s Normal 11.7-14.9 [facility] Comment on above: Performed By: #### M 100.7900, L7000.0300, L7000.0750 #### [facility] [address] [place], [address] Prothrombin timeOrdered By: Jerry Romo on 03-14-2025 PT Coag (PPP) [Time] 13.5 s 11.7-14.9 [facility] RBC Auto (Bld) [#/Vol]Ordere d By: Jerry Romo on 03-14-2025 RBC (Bld) [#/Vol] 4.70 10*6/uL 4.6-6.[address] [facility] Serum creatinine measurement (mass/volume)Ordered By: Jerry Romo on 03-14-2025 Creatinine [Mass/Vol] 0.68 mg/dL Low 0.70-1.20 [facility] Serum glucose measurement (m ass/volume)Ordered By: Jerry Romo on 03-14-2025 Glucose [Mass/Vol] 92 mg/dL 70-99 [facility] Serum or plasma calcium mateo urement (mass/volume)Ordered By: Jerry Romo on 03-14-2025 Calcium [Mass/Vol] 9.8 mg/dL 7.6-11.0 [facility] Serum or plasma urea nitroge n measurement (mass/volume)Ordered By: Jerry Romo on 03-14-2025 Urea nitrogen [Mass/Vol] 20 mg/dL High 4-19 [facility] Sodium levelOrdered By: mAna Romo on 03-14-2025 Sodium [Moles/Vol] 143 mmol/L 133-145 [facility] White blood cell (WBC) count Ordered By: Jerry Romo on 03-14-2025 WBC (Bld) [#/Vol] 7.4 10*3/uL 4.4-11.0 [facility] Cardiovascular stress test r eportOrdered By: Seun Bledsoe on 03-04-2025 Study report [facility] [address] [place] [address] MR#: [id number] Acct: [id number] Name: BRENTON MAGANA Rep #: [id number] : 1945 79 From: Seun Bledsoe MD Primary Care: Bernabe Rodriguez, MAYONNAISE MIXER-C Status: REG CLI Referring Dr: Seun Bledsoe MD Sex: M C Stress Test Report Pharmacologic myocardial perfusion stress test. 79-year-old man with a history of shortness of breath. Resting EKG demonstrates normal sinus rhythm with a left bundle branch block with a rate of 60 bpm. Resting blood pressure is 160/88 mmHg. 0.4 mg of regadenoson was infused per usual protocol followed by rapid intravenous saline flush injection. Continuous EKG monitoring was performed. The maximum heart ratewas 69 bpm which was 48% of max impacted heart rate the maximum workload was 1 metabolic equivalent. At rest there were no ST or T wave changes noted to suggest ischemia and at peak infusion nonspecific ST changes were noted which did not meet the criteria for ischemia. No clinical angina is noted. The final blood pressure was 132/85 mmHg. Myocardial perfusion protocol. 15 mCi of technetium 99m sestamibi was injected at rest. 0.4 mg of regadenoson was infused per usual protocol. At peak infusion 45 mCi of technetium 99m sestamibi was injected stress images were obtained stress and rest images were reconstructed and compared in the short axis vertical long and horizontal long axis. Gated images were also obtained. Perfusion SPECT analysis: Review of the stress images demonstrate normal uptake of tracer noted in all areas of the myocardium. The apex has reduced perfusion present the resting images similar demonstrated normal uptake of tracer noted in all areas of the myocardium. The above is suggestive of apical ischemia though the left bundle branch block could account for some of these findings potentially. Gated SPECT analysis: The gated ejection fraction is 46%. Conclusion: Abnormal pharmacologic myocardial perfusion stress test. Mildly reduced ejection fraction. Mild apical ischemia. 03/04/251643 Date _ Seun Bledsoe MD CC: MAYONNAISE MIXER-Sherri Rodriguez; Dr. Seun Bledsoe MD ~ Date Dictated: 03/04/251640 Date Transcribed: 03/04/251640 [employer] Associate: [place] Signed [facility] Work Phone: Echo Complete W/ Contraston 03-04-2025 Echo Complete W/ Contrast [facility] [address] [place] [address] Echo Complete W/ Contrast 03/04/25 08 MR#: [id number] Acct: [id number] Name: BRENTON MAGANA Rep #: [id number] : 1945 79 From: Seun Bledsoe MD Attending Dr: Dr. Seun Bledsoe MD Status: DARIAN RAYO Ordering Dr: Seun Bledsoe MD Date: 03/04/25 Location: [facility] Sex: M C Admitted: Reason For Study Reason For Study: Afib Procedure This was a 2D Doppler, Color Flow transthoracic echocardiogram. The study was technically difficult. Contrast injection was performed. Exam performed in department. Left Ventricle Normal LV size. The left ventricular ejection fraction is 40 %. There is mild to moderate global hypokinesis of the left ventricle. Right Ventricle Normal RV size. Normal systolic function. Atria Normal left atrium. Normal right atrium. Lipomatous hypertrophy of the atrial septum. Mitral Valve Normal mitral valve. Tricuspid Valve Normal tricuspid valve. Mild to moderate (1-2+) tricuspid valve insufficiency. Pulmonary artery systolic pressure is 49 mmHg. Aortic Valve Trisinus/trileaflet aortic valve. Pulmonic Valve Normal pulmonic valve. Great Vessels Mild to moderately dilated aortic root. The pulmonary artery is normal size. Inferior vena cava collapse with sniff. Pericardium/Pleural No pericardial effusion. Medication Diluted definity 1ml given slow IV push to enhance endocardial definition. MMode/2D Measurements Calculations LVOT diam: 2.0 cm Ao root diam: 4.0 cm LAV(MOD-bp): 38.9 ml LVOT area: 3.2 cm2 LAV(MOD-bp) Indexed: 18.7 ml/m2 LAV(MOD-sp2): 41.2 ml LAV(MOD-sp4): 31.1 ml SV(MOD-sp4): 42.5 ml SV(sp4-el): 43.3 ml LVAd ap4: 35.0 cm2 LVLd ap4: 8.2 cm SI(MOD-sp4): 20.4 ml/m2 EDV(MOD-sp4): 124.3 ml EDV(sp4-el): 127.9 ml LVAs ap4: 28.3 cm2 LVLs ap4: 8.2 cm ESV(MOD-sp4): 81.8 ml ESV(sp4-el): 84.6 ml EF(MOD-sp4): 34.2 % EF(sp4-el): 33.9 % LA dimension(2D): 4.4 cm LA A4 area: 13.7 cm2 RA A4 area: 10.2 cm2 Time Measurements MV dec time: 0.30 sec Doppler Measurements Calculations MV E max shannan: 77.3 cm/sec Lat Peak E' Shannan: 5.5 cm/sec Med Peak E' Shannan: 3.5 cm/sec MV A max shannan: 81.7 cm/sec E/E' lat: 14.1 E/E' med: 21.8 MV E/A: 0.95 MV V2 max: 86.7 cm/sec MV dec slope: 272.6 cm/sec2 Ao V2 max: 181.4 cm/sec MV max P.0 mmHg Ao max P.2 mmHg MV V2 mean: 65.8 cm/sec Ao V2 mean: 118.8 cm/sec MV mean P.9 mmHg Ao mean P.6 mmHg MV V2 VTI: 35.7 cm Ao V2 VTI: 39.6 cm MVA(VTI): 2.3 cm2 AV (velocity ratio): 0.65 BRENTON(I,D): 2.1 cm2 BRENTON(V,D): 2.1 cm2 LV V1 max: 118.4 cm/sec SV(LVOT): 82.3 ml PA V2 max: 102.8 cm/sec LV V1 max P.6 mmHg PA V2 mean: 70.8 cm/sec LV V1 mean P.4 mmHg LV V1 mean: 87.7 cm/sec LV V1 VTI: 25.7 cm TR max shannan: 336.7 cm/sec TR max P.3 mmHg ECHO/Echo Complete W/ Contrast Interpretation Summary Mild to moderately dilated aortic root. The left ventricular ejection fraction is 40 %. Normal LV size. There is mild to moderate global hypokinesis of the left ventricle. Mild to moderate (1-2+) tricuspid valve insufficiency. Pulmonary artery systolic pressure is 49 mmHg. Ordering Physician: Seun Bledsoe Referring Physician: Seun Bledsoe Performed By: Shantel Friedman RCS 03/04/251108 Date Seun Bledsoe MD CC: MAYONNAISE MIXER-C Bernabe Rodriguez; Dr. Seun Bledsoe MD Date Dictated: 03/04/25812 Date Transcribed: 03/04/251108 [employer] Associate: Signed Normal [facility] Echocardiogram study reportO rdered By: Seun Bledsoe on 03-04-2025 Study report [facility] [address] [place] [address] Echo Complete W/ Contrast 03/04/25812 MR#: [id number] Acct: [id number] Name: BRENTON MAGANA Rep #:[id number] : 1945 79 From: Seun Armenta Attending Dr: Dr. Seun Bledsoe MD S tatus: REG CLI Ordering Dr: Seun Bledsoe MD Date: Location: [facility] Sex: M C Admitted: Reason For Study Reason For Study: Afib Procedure This was a 2D Doppler, Color Flow transthoracic echocardiogram. The study was technically difficult. Contrast injection was performed. Exam performed in department. Left Ventricle Normal LV size. The left ventricular ejection fraction is 40 %. There is mild tomoderate global hypokinesis of the left ventricle. Right Ventricle Normal RV size. Normal systolic function. Atria Normal left atrium. Normal right atrium. Lipomatous hypertrophy of the atrial septum. Mitral Valve Normal mitral valve. Tricuspid Valve Normal tricuspid valve. Mild to moderate (1-2+) tricuspid valve insufficiency. Pulmonary artery systolic pressure is 49 mmHg. Aortic Valve Trisinus/trileaflet aortic valve. Pulmonic Valve Normal pulmonic valve. Great Vessels Mild to moderately dilated aortic root. The pulmonary artery is normal size. Inferior vena cava collapse with sniff. Pericardium/Pleural No pericardial effusion. Medication Diluted definity 1ml given slow IV push to enhance endocardial definition. MMode/2D Measurements & Calculations LVOT diam: 2.0 cm Ao root diam: 4.0 cm LAV(MOD-bp): 38.9 ml LVOT area: 3.2 cm2 LAV(MOD-bp) Indexed: 18.7 ml/m2 LAV(MOD-sp2): 41.2 ml LAV(MOD-sp4): 31.1 ml SV(MOD-sp4): 42.5 ml SV(sp4-el): 43.3 ml LVAd ap4: 35.0 cm2 LVLd ap4: 8.2 cm SI(MOD-sp4): 20.4 ml/m2 EDV(MOD-sp4): 124.3 ml EDV(sp4-el): 127.9 ml LVAs ap4: 28.3 cm2 LVLs ap4: 8.2 cm ESV(MOD-sp4): 81.8 ml ESV(sp4-el): 84.6 ml EF(MOD-sp4): 34.2 % EF(sp4-el): 33.9 % LA dimension(2D): 4.4 cm LA A4 area: 13.7 cm2 RA A4 area: 10.2 cm2 Time Measurements MV dec time: 0.30 sec Doppler Measurements & Calculations MV E max shannan: 77.3 cm/sec Lat Peak E' Shannan: 5.5 cm/sec Med Peak E' Shannan: 3.5 cm/sec MV A max shannan: 81.7 cm/sec E/E' lat: 14.1 E/E' med: 21.8 MV E/A: 0.95 MV V2 max: 86.7 cm/sec MV dec slope: 272.6 cm/sec2 Ao V2 max: 181.4 cm/sec MV max P.0 mmHg Ao max P.2 mmHg MV V2 mean: 65.8 cm/sec Ao V2 mean: 118.8 cm/sec MV mean P.9 mmHg Ao mean P.6 mmHg MV V2 VTI: 35.7 cm Ao V2 VTI: 39.6 cm MVA(VTI): 2.3 cm2 AV (velocity ratio): 0.65 BRENTON(I,D): 2.1 cm2 BRENTON(V,D): 2.1 cm2 LV V1 max: 118.4 cm/sec SV(LVOT): 82.3 ml PA V2 max: 102.8 cm/sec LV V1 max P.6 mmHg PA V2 mean: 70.8 cm/sec LV V1 mean P.4 mmHg LV V1 mean: 87.7 cm/sec LV V1 VTI: 25.7 cm TR max shannan: 336.7 cm/sec TR max P.3 mmHg ECHO/Echo Complete W/ Contrast Interpretation Summary Mild to moderately dilated aortic root. The left ventricular ejection fraction is 40 %. Normal LV size. There is mild to moderate global hypokinesis of the left ventricle. Mild to moderate (1-2+) tricuspid valve insufficiency. Pulmonary artery systolic pressure is 49 mmHg. Ordering Physician: Seun Bledsoe Referring Physician: Seun Bledsoe Performed By: Shantel Friedman RCS 03/04/251108 Date _ Seun Bledsoe MD CC: MAYONNAISE MIXER-C Bernabe Rodriguez; Dr. Seun Bledsoe MD ~ Date Dictated: 03/04/25812 Date Transcribed: 03/04/251108 [employer] Associate: Signed [facility] Work Phone: Stress Reporton 03-04-2025 Stress Report [facility] [address] [place] [address] MR#: [id number] Acct: [id number] Name: BRENTON MAGANA Rep #: [id number] : 1945 79 From: Seun Bledsoe MD Primary Care: ALEXANDRA CallowayC Status: REG CLI Referring Dr: Seun Bledsoe MD Sex: M C Stress Test Report Pharmacologic myocardial perfusion stress test. 79-year-old man with a history of shortness of breath. Resting EKG demonstrates normal sinus rhythm with a left bundle branch block with a rate of 60 bpm. Resting blood pressure is 160/88 mmHg. 0.4 mg of regadenoson was infused per usual protocol followed by rapid intravenous saline flush injection. Continuous EKG monitoring was performed. The maximum heart rate was 69 bpm which was 48% of max impacted heart rate the maximum workload was 1 metabolic equivalent. At rest there were no ST or T wave changes noted to suggest ischemia and at peak infusion nonspecific ST changes were noted which did not meet the criteria for ischemia. No clinical angina is noted. The final blood pressure was 132/85 mmHg. Myocardial perfusion protocol. 15 mCi of technetium 99m sestamibi was injected at rest. 0.4 mg of regadenoson was infused per usual protocol. At peak infusion 45 mCi of technetium 99m sestamibi was injected stress images were obtained stress and rest images were reconstructed and compared in the short axis vertical long and horizontal long axis. Gated images were also obtained. Perfusion SPECT analysis: Review of the stress images demonstrate normal uptake of tracer noted in all areas of the myocardium. The apex has reduced perfusion present the resting images similar demonstrated normal uptake of tracer noted in all areas of the myocardium. The above is suggestive of apical ischemia though the left bundle branch block could account for some of these findings potentially. Gated SPECT analysis: The gated ejection fraction is 46%. Conclusion: Abnormal pharmacologic myocardial perfusion stress test. Mildly reduced ejection fraction. Mild apical ischemia. 03/04/251643 Date Seun Bledsoe MD CC: MAYONNAISE MIXER-C Bernabe Rodriguez; Dr. Seun Bledsoe MD Date Dictated: 03/04/251640 Date Transcribed: 03/04/251640 [employer] Associate: [place] Signed Normal [facility] Magnetic resonance imaging r eportOrdered By: Raul Hopknis on 02-07-2025 Study report [facility] Imaging Services [address], [place] [address] Upper Ext Joint Only(Routine) MR#: [id number] Acct: [id number] Name: BRENTON MAGANA Rep #: [id number] : 1945 M 79 From: Keiko Hopkins MD PCP: KKIE Calloway Status: REG CLI Study:Upper Ext Joint Only(Routine) Date of Exam: 02/03/25 Exam# [id number] Ordering Dr: Bernabe Rodriguez NP PROCEDURE: UPPER [...] Reading Location: [facility] CC: KIKE Rodriguez ~ Retail Wireless Associate: Signed [facility] Upper Ext Joint Only(Routine )on 02-03-2025 Upper Ext Joint Only(Routine) [facility] Imaging Services [address] [place] [id number] Upper Ext Joint Only(Routine) MR#: [id number] Acct: [id number] Name: BRENTON MAGANA Rep #: [id number] : 1945 M 79 From: Raul Hopkins MD PCP: KIKE Calloway Status: REG CLI Study: Upper Ext Joint Only(Routine) Date of Exam: 0 02/03/25 Exam# [id number] Ordering Dr: Bernabe Rodriguez NP MAYONNAISE MIXER-C PROCEDURE: UPPER EXT JOINT ONLY(ROUTINE) 02/03/2025 REASON [...] bursa. Reading Location: [facility] CC: KIKE Rodriguez Retail Wireless Associate: Signed Normal [facility] Cardiology Visit Reporton Cardiology Visit Report [facility] [address] [place] [address] OFFICE VISIT Date of Service: 02/02/25 MR#: [id number] Acct: [id number] Name: BRENTON MAGANA Rep #: [id number] : 1945 Provider: Dr. Seun Bledsoe MD Age/Sex: 79/M Location: [facility] Status: Signed HPI HPI History of [...] bundle branch block. Intake Vital Signs 04/02/24 09:23 02/02/25 15:41 Height 5 ft 3 in 5 ft 3 in Weight: 254 lb BMI 44.9 BP 132/79 H Blood Pressure Location Lt brachial Position Sitting Respiration 16 Pulse 61 Pulse Source Monitor Intake Visit Reasons: AFIB (SELF) Testing Tech Required: No Accompanied by: Significant Other Is [...] weakness, head (more content not included)... Normal [facility] Microalb:Creat Ratio,Random URon 12-02-2024 MALB:CREAT 56.5 mg/g CRE Normal [facility] Comment on above: Result Comment: AMENDED REPORT 12/02/24 8008 MALB:CREAT previously reported as: 565.1 mg/g CRE Performed By: #### L 500.4050, L500.4100, L501.9940, L502.0250, L501.1400 #### [facility] [address] [place], [place], [address] Comprehensive Metabolic Prof [facility] 09-29-2024 Albumin [Mass/Vol] 4.3 g/dL Normal 3.4-4.8 [facility] Comment on above: Performed By: #### L 500.4050, L500.4100, L501.9940, L502.0250, L501.1400 #### [facility] [address] [place], [address] Albumin/Globulin [Mass ratio] 1.9 {ratio} Normal 0.9-2.4 [facility] Comment on above: Performed By: #### L 500.4050, L500.4100, L501.9940, L502.0250, L501.1400 #### [facility] [address] [place], [address] ALK PHOS 47 U/L Normal 40-129 [facility] Comment on above: Performed By: #### L 500.4050, L500.4100, L501.9940, L502.0250, L501.1400 #### [facility] [address] [place], [address] ALT [Catalytic activity/Vol] 21 U/L Normal <=46 [facility] Comment on above: Performed By: #### L 500.4050, L500.4100, L501.9940, L502.0250, L501.1400 #### [facility] [address] [place], [address] AST [Catalytic activity/Vol] 23 U/L Normal <=37 [facility] Comment on above: Performed By: #### L 500.4050, L500.4100, L501.9940, L502.0250, L501.1400 #### [facility] [address] [place], [address] Bilirubin [Mass/Vol] 0.27 mg/dL Normal 0.00-1.30 [facility] Comment on above: Performed By: #### L 500.4050, L500.4100, L501.9940, L502.0250, L501.1400 #### [facility] [address] [place], [address] BUN/CRE 23.6 RATIO High 10-20 [facility] Comment on above: Performed By: #### L 500.4050, L500.4100, L501.9940, L502.0250, L501.1400 #### [facility] [address] [place], [address] Calcium [Mass/Vol] 9.4 mg/dL Normal 7.6-11.0 [facility] Comment on above: Performed By: #### L 500.4050, L500.4100, L501.9940, L502.0250, L501.1400 #### [facility] [address] [place], [address] Chloride [Moles/Vol] 108 mmol/L Normal 98-108 [facility] Comment on above: Performed By: #### L 500.4050, L500.4100, L501.9940, L502.0250, L501.1400 #### [facility] [address] [place], [address] CO2 [Moles/Vol] 22.6 mmol/L Normal 21.0-32.0 [facility] Comment on above: Performed By: #### L 500.4050, L500.4100, L501.9940, L502.0250, L501.1400 #### [facility] [address] [place], [address] Creatinine [Mass/Vol] 0.79 mg/dL Normal 0.70-1.20 [facility] Comment on above: Performed By: #### L 500.4050, L500.4100, L501.9940, L502.0250, L501.1400 #### [facility] [address] [place], [address] GAP 12 Normal 5-15 [facility] Comment on above: Performed By: #### L 500.4050, L500.4100, L501.9940, L502.0250, L501.1400 #### [facility] [address] [place], [address] GFR/1.73 sq M.predicted among non-blacks MDRD (S/P/Bld) [Vol rate/Area] 91 mL/min/{1.73_m2} Normal >60 [facility] Comment on above: Result Comment: mL/m in/1.73m2 CKD-EPI Creatinine Equation (2020) Performed By: #### L 500.4050, L500.4100, L501.9940, L502.0250, L501.1400 #### [facility] [address] [place], [address] Globulin (S) [Mass/Vol] 2.3 g/dL Normal 2.2-4.2 [facility] Comment on above: Performed By: #### L 500.4050, L500.4100, L501.9940, L502.0250, L501.1400 #### [facility] [address] [place], [address] Glucose [Mass/Vol] 97 mg/dL Normal 70-99 [facility] Comment on above: Performed By: #### L 500.4050, L500.4100, L501.9940, L502.0250, L501.1400 #### [facility] [address] [place], [address] Potassium [Moles/Vol] 3.8 mmol/L Normal 3.3-5.1 [facility] Comment on above: Performed By: #### L 500.4050, L500.4100, L501.9940, L502.0250, L501.1400 #### [facility] [address] [place], [address] Sodium [Moles/Vol] 143 mmol/L Normal 133-145 [facility] Comment on above: Performed By: #### L 500.4050, L500.4100, L501.9940, L502.0250, L501.1400 #### [facility] [address] [place], [address] T PROT 6.6 g/dL Normal 5.9-8.4 [facility] Comment on above: Performed By: #### L 500.4050, L500.4100, L501.9940, L502.0250, L501.1400 #### [facility] [address] [place], [address] Urea nitrogen [Mass/Vol] 19 mg/dL Normal 4-19 [facility] Comment on above: Performed By: #### L 500.4050, L500.4100, L501.9940, L502.0250, L501.1400 #### [facility] [address] [place], [address] Lipid Profileon 09-29-2024 CHOL:HDL 2.52 Normal [facility] Comment on above: Performed By: #### M 100.7900, L7000.0300, L7000.0750 #### [facility] [address] [place], [address] Cholesterol [Mass/Vol] 133 mg/dL Normal <=200 [facility] Comment on above: Result Comment: Chol esterol level, Desirable <200 mg/dL Borderline high cholesterol 200-239 mg/dL High cholesterol >=240 mg/dL Recommendations of the NCEP Adult Treatment Panel for the following risk-cutoff thresholds for the [place] population. Performed By: #### M 100.7900, L7000.0300, L7000.0750 #### [facility] [address] [place], [address] Cholesterol in HDL [Mass/Vol] 53 mg/dL Normal [facility] Comment on above: Result Comment: Merissa onal Cholesterol Education Program (NCEP) guidelines: <40 mg/dL: Low HDL-cholesterol (major risk factor for CHD) >= 60 mg/dL: High HDL-cholesterol (negative risk factor for CHD) HDL-cholesterol is affected by a number of factors, e.g. smoking, exercise, hormones, sex and age. Performed By: #### M 100.7900, L7000.0300, L7000.0750 #### [facility] [address] [place], [address] Cholesterol in LDL [Mass/Vol] 59 mg/dL Normal [facility] Comment on above: Result Comment: Bord dnsmwu=730-181 mg/dL Higher Okix=783 mg/dL or greater Performed By: #### M 100.7900, L7000.0300, L7000.0750 #### [facility] [address] [place], [address] Cholesterol in VLDL [Mass/Vol] 21 mg/dL Normal 5-40 [facility] Comment on above: Performed By: #### M 100.7900, L7000.0300, L7000.0750 #### [facility] [address] [place], [address] Triglyceride [Mass/Vol] 105 mg/dL Normal [facility] Comment on above: Result Comment: The drugs N-Acetylcysteine and Metamizole may falsely depress this assay. Normal range: <150 mg/dL Borderline High: 150-199 mg/dL High: 200-499 mg/dL Very High: >500 mg/dL Performed By: #### M 100.7900, L7000.0300, L7000.0750 #### [facility] [address] [place], [address] PSA,Total- Diagnosticon 09-14 PSA, DIAGNOSTIC 0.39 ng/mL Normal 0.00-4.00 [facility] Comment on above: Result Comment: This [...] confirm baseline values. Performed By: #### L 500.4050, L500.4100, L501.9940, L502.0250, L501.1400 #### [facility] [address] [place], [address] Uric Acidon 09-29-2024 URIC 4.5 mg/dL Normal 3.5-7.2 [facility] Comment on above: Result Comment: The drugs N-Acetylcysteine and Metamizole may falsely depress this assay. Performed By: #### M 100.7900, L7000.0300, L7000.0750 #### [facility] [address] [place], [address] Knee 4 or More Viewson 09-06 Knee 4 or More Views [facility] Imaging Services [address] [place] [address] Knee 4 or More Views MR#: [id number] Acct: [id number] Name: BRENTON MAGANA Rep #: [id number] : 1945 M 78 From: Bruno Boo MD PCP: Bernabe Rodriguez, LONG-C Status: REG CLI Study: Knee 4 or More Views Date of Exam: 09/06/24 Exam# [id number] Ordering Dr: Fadia Perry EXAM: XR Right [...] IMPRESSION: Degenerative changes as above. Reading [facility] CC: MAYONNAISE MIXER-C Bernabe Rodriguez; Fadia Perry Retail Wireless Associate: Signed Normal [facility] L7000.0750on 07-28-2024 P ELASTASE,FECA > 800 Normal >200 [facility] Comment on above: Result Comment: Resu lt Units: ug Elast./g Severe Pancreatic Insufficiency: <100 Moderate Pancreatic Insufficiency: 100 - 200 Normal: >200 Performed By: #### M 100.7900, L7000.0300, L7000.0750 #### [facility] [address] [place], [address] Fecal Fat, Qualitativeon FATS, NEUTRAL Normal Normal . [facility] Comment on above: Order Comment: Test( s) 781494-Hcnl, Neutral; 624487-Gqzk, Total was developed and its performance characteristics determined by [employer]. It has not been cleared or approved by the Food and Drug Administration. Result Comment: Norm al (<60 Droplets/HPF) Performed By: #### M 100.7900, L7000.0300, L7000.0750 #### [facility] [address] [place], [place], [address] FATS, TOTAL Normal Normal . [facility] Comment on above: Order Comment: Test( s) 409014-Mitd, Neutral; 915621-Pbxq, Total was developed and its performance characteristics determined by [employer]. It has not been cleared or approved by the Food and Drug Administration. Result Comment: Norm al (<100 Droplets/HPF) Performed at: [facility] [address], [place] [id number] [employer] Mechanic Helper: Ramón Christopher PhD, Phone: [phone] Performed By: #### M 100.7900, L7000.0300, L7000.0750 #### [facility] [address] [place], [place], [address] Elastase.pancreatic (Stl) [M ass/Mass]Ordered By: Ramón Martins on 07-20-2024 Stool Pancreatic Elastase > 800 >200 [facility] Comment on above: Result Units: ug Ada st./g Severe Pancreatic Insufficiency: <100 Moderate Pancreatic Insufficiency: 100 - 200 Normal: >200 Fat Ql (Stl)Ordered By: Oanh Martins on 07-20-2024 Stool Total Fats Normal . [facility] Comment on above: Normal (<100 Droplet s/HPF)Performed at: [address] [id number] Director: Ramón Christopher PhD, Phone: [phone] Lower GI hemoglobin IA Ql (S tl)Ordered By: Ramón Martins on 07-20-2024 Stool Occult Blood (ROSEANNE) [facility] No Panel InformationOrdered By: Ramón Martins on 07-20-2024 Stool Neutral Fats Normal . [facility] Comment on above: Normal (<60 Droplets /HPF) Stool Occult Blood iFOBon STOB Negative Normal [facility] Comment on above: Performed By: #### M 100.7900, L7000.0300, L7000.0750 #### [facility] [address] [place], [address] Celiac Disease Profileon ENDOMYSIAL IGA Negative Normal Negative [facility] Comment on above: Performed By: #### M 100.7900, L7000.0300, L7000.0750 #### [facility] [address] [place], [place], [id number] IMMUNOGLOB A QN 37 mg/dL Low 61-437 [facility] Comment on above: Result Comment: Resu lt confirmed on concentration. Performed By: #### M 100.7900, L7000.0300, L7000.0750 #### [facility] [address] [place], [place], [address] tTG IGA <2 Normal 0-3 [facility] Comment on above: Result Comment: Nega tive 0 - 3 Weak Positive 4 - 10 Positive >10 Tissue Transglutaminase (tTG) has been identified as the endomysial antigen. Studies have demonstr- ated that endomysial IgA antibodies have over 99% specificity for gluten sensitive enteropathy. Performed By: #### M 100.7900, L7000.0300, L7000.0750 #### [facility] [address] [place], [place], [address] tTG IGG <2 Normal 0-5 [facility] Comment on above: Result Comment: Nega tive 0 - 5 Weak Positive 6 - 9 Positive >9 Performed at: [address] [id number] [employer] Mechanic Helper: Ramón Christopher PhD, Phone: [phone] Performed By: #### M 100.7900, L7000.0300, L7000.0750 #### [facility] [address] [place], [place], [address] C-reactive protein measureme nt by high sensitivity methodOrdered By: Ramón Martins on 07-12-2024 C-Reactive Protein Extended Range < 2.90 mg/L 0.0-3.0 [facility] Comment on above: C-Reactive Protein ( CRP) provides useful information for thediagnosis, therapy and monitoring of inflammatory processesand associated diseases. For the evaluation of Relative Riskfor Cardiovascular Disease, a High Sensitivity CRP (HSCRP)should be ordered. CRPon 07-12-2024 C-REACTIVE PROT < 2.90 Normal 0.0-3.0 [facility] Comment on above: Result Comment: C-Re active Protein (CRP) provides useful information for the diagnosis, therapy and monitoring of inflammatory processes and associated diseases. For the evaluation of Relative Risk for Cardiovascular Disease, a High Sensitivity CRP (HSCRP) should be ordered. Performed By: #### M 100.7900, L7000.0300, L7000.0750 #### [facility] [address] [place], [place], [address] Endomysial IgA antibody assa yOrdered By: Ramón Martins on 07-12-2024 Endomysial IgA Antibody Negative Negative [facility] IgA [Mass/Vol]Ordered By: Naheed Martins on 07-12-2024 Immunoglobulin A 37 mg/dL Low 61-437 [facility] Comment on above: Result confirmed on concentration. No Panel InformationOrdered By: Ramón Martins on 07-12-2024 Tissue Transglutaminase IgG Ab <2 U/mL 0-5 [facility] Comment on above: Negative 0 - 5 Weak Positive 6 - 9 Positive >9Performed at: - [facility] [id number] Director: Ramón Christopher PhD, Phone: [phone] tTG IgA Qn (S)Ordered By: Naheed Martins on 07-12-2024 Tissue Transglutaminase IgA Ab <2 U/mL 0-3 [facility] Comment on above: Negative 0 - 3 Weak Positive 4 - 10 Positive >10 Tissue Transglutaminase (tTG) has been identified as the endomysial antigen. Studies have demonstr- ated that endomysial IgA antibodies have over 99% specificity for gluten sensitive enteropathy. Basophil percentageOrdered B y: Bernabe Jennifer on 2023 Basophil percentage < 1.0 mg/dL 0.70-1.30 [facility] No Panel InformationOrdered By: Bernabe Rodriguez on 2023 Bedside Estimated GFR (eGFR) > 60.0000 mL/min >60 [facility] Basophil percentageOrdered B y: Bernabe Jennifer on 09-02-2023 Bilirubin [Mass/Vol] 0.50 mg/dL 0.20-1.00 [facility] Comment on above: For patients on eltr ombopag therapy, use of Dimension Kountze TBIL is not recommended. Chloride [Moles/Vol] 105 mmol/L 98-107 [facility] Cholesterol [Mass/Vol] 136 mg/dL <200 [facility] Comment on above: <200 mg/dL Desirable 200-240 mg/dL Borderline >240 mg/dL High Risk Glucose [Mass/Vol] 92 mg/dL 74-106 [facility] Potassium [Moles/Vol] 3.8 mmol/L 3.5-5.1 [facility] Protein [Mass/Vol] 7.0 g/dL 6.4-8.2 [facility] Sodium [Moles/Vol] 141 mmol/L 136-145 [facility] Triglyceride [Mass/Vol] 116 mg/dL <199 [facility] Comment on above: The drugs N-Acetylcy steine and Metamizole may falsely depress this assay.Serum Triglycerides Reference Interval Normal <150 mg/dL Borderline high 150 - 199 mg/dL High 200 - 499 mg/dL Very High > or = 500 mg/dL Laboratory - Chemistry and C hemistry - challengeOrdered By: Bernabe Rodriguez on 09-02-2023 Albumin/Globulin [Mass ratio] 1.0 {ratio} 0.9-2.4 [facility] ALP [Catalytic activity/Vol] 56 U/L 45-117 [facility] ALT [Catalytic activity/Vol] 23 U/L 16-61 [facility] Cholesterol in HDL [Mass/Vol] 50 mg/dL >40 [facility] Comment on above: The drugs N-Acetylcy steine and Metamizole may falsely depress this assay. Reference Range HDL <40 mg/dL Low HDL Cholesterol HDL >or= 60 mg/dL High HDL Cholesterol Cholesterol in LDL [Mass/Vol] 63 mg/dL 0-130 [facility] CO2 [Moles/Vol] 24.0 mmol/L 21.0-32.0 [facility] Globulin (S) [Mass/Vol] 3.5 g/dL 2.2-4.2 [facility] Urea nitrogen/Creatinine [Mass ratio] 22.6 mg/mg 10-20 [facility] No Panel InformationOrdered By: Bernabe Rodriguez on 09-02-2023 Estimated GFR (MDRD) Amer 121 mL/min >60 [facility] Comment on above: GFR Calc Estimated GFR (MDRD) Non-Af Amer 100 mL/min >60 [facility] Comment on above: Non- GFR Calc Prostate Specific Antigen Screen 0.41 ng/mL 0.00-4.00 [facility] Comment on above: This test was perfor med using the TPSA assay method for theTravellution chemistry system. Values obtained with differentassay methods cannot be used interchangably.When changing PSA assays in the course of monitoring apatient, additional sequential testing should be carriedout to confirm baseline values. Urine Microalbumin/Creatinine Ratio 158.9 mg/g CRE <30 [facility] VLDL Cholesterol 23 mg/dL 5-40 [facility] Serum or plasma calcium mateo urement (mass/volume)Ordered By: Bernabe Rodriguez on 09-02-2023 Calcium [Mass/Vol] 9.4 mg/dL 8.5-10.1 [facility] Serum or plasma creatinine m easurement (mass/volume)Ordered By: Bernabe Rodriguze on 09-02-2023 Creatinine [Mass/Vol] 0.80 mg/dL 0.70-1.30 [facility] Comment on above: The validity of the calculated GFR & GFRAA in patients over 70 years has not been determined. Clinical correlation is essential. Serum or plasma urea nitroge n measurement (mass/volume)Ordered By: Bernabe Rodriguez on 09-02-2023 Urea nitrogen [Mass/Vol] 18 mg/dL 7-18 [facility] Serum or plasma uric acid me asurement (mass/volume)Ordered By: Bernabe Rodriguez on 09-02-2023 Urate [Mass/Vol] 4.7 mg/dL 3.5-7.2 [facility] Comment on above: The drugs N-Acetylcy steine and Metamizole may falsely depress this assay. Thin prep Papanicolaou smear with manual screeningOrdered By: Bernabe Rodriguez on 09-02-2023 Thin prep Papanicolaou smear with manual screening 3.5 g/dL 3.2-5.0 [facility] Thin prep Papanicolaou smear with manual screening 15 U/L 15-37 [facility] Thin prep Papanicolaou smear with manual screening 12 5-15 [facility] Thin prep Papanicolaou smear with manual screening 38.3 mg/L NO RANGE EST. [facility] Urine creatinine measurement (mass/volume)Ordered By: Bernabe Rodriguez on 09-02-2023 Creatinine (U) [Mass/Vol] 24.10 mg/dL NO RANGE EST. [facility] Absolute lymphocyte countOrd ered By: Yony Moody on 04-18-2023 Lymphocytes Auto (Unsp spec) [#/Vol] 1.33 10*3/uL 0.83-4.51 [facility] Basophil percentageOrdered B y: Yony Moody on 04-18-2023 Basophils/100 WBC (Bld) 0.6 % 0-1 [facility] Bilirubin [Mass/Vol] 0.40 mg/dL 0.20-1.00 [facility] Comment on above: For patients on eltr ombopag therapy, use of Dimension Kountze TBIL is not recommended. Chloride [Moles/Vol] 111 mmol/L 98-107 [facility] Eosinophils/100 WBC (Bld) 4.2 % 0-5 [facility] Glucose [Mass/Vol] 94 mg/dL 74-106 [facility] Neutrophils (Bld) [#/Vol] 4.7 10*3/uL 2.0-7.7 [facility] Neutrophils/100 WBC (Bld) 66.5 % 47-70 [facility] Potassium [Moles/Vol] 3.7 mmol/L 3.5-5.1 [facility] Protein [Mass/Vol] 7.4 g/dL 6.4-8.2 [facility] Sodium [Moles/Vol] 142 mmol/L 136-145 [facility] WBC (Bld) [#/Vol] 7.1 10*3/uL 4.4-11.0 [facility] Blood erythrocytes count (nu mber/volume)Ordered By: Yony Moody on 04-18-2023 RBC (Bld) [#/Vol] 4.82 10*6/uL 4.6-6.[address] [facility] Blood hemoglobin measurement (mass/volume)Ordered By: Yony Moody on 04-18-2023 Hemoglobin (Bld) [Mass/Vol] 14.2 g/dL 13.0-16.5 [facility] Blood lymphocytes/100 leukoc ytesOrdered By: Yony Moody on 04-18-2023 Lymphocytes/100 WBC (Bld) 18.7 % 19-41 [facility] Blood monocytes/100 leukocyt esOrdered By: Yony Moody on 04-18-2023 Monocytes/100 WBC (Bld) 9.6 % 0-10 [facility] [place] [facility] Blood platelet mean volumeOr dered By: Yony Moody on 04-18-2023 Platelet mean volume (Bld) [Entitic vol] 10.2 fL 6.2-12.0 [facility] Determination of erythrocyte mean corpuscular volume (MCV)Ordered By: Yony Moody on 04-18-2023 MCV (RBC) [Entitic vol] 93.2 fL 80-94 [facility] [place] [facility] Hematocrit Auto (Bld) [Volum e fraction]Ordered By: Yony Moody on 04-18-2023 Hematocrit (Bld) [Volume fraction] 44.9 % 40-54 [facility] Laboratory - Chemistry and C hemistry - challengeOrdered By: Yony Moody on 04-18-2023 ALP [Catalytic activity/Vol] 58 U/L 45-117 [facility] ALT [Catalytic activity/Vol] 35 U/L 16-61 [facility] CO2 [Moles/Vol] 28.0 mmol/L 21.0-32.0 [facility] Globulin (S) [Mass/Vol] 3.6 g/dL 2.2-4.2 [facility] [place] [facility] Urea nitrogen/Creatinine [Mass ratio] 19.0 mg/mg 10-20 [facility] Laboratory - Hematology and Cell countsOrdered By: Yony Moody on 04-18-2023 Erythrocyte distribution width (RBC) [Entitic vol] 51.1 fL 35.1-43.9 [facility] Erythrocyte distribution width (RBC) [Ratio] 14.8 % 11.6-14.6 [facility] Immature granulocytes/100 WBC (Bld) 0.400 % 0.0-0.9 [facility] Comment on above: IG% - Immature Granu locytes (promyelocytes, myelocytes and metamyelocytes) > 1% indicates that a LEFT SHIFT is Present. MCH (RBC) [Entitic mass] 29.5 pg 27.0-32.0 [facility] Nucleated RBC/100 WBC (Bld) [Ratio] 0 % 0-5 [facility] MCHC Auto (RBC) [Mass/Vol]Or dered By: Yony Moody on 04-18-2023 MCHC (RBC) [Mass/Vol] 31.6 g/dL 32-36 [facility] No Panel InformationOrdered By: Yony Moody on 04-18-2023 Estimated GFR (MDRD) Amer 106 mL/min >60 [facility] Comment on above: GFR Calc Estimated GFR (MDRD) Non-Af Amer 88 mL/min >60 [facility] Comment on above: Non- GFR Calc Platelets bldOrdered By: Johnny Moody on 04-18-2023 Platelets (Bld) [#/Vol] 306 10*3/uL 150-450 [facility] Serum or plasma albumin mateo urement (mass/volume)Ordered By: Yony Moody on 04-18-2023 Albumin [Mass/Vol] 3.8 g/dL 3.2-5.0 [facility] Serum or plasma albumin/glob ulin mass ratioOrdered By: Yony Moody on 04-18-2023 Albumin/Globulin [Mass ratio] 1.1 {ratio} 0.9-2.4 [facility] Serum or plasma calcium mateo urement (mass/volume)Ordered By: Yony Moody on 04-18-2023 Calcium [Mass/Vol] 9.8 mg/dL 8.5-10.1 [facility] Serum or plasma creatinine m easurement (mass/volume)Ordered By: Yony Moody on 04-18-2023 Creatinine [Mass/Vol] 0.89 mg/dL 0.70-1.30 [facility] Comment on above: The validity of the calculated GFR & GFRAA in patients over 70 years has not been determined. Clinical correlation is essential. Serum or plasma urea nitroge n measurement (mass/volume)Ordered By: Yony Moody on 04-18-2023 Urea nitrogen [Mass/Vol] 17 mg/dL 7-18 [facility] Thin prep Papanicolaou smear with manual screeningOrdered By: Yony Moody on 04-18-2023 Thin prep Papanicolaou smear with manual screening 21 U/L 15-37 [facility] Thin prep Papanicolaou smear with manual screening 3 5-15 [facility] Basophil percentageOrdered B y: Bernabe Rodriguez on 03-07-2023 Bilirubin [Mass/Vol] 0.40 mg/dL 0.20-1.00 [facility] Comment on above: For patients on eltr ombopag therapy, use of Dimension Kountze TBIL is not recommended. Chloride [Moles/Vol] 111 mmol/L 98-107 [facility] Cholesterol [Mass/Vol] 132 mg/dL <200 [facility] Comment on above: <200 mg/dL Desirable 200-240 mg/dL Borderline >240 mg/dL High Risk Glucose [Mass/Vol] 89 mg/dL 74-106 [facility] Potassium [Moles/Vol] 3.8 mmol/L 3.5-5.1 [facility] Protein [Mass/Vol] 6.9 g/dL 6.4-8.2 [facility] Sodium [Moles/Vol] 143 mmol/L 136-145 [facility] Triglyceride [Mass/Vol] 87 mg/dL <199 [facility] [place] [facility] Comment on above: The drugs N-Acetylcy steine and Metamizole may falsely depress this assay.Serum Triglycerides Reference Interval Normal <150 mg/dL Borderline high 150 - 199 mg/dL High 200 - 499 mg/dL Very High > or = 500 mg/dL Laboratory - Chemistry and C hemistry - challengeOrdered By: Bernabe Rodriguez on 03-07-2023 ALP [Catalytic activity/Vol] 53 U/L 45-117 [facility] ALT [Catalytic activity/Vol] 29 U/L 16-61 [facility] CO2 [Moles/Vol] 27.0 mmol/L 21.0-32.0 [facility] Globulin (S) [Mass/Vol] 3.0 g/dL 2.2-4.2 [facility] [place] [facility] Urea nitrogen/Creatinine [Mass ratio] 28.4 mg/mg 10-20 [facility] No Panel InformationOrdered By: Bernabe Rodriguez on 03-07-2023 Estimated GFR (MDRD) Amer 119 mL/min >60 [facility] Comment on above: GFR Calc Estimated GFR (MDRD) Non-Af Amer 98 mL/min >60 [facility] Comment on above: Non- GFR Calc Urine Microalbumin/Creatinine Ratio 34.4 mg/g CRE <30 [facility] Serum or plasma albumin mateo urement (mass/volume)Ordered By: Bernabe Rodriguez on 03-07-2023 Albumin [Mass/Vol] 3.9 g/dL 3.2-5.0 [facility] Serum or plasma albumin/glob ulin mass ratioOrdered By: Bernabe Rodriguez on 03-07-2023 Albumin/Globulin [Mass ratio] 1.3 {ratio} 0.9-2.4 [facility] Serum or plasma calcium mateo urement (mass/volume)Ordered By: Bernabe Rodriguez on 03-07-2023 Calcium [Mass/Vol] 9.2 mg/dL 8.5-10.1 [facility] Serum or plasma cholesterol in HDL measurement (mass/volume)Ordered By: Bernabe Rodriguez on 03-07-2023 Cholesterol in HDL [Mass/Vol] 53 mg/dL >40 [facility] Comment on above: The drugs N-Acetylcy steine and Metamizole may falsely depress this assay. Reference Range HDL <40 mg/dL Low HDL Cholesterol HDL >or= 60 mg/dL High HDL Cholesterol Serum or plasma cholesterol in VLDL measurement (mass/volume)Ordered By: Bernabe Rodriguez on 03-07-2023 Cholesterol in VLDL [Mass/Vol] 17 mg/dL 5-40 [facility] Serum or plasma creatinine m easurement (mass/volume)Ordered By: Bernabe Rodriguez on 03-07-2023 Creatinine [Mass/Vol] 0.81 mg/dL 0.70-1.30 [facility] Comment on above: The validity of the calculated GFR & GFRAA in patients over 70 years has not been determined. Clinical correlation is essential. Serum or plasma low density lipoprotein (LDL) cholesterol measurement (mass/volume)Ordered By: Bernabe Rodriguez on 03-07-2023 Cholesterol in LDL [Mass/Vol] 62 mg/dL 0-130 [facility] Serum or plasma urea nitroge n measurement (mass/volume)Ordered By: Bernabe Rodriguez on 03-07-2023 Urea nitrogen [Mass/Vol] 23 mg/dL 7-18 [facility] Serum or plasma uric acid me asurement (mass/volume)Ordered By: Bernabe Rodriguez on 03-07-2023 Urate [Mass/Vol] 4.5 mg/dL 3.5-7.2 [facility] Comment on above: The drugs N-Acetylcy steine and Metamizole may falsely depress this assay. Thin prep Papanicolaou smear with manual screeningOrdered By: Bernabe Rodriguez on 03-07-2023 Thin prep Papanicolaou smear with manual screening 15 U/L 15-37 [facility] Thin prep Papanicolaou smear with manual screening 5 5-15 [facility] Thin prep Papanicolaou smear with manual screening 26.7 mg/L NO RANGE EST. [facility] Urine creatinine measurement (mass/volume)Ordered By: Bernabe Rodriguez on 03-07-2023 Creatinine (U) [Mass/Vol] 77.70 mg/dL NO RANGE EST. [facility] Basophil percentageOrdered B y: Bernabe Rodriguez on 08-28-2022 Bilirubin [Mass/Vol] 0.50 mg/dL 0.20-1.00 [facility] Comment on above: For patients on eltr ombopag therapy, use of Dimension Kountze TBIL is not recommended. Chloride [Moles/Vol] 109 mmol/L 98-107 [facility] Cholesterol [Mass/Vol] 145 mg/dL <200 [facility] Comment on above: <200 mg/dL Desirable 200-240 mg/dL Borderline >240 mg/dL High Risk Glucose [Mass/Vol] 104 mg/dL 74-106 [facility] Comment on above: Fasting Glucose resu lt from 100 to 125 mg/dL suggests IMPAIRED HOMEOSTASIS per A.D.A. criteria. Potassium [Moles/Vol] 3.7 mmol/L 3.5-5.1 [facility] Protein [Mass/Vol] 6.7 g/dL 6.4-8.2 [facility] Sodium [Moles/Vol] 142 mmol/L 136-145 [facility] Triglyceride [Mass/Vol] 101 mg/dL <199 [facility] Comment on above: The drugs N-Acetylcy steine and Metamizole may falsely depress this assay.Serum Triglycerides Reference Interval Normal <150 mg/dL Borderline high 150 - 199 mg/dL High 200 - 499 mg/dL Very High > or = 500 mg/dL Laboratory - Chemistry and C hemistry - challengeOrdered By: Bernabe Rodriguez on 08-28-2022 ALP [Catalytic activity/Vol] 49 U/L 45-117 [facility] ALT [Catalytic activity/Vol] 34 U/L 16-61 [facility] CO2 [Moles/Vol] 26.0 mmol/L 21.0-32.0 [facility] Globulin (S) [Mass/Vol] 2.7 g/dL 2.2-4.2 [facility] Urea nitrogen/Creatinine [Mass ratio] 20.9 mg/mg 10-20 [facility] No Panel InformationOrdered By: Bernabe Rodriguez on 08-28-2022 Estimated GFR (MDRD) Amer 118 mL/min >60 [facility] Comment on above: GFR Calc Estimated GFR (MDRD) Non-Af Amer 98 mL/min >60 [facility] Comment on above: Non- GFR Calc Prostate Specific Antigen Screen 0.34 ng/mL 0.00-4.00 [facility] Comment on above: This test was perfor med using the TPSA assay method for theTravellution chemistry system. Values obtained with differentassay methods cannot be used interchangably.When changing PSA assays in the course of monitoring apatient, additional sequential testing should be carriedout to confirm baseline values. Serum or plasma albumin mateo urement (mass/volume)Ordered By: Bernabe Rodriguez on 08-28-2022 Albumin [Mass/Vol] 4.0 g/dL 3.2-5.0 [facility] Serum or plasma albumin/glob ulin mass ratioOrdered By: Bernabe Rodriguez on 08-28-2022 Albumin/Globulin [Mass ratio] 1.5 {ratio} 0.9-2.4 [facility] Serum or plasma calcium mateo urement (mass/volume)Ordered By: Bernabe Rodriguez on 08-28-2022 Calcium [Mass/Vol] 9.4 mg/dL 8.5-10.1 [facility] Serum or plasma cholesterol in HDL measurement (mass/volume)Ordered By: Bernabe Rodriguez on 08-28-2022 Cholesterol in HDL [Mass/Vol] 53 mg/dL >40 [facility] Comment on above: The drugs N-Acetylcy steine and Metamizole may falsely depress this assay. Reference Range HDL <40 mg/dL Low HDL Cholesterol HDL >or= 60 mg/dL High HDL Cholesterol Serum or plasma cholesterol in VLDL measurement (mass/volume)Ordered By: Bernabe Rodriguez on 08-28-2022 Cholesterol in VLDL [Mass/Vol] 20 mg/dL 5-40 [facility] Serum or plasma creatinine m easurement (mass/volume)Ordered By: Bernabe Rodriguez 08-28-2022 Creatinine [Mass/Vol] 0.81 mg/dL 0.70-1.30 [facility] Comment on above: The validity of the calculated GFR & GFRAA in patients over 70 years has not been determined. Clinical correlation is essential. Serum or plasma low density lipoprotein (LDL) cholesterol measurement (mass/volume)Ordered By: Bernabe Rodriguez on 08-28-2022 Cholesterol in LDL [Mass/Vol] 72 mg/dL 0-130 [facility] Serum or plasma urea nitroge n measurement (mass/volume)Ordered By: Bernabe Rodriguez 08-28-2022 Urea nitrogen [Mass/Vol] 17 mg/dL 7-18 [facility] Serum or plasma uric acid me asurement (mass/volume)Ordered By: Bernabe Rodriguez 08-28-2022 Urate [Mass/Vol] 4.3 mg/dL 3.5-7.2 [facility] Comment on above: The drugs N-Acetylcy steine and Metamizole may falsely depress this assay. Thin prep Papanicolaou smear with manual screeningOrdered By: Bernabe Rodriguez on 08-28-2022 Thin prep Papanicolaou smear with manual screening 24 U/L 15-37 [facility] Thin prep Papanicolaou smear with manual screening 7 5-15 [facility] Thin prep Papanicolaou smear with manual screening 67.5 mg/L NO RANGE EST. [facility] CNOVon 07-11-2022 CNOV Office Visit (PODIWS ) BRENTON MAGANA ([id number]) 1945 M Date Time Provider Department 07/11/22 [...] Duration Units: Months Frequency: Intermittent Intervention/Comfort measure: Reposition;Relaxation; Medication;Other: See comment inserts No results found for: HBA1C PCP: Jigar Suarez MD PAST MEDICAL HISTORY Diagnosis Date Hypertension Lesion of subcutaneous tissue 08/25/13 Back Current Outpatient Medications Medication Sig fenofibrate (LOFIBRA) 134 mg capsule Tadalafil 5 mg tablet Take 5 mg by mouth once daily. tamsulosin (FLOMAX) 0.4 mg Take 0.4 mg by mouth. pkakfti-hkjh-lzpuf-ore g-capryl 100 mg-150 mg- 50 mg-150 mg cap [...] needed. azelastine 0.1% nasal spray Use 1 [place] in each nostril twice daily. MOMETASONE FUROATE (NASONEX NASAL) Use in the nose once daily. HYDROcodone-acetaminop hen 5-325 mg per tablet 1 to 2 [...] back pain (more content not included)... 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 [employer]: [employer] Transcribe Date/Time: Jul 12 2022 1:31P Dictated by : ALEA LOGAN MD This examination was interpreted and the report reviewed and electronically signed by: ALEA LOGAN MD on Jul 12 2022 1:34PM EST [id number] Normal [facility] Basophil percentageon 2021 Bilirubin [Mass/Vol] 0.50 mg/dL 0.20-1.00 [facility] Work Phone: Comment on above: For patients on eltr ombopag therapy, use of Dimension Kountze TBIL is not recommended. Chloride [Moles/Vol] 108 mmol/L 98-107 [facility] Work Phone: Cholesterol [Mass/Vol] 146 mg/dL <200 [facility] Work Phone: Comment on above: <200 mg/dL Desirable 200-240 mg/dL Borderline >240 mg/dL High Risk Glucose [Mass/Vol] 89 mg/dL 74-106 [facility] Work Phone: Potassium [Moles/Vol] 3.7 mmol/L 3.5-5.1 [facility] Work Phone: Protein [Mass/Vol] 7.0 g/dL 6.4-8.2 [facility] Work Phone: Sodium [Moles/Vol] 142 mmol/L 136-145 [facility] Work Phone: Triglyceride [Mass/Vol] 90 mg/dL <199 [facility] [place] [facility] Work Phone: Comment on above: The drugs N-Acetylcy steine and Metamizole may falsely depress this assay.Serum Triglycerides Reference Interval Normal <150 mg/dL Borderline high 150 - 199 mg/dL High 200 - 499 mg/dL Very High > or = 500 mg/dL Laboratory - Chemistry and C hemistry - challengeon 02-20-2022 ALP [Catalytic activity/Vol] 50 U/L 45-117 [facility] Work Phone: ALT [Catalytic activity/Vol] 26 U/L 16-61 [facility] Work Phone: CO2 [Moles/Vol] 28.0 mmol/L 21.0-32.0 [facility] Work Phone: Globulin (S) [Mass/Vol] 3.1 g/dL 2.2-4.2 [facility] [place] [facility] Work Phone: Urea nitrogen/Creatinine [Mass ratio] 25.4 mg/mg 10-20 [facility] Work Phone: No Panel Informationon 02-20 Estimated GFR (MDRD) Amer 116 mL/min >60 [facility] Work Phone: Comment on above: GFR Calc Estimated GFR (MDRD) Non-Af Amer 96 mL/min >60 [facility] Work Phone: Comment on above: Non- GFR Calc Serum or plasma albumin mateo urement (mass/volume)on 02-20-2022 Albumin [Mass/Vol] 3.9 g/dL 3.2-5.0 [facility] Work Phone: Serum or plasma albumin/glob ulin mass ratioon 02-20-2022 Albumin/Globulin [Mass ratio] 1.3 {ratio} 0.9-2.4 [facility] Work Phone: Serum or plasma calcium mateo urement (mass/volume)on 02-20-2022 Calcium [Mass/Vol] 9.3 mg/dL 8.5-10.1 [facility] Work Phone: Serum or plasma cholesterol in HDL measurement (mass/volume)on 02-20-2022 Cholesterol in HDL [Mass/Vol] 48 mg/dL >40 [facility] Work Phone: Comment on above: The drugs N-Acetylcy steine and Metamizole may falsely depress this assay. Reference Range HDL <40 mg/dL Low HDL Cholesterol HDL >or= 60 mg/dL High HDL Cholesterol Serum or plasma cholesterol in VLDL measurement (mass/volume)on 02-20-2022 Cholesterol in VLDL [Mass/Vol] 18 mg/dL 5-40 [facility] Work Phone: Serum or plasma creatinine m easurement (mass/volume)on 02-20-2022 Creatinine [Mass/Vol] 0.83 mg/dL 0.70-1.30 [facility] Work Phone: Comment on above: The validity of the calculated GFR & GFRAA in patients over 70 years has not been determined. Clinical correlation is essential. Serum or plasma low density lipoprotein (LDL) cholesterol measurement (mass/volume)on 02-20-2022 Cholesterol in LDL [Mass/Vol] 80 mg/dL 0-130 [facility] Work Phone: Serum or plasma urea nitroge n measurement (mass/volume)on 02-20-2022 Urea nitrogen [Mass/Vol] 21 mg/dL 7-18 [facility] Work Phone: Serum or plasma uric acid me asurement (mass/volume)on 02-20-2022 Urate [Mass/Vol] 4.5 mg/dL 3.5-7.2 [facility] Work Phone: Comment on above: The drugs N-Acetylcy steine and Metamizole may falsely depress this assay. Thin prep Papanicolaou smear with manual screeningon 02-20-2022 Thin prep Papanicolaou smear with manual screening 16 U/L 15-37 [facility] Work Phone: Thin prep Papanicolaou smear with manual screening 6 5-15 [facility] Work Phone: .Auto Diffon 02-20-2021 Basophil, Absolute 0.00 10 3/mcL Normal 0.00-0.19 [facility] ([place]) Comment on above: Performed By: #### C BC, ADIFF, ANEU, URIC, LIPID, CMP #### [facility] [place] [address] [place], [place] [address] #### GFR #### [facility] [address] [place] [id number] Basophils/100 WBC (Bld) 0.4 % Normal 0.0-2.5 [facility] ([place]) Comment on above: Performed By: #### C BC, ADIFF, ANEU, URIC, LIPID, CMP #### [place] [address] #### GFR #### [address] [address] Eosinophil, Absolute 0.30 10 3/mcL Normal 0.00-0.40 [facility] ([place]) Comment on above: Performed By: #### C BC, ADIFF, ANEU, URIC, LIPID, CMP #### [place] [address] #### GFR #### [address] [address] Eosinophils/100 WBC (Bld) 4.1 % Normal 0.0-7.0 [facility] ([place]) Comment on above: Performed By: #### C BC, ADIFF, ANEU, URIC, LIPID, CMP #### [place] [address] #### GFR #### [address] [address] Lymphocyte, Absolute 1.20 10 3/mcL Normal 0.77-3.85 [facility] ([place]) Comment on above: Performed By: #### C BC, ADIFF, ANEU, URIC, LIPID, CMP #### [place] [address] #### GFR #### [address] [address] Lymphocytes/100 WBC (Bld) 16.2 % Normal 10.0-50.0 [facility] ([place]) Comment on above: Performed By: #### C BC, ADIFF, ANEU, URIC, LIPID, CMP #### [place] [address] #### GFR #### [address] [address] Monocyte, Absolute 0.50 10 3/mcL Normal 0.15-1.00 [facility] ([place]) Comment on above: Performed By: #### C BC, ADIFF, ANEU, URIC, LIPID, CMP #### [address] [address] #### GFR #### [address] [address] Monocytes/100 WBC (Bld) 7.0 % Normal 1.7-13.0 [facility] ([place]) Comment on above: Performed By: #### C BC, ADIFF, ANEU, URIC, LIPID, CMP #### [address] [address] #### GFR #### [address] [address] Neutrophils/100 WBC (Bld) 72.3 % Normal 37.0-80.0 [facility] ([place]) Comment on above: Performed By: #### C BC, ADIFF, ANEU, URIC, LIPID, CMP #### [address] [address] #### GFR #### [address] [address] .GFRon 02-20-2021 GFR Non- 82 ml/min/1.73sqm Normal [facility] ([place]) Comment on above: Result Comment: GFR Population [...] BC, ADIFF, ANEU, URIC, LIPID, CMP #### [address] [address] #### GFR #### [address] [address] GFR 100 ml/min/1.73sqm Normal [facility] ([place]) Comment on above: Result Comment: GFR Population [...] BC, ADIFF, ANEU, URIC, LIPID, CMP #### [address] [address] #### GFR #### [place] [id number] .NEUABSon 02-20-2021 Neutrophil, Absolute 5.30 10 3/mcL Normal 2.85-6.16 [facility] ([place]) Comment on above: Performed By: #### C BC, ADIFF, ANEU, URIC, LIPID, CMP #### [address] [address] #### GFR #### [address] [address] CBCon 02-20-2021 Erythrocyte distribution width (RBC) [Ratio] 14.9 % High 11.5-14.5 [facility] ([place]) Comment on above: Performed By: #### C BC, ADIFF, ANEU, URIC, LIPID, CMP #### [address] [address] #### GFR #### [address] [address] Hematocrit (Bld) [Volume fraction] 42.9 % Normal 42.0-52.0 [facility] ([place]) Comment on above: Performed By: #### C BC, ADIFF, ANEU, URIC, LIPID, CMP #### [place] [address] #### GFR #### [place] [address] Hgb 14.2 G/dL Normal 14.0-18.0 [facility] ([place]) Comment on above: Performed By: #### C BC, ADIFF, ANEU, URIC, LIPID, CMP #### [place] [address] #### GFR #### [place] [address] MCH (RBC) [Entitic mass] 30.8 pg Normal 27.0-31.2 [facility] ([place]) Comment on above: Performed By: #### C BC, ADIFF, ANEU, URIC, LIPID, CMP #### [place] [address] #### GFR #### [place] [address] MCHC 33.1 G/dL Normal 31.8-35.4 [facility] ([place] Comment on above: Performed By: #### C BC, ADIFF, ANEU, URIC, LIPID, CMP #### [place] [address] #### GFR #### [place] [address] MCV (RBC) [Entitic vol] 93.1 fL Normal 80.0-94.0 [facility] ([place]) Comment on above: Performed By: #### C BC, ADIFF, ANEU, URIC, LIPID, CMP #### [place] [address] #### GFR #### [place] [address] Platelet 274 10 3/mcL Normal 130-400 [facility] ([place]) Comment on above: Performed By: #### C BC, ADIFF, ANEU, URIC, LIPID, CMP #### [place] [id number] #### GFR #### [place] [address] Platelet mean volume (Bld) [Entitic vol] 8.7 fL Normal 7.4-10.4 [facility] ([place] Comment on above: Performed By: #### C BC, ADIFF, ANEU, URIC, LIPID, CMP #### [place] [address] #### GFR #### [place] [address] RBC 4.60 10 6/mcL Normal 4.04-6.13 [facility] ([place] Comment on above: Performed By: #### C BC, ADIFF, ANEU, URIC, LIPID, CMP #### [place] [address] #### GFR #### [place] [address] WBC 7.30 10 3/mcL Normal 4.60-10.80 [facility] ([place] Comment on above: Performed By: #### C BC, ADIFF, ANEU, URIC, LIPID, CMP #### [place] [address] #### GFR #### [place] [address] CMPon 02-20-2021 Albumin Level 4.3 G/dL Normal 3.4-4.8 [facility] ([place] Comment on above: Performed By: #### C BC, ADIFF, ANEU, URIC, LIPID, CMP #### [place] [address] #### GFR #### [place] [address] Albumin/Globulin [Mass ratio] 1.6 {ratio} Normal 1.1-2.5 [facility] ([place] Comment on above: Performed By: #### C BC, ADIFF, ANEU, URIC, LIPID, CMP #### [place] [address] #### GFR #### [address] [address] ALP [Catalytic activity/Vol] 66 U/L Normal 40-135 [facility] ([place]) Comment on above: Performed By: #### C BC, ADIFF, ANEU, URIC, LIPID, CMP #### [address] [address] #### GFR #### [address] [address] ALT [Catalytic activity/Vol] 56 U/L Normal 16-63 [facility] ([place]) Comment on above: Performed By: #### C BC, ADIFF, ANEU, URIC, LIPID, CMP #### [address] [address] #### GFR #### [address] [address] AST [Catalytic activity/Vol] 28 U/L Normal 10-40 [facility] ([place] Comment on above: Performed By: #### C BC, ADIFF, ANEU, URIC, LIPID, CMP #### [address] [address] #### GFR #### [address] [address] Bili Total 0.5 mg/dL Normal 0.2-1.0 [facility] ([place]) Comment on above: Result Comment: Use of this assay is not recommended for patients undergoing treatment with eltrombopag due to the potential for falsely elevated results. Performed By: #### C BC, ADIFF, ANEU, URIC, LIPID, CMP #### [address] [address] #### GFR #### [address] [address] BUN/Creatinine Ratio 23 ratio Normal 7-27 [facility] ([place]) Comment on above: Performed By: #### C BC, ADIFF, ANEU, URIC, LIPID, CMP #### [address] [address] #### GFR #### [address] [address] Calcium [Mass/Vol] 9.6 mg/dL Normal 8.4-10.2 [facility] ([place]) Comment on above: Performed By: #### C BC, ADIFF, ANEU, URIC, LIPID, CMP #### [address] [address] #### GFR #### [address] [address] Chloride [Moles/Vol] 105 mmol/L Normal 98-107 [facility] ([place]) Comment on above: Performed By: #### C BC, ADIFF, ANEU, URIC, LIPID, CMP #### [address] [address] #### GFR #### [place] [address] CO2 [Moles/Vol] 28 mmol/L Normal 23-31 [facility] ([place]) Comment on above: Performed By: #### C BC, ADIFF, ANEU, URIC, LIPID, CMP #### [address] [address] #### GFR #### [place] [address] Creatinine [Mass/Vol] 0.90 mg/dL Normal 0.70-1.30 [facility] ([place]) Comment on above: Performed By: #### C BC, ADIFF, ANEU, URIC, LIPID, CMP #### [place] [address] #### GFR #### [place] [address] Electrolyte Balance 10.0 mEq/L Normal [facility] ([place]) Comment on above: Performed By: #### C BC, ADIFF, ANEU, URIC, LIPID, CMP #### [address] [address] #### GFR #### [place] [address] Globulin 2.7 G/dL Normal [facility] ([place]) Comment on above: Performed By: #### C BC, ADIFF, ANEU, URIC, LIPID, CMP #### [address] [address] #### GFR #### [address] [address] Glucose [Mass/Vol] 94 mg/dL Normal 83-110 [facility] [place] Comment on above: Performed By: #### C BC, ADIFF, ANEU, URIC, LIPID, CMP #### [place] [address] #### GFR #### [address] [address] Potassium [Moles/Vol] 3.8 mmol/L Normal 3.5-5.1 [facility] ([place]) Comment on above: Performed By: #### C BC, ADIFF, ANEU, URIC, LIPID, CMP #### [place] [address] #### GFR #### [address] [address] Sodium [Moles/Vol] 143 mmol/L Normal 136-145 [facility] [place] Comment on above: Performed By: #### C BC, ADIFF, ANEU, URIC, LIPID, CMP #### [place] [address] #### GFR #### [address] [address] Total Protein 7.0 G/dL Normal 6.4-8.2 [facility] ([place]) Comment on above: Performed By: #### C BC, ADIFF, ANEU, URIC, LIPID, CMP #### [address] [address] #### GFR #### [address] [address] Urea nitrogen [Mass/Vol] 21 mg/dL High 7-18 [facility] ([place]) Comment on above: Performed By: #### C BC, ADIFF, ANEU, URIC, LIPID, CMP #### [place] [address] #### GFR #### [address] [address] LIPIDon 02-20-2021 Cholesterol [Mass/Vol] 155 mg/dL Normal 0-200 [facility] ([place]) Comment on above: Result Comment: Chol esterol Reference Interval: Less than 200 Desirable 200-239 Borderline high risk 240 and above High risk Performed By: #### C BC, ADIFF, ANEU, URIC, LIPID, CMP #### [place] [address] #### GFR #### [address] [address] Cholesterol in HDL [Mass/Vol] 54 mg/dL Normal 40-60 [facility] ([place]) Comment on above: Performed By: #### C BC, ADIFF, ANEU, URIC, LIPID, CMP #### [place] [address] #### GFR #### [place] [address] Cholesterol in LDL [Mass/Vol] 85 mg/dL Normal 0-130 [facility] ([place]) Comment on above: Performed By: #### C BC, ADIFF, ANEU, URIC, LIPID, CMP #### [place] [address] #### GFR #### [address] [address] Triglyceride [Mass/Vol] 82 mg/dL Normal 0-150 [facility] ([place]) Comment on above: Result Comment: Trig lyceride Reference Interval: Less than 150 Normal 150-199 Borderline high risk 200-499 High risk 500 or higher Very high risk Performed By: #### C BC, ADIFF, ANEU, URIC, LIPID, CMP #### [place] [address] #### GFR #### [address] [address] URICon 02-20-2021 Uric Acid Lvl 4.7 mg/dL Normal 3.5-7.2 [facility] ([place]) Comment on above: Performed By: #### C BC, ADIFF, ANEU, URIC, LIPID, CMP #### [place] [id number] [place], [place] [address] #### GFR #### [address] [address] Vital Signs Date Time Vital Sign Value Performing Clinician Jeovany montejo 04-04-2025 09:31-0400 Diastolic blood pressure 78 mm[Hg] Bernabe Tonypkins [employer] Work Phone: [facility] 04-04-2025 09:31-0400 Systolic blood pressure 136 mm[Hg] Bernabe Hidalgo [employer] Work Phone: [facility] 04-04-2025 08:07-0400 Body mass index (BMI) [Ratio] 44.9 kg/m2 Bernabe Tonypkins [employer] Work Phone: [facility] 04-04-2025 08:07-0400 Body weight 115.21 kg Bernabe Tonypkins [employer] Work Phone: [facility] 04-04-2025 08:07-0400 Heart rate 69 /min Bernabe Jennifer [employer] Work Phone: [facility] 04-04-2025 08:07-0400 Respiratory rate 20 /min Bernabe Tonypkins [employer] Work Phone: [facility] 04-04-2025 08:07-0400 SaO2% (BldA) [Mass fraction] 92 % Bernabe Hidalgo [employer] Work Phone: [facility] 03-22-2025 12:04-0400 Body height 160.02 cm Bernabe Tonypkins [employer] Work Phone: [facility] 03-22-2025 12:04-0400 Body weight 114.75 kg Bernabe Tonypkins [employer] Work Phone: [facility] 03-21-2025 08:18-0400 Body mass index (BMI) [Ratio] 44.8 kg/m2 Bernabe Jennifer [employer] Work Phone: [facility] 03-14-2025 07:33-0400 Body height 160.02 cm Bernabe Tonypkins [employer] Work Phone: [facility] 03-14-2025 07:33-0400 Body mass index (BMI) [Ratio] 44.8 kg/m2 Bernabe Tonypkins [employer] Work Phone: [facility] 03-14-2025 07:33-0400 Body weight 114.75 kg Bernabe Tonypkins [employer] Work Phone: [facility] 03-14-2025 07:33-0400 Diastolic blood pressure 97 mm[Hg] Bernabe Tonypkins [employer] Work Phone: [facility] 03-14-2025 07:33-0400 Heart rate 64 /min Bernabe Tonypkins [employer] Work Phone: [facility] 03-14-2025 07:33-0400 Respiratory rate 18 /min Bernabe Tonypkins [employer] Work Phone: [facility] 03-14-2025 07:33-0400 SaO2% (BldA) [Mass fraction] 95 % Bernabe Tonypkins [employer] Work Phone: [facility] 03-14-2025 07:33-0400 Systolic blood pressure 155 mm[Hg] Bernabe Hidalgo [employer] Work Phone: [facility] 02-02-2025 15:41-0400 Body height 160.02 cm Bernabe Tonypkins [employer] Work Phone: [facility] 02-02-2025 15:41-0400 Body mass index (BMI) [Ratio] 44.9 kg/m2 Bernabe Tonypkins [employer] Work Phone: [facility] 02-02-2025 15:41-0400 Body weight 115.21 kg Bernabe Jennifer [employer] Work Phone: [facility] 02-02-2025 15:41-0400 Diastolic blood pressure 79 mm[Hg] Bernabe Tonypkins [employer] Work Phone: [facility] 02-02-2025 15:41-0400 Heart rate 61 /min Bernabe Tonypkins [employer] Work Phone: [facility] 02-02-2025 15:41-0400 Respiratory rate 16 /min Bernabe Jennifer [employer] Work Phone: [facility] 02-02-2025 15:41-0400 Systolic blood pressure 132 mm[Hg] Bernabe Tonypkins [employer] Work Phone: [facility] 04-18-2023 08:59-0400 Body height 162.56 cm [employer] Bernabe Tonypkins [employer] Work Phone: [facility] 04-18-2023 08:59-0400 Body mass index (BMI) [Ratio] 44.4 kg/m2 [employer] Bernabe Hidalgo [employer] Work Phone: [facility] 04-18-2023 08:59-0400 Body temperature 97.7 [degF] [employer] Bernabe Tonypkins [employer] Work Phone: [facility] 04-18-2023 08:59-0400 Body weight 117.53 kg [employer] Bernabe Tonypkins [employer] Work Phone: [facility] 04-18-2023 08:59-0400 Diastolic blood pressure 75 mm[Hg] [employer] Bernabe Hidalgo [employer] Work Phone: [facility] 04-18-2023 08:59-0400 Heart rate 69 /min [employer] Bernabe Hidalgo [employer] Work Phone: [facility] 04-18-2023 08:59-0400 Respiratory rate 18 /min [employer] Bernabe Tonypkins [employer] Work Phone: [facility] 04-18-2023 08:59-0400 SaO2% (BldA) [Mass fraction] 95 % [employer] Bernabe Jennifer [employer] Work Phone: [facility] 04-18-2023 08:59-0400 Systolic blood pressure 139 mm[Hg] [employer] Bernabe Hidalgo [employer] Work Phone: [facility] Encounters Encounter Date Encounter Type Care Provider Facility Start: 04-25-2025 ambulatory Jerry Romo Facility :[facility] Start: 04-04-2025 End: 04-04-2025 Patient encounter procedure Jerry Romo PA -[facility] Work Phone: Start: 04-04-2025 End: 04-04-2025 ambulatory Bernabe Tonypkins [employer] Work Phone: -[facility] Start: 03-31-2025 End: 03-31-2025 Patient encounter procedure Bernabe Rodriguez [employer] -Laboratory Work Phone: Start: 03-31-2025 End: 03-31-2025 ambulatory Bernabe Rodriguez [employer] Facility:[facility] Start: 03-22-2025 End: 03-22-2025 Admission to same day surgery center Dr. Seun Bledsoe MD -[facility] [employer]Special Procedures Work Phone: Start: 03-22-2025 End: 03-22-2025 ambulatory Bernabe Rodriguez [employer] Work Phone: -[employer] Start: 03-14-2025 End: 03-14-2025 Patient encounter procedure Jerry Romo PA -[facility] Work Phone: Start: 03-14-2025 End: 03-14-2025 ambulatory Bernabe Rodriguez [employer] Work Phone: -[facility] Start: 03-04-2025 ambulatory Bernabe Rodriguez [employer] Facility:[facility] Start: 03-04-2025 Non-patient / Non-visit Dr. Pearl SONG -[facility] Start: 03-04-2025 End: 03-04-2025 ambulatory Bernabe Rodriguez [employer] Work Phone: -Cardiovascular Services Start: 03-04-2025 End: 03-04-[address] Seun Bledsoe MD -Cardiovascular Services Work Phone: Start: 03-04-2025 End: 03-04-2025 ambulatory Bernabe Rodriguez [employer] Facility:[facility] Start: 02-03-2025 End: 02-03-2025 ambulatory Bernabe Rodriguez [employer] Work Phone: -[facility] Start: 02-03-2025 End: 02-03-2025 Patient encounter procedure Bernabe Rodriguez [employer] -[facility] Work Phone: Start: 02-02-2025 End: 02-02-[address] Seun Bledsoe MD -[facility] Work Phone: Start: 02-02-2025 End: 02-03-2025 ambulatory Bernabe Rodriguez [employer] Work Phone: -[facility] Start: 12-24-2024 ambulatory Bernabe Rodriguez [employer] Facility:[facility] Start: 09-29-2024 End: 09-29-2024 ambulatory Bernabe Brenton Rodriguez [employer] Facility:[facility] Start: 09-06-2024 End: 09-06-2024 ambulatory Bernabe Rodriguez [employer] Work Phone: [facility] Work Phone: Start: 09-06-2024 End: 09-06-2024 Patient encounter procedure Fadia Perry -Radiology, [facility] Work Phone: Start: 09-06-2024 End: 09-06-2024 ambulatory Bernabe Rodriguez [employer] Facility:[facility] Start: 07-20-2024 End: 07-20-[address] [facility] Start: 07-20-2024 End: 07-20-2024 ambulatory Bernabe Rodriguez [employer] Facility:[facility] Start: 07-12-2024 End: 07-12-[address] Ramón Martins MD -Laboratory, [place] Work Phone: Start: 07-12-2024 End: 07-12-2024 ambulatory Bernabe Rodriguez [employer] Facility:[facility] Start: 04-30-2024 ambulatory Bernabe Rodriguez [employer] Facility:[facility] Start: 2023 Non-patient / Non-visit [employer] Eliseo Rodriguez [employer] Work Phone: [facility] Start: 2023 End: 2023 ambulatory [employer] Bernabe Rodriguez [employer] Work Phone: [facility] Work Phone: Start: 2023 End: 2023 Patient encounter procedure [employer] Bernabe Rodriguez [employer] Work Phone: [facility] Work Phone: Start: 09-18-2023 End: 09-18-2023 ambulatory [facility] Work Phone: Start: 09-18-2023 End: 09-18-2023 Patient encounter procedure [facility] Work Phone: Start: 09-02-2023 End: 09-02-2023 ambulatory [facility] Work Phone: Start: 09-02-2023 End: 09-02-2023 Patient encounter procedure [facility]-Laboratory Work Phone: Start: 07-25-2023 End: 07-25-2023 ambulatory [employer] Bernabe Rodriguez [employer] Work Phone: [facility] Work Phone: Start: 07-25-2023 End: 07-25-2023 Discharged Recurring [employer] Bernabe Rodriguez [employer] Work Phone: [facility]-Physical Therapy Work Phone: Start: 05-22-2023 End: 05-22-2023 ambulatory [employer] Bernabe Rodriguez [employer] Work Phone: [facility] Work Phone: Start: 05-22-2023 End: 05-22-2023 Patient encounter procedure [employer] Bernabe Rodriguez [employer] Work Phone: [facility]-MRI - [facility] Work Phone: Start: 04-18-2023 End: 04-18-2023 ambulatory [employer] Bernabe Rodriguez [employer] Work Phone: [facility] Work Phone: Start: 04-18-2023 End: 04-18-2023 Patient encounter procedure [employer] Bernabe Rodriguez [employer] Work Phone: [facility] Work Phone: Start: 04-09-2023 End: 04-09-2023 ambulatory [facility] Work Phone: Start: 04-09-2023 End: 04-09-2023 Patient encounter procedure [facility]-Ultrasound, [facility] Work Phone: Start: 03-26-2023 End: 03-26-2023 ambulatory [facility] Work Phone: Start: 03-26-2023 End: 03-26-2023 Patient encounter procedure [facility]-Cat Scan, [facility] Work Phone: Start: 03-07-2023 End: 03-07-2023 Patient encounter procedure [facility]-Laboratory Work Phone: Start: 11-18-2022 End: 11-18-2022 ambulatory [facility] Work Phone: Start: 11-18-2022 End: 11-18-2022 Patient encounter procedure [facility]-Radiology, [facility] Start: 08-28-2022 End: 08-28-2022 ambulatory [facility] Work Phone: Start: 08-28-2022 End: 08-28-2022 Patient encounter procedure [facility]-Laboratory Start: 07-11-2022 End: 07-11-2022 ambulatory JIGAR TOMASA SUAREZ Facility:[facility] Start: 07-11-2022 End: 07-11-2022 Patient encounter procedure Peyman Donnelly Work Phone: Podiatry Comment on above: Tendonitis, Achilles , left (Primary Dx) Start: 02-20-2022 End: 02-20-2022 ambulatory [facility] Work Phone: Start: 02-20-2022 End: 02-20-2022 Patient encounter procedure [facility]-Laboratory Procedures Date Procedure Procedure Detail Performing Clinician Start: 03-31-2025 Urine microalbumin/creatinine ratio measurement Bernabe Rodriguez [employer] Work Phone: Start: 03-14-2025 Radiologic exam chest 2 views Bernabe carrillo [employer] Work Phone: Start: 03-04-2025 Cardiovascular stress test using pharmacologic stress agent Bernabe Rodriguez [employer] Work Phone: Start: 02-03-2025 MRI of joint of lower extremity Bernabe Rodriguez [employer] Work Phone: Start: 09-06-2024 X-ray of knee, four or more views Chidi Rodriguez [employer] Work Phone: Start: 07-20-2024 Measurement of occult blood in stool specimen using immunoassay Bernabe Rodriguez [employer] Work Phone: Start: 2023 MRI of brain with contrast [employer] Bernabe Rodriguez [employer] Work Phone: Start: 09-18-2023 MRI of lumbar spine Start: 05-22-2023 Magnetic resonance cholangiopancreatography [employer] Bernabe Rodriguez [employer] Work Phone: Start: 04-09-2023 Ultrasonography of abdomen Start: 03-26-2023 CT of abdomen without contrast Start: 11-18-2022 X-ray of lumbosacral spine Plan of Treatment Date Care Activity Detail Author Start: 03-22-[address] [facility] Start: 03-14-2025 End: 03-14-2025 Evaluation of diagnostic study results [facility] Start: 02-02-2025 End: 02-02-2025 Evaluation of diagnostic study results [facility] Start: 06-16-2022 ADVANCE DIRECTIVE DISCUSSION ADVANCE DIRECTIVE DISCUSSION [facility] Start: 06-16-2022 DEPRESSION ASSESSMENT DEPRESSION ASS ESSMENT [facility] Start: 11-02-2020 COVID-19 VACCINE (3 - Booster for Moderna series) COVID-19 VACCINE (3 - Booster for Moderna series) [facility] Start: 2010 PNEUMOCOCCAL: 65+ (1 - PCV) PNEUMOCOCCAL: 65+ (1 - PCV) [facility] Start: 10-11-1995 SHINGRIX VACCINE (1 of 2) CARLOS GRIX VACCINE (1 of 2) [facility] Start: 1990 DIABETES SCREEN DIABETES SCREEN [facility] Start: 1964 Urine microalbumin profile DTAP,TDAP,TD (1 - Tdap) [facility] Start: 10-11-1963 HEPATITIS C SCREENING HEPATITIS C [facility] Basic metabolic 2008 panel with ionized calcium - Serum or Plasma [facility] CTA Chest vessels WO and W contrast IV [facility] NM Heart Views W str ess and W radionuclide IV [facility] Immunizations Immunization Date Immunization Notes Care Provider Una ordonez 03-12-2024 influenza, injectabl e, quadrivalent, preservative free Bernabe Rodriguez [employer] Work Phone: [facility] 02-11-2023 tetanus toxoid, redu maude diphtheria toxoid, and acellular pertussis vaccine, adsorbed Bernabe Rodriguez [employer] Work Phone: [facility] 09-07-2020 Juan Fid (Moderna) Bernabe bashir [employer] Work Phone: [facility] 08-10-2020 Juan Fid (Moderna) Bernabe bashir [employer] Work Phone: [facility] Payers Date Payer Category Payer Self-pay [id number] 2022 Medicare [facility] MEDICARE [facility] MEDICARE ADVANTAGE PPO [id number] 2022[place] [address] [address] [address] [place] [address] PPO [id number] 2016 Unknown [id number] Medicare [id number] Private Health Insurance [facility] [id number] Unknown [id number] [id number]. 462 Unknown [id number] [id number]. 462 Unknown [id number] [id number]. 462 Unknown [id number] [id number]. 462 Unknown [id number] [id number]. 462 Unknown [id number] 2.840.1.815196.3.579.2. 462 Unknown [id number] [id number]. 462 Unknown [id number] [id number]. 462 Unknown [id number] [id number]. 462 Unknown [id number] [id number]. 462 Unknown [id number] [id number]. 462 Unknown [id number] [id number]. 462 Unknown [id number] [id number]. 462 Unknown [id number] [id number]. 462 Unknown [id number] [id number]. 462 Social History Date Type Detail Facility Start: 11-15-2016 End: 04-18-2023 Tobacco smoking status UTIS Unknown if ever smoked [facility] Start: 1945 Sex Assigned At Male [facility] Start: 08-16-2013 End: 03-22-2025 Tobacco smoking status NHIS Never smoked tobacco [facility] Work Phone: Start: 08-16-2013 Tobacco use and exposure Smokeless tobacco non-user [facility] Work Phone: Start: 07-11-2022 Alcohol intake Current drinke r of alcohol (finding) [facility] Start: 08-02-2013 Alcohol Comment glass of wine per mo h [facility] Start: 1945 Sex Assigned At Not on file [facility] Start: 09-11-2024 Sex Male (finding) [facility] Sex Male [facility] Clinical Notes 07-11-2022 to 04-04-2025 Note Date & Type Note Facility 04-04-2025 Progress note [facility] 03-14-2025 Radiology Diagnostic study note [facility] Imaging Services [address] [place] [address] Chest PA and Lateral MR#: [id number] Acct: [id number] Name: BRENTON MAGANA YASHIRA Rep #: [id number] : 1945 M 79 From: Chandler Moore MD PCP: Bernabe Rodriguez, [employer] [employer] Status: PRE [facility] Study:Chest PA and Lateral Date of Exam: 03/14/25 Exam# [id number] Ordering Dr: Jerry Romo PROCEDURE: CHEST PA AND LATERAL 03/14/2025 REASON FOR EXAM: SOB TECHNIQUE: Procedure Code: RADCXR Modality: DX Procedure: CHEST PA AND LATERAL COMPARISON: Two-view chest, 04/01/2024. FINDINGS: There is cardiomegaly and aortic ectasia consistent with benign essential hypertension. There is mild pulmonary edema consistent with congestive heart failure. There are no significant pleural effusions evident. RAD/Chest PA and Lateral IMPRESSION: Mild congestive heart failure. Findings consistent with hypertension. Reading Location: [place] [address] CC: MAYONNAISE MIXERBernice Rodriguez; BREANNA Fontaine ~ Retail [employer] Associate: Signed [facility] Work Phone: 03-14-2025 Progress note [facility] 02-02-2025 Evaluation note Diagnosis Onset Date Resolution Essential (primary) hypertension acute February 02 3:26pm Palpitations acute February 02, 2025 3:26pm [facility] Work Phone: 1(358) 905-847008-20-2025 Evaluation note* Diagnosis Onset Date Resolution Status Admit Date Essential (primary) hypertension acute February 02 3:26pm Palpitations acute February 02, 2025 3:26pm Abnormal stress test acute Feb emb2024 9:28am Dilated aortic root acute Sept 2024 9:28am Essential (primary) hypertension acute March 14, 2025 9:28am HFrEF (heart failure with reduced ejection fraction) acute 2024 9:28am Hyperlipidemia acute March 14, 2025 9:28am LBBB (left bundle branch block) acut e March 14, 2025 9:28am [facility] Work Phone: 1(126) 946-611708-20-2025 Evaluation note* Diagnosis Onset Date Resolution Status Admit Date Essential (primary) hypertension acute February 02 3:26pm Palpitations acute February 02, 2025 3:26pm Dilated aortic root acute Sept 2024 9:28am Essential (primary) hypertension acute March 14, 2025 9:28am HFrEF (heart failure with reduced ejection fraction) acute Sept 2024 9:28am Hyperlipidemia acute March 14, 2025 9:28am LBBB (left bundle branch block) acute March 14, 2025 9:28am Abnormal stress test inactive Sept ember 2024 9:28am Dilated aortic root acute Octob er 2024 9:19am Essential (primary) hypertension acute April 04 9:19am HFrEF (heart failure with reduced ejection fraction) acute Octob er 2024 9:19am Hyperlipidemia acute April 042024 9:19am LBBB (left bundle branch block) acute April 04 9:19am Nonobstructive atheroscleros is of coronary artery acute April 04, 2025 9:19am [facility] Work Phone: 1(727) 507-496603-24-2025 Radiology Diagnostic study note [facility] Imaging Services [address] [place] [address] Knee 4 or More Views MR#: [id number] Acct: [id number] Name: BRENTON MAGANA Rep #: [id number] : 1945 M 78 From: Pati Boo MD PCP: KIKE Calloway Status: REG CLI Study:Knee 4 or More Views Date of Exam: 09/06/24 Exam# [id number] Ordering Dr: Fadia Perry EXAM: XR Right [...] changes as above. Reading Location: [facility]UL[place]NA- CC: MAYONNAISE MIXERBernice Rodriguez; Fadia Perry ~ Retail Wireless Associate: Signed [facility]02-09-2024 Discharge summary Author Yuri Weller [facility] July 25, 2023 11:02am Note Date/Time July 25, 2023 1 1:02am [facility] Physical Therapy Health[address] [place] [address] / REHABILITATION SERVICES DISCHARGE SUMMARY MR#: [id number] Acct: [id number] Name: BRENTON MAGANA Rep #: [id number] : 1945 77 From: Ankit Patiño. LUIS, OCS Referring Dr.: Dr. Jigar Rubio MD Status: REG RCR Insurance: [facility] MEDICARE OTHER SELF PAY INSURANCE Discharge Summary [...] please feel free to call me at [phone]. Thank you for the referral of thispatient. Sincerely, Yuri Weller, PT, Cert MDT, OCS Balance/Gait/Functional tests Balance/Special Test Scores Lower Extremity Functional Score: 58 Improvement % Improvement: 60 <Electronically signed by Ankit Perkins PT. LUIS, MARIEL> 07/25/23 1102 CC: KIKE Rodriguez; Dr. Jigar Rubio MD ~ JLA Signed [facility] Work Phone: [phone] 707-549401-26-2023 NoteHNO ID: [id number] Author: Peyman Donnelly Service: ? Author Type: [...] 0.4 mg Take 0.4 mg by mouth. ocelens-qxzm-movky-oreg-capryl 100 mg-150 mg- 50 mg-150 mg cap [...] needed. azelastine 0.1% nasal spray Use 1 [place] in each nostril twice daily. MOMETASONE FUROATE [...] 1-5 b/l Skin te (more content not included)...[facility]01-26-2023 Note HNO ID: [id number] Author: Tressa Calzada LPN Service: ? Author [...] exercise he may have torn ligament. [facility] NoteHNO ID: [id number] Author: RT Alis(R) Service: Radiology Author Type: Technologist Type: Progress [...] BY: RT Alis(R) July 11, 2022 8:33 [facility]01-26-2023 History of Present illness Narrative* Peyman Donnelly [...] lower back. He found a stretch on [employer] where he pulls his toes back and [...] 0.4 mg Take 0.4 mg by mouth. opyhfzr-fmxp-zwccj-oreg-capryl 100 mg-150 mg- 50 mg-150 mg cap [...] needed. azelastine 0.1% nasal spray Use 1 [place] in each nostril twice daily. MOMETASONE FUROATE [...] Peyman Donnelly DPM Podiatry [address] [facility] [address] Dept: [phone] Dept * Tressa Calzada LPN - 07/11/2022 [...] ligament. Tressa Calzada LPN [facility]Reason for visit Narrative* Chief Complaint RUQ PAIN Calculus of gallbladder without cholecystitis with GALLBLADDER CONCERNS- REFERRAL MARKED URGENT Reason for Visit [facility] Work Phone: Chief complaint+Reason for visit Narrative* Chief Complaint RUQ PAIN Calculus of gallbladder without cholecystitis with GALLBLADDER CONCERNS- REFERRAL MARKED URGENT Calculus of gallbladder without cholecystitis with Reason for Visit [facility] Work Phone: Chief complaint+Reason for visit Narrative* Chief Complaint Calculus of gallblad louann without cholecystitis with GALLBLADDER CONCERNS- REFERRAL MARKED URGENT Calculus of gallbladder without cholecystitis with BILATERAL HIP PAIN. RX TO BE FA[facility]ED [facility] Work Phone: Evaluation noteNo assessment information available [facility] Work Phone: Evaluation note* Diagnosis Tendonitis, Achilles, left- Primary Achilles bursitis or tendinitis [facility] Onset Date Resolution Status Cholelithiasis acute [facility] Work Phone: Progress note Author Jerry Romo [facility] Services Note Date/Time March 14, 2025 10:19am [facility] [address] [place] [address] OFFICE VISIT Date of Service: 03/14/25 MR#: [id number] Acct: [id number] Name: BRENTON MAGANA Rep #: [id number] : 1945 Provider: BREANNA Vela Age/Sex: 79/M Location: [facility] Status: Signed HPI HPI History of Present Illness Details: Brenton Magana is a 79-year-old male who presents to office today for preprocedural office visit. He is scheduled to undergo cardiac catheterization 03/22/2025. Patient presented as a new patient to our office in January 2025. He reported hewas told he had a heart murmur. He also reported that he wears an Apple Watch and it has occasionally noted an irregular heartbeat in which she was asked to be evaluated to exclude atrial fibrillation. He has a chronic left bundle branch block. Prior to establishing with our office, he had went on a trip and noted pedal edema and was placed on Lasix and potassium for this. He was evaluated via echocardiogram and nuclear stress test 03/04/2025. His echocardiogram demonstrated a reduced ejection fraction at 40% with mild to moderate global hypokinesis of the left ventricle, mild to moderate tricuspid valve insufficiency with pulmonary artery systolic pressure 49 mmHg and mild to moderate dilated aortic root. His stress test demonstrated mildly reduced ejection fraction with mild apical ischemia. Upon presentation today, patient reports doing well. He reports his lower extremity edema has significantly improved since initiating hydrochlorothiazide and discontinuing his amlodipine. Further ROS below. Intake Vital Signs 02/02/25 15:41 03/14/25 07:33 Height 5 ft 3 in 5 ft 3 in Weight: 253 lb BMI 44.8 BP 155/97 H Blood Pressure Location Lt brachial Position Sitting Respiration 18 Pulse 64 Pulse Source Monitor Pulse Oximetry (%) 95 Intake Visit Reasons: UPDATE H & P Testing Tech Required: No Is patient in pain?: No Allergies gabapentin Allergy (Severe, Verified 03/14/25 09:31) Memory issues ibuprofen Allergy (Severe, Verified 03/14/25 09:31) Diarrhea calcium carbonate (From Excedrin Back & Body) Allergy (Verified 03/14/25 09:31) Other Medications ?Medication ?Instructions ?Recorded ?Confirmed ?Type ascorbic acid (vitamin C) 1,000 mg 1 g PO DAILY vitami n 04/18/23 03/14/25 History capsule aspirin 81 mg tablet,delayed 81 mg PO QHS heart health 04/18/23 03/14/25 History release atorvastatin 80 mg tablet 80 mg PO QPM cholesterol 09/0503/14/25 History azelastine 137 mcg (0.1 %) nasal 2 spray intranasal BI D allergy 04/18/23 03/14/25 History spray cyanocobalamin (vitamin B-12) 1,000 mcg PO DAILY vitam in 04/18/23 03/14/25 History 1,000 mcg capsule fenofibrate micronized 134 mg 134 mg PO DAILY choleste rol 04/18/23 03/14/25 History capsule loratadine 10 mg tablet (Allergy 10 mg PO DAILY allerg ies 04/18/23 03/14/25 History Relief (loratadine)) mometasone 50 mcg/actuation nasal 2 spray intranasal D AILY allergy 04/18/23 03/14/25 History spray (Nasonex 24hr Allergy) multivitamin (Daily Multi-Vitamin 1 tab PO DAILY vitam in 04/18/23 03/14/25 History tablet) tadalafil 5 mg tablet 5 mg PO DAILY PRN sexual act ivity 04/18/23 03/14/25 History acetaminophen 650 mg 1,300 mg PO Q8H PRN fever or pain 04/01/24 03/14/25 History tablet,extended release (Arthritis Pain Reliever) allopurinol 300 mg tablet 300 mg PO DAILY gout 4 03/14/25 History cholecalciferol (vitamin D3) 125 125 mcg PO QDAY 02/0203/14/25 History mcg (5,000 unit) capsule fluticasone furoate 200 1 ea inhalation QDAY 5 03/14/25 History mcg-vilanterol 25 mcg/dose inhalation powder (Breo Ellipta) carvedilol 3.125 mg tablet 3.125 mg PO BID #60 tabs 03/14/25 Rx dapagliflozin propanediol 10 mg 10 mg PO QAM #30 tabs 03/14/25 03/14/25 Rx tablet (Farxiga) lisinopril 40 mg tablet 10 mg PO DAILY blood pressur e 03/14/25 03/14/25 History spironolactone 25 mg tablet 25 mg PO QAM #30 tabs 02/1503/14/25 Rx Ejection fraction %: 40 Have you fallen in the past year?: [...] ROS Const Const: Negative for fatigue, weakness, headache(s) or frequent falls Eyes Eyes: Negative for blurry vision ENT ENT: Negative for headache(s), dizziness or Nosebleed/epistaxis Cardio Chest Pain: No Palpitations: No Edema: None Muscle aches with walking: None Resp Respiratory: Negative for SOB with activity, SOB at rest or SOB orthopnea\SOB lying down GI GI: Negative nausea, vomiting, heartburn, bright, red blood in stools or black,tarry stools : Negative for hematuria Neuro Neuro: Negative for dizziness, lightheadedness, near syncope, syncope, frequent falls, headache(s), weakness or blurry vision Endo Endo: Negative for fatigue Cardiology Exam Const Appearance: cooperative, comfortable, no acute distress and well developed; Negative diaphoretic or ill appearing Orientation: alert and oriented x3 Ambulating without assistive device Head Head: normal to inspection, normocephalic and atraumatic Ears: hearing grossly normal bilaterally Nose: external nose normal and Negative epistaxis Face and Sinus: face symmetric Eyes General: appearance normal, both eyes and all related structures Eyelids: eyelids normal Conjunctivae: conjunctivae normal; Negative scleral icterus EOM: EOM intact bilaterally Neck Neck: no JVD Carotids: normal carotid upstroke; Negative bruit Neck Mass: Negative Neck mass Chest Chest inspection: normal respiratory effort; Negative respiratory distress, audible wheezes or tachypneic Auscultation: Bilateral: Clear to Auscultation Cardio Rate: regular rate Rhythm: regular rhythm Heart sounds: S1 normal, S2 normal and murmur; Negative rub or gallop Murmur: Grade 1/6, soft and early systolic Neuro General: patient alert, patient awake, patient oriented x3 and moves all extremities Skin Skin: no rashes or lesions noted Extremities Pulses: Normal: Right Posterior Tibial Pulse, Left Posterior Tibial Pulse, RightRadial Pulse and Left Radial Pulse Lower Extremity Edema: None: Bilateral Psych Psychological: normal affect Supplemental Info Supplemental Information Pharmacologic myocardial perfusion stress test 03/04/2025 Conclusion: Abnormal pharmacologic myocardial perfusion stress test. Mildly reduced ejection fraction. Mild apical ischemia. Echo Complete W/ Contrast 03/04/2025 Interpretation Summary Mild to moderately dilated aortic root. The left ventricular ejection fraction is 40 %. Normal LV size. There is mild to moderate global hypokinesis of the left ventricle. Mild to moderate (1-2+) tricuspid valve insufficiency. Pulmonary artery systolic pressure is 49 mmHg. Echocardiogram 10/10/23 Interpretation Summary The estimated ejection fraction is 50 %. Trivial mitral valve insufficiency. Hypokinesis of the septum Labs: HDL Cholesterol, (40-) 53 mg/dL Cholesterol, (<=200) 133 mg/dL Triglycerides, (-199) 105 mg/dL Diagnostics: Electrocardiogram Echocardiogram Stress Test Stress Test Nuclear Medicine Chest X-Ray Abdomen Ultrasound Past Visits: Cardiology Visit Today Assessment and Plan Assessment and Plan (1) Abnormal stress test: Status: Acute Plan: Stress test 03/04/2025 demonstrated mildly reduced ejection fraction and mild apical ischemia. Echocardiogram 03/04/2025 demonstrated reduced ejection fraction at 40% with global hypokinesis. Plan: Patient is scheduled to undergo cardiac catheterization 03/22/2025. Preprocedural lab work and imaging completed today. Instructions provided today. (2) HFrEF (heart failure with reduced ejection fraction): Status: Acute Plan: Patient has a newly diagnosed reduced ejection fraction on echocardiogram 03/04/2025. His stress test was abnormal with mild apical ischemia. He is scheduled to undergo cardiac catheterization to assess for CAD/ischemic cardiomyopathy. At this time, the cause of his cardiomyopathy is unknown. Willtitrate GDMT as able to. Plan: Will initiate spironolactone, Farxiga and carvedilol today. Will obtain BMP today and again in 2 weeks for monitoring kidney function and electrolytes. Recommend patient continue lisinopril and we will consider transition to Entresto if patient is able to tolerate depending on BP/heart rate with additional GDMT. Recommend patient monitor his blood pressure and heart rate and home environment and notify our office with any persistently elevated or lowfindings. Will consider repeat echocardiogram to assess for recovery of ejection fraction once maximal medical therapy is achieved. (3) Hyperlipidemia: Status: Acute Qualifiers: Hyperlipidemia type: other hyperlipidemia Qualified Code(s): E78.49 - Other hyperlipidemia Plan: Most recent lipid panel 09/29/2024 demonstrated total cholesterol 133, triglyceride 105, LDL 59 and HDL 53. Plan: Recommend patient continue atorvastatin. Encourage lifestyle and risk factor modifications. (4) Essential (primary) hypertension: Status: Acute Plan: Blood pressure in office today 155/97. Plan: Initiation of GDMT given reduced ejection fraction with additional goal ofBP control. Recommend patient monitor blood pressure in home environment and notify our office with any persistently elevated or low readings. (5) Dilated aortic root: Status: Acute Plan: Patient was noted to have mild to moderately dilated aortic root on echocardiogram 03/04/2025. Recommend BP control. Plan: Medications adjusted as noted above for GDMT/hypertension. Will continue to work on blood pressure control. Asked patient to monitor his blood pressure in his home environment and notify our office if persistently elevated or low. Will obtain chest CT. (6) LBBB (left bundle branch block): Status: Acute Plan: Patient has a known left bundle branch block noted back on EKG in 2011. He is scheduled to undergo cardiac catheterization secondary to abnormal stress test and reduced ejection fraction. 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 Stop hydrochlorothiazide and potassium supplement. Start Spironolactone, Carvedilol and Farxiga 2. Blood work today, blood work in [address] in 4-6 weeks Patient will follow-up in 3 weeks or sooner, if needed. Thank you for allowing me to participate in the care of your patient. Please don't hesitate to call if any issues arise. This note was generated using a voice recognition system and there may be incorrect words, spelling, or punctuation that were not noted when reviewing theoffice note prior to saving. Portions of this documentation were copied and pasted from previous office visitnotes to provide a cohesive continuity of the history. The note has been reviewed, edited, and updated, as necessary. Patient Instructions: 1. Stop hydrochlorothiazide and potassium supplement. Start Spironolactone, Carvedilol and Farxiga 2. Blood work today, blood work in [address] in 4-6 weeks Your heart catheterization is scheduled 03/22/2025 at 8AM Blood work and chest x-ray today Arrive to the hospital at 7AM Nothing to eat or drink after midnight the night prior Hold your Farxiga 2 days before your procedure. Hold the spironolactone the morning of your procedure. The rest of your morning medications, you can take with a sip of water. You will need a driver's license examiner. If you require a stent, you will need to stay overnight. Plan Details Follow Up: 3 Weeks (SRD) Coding Level of Care Code Off vis,est,level 4 Diagnoses Abnormal stress test R94.39 HFrEF (heart failure with reduced ejection fraction) I50.20 Other hyperlipidemia E78.49 Hyperlipidemia type: other hyperlipidemia Essential (primary) hypertension I10 Dilated aortic root I77.810 LBBB (left bundle branch block) I44.7 Coding Level of Care Code Off vis,est,level 4 Diagnoses Abnormal stress test R94.39 HFrEF (heart failure with reduced ejection fraction) I50.20 Other hyperlipidemia E78.49 Hyperlipidemia type: other hyperlipidemia Essential (primary) hypertension I10 Dilated aortic root I77.810 LBBB (left bundle branch block) I44.7 Clinical Quality Measures Falls Risk Screening/Assistive Devices Have you fallen in the past year?: Yes Cardiac Ejection fraction %: 40 03/14/25 1539 <Electronically signed by Jerry CARLOS> Date _ Jerry CARLOS 03/15/25 0708<Electronically signed by Seun Bledsoe MD> Cosigner Signature: Date (if applicable) Seun Bledsoe MD CC: MAYONNAISE MIXER-C Bernabe Rodriguez ~ [facility] Work Phone: Progress note Author Jerry Romo [facility] Note Date/Time April 04, 2025 1 1:08am [facility] [address] [place] [address]. [address] [place] [address] OFFICE VISIT Date of Service: 04/04/25 MR#: [id number] Acct: [id number] Name: BRENTON MGAANA Rep #: [id number] : 1945 Provider: BREANNA Vela Age/Sex: 79/M Location: [facility] Status: Signed HPI HPI History of Present Illness Details: Brenton Magana is a 79-year-old male who presents to office today for follow- upfor monitoring his cardiovascular health. Patient has a history of cardiomyopathy with a reduced ejection fraction, nonobstructive coronary artery disease, dilated aortic root, left bundle branch block, hyperlipidemia and hypertension. He patient presented as a new patient to our office in January 2025. He reported he was told he had a heart murmur. He also reported that he wears an Apple Watch and it has occasionally noted an irregular heartbeat in which she was asked to be evaluated to exclude atrial fibrillation. Prior to establishing with our office, he had went on a trip and noted pedal edema and was placed on Lasix and potassium for this. He was evaluated via echocardiogram and nuclear stress test 03/04/2025. His echocardiogram demonstrated a reduced ejection fraction at 40% with mild to moderate global hypokinesis of the left ventricle, mild to moderate tricuspid valve insufficiency with pulmonary artery systolic pressure 49 mmHg and mild to moderate dilated aortic root. His stress test demonstrated mildly reduced ejection fraction with mild apical ischemia. Patient underwent cardiac catheterization 03/22/2025 that demonstrated mild to moderate left anterior descending artery stenosis with calcification, mild luminal irregularities in the RCA and circumflex artery, and moderate left ventricular systolic dysfunction with a left bundle branch block, EF noted to be35%. Upon presentation today, patient reports doing well. He denies any CHF symptomsand reports stable weight in home environment. Home BP noted to be 142/80, 142/88, and 130/78. Further ROS below. Intake Vital Signs 03/14/25 07:33 04/04/25 08:07 04/04/25 09:31 Height 5 ft 3 in 5 ft 3 in Weight: 254 lb BMI 44.9 BP 134/79 H 136/78 H Blood Pressure Location Lt brachial Lt brachial Position Sitting Sitting Respiration 20 H Pulse 69 Pulse Source Monitor Pulse Oximetry (%) 92 Oxygen Delivery Method room air Intake Visit Reasons: 3 W FU Testing Tech Required: No Accompanied by: Is patient in pain?: No Allergies gabapentin Allergy (Severe, Verified 04/04/25 09:26) Memory issues ibuprofen Allergy (Severe, Verified 04/04/25 09:26) Diarrhea calcium carbonate (From Excedrin Back & Body) Allergy (Verified 04/04/25 09:26) Other Medications ?Medication ?Instructions ?Recorded ?Confirmed ?Type ascorbic acid (vitamin C) 1,000 mg 1 g PO DAILY vitami n 04/18/23 04/04/25 History capsule aspirin 81 mg tablet,delayed 81 mg PO QHS heart health 04/18/23 04/04/25 History release atorvastatin 80 mg tablet 80 mg PO QPM cholesterol 09/0504/04/25 History azelastine 137 mcg (0.1 %) nasal 2 spray intranasal BI D allergy 04/18/23 04/04/25 History spray cyanocobalamin (vitamin B-12) 1,000 mcg PO DAILY vitam in 04/18/23 04/04/25 History 1,000 mcg capsule fenofibrate micronized 134 mg 134 mg PO DAILY choleste rol 04/18/23 04/04/25 History capsule loratadine 10 mg tablet (Allergy 10 mg PO DAILY allerg ies 04/18/23 04/04/25 History Relief (loratadine)) mometasone 50 mcg/actuation nasal 2 spray intranasal D AILY allergy 04/18/23 04/04/25 History spray (Nasonex 24hr Allergy) multivitamin (Daily Multi-Vitamin 1 tab PO DAILY vitam in 04/18/23 04/04/25 History tablet) tadalafil 5 mg tablet 5 mg PO DAILY PRN sexual act ivity 04/18/23 04/04/25 History acetaminophen 650 mg 1,300 mg PO Q8H PRN fever or pain 04/01/24 04/04/25 History tablet,extended release (Arthritis Pain Reliever) allopurinol 300 mg tablet 300 mg PO DAILY gout 4 04/04/25 History cholecalciferol (vitamin D3) 125 125 mcg PO QDAY 02/0204/04/25 History mcg (5,000 unit) capsule fluticasone furoate 200 1 ea inhalation QDAY 5 04/04/25 History mcg-vilanterol 25 mcg/dose inhalation powder (Breo Ellipta) carvedilol 3.125 mg tablet 3.125 mg PO BID #60 tabs 04/04/25 Rx dapagliflozin propanediol 10 mg 10 mg PO QAM #30 tabs 03/14/25 04/04/25 Rx tablet (Farxiga) spironolactone 25 mg tablet 25 mg PO QAM #30 tabs 09/2 9/25 10/20/25 Rx sacubitril 49 mg-valsartan 51 mg 1 tab PO BID #180 tab s 04/04/25 04/04/25 Rx tablet (Entresto) Ejection fraction %: 40 Have you fallen in the past year?: Yes Nurse's Note: Pt states that he feels great since his last visit with us. [facility] Medical History Hyperlipidemia Heart murmur Gout Brain [...] use ROS Const Const: Negative for fatigue, weakness or headache(s) Eyes Eyes: Negative for change in vision ENT ENT: Negative for headache(s), dizziness, Nosebleed/epistaxis or balance problems Cardio Chest Pain: No Palpitations: No Edema: None Resp Respiratory: Negative for SOB with activity, SOB at rest or SOB orthopnea\SOB lying down GI GI: Negative nausea, vomiting, heartburn or bright, red blood in stools : Negative for hematuria Musc Musc: Negative for balance problems Neuro Neuro: Negative for dizziness, lightheadedness, syncope, headache(s) or weakness Endo Endo: Negative for fatigue Cardiology Exam Const Appearance: cooperative, comfortable, no acute distress and well developed; Negative diaphoretic or ill appearing Nutritional Appearance: obese Orientation: alert and oriented x3 Ambulating without assistive device Head Head: normal to inspection, normocephalic and atraumatic Ears: hearing grossly normal bilaterally Nose: external nose normal and Negative epistaxis Face and Sinus: face symmetric Eyes General: appearance normal, both eyes and all related structures Eyelids: eyelids normal Conjunctivae: conjunctivae normal; Negative scleral icterus EOM: EOM intact bilaterally Neck Neck: no JVD Carotids: normal carotid upstroke; Negative bruit Neck Mass: Negative Neck mass Chest Chest inspection: normal respiratory effort; Negative respiratory distress, audible wheezes or tachypneic Auscultation: Bilateral: Clear to Auscultation Cardio Rate: regular rate Rhythm: regular rhythm Heart sounds: S1 normal, S2 normal and murmur; Negative rub or gallop Murmur: Grade 1/6, soft and early systolic GI GI: obese Neuro General: patient alert, patient awake, patient oriented x3 and moves all extremities Skin Skin: no rashes or lesions noted Extremities Pulses: Normal: Right Posterior Tibial Pulse, Left Posterior Tibial Pulse, RightRadial Pulse and Left Radial Pulse Lower Extremity Edema: Trace: Bilateral Psych Psychological: normal affect Supplemental Info Supplemental Information Pharmacologic myocardial perfusion stress test 03/04/2025 Conclusion: Abnormal pharmacologic myocardial perfusion stress test. Mildly reduced ejection fraction. Mild apical ischemia. Echo Complete W/ Contrast 03/04/2025 Interpretation Summary Mild to moderately dilated aortic root. The left ventricular ejection fraction is 40 %. Normal LV size. There is mild to moderate global hypokinesis of the left ventricle. Mild to moderate (1-2+) tricuspid valve insufficiency. Pulmonary artery systolic pressure is 49 mmHg. Echocardiogram 10/10/23 Interpretation Summary The estimated ejection fraction is 50 %. Trivial mitral valve insufficiency. Hypokinesis of the septum Labs: HDL Cholesterol, (40-) 45 mg/dL Cholesterol, (<=200) 126 mg/dL Triglycerides, (-199) 145 mg/dL Diagnostics: Electrocardiogram Echocardiogram Stress Test Stress Test Nuclear Medicine Cardiac Catheterization Chest X-Ray Abdomen Ultrasound Past Visits: Cardiology Visit 04/04/25 Assessment and Plan Assessment and Plan (1) HFrEF (heart failure with reduced ejection fraction): Status: Acute Plan: Patient has a newly diagnosed reduced ejection fraction of 40% on echocardiogram03/04/2025. Cardiac catheterization 03/22/2025 demonstrated nonobstructive coronary artery disease. Plan: Recommend patient continue spironolactone, carvedilol, Farxiga. Patient will discontinue lisinopril and initiate Entresto. Patient was asked to monitorhis BP and heart rate in his home environment and notify our office of these findings in a couple of weeks. Will obtain BMP 2 weeks for monitoring kidney function and electrolytes. Depending on these findings, we will further escalate GDMT. Will plan to evaluate ejection fraction approximately 6 weeks after maximizing GDMT. (2) Hyperlipidemia: Status: Acute Qualifiers: Hyperlipidemia type: other hyperlipidemia Qualified Code(s): E78.49 - Other hyperlipidemia Plan: Most recent lipid panel 03/31/2025 demonstrated total cholesterol 126, triglyceride 145, LDL 52 and HDL 45. Plan: Recommend patient continue atorvastatin. Encourage lifestyle and risk factor modifications. (3) Essential (primary) hypertension: Status: Acute Plan: Blood pressure in office today 136/78 Plan: Lisinopril discontinued and patient will initiate Entresto. Recommend patient monitor blood pressure in home environment and notify our office with any persistently elevated or low readings. Will plan to further titrate GDMT depending on home BP/heart rate readings. (4) Dilated aortic root: Status: Acute Plan: Patient was noted to have mild to moderately dilated aortic root on echocardiogram 03/04/2025. Recommend BP control. Plan: Patient will schedule CT to further evaluate this. (5) LBBB (left bundle branch block): Status: Acute Plan: Patient has a known left bundle branch block noted back on EKG in 2011. Cardiaccatheterization 03/22/2025 demonstrated nonobstructive coronary artery disease. (6) Nonobstructive atherosclerosis of coronary artery: Status: Acute Plan: Patient has been newly diagnosed with nonobstructive coronary artery disease with heart catheterization 03/22/2025 demonstrating LAD with 30-50% stenosis and mild luminal irregularities in the circumflex artery and RCA. Most recent lipidpanel 03/31/2025 demonstrates LDL controlled. Plan: Recommend patient continue statin therapy. He will continue aspirin. Additional treatment plan related to reduced ejection fraction/GDMT. Orders: Orders Basic Metabolic Profile (BMP) 2 Weeks I50.20 - Unspecified systolic (congestive) heart failure Medications: New sacubitril-valsartan 49-51 mg (Entresto) 1 TAB PO BID 180 tabs 3RF Discontinued lisinopril Discontinued Reason: Order Changed 10 mg PO DAILY blood pressure Plan 1. Once receiving Entresto, stop lisinopril [id number] and start the Entresto. 2. Lab work 2 weeks after starting new medication 3. Monitor BP and heart rate 2-3x per week and notify our office of these finding 2 weeks after medication change. Will plan to further escalate GDMT (medications) if BP can tolerate. Will plan to check repeat echo 6-8 weeks aftermaximizing medications. 4. Patient was recommended to schedule his CT scan To evaluate his aortic root/aorta. Patient will follow-up in 3 weeks or sooner, if needed. Thank you for allowing me to participate in the care of your patient. Please don't hesitate to call if any issues arise. This note was generated using a voice recognition system and there may be incorrect words, spelling, or punctuation that were not noted when reviewing theoffice note prior to saving. Portions of this documentation were copied and pasted from previous office visitnotes to provide a cohesive continuity of the history. The note has been reviewed, edited, and updated, as necessary. Patient Instructions: 1. Once receiving Entresto, stop lisinopril [id number] and start the Entresto. 2. Lab work 2 weeks after starting new medication 3. Monitor BP and heart rate 2-3x per week and notify our office of these finding 2 weeks after medication change. Will plan to further escalate GDMT (medications) if BP can tolerate. Will plan to check repeat echo 6-8 weeks aftermaxinmizing medications. Plan Details Follow Up: 04/04/25 (Please give patient schedulings number to schedule CT) 04/04/25 (keep f/up as is with SRD 07/2025) Coding Level of Care Code Off vis,est,level 4 Diagnoses HFrEF (heart failure with reduced ejection fraction) I50.20 Other hyperlipidemia E78.49 Hyperlipidemia type: other hyperlipidemia Essential (primary) hypertension I10 Dilated aortic root I77.810 LBBB (left bundle branch block) I44.7 Nonobstructive atherosclerosis of coronary artery I25.10 Coding Level of Care Code Off vis,est,level 4 Diagnoses HFrEF (heart failure with reduced ejection fraction) I50.20 Other hyperlipidemia E78.49 Hyperlipidemia type: other hyperlipidemia Essential (primary) hypertension I10 Dilated aortic root I77.810 LBBB (left bundle branch block) I44.7 Nonobstructive atherosclerosis of coronary artery I25.10 Clinical Quality Measures Falls Risk Screening/Assistive Devices Have you fallen in the past year?: Yes Cardiac Ejection fraction %: 40 04/11/25 1014 <Electronically signed by Jerry hurtado PA> Date _ Jerry CARLOS 04/11/25 2123<Electronically signed by Seun Bledsoe MD> Cosigner Signature: Date (if applicable) eSun Bledsoe MD CC: MAYONNAISE MIXER-C Bernabe Rodriguez ~ [facility] Work Phone: Reason for referral (narrative)No reason for [facility] Phone: Summary Purpose Family [...] November 15, 2016 8 :06pm Power of Digital Printer Operator No November 15, 2016 8:06pm Advance Directive Response Recorded Date/ Time Advance Directives Yes March 22, 2015 8:17am Living Will No November 15, 2016 7 :06pm Power of Digital Printer Operator No November 15, 2016 7:06pm Advance Directive Response Recorded Date/ Time Advance Directives Yes March 22, 2015 9:17am Advance Directive Response Recorded Date/ Time Living Will No March 22 12:04pm Do you have a Healthcare Power of Digital Printer Operator? Yes March 22, 2025 12:04pm Name of Medical Power of Digital Printer Operator clarissa March 22, 2025 12:04pm Advance Directives No March 22, 2025 12:04pm Advance Directive Response Recorded Date/ Time Living Will No March 22 11:04am Do you have a Healthcare Power of Digital Printer Operator? Yes March 22, 2025 11:04am Name of Medical Power of Digital Printer Operator clarissa March 22, 2025 11:04am Advance Directives No March 22, 2025 11:04am Chief Complaint and Reason for Visit Chief [...] 3:26pm Palpitations February 02, 2025 3: 26pm Chief Complaint Admit Date AFIB (SELF) February 02, 2025 3: 26pm pain of right shoulder February 03, 2025 10:09am SOB, PALPITATIONS March 04, 2025 6:58am UPDATE H & P March 14, 2025 9:28am Reason for Visit Admit Date Essential (primary) hypertension February 02, 2025 3:26pm Palpitations February 02, 2025 3: 26pm Abnormal stress test March 14 9:28am Dilated aortic root March 14, 2025 9:28am [facility] HFrEF (heart failure with reduced ejecti on fraction) March 14, 2025 9:28am Hyperlipidemia March 14, 2025 9:28am [facility] Chief Complaint Admit Date AFIB (SELF) February 02, 2025 3: 26pm pain of right shoulder February 03, 2025 10:09am SOB, PALPITATIONS March 04, 2025 6:58am UPDATE H & P March 14, 2025 9:28am Abnormal result of other cardiovascular function s March 22, 2025 11:43am Chief Complaint Admit Date AFIB (SELF) February 02, 2025 3: 26pm pain of right shoulder February 03, 2025 10:09am SOB, PALPITATIONS March 04, 2025 6:58am UPDATE H & P March 14, 2025 9:28am Abnormal result of other cardiovascular function s March 22, 2025 11:43am 3 W FU April 04, 2025 9 :19am Reason for Visit Admit Date Essential (primary) hypertension February 02, 2025 3:26pm Palpitations February 02, 2025 3: 26pm Dilated aortic root March 14, 2025 9:28am [facility] 9:28[facility] HFrEF (heart failure with reduced ejecti on fraction) March 14, 2025 9:28am Hyperlipidemia March 14, 2025 9:28am LBBB (left bundle branch block) [facility] 2024 9:28am Abnormal stress test March 14 9:28am Dilated aortic root April 04, 2025 9 :19am Essential (primary) hypertension April 04, 2025 9:19am HFrEF (heart failure with reduced ejecti on fraction) April 04, 2025 9:19am Hyperlipidemia April 04, 2025 9 :19am LBBB (left bundle branch block) April 04, 2025 9:19am Nonobstructive atherosclerosis of shay ry artery April 04, 2025 9:19am Additional Source Comments (unrecognized sect ion and content) No Status Records FoundNo Status Records FoundNo Status Records Found INFORMATION SOURCE (unrecogn ized section and content) DATE CREATED AUTHOR 02/21/2021 [facility] ([place]) DATE CREATED AUTHOR AUTHOR'S ORGANIZ ATION 07/13/2022 [facility] DATE CREATED AUTHOR AUTHOR'S ORGANIZ ATION 04/25/2025 [facility] Goals (unrecognized section and content) Goals [...] or prosecute any alcohol or drug abuse patient.[facility] Reason for Visit (unrecogniz ed section and content) Reason Comments New Pain Care Teams (unrecognized sec tion and content) [employer] Specialty Start Date End Date Jigar Suarez MD [address] [place] [address] PCP - General Family Medicine 07/29/13 Team Status: Active Member Role Status Dates Bernabe Rodriguez MAYONNAISE MIXER, [employer]-C Family Provider Activ e Bernabe Rodriguez MAYONNAISE MIXER, MAYONNAISE M[employer]ER-C Primary Care Provider Active Team Status: Inactive Member Role Status Dates Bernabe Rodriguez MAYONNAISE MIXER, MAYONNAISE M[employer]-C Primary Care Provider, Attending Provider, Referring Provider Active Team Status: Inactive Member Role Status Dates Bernabe Rodriguez NP, MAYON[employer]ISE MIXER-C Primary Care Provider Active Dr. Raymon Miller , [place] Attending Provider, Referring P alcides Active Team Status: Inactive Member Role Status Dates Bernabe Rodriguez MAYONNAISE MIXER, MAYONNAISE M[employer]-C Primary Care Provider, Referring Provider Active Dr. Yony Moody MD Attending Provider Active Team Status: Inactive Member Role Status Dates Bernabe Rodriguez MAYONNAISE MIXER, MAYONNAISE MIXER-C Primary Care Provider Active Dr. Yony Moody MD Attending Provider, Referr ing Provider Active Team Status: Inactive Member Role Status Dates Bernabe Rodriguez MAYONNAISE MIXER, MAYONNAISE M[employer]ER-C Primary Care Provider Active Dr. Jigar Rubio MD Attending Provider Active Team Status: Active Member Role Status Dates Bernabe Rodriguez MAYONNAISE MIXER, MAYON[employer]ISE M[employer]-C Primary Care Provider Active Dr. Patrick Odom MD Attending Provider Activ e Team Status: Inactive Member Role Status Dates Bernabe Rodriguez MAYONNAISE MIXER, MAYONNAISE MIXER-C Primary Care Provider Active Start: June End: July 12, 2024 Dr. Ramón Martins MD Attending Provider Active Start: July 12, 2024 End: July 12, 2024 Dr. Ramón Martins MD Referring Provider Active Start: July 12, 2024 End: July 12, 2024 Team Status: Inactive Member Role Status Dates Bernabe Rodriguez MAYONNAISE MIXER, MAYONNAISE MIXER-C Primary Care Provider Active Start: July End: July 20, 2024 Dr. Ramón Martins MD Attending Provider Active Start: July 20, 2024 End: July 20, 2024 Dr. Ramón Martins MD Referring Provider Active Start: July 20, 2024 End: July 20, 2024 Team Status: Inactive Member Role Status Dates Bernabe Rodriguez MAYONNAISE MIXER, MAYONNAISE MIXER-C Primary Care Provider Active Start: September 06, 2024 End: September 06, 2024 NP. Fadia Perry Attending Provider Active Star t: September 06, 2024 End: September 06, 2024 NP. Fadia Perry Referring Provider Active Star t: September 06, 2024 End: September 06, 2024 Team Status: Active Member Role/Relationship Status Dates Bernabe Rodriguez MAYONNAISE MIXER, MAYONNAISE MIXER-C Primary Care Provider Active Team Status: Inactive Member Role/Relationship Status Dates Bernabe Rodriguez MAYONNAISE MIXER, MAYONNAISE MIXER-C Primary Care Provider Active Start: January End: February 02, 2025 Bernabe Rodriguez MAYONNAISE MIXER, MAYONNAISE MIXER-C Referring Provider Active Start: February 02, 2025 End: February 02, 2025 Dr. Seun Bledsoe MD Attending Provider Active S tart: February 02, 2025 End: February 02, 2025 Team Status: Inactive Member Role/Relationship Status Dates Bernabe Rodriguez MAYONNAISE MIXER, MAYONNAISE MIXER-C Primary Care Provider Active Start: January End: February 03, 2025 Bernabe Rodriguez MAYONNAISE MIXER, MAYONNAISE MIXER-C Attending Provider Active Start: February 03, 2025 End: February 03, 2025 Bernabe Rodriguez MAYONNAISE MIXER, MAYONNAISE MIXER-C Referring Provider Active Start: February 03, 2025 End: February 03, 2025 Team Status: Active Member Role/Relationship Status Dates Bernabe Rodriguez MAYONNAISE MIXER, MAYONNAISE MIXER-C Primary care physicia n Active Team Status: Inactive Member Role/Relationship Status Dates Bernabe Rodriguez MAYONNAISE MIXER, MAYONNAISE MIXER-C Primary care physician Active Start: January End: February 02, 2025 Bernabe Rodriguez MAYONNAISE MIXER, MAYONNAISE MIXER-C Referring Provider Active Start: February 02, 2025 End: February 02, 2025 Dr. Seun Bledsoe MD Attending physician Active Start: February 02, 2025 End: February 02, 2025 Team Status: Inactive Member Role/Relationship Status Dates Bernabe Rodriguez MAYONNAISE MIXER, MAYONNAISE MIXER-C Primary care physician Active Start: January End: February 03, 2025 Bernabe Rodriguez MAYONNAISE MIXER, MAYONNAISE MIXER-C Attending physician Active Start: February 03, 2025 End: February 03, 2025 Bernabe Rodriguez MAYONNAISE MIXER, MAYONNAISE MIXER-C Referring Provider Active Start: February 03, 2025 End: February 03, 2025 Team Status: Inactive Member Role/Relationship Status Dates Bernabe Rodriguez MAYONNAISE MIXER, MAYONNAISE MIXER-C Primary care physician Active Start: March 04, 2025 End: March 04, 2025 Dr. Seun Bledsoe MD Attending physician Active Start: March 04, 2025 End: March 04, 2025 Dr. Seun Bledsoe MD Referring Provider Active S tart: March 04, 2025 End: March 04, 2025 Team Status: Active Member Role/Relationship Status Dates Bernabe Rodriguez MAYONNAISE MIXER, MAYONNAISE MIXER-C Primary care physician Active Start: March 04, 2025 Dr. Seun Bledsoe MD Attending physician Active Start: March 04, 2025 Team Status: Inactive Member Role/Relationship Status Dates Bernabe Rodriguez MAYONNAISE MIXER, MAYONNAISE M[employer]ER-C Primary care physician Active Start: March 14, 2025 End: March 14, 2025 Bernabe Rodriguez NP, MAYONNAISE MIXER-C Referring Provider Active Start: February End: March 14, 2025 BREANNA Fontaine Attending physician Active S tart: March 14, 2025 End: March 14, 2025 Team Status: Inactive Member Role/Relationship Status Dates Bernabe Rodriguez NP, MAYONNAISE MIXER-C Primary care physician Active Start: March End: March 22, 2025 Dr. Seun Bledsoe MD Attending physician Active Start: March 22, 2025 End: March 22, 2025 Dr. Seun Bledsoe MD Referring Provider Active S tart: March 22, 2025 End: March 22, 2025 BREANNA Fontaine Nurse Practitioner Active St art: March 22, 2025 End: March 22, 2025 Team Status: Inactive Member Role/Relationship Status Dates Bernabe Rodriguez MAYONNAISE MIXER, MAYONNAISE MIXER-C Primary care physician Active Start: March 312024 End: March 31, 2025 Bernabe Rodriguez NP, MAYONNAISE MIXER-C Attending physician Active Start: March 31, 2025 End: March 31, 2025 Bernabe Rodriguez MAYONNAISE MIXER, MAYONNAISE MIXER-C Referring Provider Active Start: March 31, 2025 End: March 31, 2025 Team Status: Inactive Member Role/Relationship Status Dates Bernabe Rodriguez MAYONNAISE MIXER, MAYONNAISE MIXER-C Primary care physician Active Start: April 042024 End: April 04, 2025 Bernabe Rodriguez MAYONNAISE MIXER, MAYONNAISE MIXER-C Referring Provider Active Start: April 04, 2025 End: April 04, 2025 BREANNA Fontaine Attending physician Active S tart: April 04, 2025 End: April 04, 2025 FOR RECORDS PERTAINING TO PATIENTS WHO [...] BE BASED ON THE PRIMARY CLINICAL RECORDS. [employer] [facility]. provides no warranty or guarantee of the accuracy or completeness of information in this document.
[2025-05-02 11:41] LABS: Anion Gap 12 (5-15); BUN 18 mg/dL (4-19); BUN/Creat Ratio 24.5 RATIO (10-20); Calcium,Total 10.0 mg/dL (7.6-11.0); Carbon Dioxide 23.1 mmol/L (21.0-32.0); Chloride 109 mmol/L (98-108); Glucose 107 mg/dL (70-99); Potassium 4.3 mmol/L (3.3-5.1)
== END | disposition home or self-care (01) ==
PROVIDERS: PCP Nurse Practitioner Family; Visit Provider Student in an Organized Health Care Education/Training Program
DX: I50.20 Unspecified systolic (congestive) heart failure (principal)
CPT/HCPCS: 36415; 80048

== ENCOUNTER → 2025-05-30 | Outpatient (CLI) | payer MEDICARE, SELFPAY ==
--- NOTE | 2025-05-30 09:13 | ECHOLC_ITS ---
Reason For Study Reason For Study: Abnormal EKG, Reduced EF, Cardiomyopathy Procedure This was a limited 2D transthoracic echocardiogram. The patient is in an irregular rhythm. The study was technically difficult. Contrast injection was performed. Exam performed in department. Left Ventricle Normal LV size. Left ventricular systolic function is normal. The left ventricular ejection fraction is 55 %. There is mild global hypokinesis of the left ventricle. Right Ventricle Normal RV size. Normal systolic function. Atria Normal left atrium. Normal right atrium. Mitral Valve Normal mitral valve. Great Vessels Normal aortic root. The pulmonary artery is normal size. Normal inferior vena cava. Pericardium/Pleural No pericardial effusion. Medication 22 gauge I.V. with prn adaptor inserted into right arm. Diluted definity 2.5ml given slow IV push to enhance endocardial definition.
== END | disposition home or self-care (01) ==
LOC: CVS 09:13
PROVIDERS: PCP Nurse Practitioner Family; Referring Provider Student in an Organized Health Care Education/Training Program; Visit Provider Student in an Organized Health Care Education/Training Program
DX: R94.31 Abnormal electrocardiogram [ECG] [EKG] (principal); I50.20 Unspecified systolic (congestive) heart failure
CPT/HCPCS: 93308; Q9957; A4216; C8924